=== PATIENT | female | born 1945 | race Caucasian/White ===

== ENCOUNTER 2017-08-17 03:04 | Inpatient (IN) | payer MEDICARE, BC ==
[2017-08-17] MEDS ORDERED: Acetaminophen TAB* 325 MG PO ONE (03:46)
[2017-08-17] MEDS ORDERED: NS 0.9% 1000 ML* 1,000 ML IV ONE ×4 (03:46→11:49)
[2017-08-17] MEDS ORDERED: Levofloxacin 750 MG IVPREMIX(* 750 MG/150 ML BAG IVPB ONE (03:47)
[2017-08-17] MEDS ORDERED: Diltiazem IV* 5 MG/ML 5 ML VIAL (for loading dose/IV Push) (25 MG) IV SLOW PU ONE ×2 (04:20→04:50)
[2017-08-17 04:37] LABS: Hematocrit 31 % (35-47); Hemoglobin 10.4 g/dl (12.0-16.0); INR 1.21 (0.77-1.02); Mean Corpuscular HGB Conc 33 g/dl (31-36); Mean Corpuscular Hemoglobin 30 pg (27-31); Mean Corpuscular Volume 90 fL (80-97); Red Blood Count 3.48 10^6/ul (4.0-5.4); Red Cell Distribution Width 18 % (10.5-15); White Blood Count 11.4 10^3/ul (3.5-10.8)
[2017-08-17 04:38] LABS: ABS Basophils 0.1 10^3/ul (0-0.2); ABS Eosinophils 0 10^3/ul (0-0.6); ABS Lymphocytes 0.4 10^3/ul (1.0-4.8); ABS Monocytes 0.7 10^3/ul (0-0.8); ABS Neutrophils 10.3 10^3/ul (1.5-7.7); ABS Nucleated RBC 0 10^3/ul; Eosinophil % 0.2 % (0-6); Lymphocyte % 3.2 % (25-47); Mean Platelet Volume 8.5 um3 (7.4-10.4); Nucleated Red Blood Cells % 0; Platelet Count 94 10^3/ul (150-450)
[2017-08-17] MEDS ORDERED: Ondansetron INJ* 2 MG/ML VIAL IV ONE (04:40)
[2017-08-17 04:47] LABS: EGFR Non-African American 38.4 (>60)
[2017-08-17] MEDS ORDERED: Diltiazem DRIP* 100 MG/100 ML ADDV.BAG IVPB ONE (04:50)
[2017-08-17] MEDS ORDERED: Enoxaparin(*) 100 MG/ML SYR SUBCUT ONE (04:54)
[2017-08-17] MEDS ORDERED: Aspirin 81 mg CHEW TAB* 81 MG TAB.CHEW PO ONE (04:55)
[2017-08-17] MEDS ORDERED: Vancomycin(*) 1,000 MG in NS 0.9% 250 ML* 250 ML IVPB ONE (04:56)
[2017-08-17 04:58] LABS: Urine Appearance Cloudy; Urine Blood 1+ (Negative); Urine Color Yellow; Urine Ketones Trace (Negative); Urine Protein 2+(100 mg/dL) (Negative); Urine Urobilinogen Positive (Negative)
[2017-08-17] MEDS ORDERED: Al Hydrox/Mg Hydrox/Simet LIQ* 30 ML UDC PO PRN (05:35)
[2017-08-17] MEDS ORDERED: Ondansetron 40 MG VIAL* 2 MG/ML 20 ML VIAL IV PRN (05:35)
[2017-08-17] MEDS ORDERED: Senna TAB PO PRN (05:35)
[2017-08-17] MEDS ORDERED: Docusate CAP* 100 MG PO PRN (05:35)
[2017-08-17] MEDS ORDERED: Magnesium Hydroxide LIQ* 30 ML UDC PO PRN (05:35)
--- NOTE | 2017-08-17 05:38 | ED ---
Alexx Pedro Rebecca, scribed for Patrick Garg MD on 08/17/17 at 0345 . Complex/Multi-Sys Presentation - HPI Summary HPI Summary: Pt is a 72 y/o F BIBA who presents to ED c/o inability to walk. Pt reports waking up at 0200 to urinate when she was able to stand up from bed, but could not walk. Son confirms she had been walking a lot yesterday. Denies fever, dysuria, and any pain, including back pain. Pt typically uses 2 canes to ambulate. - History Of Current Complaint Chief Complaint: EDGeneral Time Seen by Provider: 08/17/17 03:21 Hx Obtained From: Patient, Family/Fitness Trainer - Son Onset/Duration: Sudden Onset, Still Present Severity Currently: None Location: Negative Aggravating Factor(s): Nothing Alleviating Factor(s): Nothing Associated Signs And Symptoms: Positive: Other - Unable to walk. Negative: Dysuria, Fever - Allergies/Home Medications Allergies/Adverse Reactions: Allergies Allergy/AdvReac Type Severity Reaction Status Date / Time iodine dyes Allergy Unknown Uncoded 05/27/14 17:11 Reaction Details PMH/Surg Hx/FS Hx/Imm Hx Endocrine/Hematology History: Reports: Hx Diabetes Denies: Hx Thyroid Disease Cardiovascular History: Reports: Hx Hypertension Respiratory History: Denies: Hx Asthma, Hx Chronic Obstructive Pulmonary Disease (COPD) GI History: Denies: Hx Ulcer - Surgical History Surgery Procedure, Year, and Place: Tonsillectomy. D&Cs. Hernia repair 2007 Infectious Disease History: No Infectious Disease History: Denies: Hx Clostridium Difficile, Hx Hepatitis, Hx Human Immunodeficiency Virus (HIV), Hx of Known/Suspected MRSA, Hx Shingles, Hx Tuberculosis, Hx Known/ Suspected VRE, Hx Known/Suspected VRSA, History Other Infectious Disease, Traveled Outside the [place] in Last 30 Days - Family History Known Family History: Positive: Hypertension, Diabetes - Social History Alcohol Use: None Substance Use Type: Reports: None Substance Use Comment - Amount & Last Used: Took hydrocodone today at 1500 Smoking Status (MU): Never Smoked Tobacco Review of Systems Negative: Fever Negative: dysuria Positive: Other - Unable to walk; NEGATIVE: Pain All Other Systems Reviewed And Are Negative: Yes Physical Exam - Summary Physical Exam Summary: VITAL SIGNS: Reviewed. GENERAL: ~Patient is a morbidly obese female who is lying comfortable in the stretcher. Patient is not in any acute respiratory distress. HEAD AND FACE: No signs of trauma. No ecchymosis, hematomas or skull depressions. No sinus tenderness. EYES: PERRLA, EOMI x 2, No injected conjunctiva, no nystagmus. EARS: Hearing grossly intact. Ear canals and tympanic membranes are within normal limits. MOUTH: Oropharynx within normal limits. NECK: Supple, trachea is midline, no adenopathy, no JVD, no carotid bruit, no c- spine tenderness, neck with full ROM. CHEST: Symmetric, no tenderness at palpation LUNGS: Clear to auscultation bilaterally. No wheezing or crackles. CVS: Tachycardic, S1 and S2 present, no murmurs or gallops appreciated. EXTREMITIES: FROM in all major joints, no cyanosis or clubbing. Bilateral LE edema with venous stasis and chronic skin changes. NEURO: Alert and oriented x 3. No acute neurological deficits. Speech is normal and follows commands. SKIN: Dry and warm Triage Information Reviewed: Yes Vital Signs On Initial Exam: Initial Vitals Temp Pulse Resp BP Pulse Ox 99.9 F 125 20 146/82 96 08/17/17 03:11 08/17/17 03:11 08/17/17 03:11 08/17/17 03:11 08/17/17 03:11 Vital Signs Reviewed: Yes Diagnostics - Vital Signs Vital Signs Temp Pulse Resp BP Pulse Ox 08/17/17 03:11 99.9 F 125 20 146/82 96 - Laboratory Result Diagrams: 08/17/17 04:16 08/17/17 04:16 Lab Statement: Any lab studies that have been ordered have been reviewed, and results considered in the medical decision making process. - Radiology CXR Xray Interpretation: Positive (See Comments) - Right lateral lobe infiltrate, bilateral venous congestion. Official report pending. Radiology Interpretation Completed By: ED Physician - EKG 0408 Cardiac Rate: Tachycardia - 144 bpm EKG Rhythm: Atrial Flutter EKG Interpretation: LAD Re-Evaluation - Re-Evaluation First Eval Re-Evaluation Time: 04:35 Change: Unchanged Second Eval Re-Evaluation Time: 04:49 Comment: Still tachcyardic. Complex Multi-Symp Course/Dx Assessment/Plan: Pt is a 72 y/o F BIBA who presents to ED c/o inability to walk. Pt reports waking up at 0200 to urinate when she was able to stand up from bed, but could not walk. Son confirms she had been walking a lot yesterday. Denies fever, dysuria, and any pain, including back pain. Pt typically uses 2 canes to ambulate. Upon evaluation, she is tachycardic with bilateral LE edema. Blood work and UA were done. Lactic acid of 4.6, troponin of 0.17. EKG is sinus tachy with a flutter. CXR is right lateral lobe infiltrate with bilateral venous congestion. In the ED course, pt received tylenol, ASA, cardizem, diltiazem, lovenox, levaquin, zofran, vancomycin, and fluids. Discussed care of pt with Dr. Hu who accepts pt for admission. Pt will be admitted with Dx of PNA, a fib, and UTI. Critical care time of 40 minutes. Pt was not given the recommended amount of fluid for sepsis due to hypertension and bilateral venous congestion on CXR. - Diagnoses Provider Diagnoses: PNA (pneumonia), A-fib, UTI (urinary tract infection) - Physician Notifications Discussed Care Of Patient With: Divya Hu Time Discussed With Above Provider: 05:01 Instructed by Provider To: Other - Acepts pt for admission. - Critical Care Time Critical Care Time: 30-74 min - 40 minutes. Discharge - Sign-Out/Discharge Documenting (check all that apply): Discharge/Admit/Transfer - Admit - Discharge Plan Condition: Critical Disposition: ADMITTED TO [facility] Referrals: No Primary Care Phys,NOPCP [Primary Care Provider] - The documentation as recorded by the Alexx fritz Rebecca accurately reflects the service I personally performed and the decisions made by me, Patrick Garg MD.
[2017-08-17] MEDS ORDERED: Dextrose 50% Syringe 50 ML* 25 GM/50 ML SYRINGE IV PUSH PRN ×2 (05:57)
[2017-08-17] MEDS ORDERED: Diltiazem DRIP* 100 MG/100 ML ADDV.BAG IVPB SCH (06:00)
[2017-08-17] MEDS ORDERED: Heparin VIAL(*) 5000 UNITS/ML VIAL (FIVE THOUSAND) SUBCUT SCH (06:00)
[2017-08-17] MEDS: Heparin VIAL(*) 5000 UNITS/ML VIAL (FIVE THOUSAND) IV PRN (07:36)
[2017-08-17] MEDS: Heparin DRIP 25,000 UNITS(*) 25,000 UNITS/500 ML BAG IV SCH (07:36)
[2017-08-17] MEDS: Aspirin 81 mg CHEW TAB* 81 MG TAB.CHEW PO SCH (07:44)
--- NOTE | 2017-08-17 08:02 | RAD ---
Indication: Weakness. Single frontal view of the chest performed at 0400 hours was reviewed. Comparison is made with previous exam dated May 27, 2014. Cardiomegaly is noted. Interstitial edema consistent with vascular congestion. No alveolar consolidation is noted. IMPRESSION: CARDIOMEGALY WITH INTERSTITIAL EDEMA CONSISTENT WITH VASCULAR CONGESTION.
--- NOTE | 2017-08-17 08:38 | HP ---
CC: Dr. Vasquez in [place] * HISTORY AND PHYSICAL: DATE OF ADMISSION: 08/17/17 TIME OF EVALUATION: 0500. PRIMARY CARE PHYSICIAN: Dr. Vasquez in [place]. CHIEF COMPLAINT: Inability to ambulate. HISTORY OF PRESENT ILLNESS: This is a 72-year-old female with a past medical history of hypertension and diabetes who presents to the emergency room with difficulty ambulating. The patient states she was out in [place] visiting her family because her [id number] had . She was out there for about 2 weeks and she returned home yesterday afternoon. She was having a hard time ambulating when she got back. When she got up at 2 a.m., she states she was so exhausted and tired that she was not able to stand. She denies falling. She denies any numbness or tingling in her legs. When she came to the emergency room, she was having nausea and vomiting. She denies any shortness of breath or chest pain. She states she is very thirsty and her back is sore from being very uncomfortable on the bed. She denies any abdominal pain. No urinary symptoms. She states she has had chills. No diarrhea. No rash. She states she has chronic lower extremity swelling that has not changed. She states that she had some runny nose earlier and some coughing but has since improved. She states she fell last week at [employer] when the tip of bottom of her cane fell off and she did not realize it and tripped and fell. As mentioned , she just returned from a flight from [place] yesterday. She is also complaining of chills. The patient as mentioned was found to be in rapid atrial fibrillation. She was given a liter of normal saline, Tylenol, and she was given a diltiazem bolus and started on a drip. She was also given Levaquin and Zofran and was referred to the hospitalist service for further evaluation. PAST MEDICAL HISTORY: Hypertension, diabetes, arthritis. MEDICATIONS: The patient states she is on a heart pill, metformin, and many vitamins. ALLERGIES: CONTRAST allergy. FAMILY HISTORY: Mother at age 66 from an OR. Her father at age 75 of unclear etiology. SOCIAL HISTORY: The patient lives alone but she has been staying with her son in [place] because his recently just . She normally ambulates with two canes. No history of smoking, alcohol, or illicit drug use. Her healthcare proxy is her son, Rafael. Code status is full code. REVIEW OF SYSTEMS: A 14-point review of systems as mentioned in the HPI, otherwise negative. PHYSICAL EXAMINATION GENERAL: Elderly female in some mild discomfort and mild respiratory distress. VITAL SIGNS: T-max 99.9, pulse rate 125, respiratory rate 20, oxygen saturation 96% on room air, and blood pressure 146/82. HEENT: Head is normocephalic. Pupils are equal and reactive. Oropharynx: Mucous membranes are dry. NECK: Supple. No lymphadenopathy. RESPIRATORY: Diminished breath sounds. No wheezes, rhonchi, or rales. CARDIAC: Rapid irregularly irregular rate and rhythm. Soft systolic murmur heard throughout. ABDOMEN: Soft, nontender, and nondistended. EXTREMITIES: +1 pretibial edema. She has chronic hemosiderin vascular venous insufficiency with some superficial skin tears. No wounds or rashes. NEUROLOGIC: Alert and oriented x3. No gross focal neurologic deficits. LABORATORY DATA: White count 11.4, hemoglobin 10.4, hematocrit 31, platelets 94. INR is 1.21. Sodium 137, potassium 4.4, chloride 105, bicarb 21, BUN 16, creatinine 1.35, glucose 198, lactic acid 4.6. Troponin 0.17. CRP 0.66. Urine shows positive nitrites, white cells, squamous cells, ketones. RADIOGRAPHIC DATA: Chest x-ray: Cardiomegaly, some prominent interstitial markings on the right side. EKG: Rapid atrial fibrillation with a rate of 144. ASSESSMENT: This is a 72-year-old female with a past medical history of hypertension and diabetes who presents to the emergency room with inability to stand, found to be in rapid atrial fibrillation with metabolic derangements. Rapid atrial fibrillation. Assessment: It is possible the etiology behind this is an infectious source. She has a low-grade temperature; however, there is no obvious source. She does have a white count and she does have pyuria; however, she has no urinary symptoms. It is also possible, which is more likely higher on my differential, it is pulmonary embolism. She just returned from [place], this may be triggering her to be in rapid atrial fibrillation. Could also be an ischemic event. Thought she denies chest pain. Plan: We will admit her to the intensive care unit, continue her on the diltiazem drip. We will continue her on fluids. We will place her on a heparin drip for now. We will check a V/Q scan in the setting of a contrast allergy. Continue to trend her troponin, check an echo and lower extremity Dopplers, and keep her on a baby aspirin as well. We will put her on cefepime for now to rule out any possible infectious organism; however, I am more suspicious for pulmonary embolism as mentioned. CHRONIC MEDICAL PROBLEMS: 1. We will need to obtain her med rec and order her home medications accordingly. For her diabetes, we will place her on a lispro sliding scale and check a hemoglobin A1c. 2. Acute kidney injury likely in the setting of her rapid atrial fibrillation and volume depletion. We will renally dose her meds, give her fluids, and repeat her labs in the morning. 3. Elevated troponin. I suspect this is demand ischemia in the setting of a rapid atrial fibrillation and possibly an underlying pulmonary embolism. She does not have any chest pain or shortness of breath. She will be on a heparin drip, on a baby aspirin. We will trend her troponin and check an echocardiogram. 4. FEN. We will place her on a clear liquid diet in the setting of her nausea and vomiting, advance as tolerated. 5. DVT prophylaxis. The patient scores high risk. She will be on a heparin drip. 6. Code status. The patient confirmed she is a full code. PATIENT TIME: Greater than 60 minutes was spent doing the history and physical , more than half the time was spent in direct patient contact. [id number]/[facility] #: [id number] MITESH
--- NOTE | 2017-08-17 09:32 | ECHO ---
Patient: MELANY OSBORN [facility] Rec#: [id number] : 1945 Date: 08/17/2017 Age: 72y Height: 172.72 cm / 68.0 in Weight: 108.86 kg / 239.9 lbs Sex: F BSA: 2.21 Room#: ICU 1 Admit Date#: 08/17/2017 Type: Inpatient Referring: Divya Hu Reading: Joe Nunez MD Lump Room Supervisor: Rosibel Vasquez,RDCS,RDMS Transthoracic Echocardiogram Indication: Afib, elevated TROP BP: 97/51 HR: 115 Rhythm: A-Fib Findings History: DM, HTN Technical Comments: The study quality is good. Left Ventricle: The left ventricular chamber size is normal. Moderate to severe concentric left ventricular hypertrophy is observed. There are multiple regional wall motion abnormalities. The estimated ejection fraction is 30-35%. The assessment of diastolic function is non-diagnostic. The mid anterior, mid inferoseptal, apical septal, and apical inferior wall segments are hypokinetic (score 2). The apical anterior, and apical lateral wall segments are akinetic (score 3). Overall wallmotion score index is 2.33 Left Atrium: The left atrium is severely dilated. Right Ventricle: The right ventricle is mild to moderately dilated. The right ventricular global systolic function is normal. Right Atrium: The right atrial cavity size is severely dilated. Aortic Valve: The aortic valve is trileaflet. The aortic valve leaflets are mildly thickened. There is aortic annular calcification. There is no evidence of aortic regurgitation. There is no evidence of aortic stenosis. Mitral Valve: Mild mitral annular calcification present. There is mild to moderate mitral regurgitation. There is no evidence of mitral stenosis. Tricuspid Valve: The tricuspid valve leaflets are normal. There is moderate to severe tricuspid regurgitation. The right ventricular systolic pressure is estimated at 43 mmHg. There is evidence that pulmonary hypertension may be underestimated. Pulmonic Valve: The pulmonic valve appears normal. There is a trace pulmonic regurgitation. Pericardium: There is no significant pericardial effusion. A pericardial fat pad is visualized. Aorta: The aortic root appears normal. There is no dilatation of the aortic arch. Pulmonary Artery: The main pulmonary artery appears normal. Venous: The inferior vena cava is dilated. There is no change in the dimension of the inferior vena cava with respiration consistent with markedly increased right atrial pressure. Summary: There was not any prior study for comparison. Conclusions The estimated ejection fraction is 30-35%. There are multiple regional wall motion abnormalities. The mid anterior, mid inferoseptal, apical septal, and apical inferior wall segments are hypokinetic (score 2). The apical anterior, and apical lateral wall segments are akinetic (score 3). Moderate to severe concentric left ventricular hypertrophy is observed. There is no evidence of aortic stenosis. There is mild to moderate mitral regurgitation. There is moderate to severe tricuspid regurgitation. The right ventricular systolic pressure is estimated at 43 mmHg. There is no significant pericardial effusion. Measurements Name Value Normal Range RVIDd (AP) 2D 3.6 cm (0.9 - 2.6) RVDdMajor (2D) 4.8 cm (2.2 - 4.4) RAd ISD 4CH 6.8 cm (3.4 - 4.9) RA (A4C)W 5.8 cm (2.9 - 4.6) IVSd (2D) 1.8 cm (0.6 - 1) LVPWd (2D) 1.6 cm (0.6 - 1) LVIDd (2D) 4.7 cm (3.6 - 5.4) LVIDs (2D) 3.6 cm - LV FS (2D) 24 % (25 - 45) Aortic Annulus 2.3 cm (1.4 - 2.6) Ao root diameter (2D) 2.8 cm (2.1 - 3.5) Ascending Ao 3.2 cm (2.1 - 3.4) Aortic arch 3.4 cm (1.8 - 3.4) LA dimension (AP) 2D 5.7 cm (2.3 - 3.8) LAd ISD 4CH 6.4 cm (2.9 - 5.3) LA ISD 4CH W 5.1 cm (2.5 - 4.5) Name Value Normal Range LA ESV SP 4CH (A/L) 156.4 ml - LA ESV SP 2CH (A/L) 183.33 ml - LA ESV BP (A/L) 173.97 ml - LA ESV BP (A/L) index 79 ml/m2 - LA ESV SP 4CH (MOD) 144.53 ml - LA ESV SP 2CH (MOD) 175.4 ml - Name Value Normal Range MV E-wave Vmax 0.8 m/sec - MV deceleration time 144 msec - LV septal e' Vmax 0.05 m/sec - LV lateral e' Vmax 0.1 m/sec - LV E:e' septal ratio 17 ratio - LV E:e' lateral ratio 8 ratio - Name Value Normal Range AV Vmax 1 m/sec - AV peak gradient 4 mmHg - LVOT Vmax 0.9 m/sec - LVOT peak gradient 3.2 mmHg - ALEX Vmax 0.6 m/sec - Name Value Normal Range MR Vmax 4.2 m/sec - MR VTI 97 cm - MR volume (PISA) 13 ml - MR flow (PISA) 67 ml/sec - MR ERO 1.4 cm2 - MR PISA radius 0.5 cm - MR alias Vmax 37 cm/sec - Name Value Normal Range TR Vmax 2.4 m/sec - TR peak gradient 23 mmHg - RAP 20 mmHg - RVSP 43 mmHg - IVC diameter 3.2 cm - Name Value Normal Range PV Vmax 0.7 m/sec - PV peak gradient 2 mmHg - Wallmotion BAS Not Seen BA Not Seen BAL Not Seen MEGHNA Not Seen BI Not Seen BIS Not Seen MAS Not Seen MA Hypokinetic MAL Not Seen MIL Not Seen MD Not Seen MIS Hypokinetic Hypokinetic AA Akinetic AL Akinetic AI Hypokinetic APEX Akinetic
[2017-08-17] MEDS: Insulin LISPRO* 1 UNITS UNIT SUBCUT SCH ×6 (09:35→18:23)
[2017-08-17] MEDS: Metoprolol Tartrate TAB* 25 MG PO SCH ×2 (09:36→17:17)
--- NOTE | 2017-08-17 11:09 | PN ---
Hospitalist Progress Note Date of Service: 08/17/17 I have seen and examined Ms. Latham and assume her care today. She feels fine this morning and has no complaints Cardizem drip not started this morning due to hypotension; metoprolol 12.5mg given po with good response. BP 90s/60s, HR 90s, on room air when I saw her this morning. 1. afib with rvr, now resolved s/p cardizem in the ED. Would avoid CCB now and continue metoprolol (depressed ef on new TTE this morning). Heparin drip (with close monitoring, she says she was on a blood thinner 10 years ago but does not know why, and that she "lost all her blood" but does not know how, says she never had a gi bleed or other hemorrhage). Etiology is unclear--infectious vs. pe vs. dilated atria. No old ekgs, unclear if this is new or old. 2. depressed ef, 30% with RWMA. Also with elevated troponins, I cannot rule out this being acute; appreciate cardiology input regarding ischemic work up. The elevated lactate and hypotension are concerning for low output heart failure , but may also represent sepsis. She has also had significant personal stressors in her life recently, so a stress induced cardiomyopathy should also be in the differential. 3. NSTEMI. again, I cannot rule out ACS given elevated troponins, TWIs anteriorly without an old ekg for comparison, and new RWMA. she has had no chest pain whatsoever. she is on heparin drip for afib and bb as well. will add statin. 4. sepsis. urinary source, on broad spectrum abx for now. will f/u cultures.
[2017-08-17] MEDS ORDERED: Norepinephrine 16MCG/ML IVPRE* 4,000 MCG/250 ML BAG IV SCH (12:00)
--- NOTE | 2017-08-17 12:14 | RAD ---
INDICATION: Pain and swelling. COMPARISON: None TECHNIQUE: Duplex interrogation of the both lower extremities was performed. FINDINGS: Deep veins: The common femoral, great saphenous, profunda femoris, proximal, mid, and distal deep femoral, popliteal, posterior tibial, and peroneal veins are patent. There is normal compressibility, augmentation, and phasic flow. There is mildly limited evaluation of peroneal veins due to dependent edema and there is mildly limited evaluation of the right femoral vein at the adductor canal. Superficial veins: There are no findings of superficial thrombophlebitis. Popliteal fossa:There is no evidence of a popliteal cyst. Soft tissues:There are no soft tissue abnormalities. IMPRESSION: MILDLY LIMITED EXAMINATION. NO evidence of deep venous thrombosis
[2017-08-17] MEDS ORDERED: NS 0.9% 1000 ML* 1,000 ML IV SCH (12:15)
--- NOTE | 2017-08-17 12:40 | CONSULT ---
Consult Consult: CRITICAL CARE MEDICINE DATE: 08/17/17 TIME: 1145 PRIMARY CARE PROVIDER: Pedro REFERRING PROVIDER: Ashley REASON/CHIEF COMPLAINT: shock HISTORY OF PRESENT ILLNESS: 72 F with h/o DM, htn presenting with overall weakness and concern for NSTEMI with depressed EF, afib with rvr, rome, lactic acidosis questionable uti sepsis. Received abx, about 2L IVF, and troponin trend inc with slow clearing LA. BP has remained on low side although pt clinically tolerating. cards consulted. ICU asked to eval. REVIEW OF SYSTEMS: As per HPI. Returned from [place] yesterday after spending time with family after her daughter in laws . She admits stress level is overwhelming. had recent mechanical fall at [employer]. PAST MEDICAL HISTORY: As per HPI. arthritis MEDICATIONS: Reviewed but unconfirmed. metformin on list. ALLERGIES: Reviewed. SOCIAL HISTORY: Reviewed. FAMILY HISTORY: Noncontributory at present. PHYSICAL EXAM: Vital Signs: Reviewed. Neurologic: lethargic. communicates appropriately but then quick to sleep. otherwise pleasant. medrano. HEENT: anciteric. mmm Cardiovascular: couldn't appreciate m nor gallop; reg now with HR 60s Respiratory: fine crackles at bases with mild increased rr and morphology of obese respirations Abdomen: obese, soft nt Extremities: extensive venous stasis and chronic skin changes of LE with edema. cold distally Access: piv LABS: Reviewed. IMAGING: Reviewed. MEDICATIONS: Reviewed. ASSESSMENT: 72 F Cardiogenic shock - acting like a stress cardiomyopathy Certainly ischemic cad hasn't been ruled out yet She presented with afib rvr. could have been tachy induced over time if unrecognized. Now she has signs of likely chronic Right heart ailments and venous stasis. le duplex pending. PE in differencial but unlikely a PE burden and further RV pressure overload leading to left sided failure, but perhaps could still be present and making things worse I guess but its probablity is less then the above DDx Not acting septic, yet very mild ua and on C4 currently. She has low level perfusion and needs further reserve. I think her vol status is close to met but given degree of underlying venous capacity and R heart ailments, I'm going to bolus a liter ns now and then hold back on fluids unless responsive. She needs low dose vasopressor support. place picc. Not wanting inotropic beta in case of takotsubo, but now that Hr low end and may be ok now to just utilize levophed to see if we can support a better perfusion curve will things are sorted. Neosynephrine instead if tachy induced ailments but care with afterload. On heparin. Cards will be evaluating. Claire resp standpoint but may earn supplement O2 her as we don't need her producing more acid if she starts to fall behind anymore here. Abx per primary seem adequate at present Supportive and preventative care as ordered. SUP: ppi VTE prophylaxis: on heparin gtt Garcia catheter given critical illness Disposition: ICU Code Status: Full Critical Care Time: 45min Baltazar Guzman,
[2017-08-17] MEDS: Acetaminophen TAB* 325 MG PO PRN (13:43)
--- NOTE | 2017-08-17 14:05 | RAD ---
Indication: Verify PICC placement. Single frontal view of the chest performed at 1340 hours was reviewed. Comparison is made with previous exam dated August 17, 2017. Cardiomegaly is noted. Mild interstitial edema is noted slightly improved to that seen on August 17, 2017. No alveolar consolidation is noted. Right-sided PICC line is in the atrial caval junction. IMPRESSION: CARDIOMEGALY. MILD VASCULAR CONGESTION APPEARS TO BE IMPROVED SINCE PREVIOUS EXAM.
[2017-08-17] MEDS: Cefepime 1 GM in Dextrose(*) 1 GM/50 ML BAG IV SCH (15:17)
[2017-08-17] MEDS: Atorvastatin* 40 MG TAB PO SCH (17:17)
[2017-08-18] MEDS: Metoprolol Tartrate TAB* 25 MG PO SCH ×3 (00:58→17:25)
[2017-08-18] MEDS: Heparin DRIP 25,000 UNITS(*) 25,000 UNITS/500 ML BAG IV SCH (02:49)
[2017-08-18] MEDS: Cefepime 1 GM in Dextrose(*) 1 GM/50 ML BAG IV SCH (02:49)
--- NOTE | 2017-08-18 03:20 | CONS ---
CC: Dr. Vasquez in [place] * CARDIOLOGY CONSULTATION: DATE OF CONSULT: 08/17/17 INDICATION FOR CONSULTATION: Atrial fibrillation, cardiomyopathy, congestive heart failure. HISTORY OF PRESENT ILLNESS: The patient is a 72-year-old woman, who was admitted to the hospital because of profound fatigue and congestive heart failure. The patient states that she has been out in [place] for the past 2 weeks for the services for her [id number]. The patient said that the trip was quite tiring and she got home from [place] recently. The patient states that she got out of bed at 2 o'clock in the morning and was unable to stand or walk without profound fatigue. At that time, she called the ambulance. On arrival of the ambulance, the patient was in atrial fibrillation with rapid ventricular response. Her blood pressure was normal. The patient was admitted to the hospital for her atrial fibrillation and rapid ventricular response. This morning, the patient underwent an echocardiogram which showed moderate LV dysfunction, ejection fraction of 35% with apical, anteroapical, and anterolateral hypokinesis. No significant valvular abnormality. The patient's laboratory studies show elevation in troponin level of 2.15 and then subsequently 4.74. The patient is a very difficult historian. She is unable to give very accurate history of her medical care. The patient denies any history of atrial fibrillation. We got records from her primary care physician, who states that the patient is in chronic atrial fibrillation and the patient is not on anticoagulation because of a history of severe GI bleeds. The patient has no knowledge of this. OUTPATIENT MEDICATIONS: 1. Digoxin 125 mcg a day. 2. Lasix 40 mg a day. 3. Januvia 100 mg a day. 4. Metformin 500 mg b.i.d. 5. Metoprolol tartrate 12.5 mg b.i.d. 6. Simvastatin 40 mg a day. 7. Pantoprazole 40 mg a day. 8. Vitamin B12. ALLERGIES: IV CONTRAST, both oral and IV. SOCIAL HISTORY: The patient lives alone. Her son is in the patient's room, but unable to give any of her medical history as they do not share medical information. There is no report of alcohol or tobacco use. REVIEW OF SYSTEMS: Could not be obtained. PHYSICAL EXAM: Vital Signs: Height is 5 feet 8 inches, weight is 109 pounds. Blood pressure 128/66, heart rate is 67, respiratory rate is 19, temperature 97.5. Sclerae anicteric. Oropharynx is pink without erythema. Carotids are 2+ without bruits. JVD is normal. Thyroid is normal. Cardiac Exam: S1, S2 without any murmurs, rubs or gallops. Lungs: Clear to auscultation bilaterally. There is no dullness to percussion. Abdomen is soft, nontender, nondistended with normoactive bowel sounds. Extremities show no edema. She has 2+ pulses throughout. The patient is awake and alert. She is not oriented. The patient is unable to give any significant medical history. DIAGNOSTIC STUDIES/LAB DATA: Chemistries within normal limits. BUN 16, creatinine 1.35. Her creatinine in 2015 was 1.1. Troponin level 0.17, then 0.25, and then 4.7. BNP is 427. TSH is pending. EKG on arrival demonstrated atrial fibrillation with rapid ventricular response. Heart rate is 146. Repeat EKG demonstrates atrial fibrillation at 60 beats per minute. No clear ST-T wave abnormalities. IMPRESSION AND PLAN: This is a 72-year-old woman with a history of hypertension , diabetes, and possible chronic atrial fibrillation, who is admitted to the hospital with atrial fibrillation with rapid ventricular response, left ventricular dysfunction, and elevated troponin level. At this point, it is unclear what the patient's true medical status is. The patient could have had new onset of atrial fibrillation with rapid ventricular response and subsequent left ventricular dysfunction. However, her primary care note states that the patient is in chronic atrial fibrillation. She is on digoxin as an outpatient. The patient did have a long plane trip back from [place]. It is possible that the patient had pulmonary embolism which set off her atrial fibrillation. Also, the patient could have Takotsubo's with her left ventricular dysfunction and elevated troponin levels. For now, the patient is on Coumadin. Her heart rate is back to reasonable control. Her blood pressure is now stabilized. At this point, I think continuing on heparin is appropriate. At some point, we may need to do a transesophageal echocardiogram; however, it is proven that the patient has chronic atrial fibrillation that I do not think any other workup is necessary. The patient does have positive troponins and left ventricular dysfunction. The patient should be strongly considered for cardiac catheterization; however, she does have a history of IV DYE allergy that needs to be explored. I will continue to follow the patient during her hospitalization. [id number]/[facility] #: [id number] MITESH
[2017-08-18 04:29] LABS: ABS Basophils 0.1 10^3/ul (0-0.2); ABS Eosinophils 0.1 10^3/ul (0-0.6); ABS Lymphocytes 0.9 10^3/ul (1.0-4.8); ABS Nucleated RBC 0 10^3/ul; Eosinophil % 0.5 % (0-6); Hematocrit 26 % (35-47); Hemoglobin 8.8 g/dl (12.0-16.0); Mean Corpuscular HGB Conc 34 g/dl (31-36); Mean Corpuscular Hemoglobin 30 pg (27-31); Mean Corpuscular Volume 89 fL (80-97); Mean Platelet Volume 8.4 um3 (7.4-10.4); Nucleated Red Blood Cells % 0; Platelet Count 81 10^3/ul (150-450); Red Blood Count 2.94 10^6/ul (4.0-5.4); Red Cell Distribution Width 18 % (10.5-15)
[2017-08-18 04:42] LABS: EGFR Non-African American 28.3 (>60)
[2017-08-18] MEDS: Insulin LISPRO* 1 UNITS UNIT SUBCUT SCH ×6 (07:47→19:08)
[2017-08-18] MEDS: Aspirin 81 mg CHEW TAB* 81 MG TAB.CHEW PO SCH (07:59)
[2017-08-18] MEDS ORDERED: Magnesium Sulfate 2 GM IV* 2 GM/50 ML BAG IVPB ONE (10:01)
[2017-08-18] MEDS: cefTRIAXone(*) 2 GM in NS 0.9% 100 ML* 100 ML IVPB SCH (11:28)
--- NOTE | 2017-08-18 12:19 | RAD ---
INDICATION: Atrial fibrillation. COMPARISON: Comparison is made with a prior study from one day earlier. TECHNIQUE: A portable view of the chest was obtained. FINDINGS: The heart is moderately enlarged and unchanged. There is a PICC present on the right side which demonstrates normal course. There is mild diffuse prominence of the interstitial markings and trace bilateral pleural effusions which appear unchanged. IMPRESSION: FINDINGS SUGGESTIVE OF CONGESTIVE HEART FAILURE, UNCHANGED.
--- NOTE | 2017-08-18 12:54 | RAD ---
Indication: Evaluate for pulmonary embolus. Shortness of breath. Ventilation scan was performed after aerosol administration of 10.4 mCi of xenon-133. 6.4 mCi of technetium 99m macroaggregated albumin was injected for the perfusion portion of the study. Correlation is made with recent chest x-ray. No evidence of wedge-shaped segmental or subsegmental perfusion effects are identified on the perfusion lung scan. There is a large rounded defect in the left lung base consistent with cardiomegaly. The ventilation scan demonstrates no evidence of air trapping. IMPRESSION: No evidence of ventilation perfusion mismatches to suggest pulmonary embolus. This is a low probability scan for pulmonary embolus. There is cardiomegaly noted.
--- NOTE | 2017-08-18 13:07 | PN ---
Subjective Date of Service: 08/18/17 Interval History: levophed stopped at 4am, and has been normotensive since then. No complaints today, says she walked from the bed to the chair with little assistance. No chest pain, shortness of breath, palpitations. Remains in afib on tele in the 60s. No bleeding. Family History: Unchanged from Admission Social History: Unchanged from Admission Objective Active Medications: Acetaminophen (Tylenol Tab*) 650 mg PO Q4H PRN PRN Reason: FEVER/PAIN Last Admin: 08/17/17 13:43 Dose: 650 mg Al Hydrox/Mg Hydrox/Simethicone (Maalox Plus*) 30 ml PO Q6H PRN PRN Reason: INDIGESTION Aspirin (Aspirin 81 Mg Chew Tab*) 81 mg PO DAILY [facility] Last Admin: 08/18/17 07:59 Dose: 81 mg Atorvastatin Calcium (Lipitor*) 40 mg PO 1700 [facility] Last Admin: 08/17/17 17:17 Dose: 40 mg Dextrose (D50w Syringe 50 Ml*) 12.5 gm IV PUSH .FOR FS < 60 - SS PRN PRN Reason: FS < 60 Docusate Sodium (Colace Cap*) 100 mg PO BID PRN PRN Reason: CONSTIPATION Heparin Sodium (Porcine) (Heparin Vial(*)) 0 units IV .BOLUS PRN PRN PRN Reason: HEPARIN DRIP PROTOCOL Last Admin: 08/17/17 07:36 Dose: 6,150 units Heparin Sodium (Porcine) (Heparin Flush Picc/Ml/Cvc(*)) 1 - 3 ml FLUSH 0600, 1800 [facility] PRN Reason: Protocol Last Admin: 08/18/17 06:16 Dose: Not Given Heparin Sodium/Dextrose (Heparin Drip 25,000 Units(*)) 25,000 units in 500 mls @ 0 mls/hr IV PER RATE KYLEE; Per Protocol PRN Reason: Protocol Last Admin: 08/18/17 02:49 Dose: 25 mls/hr Sodium Chloride (Ns 0.9% 1000 Ml*) 1,000 mls @ 0 mls/hr IV KVO KYLEE PRN Reason: KVO Ceftriaxone Sodium 2 gm/ (Sodium Chloride) 100 mls @ 200 mls/hr IVPB Q24H [facility] Last Admin: 08/18/17 11:28 Dose: 200 mls/hr Insulin Human Lispro (Humalog*) 0 units SUBCUT [facility] PRN Reason: Protocol Last Admin: 08/18/17 09:28 Dose: 2 units Insulin Human Lispro (Humalog*) 0 units SUBCUT [facility] PRN Reason: Protocol Last Admin: 08/18/17 07:47 Dose: Not Given Magnesium Hydroxide (Milk Of Magnesia Liq*) 30 ml PO Q4H PRN PRN Reason: CONSTIPATION Metoprolol Tartrate (Lopressor Tab*) 12.5 mg PO Q8H [facility] Last Admin: 08/18/17 07:59 Dose: Not Given Ondansetron HCl (Zofran Inj*) 4 mg IV Q4H PRN PRN Reason: NAUSEA/VOMITING Last Admin: 08/17/17 12:18 Dose: 4 mg Senna (Senokot Tab*) 1 tab PO BID PRN PRN Reason: CONSTIPATION Vital Signs - 8 hr 08/18/17 08/18/17 08/18/17 05:08 05:15 05:30 Temperature 99.3 F 99.3 F 99.3 F Pulse Rate 57 Respiratory 24 23 23 Rate Blood Pressure 102/55 95/52 99/58 (mmHg) O2 Sat by Pulse 92 93 98 Oximetry 08/18/17 08/18/17 08/18/17 05:45 06:00 06:16 Temperature 99.3 F 99.3 F 99.3 F Pulse Rate 66 66 65 Respiratory 24 24 25 Rate Blood Pressure 98/61 100/55 102/58 (mmHg) O2 Sat by Pulse 93 90 92 Oximetry 08/18/17 08/18/17 08/18/17 06:30 06:45 07:00 Temperature 99.3 F 99.3 F 99.1 F Pulse Rate 60 67 62 Respiratory 19 26 23 Rate Blood Pressure 110/59 105/62 102/59 (mmHg) O2 Sat by Pulse 91 90 92 Oximetry 08/18/17 08/18/17 08/18/17 07:15 07:43 07:45 Temperature 99.3 F 99.3 F 99.3 F Pulse Rate 57 73 70 Respiratory 27 20 22 Rate Blood Pressure 96/56 100/65 104/56 (mmHg) O2 Sat by Pulse 91 95 94 Oximetry 08/18/17 08/18/17 08/18/17 08:00 08:01 08:16 Temperature 99.3 F 99.3 F 99.3 F Pulse Rate 71 66 Respiratory 21 24 26 Rate Blood Pressure 108/55 120/56 (mmHg) O2 Sat by Pulse 96 96 Oximetry 08/18/17 08/18/17 08/18/17 08:31 09:00 09:01 Temperature 99.3 F 99.3 F 99.3 F Pulse Rate 64 75 Respiratory 22 22 23 Rate Blood Pressure 114/62 114/72 (mmHg) O2 Sat by Pulse 95 96 Oximetry 08/18/17 08/18/17 08/18/17 09:16 09:31 09:45 Temperature 99.5 F 99.5 F 99.7 F Pulse Rate 80 82 70 Respiratory 18 19 17 Rate Blood Pressure 104/64 110/65 109/52 (mmHg) O2 Sat by Pulse 96 89 94 Oximetry 08/18/17 08/18/17 08/18/17 10:00 10:15 10:30 Temperature 99.7 F 99.7 F 99.7 F Pulse Rate 75 86 73 Respiratory 15 19 17 Rate Blood Pressure 108/61 118/60 104/50 (mmHg) O2 Sat by Pulse 96 95 95 Oximetry 08/18/17 08/18/17 10:45 11:00 Temperature 99.7 F 99.7 F Pulse Rate 78 77 Respiratory 25 22 Rate Blood Pressure 101/60 109/45 (mmHg) O2 Sat by Pulse 95 95 Oximetry Oxygen Devices in Use Now: None Appearance: alert, sitting up in chair, no distress Eyes: No Scleral Icterus Ears/Nose/Mouth/Throat: NL Teeth, Lips, Gums Neck: NL Appearance and Movements; NL JVP, - - flat jugular veins Respiratory: Symmetrical Chest Expansion and Respiratory Effort, Clear to Auscultation Cardiovascular: - - irregular rhtyhm, no murmurs Lymphatic: No Cervical Adenopathy Extremities: - - chronic venous stasis changes with 1+ edema b/l. pulses dopplerable. Neurological: Alert and Oriented x 3 Result Diagrams: 08/18/17 04:15 08/18/17 04:15 Microbiology and Other Data: Microbiology 08/17/17 08:45 Nasal Screen MRSA (PCR)(SERGIO) - Final Nasal Mrsa Not Detected Assess/Plan/Problems-Billing Assessment: 72 yo female with history of HTn and DM who presented after a flight to [place] with inability to walk, found to have depressed ejection fraction with elevated troponins. - Patient Problems (1) Depressed left ventricular ejection fraction Current Visit: Yes Status: Acute Code(s): R09.89 - OTH SYMPTOMS AND SIGNS INVOLVING THE CIRC AND RESP SYSTEMS SNOMED Code(s): 380412540 Comment: with regional wall motion abnormalities continue asa/statin, bb. would benefit from JAME once bp higher etiology is broad, suspect stress CM is likely, however ischemic CM also possible but never had chest pain (2) NSTEMI (non-ST elevated myocardial infarction) Current Visit: Yes Status: Acute Code(s): I21.4 - NON-ST ELEVATION (NSTEMI) MYOCARDIAL INFARCTION SNOMED Code(s): 504454580 Comment: suspect takotsubo's caridomyopathy, however appreciate cardiology input on ischemic evaluation (h/o dye allergy) (3) Diabetes mellitus Current Visit: Yes Status: Acute Code(s): E11.9 - TYPE 2 DIABETES MELLITUS WITHOUT COMPLICATIONS SNOMED Code(s): 88861960 Comment: sliding scale (4) Atrial fibrillation Current Visit: Yes Status: Acute Code(s): I48.91 - UNSPECIFIED ATRIAL FIBRILLATION SNOMED Code(s): 64976019 Comment: with RVR at admission, now rate controlled per PCP records, this is chronic with history of GI bleeds would favor DCing AC after 48 hours for treatment of NSTEMI given her history of bleeds (5) Streptococcal bacteremia Current Visit: Yes Status: Acute Code(s): R78.81 - BACTEREMIA; B95.5 - UNSP STREPTOCOCCUS THE CAUSE OF DISEASES CLASSD [facility] SNOMED Code(s): 296538864364 Comment: repeat blood cultures tomorrow continue cefepime I suspect the source is likely lower extremity skin breaks? (6) UTI (urinary tract infection) Current Visit: Yes Status: Acute Comment: e. coli; follow up sensitivities
--- NOTE | 2017-08-18 14:19 | PN ---
Progress Note - Progress Note Date of Service: 08/18/17 Note: CRITICAL CARE MEDICINE DATE: 08/18/17 TIME: 1245 SUBJECTIVE: Patient seen and examined. Better overall. PHYSICAL EXAM: Vital Signs: Reviewed. Neurologic: better status and maintaining. HEENT: anciteric. mmm Cardiovascular: reg Respiratory: fine crackles at bases but tolerating on ra. Abdomen: obese, soft nt Extremities: extensive venous stasis and chronic skin changes of LE with edema. warmer Access: piv LABS: Reviewed. IMAGING: Reviewed. MEDICATIONS: Reviewed. ASSESSMENT: 72 F Cardiogenic shock - resolved Acting like a stress cardiomyopathy Cellulitis PLAN: Neurologic: better. Cardiovascular: perfusing. cards f/u. cardiac regimen. chronic afib per records. not on anticoag sec to gib. rate control. cad eval? Respiratory: tolerating on ra. doing well there. Gastrointestinal: po. 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 Infectious Disease: de-escalate to C3 and f/u sens. cellulits > uti but tx both. Hematology: f/u low end plts. Endocrine: f/u dm care. Musculoskeletal: oob. f/u le needs Psych/Social: f/u social needs Supportive and preventative care as ordered. Disposition: ok from icu for floor with tele but will defer to med/cards planning Code Status: Full Critical Care Time: 25min Baltazar Guzman DO
[2017-08-18] MEDS: Atorvastatin* 40 MG TAB PO SCH (17:23)
[2017-08-18] MEDS: Heparin VIAL(*) 5000 UNITS/ML VIAL (FIVE THOUSAND) IV PRN (17:56)
[2017-08-19] MEDS ORDERED: Heparin DRIP 25,000 UNITS(*) 25,000 UNITS/500 ML BAG IV SCH (00:26)
[2017-08-19] MEDS: Metoprolol Tartrate TAB* 25 MG PO SCH ×3 (00:52→17:24)
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
[2017-08-19 08:47] LABS: ABS Basophils 0 10^3/ul (0-0.2); ABS Eosinophils 0.1 10^3/ul (0-0.6); ABS Lymphocytes 0.6 10^3/ul (1.0-4.8); ABS Monocytes 0.6 10^3/ul (0-0.8); ABS Neutrophils 4.4 10^3/ul (1.5-7.7); Hematocrit 25 % (35-47); Hemoglobin 8.4 g/dl (12.0-16.0); Mean Corpuscular HGB Conc 33 g/dl (31-36); Mean Corpuscular Hemoglobin 30 pg (27-31); Mean Corpuscular Volume 89 fL (80-97); Mean Platelet Volume 8.8 um3 (7.4-10.4); Platelet Count 74 10^3/ul (150-450); Red Blood Count 2.85 10^6/ul (4.0-5.4); Red Cell Distribution Width 18 % (10.5-15); White Blood Count 5.8 10^3/ul (3.5-10.8)
[2017-08-19 08:59] LABS: EGFR Non-African American 37.2 (>60)
[2017-08-19 09:27] LABS: Monocytes % 4 % (0-7)
[2017-08-19] MEDS: Acetaminophen TAB* 325 MG PO PRN ×3 (09:41→21:45)
[2017-08-19] MEDS: Lisinopril TAB* 5 MG PO SCH (09:42)
[2017-08-19] MEDS: Aspirin 81 mg CHEW TAB* 81 MG TAB.CHEW PO SCH (09:42)
[2017-08-19] MEDS: CMC:SitaGLIPtin (NF) 100 MG TAB PO SCH (09:42)
[2017-08-19] MEDS: Insulin LISPRO* 1 UNITS UNIT SUBCUT SCH ×6 (10:15→18:43)
[2017-08-19] MEDS: cefTRIAXone(*) 2 GM in NS 0.9% 100 ML* 100 ML IVPB SCH (10:27)
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
[2017-08-19] MEDS: Heparin VIAL(*) 5000 UNITS/ML VIAL (FIVE THOUSAND) IV PRN (13:55)
[2017-08-19] MEDS ORDERED: Atorvastatin* 80 MG TAB PO SCH (17:00)
[2017-08-19] MEDS: Apixaban* 5 MG TAB PO SCH (20:49)
[2017-08-20] MEDS: Metoprolol Tartrate TAB* 25 MG PO SCH ×2 (00:25→08:52)
[2017-08-20 04:03] VITALS: BP 109/72
[2017-08-20 06:04] LABS: EGFR Non-African American 40.2 (>60)
[2017-08-20 06:06] LABS: ABS Basophils 0.1 10^3/ul (0-0.2); ABS Eosinophils 0.2 10^3/ul (0-0.6); ABS Lymphocytes 0.8 10^3/ul (1.0-4.8); ABS Monocytes 0.6 10^3/ul (0-0.8); ABS Neutrophils 3.5 10^3/ul (1.5-7.7); ABS Nucleated RBC 0 10^3/ul; Eosinophil % 4.5 % (0-6); Hematocrit 25 % (35-47); Hemoglobin 8.4 g/dl (12.0-16.0); Mean Corpuscular HGB Conc 33 g/dl (31-36); Mean Corpuscular Hemoglobin 30 pg (27-31); Mean Corpuscular Volume 89 fL (80-97); Nucleated Red Blood Cells % 0; Platelet Count 83 10^3/ul (150-450); Red Blood Count 2.84 10^6/ul (4.0-5.4); Red Cell Distribution Width 18 % (10.5-15); White Blood Count 5.3 10^3/ul (3.5-10.8)
--- NOTE | 2017-08-20 08:28 | PN ---
Progress Note - Progress Note Date of Service: 08/20/17 Note: Time spent on discharge 50 minutes.
[2017-08-20] MEDS: Insulin LISPRO* 1 UNITS UNIT SUBCUT SCH ×4 (08:47→14:07)
[2017-08-20] MEDS: Aspirin 81 mg CHEW TAB* 81 MG TAB.CHEW PO SCH (08:51)
[2017-08-20] MEDS: Apixaban* 5 MG TAB PO SCH (08:51)
[2017-08-20] MEDS: Lisinopril TAB* 5 MG PO SCH (08:52)
[2017-08-20] MEDS: CMC:SitaGLIPtin (NF) 100 MG TAB PO SCH (08:52)
[2017-08-20] MEDS ORDERED: ceFUROXime TAB(*) 250 MG PO SCH (09:00)
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
== END 2017-08-20 15:00 | disposition home health service (06) | DRG 280 ==
LOC: ED 03:04 → ICU 05:35
PROVIDERS: ADMIT Pediatrics; ATTEND Internal Medicine
PROC: 3E033XZ Introduction of Vasopressor into Peripheral Vein, Percutaneous Approach (ICD-10-PCS; principal; 2017-08-18)
PROC: 02HV33Z Insertion of Infusion Device into Superior Vena Cava, Percutaneous Approach (ICD-10-PCS; 2017-08-19)
DX: I21.4 Non-ST elevation (NSTEMI) myocardial infarction (principal); R57.0 Cardiogenic shock; N17.9 Acute kidney failure, unspecified; I42.9 Cardiomyopathy, unspecified; N39.0 Urinary tract infection, site not specified; R78.81 Bacteremia; L03.119 Cellulitis of unspecified part of limb; I10 Essential (primary) hypertension; E11.9 Type 2 diabetes mellitus without complications; M19.90 Unspecified osteoarthritis, unspecified site; E66.01 Morbid (severe) obesity due to excess calories; L08.9 Local infection of the skin and subcutaneous tissue, unspecified; I95.9 Hypotension, unspecified; B96.20 Unspecified Escherichia coli [E. coli] as the cause of diseases classified elsewhere; B95.5 Unspecified streptococcus as the cause of diseases classified elsewhere; I48.2 Chronic atrial fibrillation; Z91.041 Radiographic dye allergy status; Z82.49 Family history of ischemic heart disease and other diseases of the circulatory system; Z83.3 Family history of diabetes mellitus; Z68.38 Body mass index [BMI] 38.0-38.9, adult; Z79.82 Long term (current) use of aspirin; Z79.01 Long term (current) use of anticoagulants; Z79.84 Long term (current) use of oral hypoglycemic drugs
CPT/HCPCS: 36415; 71045; 78582; 80048; 80053; 80061; 81003; 81015; 82550; 83036; 83605; 83735; 83880; 84443; 84484; 85025; 85060; 85379; 85610; 85730; 86140; 87040; 87077; 87086; 87186; 87205; 87641; 93005; 93306; 93970; 99291; A9270-GY; A9540; A9558; C1751; G8978-GP-CI; G8978-GP-CJ; G8978-GP-CL; G8979-GP-CI; G8980-GP-CI; J0692; J0696; J1644; J2405; J3370; J3475

== ENCOUNTER 2018-07-17 12:38 | Inpatient (IN) | payer MEDICARE, BC ==
[2018-07-17] MEDS ORDERED: Furosemide IV* 10 MG/ML 10 ML VIAL (100 MG) IV ONE (12:43)
[2018-07-17 13:06] LABS: ABS Basophils 0.1 10^3/ul (0-0.2); ABS Eosinophils 0.1 10^3/ul (0-0.6); ABS Lymphocytes 0.3 10^3/ul (1.0-4.8); ABS Monocytes 0.6 10^3/ul (0-0.8); ABS Neutrophils 2.9 10^3/ul (1.5-7.7); ABS Nucleated RBC 0 10^3/ul; Eosinophil % 3.6 %; Hematocrit 26 % (33-41); Hemoglobin 8.6 g/dL (12.0-16.0); Lymphocyte % 8.6 %; Mean Corpuscular HGB Conc 33 g/dL (31-36); Mean Corpuscular Hemoglobin 34 pg (27-31); Mean Corpuscular Volume 100 fL (80-97); Mean Platelet Volume 7.4 fL (7.4-10.4); Nucleated Red Blood Cells % 0; Platelet Count 78 10^3/uL (150-450); Red Blood Count 2.58 10^6 /uL (3.70-4.87); Red Cell Distribution Width 17 % (10.5-15); White Blood Count 3.9 10^3/uL (3.5-10.8)
--- NOTE | 2018-07-17 13:08 | ED ---
Complex/Multi-Sys Presentation - HPI Summary HPI Summary: Pt is a 73 y/o female brought in by EMS who presents to the ED c/o abdominal distention. For the past few months shes had issues with edema, and in the past few days this has been worsening. Pt also c/o orthopnea. She was recently at [facility], where an abdominal US revealed diffuse ascites. She is normally on O2 NC. PMHx CHF, HTN, DM, AFib, PR, CKD, iron deficiency anemia. Pt states she is allergic to blood thinners. - History Of Current Complaint Hx Obtained From: Patient Onset/Duration: Gradual Onset, Lasting Weeks - sevearl months, Worse Since Timing: Constant Aggravating Factor(s): Nothing Alleviating Factor(s): Nothing Associated Signs And Symptoms: Positive: SOB Related History: Other - hx CKD - Allergies/Home Medications Allergies/Adverse Reactions: Allergies Allergy/AdvReac Type Severity Reaction Status Date / Time Iodinated Contrast- Oral and Allergy Unknown Verified 08/17/17 05:41 IV Dye Reaction Details Home Medications: Home Medications Armodafinil (NF) [Nuvigil (NF)] 150 mg PO DAILY 07/17/18 [History Confirmed 09/29] Cholecalciferol TAB* [Vitamin D TAB*] 1,000 unit PO DAILY 07/17/18 [History Confirmed 07/17/18] Ferrous Sulfate TAB* 325 mg PO DAILY 07/17/18 [History Confirmed 07/17/18] Ipratropium 0.5MG/2.5ML NEB* [Atrovent 0.5 MG NEB.HAO*] 0.5 mg INH Q6H PRN 07/17 [History Confirmed 07/17/18] L. Acidophilus/Pectin, [place] [Acidophilus Capsule] 1 each PO DAILY 07/17/18 [ History Confirmed 07/17/18] Lactulose* 15 ml PO TID 07/17/18 [History Confirmed 07/17/18] Levalbuterol 0.63MG/3ML NEB* [Xopenex 0.63MG/3ML NEB*] 0.63 mg INH RT.Q6HR- WHILE AWAKE 07/17/18 [History Confirmed 07/17/18] Levothyroxine TAB* [Synthroid TAB*] 250 mcg PO DAILY 07/17/18 [History Confirmed 07/17/18] Midodrine HCl 2.5 mg PO TID 07/17/18 [History Confirmed 07/17/18] Minerin Cream* [Minerin*] 1 % TOPICAL BID 07/17/18 [History Confirmed 07/17/18] Omeprazole (Nf) [Prilosec (NF)] 40 mg PO DAILY 07/17/18 [History Confirmed 07/17] Ondansetron TAB* [Zofran 4 MG Tab*] 4 mg PO Q6H PRN 07/17/18 [History Confirmed 07/17/18] Pregabalin CAP(*) [Lyrica CAP(*)] 25 mg PO BID 07/17/18 [History Confirmed 07/17] RiFAXimin* [Xifaxan*] 550 mg PO Q8HR 07/17/18 [History Confirmed 07/17/18] Spironolactone TAB* [Aldactone TAB*] 25 mg PO DAILY 07/17/18 [History Confirmed 07/17/18] Torsemide TAB* [Demadex 20 MG*] 40 mg PO DAILY 07/17/18 [History Confirmed 07/17] Torsemide TAB* [Demadex*] 80 mg PO DAILY 07/17/18 [History Confirmed 07/17/18] guaiFENesin ER TAB [Mucinex*] 1,200 mg PO BID PRN 07/17/18 [History Confirmed ] PMH/Surg Hx/FS Hx/Imm Hx Endocrine/Hematology History: Reports: Hx Diabetes, Hx Anemia - iron deficiency Denies: Hx Thyroid Disease Cardiovascular History: Reports: Hx Atrial Fibrillation, Hx Congestive Heart Failure, Hx Hypertension, Hx Myocardial Infarction Denies: Hx Pacemaker/ICD Respiratory History: Reports: Hx Chronic Obstructive Pulmonary Disease (COPD) Denies: Hx Asthma GI History: Reports: Hx Hiatal Hernia Denies: Hx Ulcer History: Reports: Other Problems/Disorders - CKD Musculoskeletal History: Reports: Hx Arthritis, Hx Osteoporosis Sensory History: Reports: Hx Glaucoma - beginning stages Denies: Hx Contacts or Glasses, Hx Hearing Aid Opthamlomology History: Reports: Hx Glaucoma - beginning stages Denies: Hx Contacts or Glasses - Surgical History Surgery Procedure, Year, and Place: Tonsillectomy. D&Cs. Hernia repair 2007 Infectious Disease History: No Infectious Disease History: Denies: Hx Clostridium Difficile, Hx Hepatitis, Hx Human Immunodeficiency Virus (HIV), Hx of Known/Suspected MRSA, Hx Shingles, Hx Tuberculosis, Hx Known/ Suspected VRE, Hx Known/Suspected VRSA, History Other Infectious Disease, Traveled Outside the [place] in Last 30 Days - Family History Known Family History: Positive: Hypertension, Diabetes - Social History Alcohol Use: None Hx Substance Use: No Substance Use Type: Reports: None Hx Tobacco Use: No Smoking Status (MU): Never Smoked Tobacco Review of Systems Positive: Shortness Of Breath - orthopnea Positive: Other - distention Positive: Edema All Other Systems Reviewed And Are Negative: Yes Physical Exam - Summary Physical Exam Summary: Appearance: chronically-ill appearing, mild pain distress, morbid obesity Skin: warm, dry, reflects adequate perfusion, chronic stasis dermatitis of BLE with weeping from RLE Head/face: normal Eyes: EOMI, SADIE ENT: mucous membranes moist Neck: supple, non-tender, no JVD Respiratory: crackles in bilateral bases, breath sounds present Cardiovascular: regular rate, irregularly irregular rhythm, pulses symmetrical, 4+ BLE pitting edema to knees, edema of skin of abdomen Abdomen: non-tender, soft Bowel Sounds: present Musculoskeletal: normal, strength/ROM intact Neuro: normal, sensory motor intact, A&Ox3 Triage Information Reviewed: Yes Vital Signs On Initial Exam: Initial Vitals Temp Pulse Resp BP Pulse Ox 98.7 F 90 17 111/64 97 07/17/18 12:54 07/17/18 12:54 07/17/18 12:54 07/17/18 12:54 07/17/18 12:54 Vital Signs Reviewed: Yes Diagnostics - Vital Signs Vital Signs Temp Pulse Resp BP Pulse Ox 07/17/18 12:54 98.7 F 90 17 111/64 97 - Laboratory Result Diagrams: 07/17/18 12:57 07/17/18 12:57 Lab Statement: Any lab studies that have been ordered have been reviewed, and results considered in the medical decision making process. - Radiology CXR Radiology Interpretation Completed By: Radiologist Summary of Radiographic Findings: Chest x-ray findings are consistent with interval development of cardiogenic pulmonary edema ilkely with a pleural effusion at the left lung base. ED physician reviewed radiology report. - CT CT A/P CT Interpretation Completed By: Radiologist Summary of CT Findings: CT findings include increased attenuation of the subcutaneous fat of the patients large pannus consistent with inflammatory change. 2. Signs of hepatic cirrhosis include nodularity of the liver surface and mild splenomegaly. Here is a lnda-ur-ghivfeir degree of ascites including perihepatic and perisplenic fluid. 3. There is a small right-sided pleural effusion. ED physician reviewed radiology report. - Ultrasound No standard instances Ultrasound Interpretation Completed By: ED Physician Summary of Ultrasound Findings: US performed at bedside by ED physician: Mild- moderate ascites. - EKG 12:58 Cardiac Rate: Other Rate - 81 bpmAFib - EKG Rhythm: Atrial Fibrillation ST Segment: Non-Specific Summary of EKG Findings: Low voltage, poor R wave progression Complex Multi-Symp Course/Dx Course Of Treatment: nurse's notes reviewed. Patient who is morbidly obese presents with anasarca and recent ultrasound showing abdominal ascites and possibility of cirrhosis. A CT scan of the abdomen confirmed the cirrhotic changes. X-ray shows some pulmonary edema. She is on outpatient diuretics was given IV Lasix here and a Garcia was placed for fluid management. She'll be admitted through the hospitalist service. - Diagnoses Differential Diagnoses/HQI/PQRI: Metabolic Abnormality, Other - CHF, malignancy , cirrhosis Provider Diagnoses: Anasarca, CHF (congestive heart failure), Ascites, Iron deficiency anemia - Physician Notifications Discussed Care Of Patient With: Elijah Jean Time Discussed With Above Provider: 14:18 Instructed by Provider To: Admit As Inpatient - Critical Care Time Critical Care Time: 30-74 min - Critical care time is exclusive of separately billable procedures Discharge - Sign-Out/Discharge Documenting (check all that apply): Patient Departure - Admit Patient Received Moderate/Deep Sedation with Procedure: No - Discharge Plan Condition: Fair Disposition: ADMITTED TO [facility] Referrals: Joy Koenig DO [Primary Care Provider] - - Billing Disposition and Condition Condition: FAIR Disposition: Admitted to [facility] - Attestation Statements Document Initiated by Scribe: Yes Documenting Scribe: Eulalia Burger Provider For Whom Scribe is Documenting (Include Credential): Ganesh Ledezma MD Scribe Attestation: Eulalia Pedro, scribed for Ganesh Ledezma MD on 07/17/18 at 1513. Scribe Documentation Reviewed: Yes Provider Attestation: The documentation as recorded by the scribe, Eulalia Burger accurately reflects the service I personally performed and the decisions made by me, Ganesh Ledezma MD Status of Reyes Document: Viewed
[2018-07-17 13:11] LABS: INR 1.18 (0.77-1.02)
[2018-07-17 13:25] LABS: Albumin 3.2 g/dL (3.2-5.2); Albumin/Globulin Ratio 0.7 (1-3); BUN/Creatinine Ratio 35.2 (8-20); C Reactive Protein 8.31 mg/L (<8.01); Calcium 8.9 mg/dL (8.6-10.3); EGFR African American 42.7 (>60); EGFR Non-African American 35.3 (>60); Globulin 4.5 g/dL (2-4); Total Bilirubin 0.8 mg/dL (0.2-1.0); Total Protein 7.7 g/dL (6.4-8.9)
[2018-07-17 13:26] LABS: Troponin I 0.02 ng/mL (<0.04)
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
--- OUTSIDE RECORDS SUMMARY | 2018-07-17 13:52 | XMS REPORT | Continuity of Care Document ---
:1945 Author Organization [facility] Care Team Providers Name Role Phone REX SCHMIDT Primary Care Physician Allergies and Intolerances Code Code System Allergy Type Reaction Severity Start End Date Status Substance Date 5933 RXNorm Iodine Drug Unknown Active allergy 0 (disorder) 999057 RXNorm Bactrim Drug Unknown Active allergy 0 (disorder) 798439 RXNorm Thiazides Drug Unknown Active allergy 0 (disorder) 92263 RXNorm IV Dye, Iodine Drug Unknown Active Containing allergy 0 (disorder) Medications RxNorm Medication Dose Route Instructions Start End Status Date Date 891401 12 HR Guaifenesin 1,200 MG ORAL BID EVERY 12 05/10/19 Active 600 MG Extended HOURS (DO NOT 19 Release Oral Tablet CRUSH OR CHEW NOTE: DOSE REQUIRES 2 TABLETS) 3228307 3 ML Insulin, 2 SUBCUTANEOUS BEFORE MEALS [...] 110 MG/DL WARNING HIGH ALERT MEDICATION ) 426480 armodafinil 150 MG 150 mg oral orally every Active Oral Tablet morning 987515 atorvastatin 40 MG 40 MG ORAL AT BEDTIME 05/10/19 Active Oral Tablet 254045 Calcium Carbonate 1 tab oral orally every Active 1500 MG / morning Cholecalciferol 400 UNT Oral Tablet 16031 ferrous sulfate 325 mg oral orally every Active day (Ordered Dose: of ferrous sulfate) 299889 Ipratropium [place] 0.5 INHALATION 4 TIMES A DAY 05/15/19 Active 0.2 MG/ML Inhalant MG/2.5 RESPIRATORY 19 Solution ML THERAPY as needed. 170494 Lactobacillus 1 cap oral orally daily Active rhamnosus GG (give with food 92028195643 UNT (meal/snack)) Oral Capsule 284601 Lactulose 667 MG/ML 20 g oral orally 3 times Active Oral Solution per day 662131 Levalbuterol 0.21 0.63 INHALATION 4 TIMES A DAY 05/15/19 Active MG/ML Inhalant MG/3 ML RESPIRATORY 19 Solution THERAPY as needed. 218218 Levothyroxine 25 MCG ORAL ONCE A DAY AT 05/12/19 Active Sodium 0.025 MG 0600 19 Oral Tablet Metoprolol Oral 12.5 mg oral orally 2 times Active (Tartrate) per day 649991 midodrine 2.5 MG ORAL 3 TIMES A DAY 05/11/19 Active hydrochloride 5 MG WITH MEALS (DO 19 Oral Tablet NOT GIVE LAST DOSE OF DAY AFTER 6PM OR WITHIN 4 HRS OF BEDTIME) 202554 Nystatin 100 UNT/MG COVER TOPICAL TWICE A DAY 05/10/19 Active Topical Powder AREA (TO ABDOMINAL 19 FOLDS AND GROIN) 7646 Omeprazole 20 mg oral orally 2 times Active per day 293010 Ondansetron 4 MG 4 MG ORAL EVERY 6 HRS 05/10/19 Active Disintegrating Oral NEEDED as 19 Tablet needed. (DISSOLVE ON THE TONGUE PRN NAUSEA) 962364 rifaximin 550 MG 550 MG ORAL TID EVERY 8 05/18/19 Active Oral Tablet HOURS 19 [XIFAXAN] TORSEMIDE TABLET 40 MG ORAL TWICE A DAY 05/19/19 Active 19 Problems Code Code System Problem Name Start Date End Date Status 79482347 SNOMED-CT Muscle weakness 12/01/2017 Active 685432979 SNOMED-CT Anemia 12/01/2017 Active 350319580290876 SNOMED-CT Acute nontraumatic kidney 12/01/2017 Active injury 79475562 SNOMED-CT Bradycardia 12/01/2017 Active 640519484 SNOMED-CT Pleural effusion NOS 03/04/2013 U Active 44156376 SNOMED-CT Hypertensive disorder U U Active 66041991 SNOMED-CT Diabetes mellitus U U Active 5155429 SNOMED-CT Arthritis U U Active 43989623 SNOMED-CT Hypercholesterolemia U U Active 188820880 SNOMED-CT Gastroesophageal reflux U U Active disease 77336676 SNOMED-CT Atrial fibrillation U U Active 350836130 SNOMED-CT Persistent atrial fibrillation U Active 592804461 SNOMED-CT Anasarca Active 63719731 SNOMED-CT Urinary tract infectious Active disease Procedures Code Code System Procedure Date 026599662 SNOMED CT Tonsillectomy U 62024319 SNOMED CT Dilation and curettage U 13984918 SNOMED CT Hernia repair U Results No data in the system Social History Code Code System Social History Description Dates Observed Observation 093564099 SNOMED CT Current Smoking Unknown if ever Status smoked UNK AdministrativeGender Sex Assigned At Unknown Vital Signs No data in the system Goals Section No data in the system Health Concerns No data in the systemEncounter Diagnosis Date Code Code System Diagnosis Status G93.49 ICD10 OTHER ENCEPHALOPATHY Active Advance Directives PT STATES NO ADVANCE DIRECTIVES 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
--- OUTSIDE RECORDS SUMMARY | 2018-07-17 13:52 | XMS REPORT | Continuity of Care Document ---
:1945 External Reference #:[id number] Author Name RafaelaSheba watson Care Team Providers Name Role Phone Joe Nunez M.D. 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 Payers Date Identification Numbers Payment Provider Subscriber Policy Number: [id number] Medicare Rosa M Latham PayID: [id number] [address] [place] [address] Policy Number: [id number] [facility] Rosa M Latham PayID: [id number] [address] [place] [address] Advance Directives Description No Information Available Problems Description No Information Family History Description No Information Available Social History Type Date Description Comments Sex Unknown Marital Status Lives With Adult family home Occupation Retired Tobacco Use Start: Unknown Never Smoked Cigarettes ETOH Use Never used alcohol Tobacco Use Start: Unknown Patient has never smoked Smoking Status Reviewed: 07/08/18 Patient has never smoked Allergies, Adverse Reactions, Alerts Date Description Reaction Status Severity Comments 06/17/2018 Bactrim Active 06/17/2018 Thiazide-Type Diuretics Active 06/17/2018 Iodine Active Medications Medication Date Status Form Strength Qnty SIG Indications Ordering Provider Acidophilus 06/17/ Active Capsules 1 cap po Joy 2019 daily Arya, D.O. Metoprolol 06/17/ Active Tablets 25mg 12.5mg po Joy Tartrate 2019 bid Arya, D.O. Xifaxan 06/17/ Active Tablets 550mg 1tab po Joy 2019 q8hr Arya, D.O. Vitamin D 06/17/ Active Capsules 1000Unit 1000 Joy (Cholecalcifero 2019 units po Arya, l) daily D.O. Zofran 06/17/ Active Tablets 4mg 30tabs 4mg po Joy 2019 q6hr prn Arya, nausea D.O. Ipratropium 06/17/ Active Solution 0.02% 1 neb inh Joy [place] 2019 qid Mariann Koenig.O. Eq Omeprazole 06/17/ Active Capsules DR 20mg 40mg po Joy Magnesium 2019 bid Mariann Koenig.O. Midodrine HCL 06/17/ Active Tablets 2.5mg 2.5mg po Joy 2019 tid Maverick KoenigOZain Levalbuterol 06/17/ Active Nebulizer 0.63mg/3ML 1 neb inh Joy HCL 2019 qid Mariann Koenig.O. Guaifenesin ER 06/17/ Active Tablets ER 1200mg 1200mg po Joy 2019 12HR bid Maverick KoenigOZain Ferrousul 06/17/ Active Tablets 325(65Fe) 325mg po Joy 2019 mg daily Arya, D.O. Levothyroxine 06/17/ Active Tablets 25mcg 25mcg po Joy Sodium 2019 daily Mariann Koenig.OZain Novolog 06/17/ Active Solution 100Unit/ML per Joy 2019 sliding Arya, scale D.O. Nystatin 06/17/ Active Powder apply to Joy 2019 skin Arya, folds bid D.O. Tylenol 8 Hour 06/17/ Active Tablets ER 650mg 650mg po Joy 2019 q6hr prn Arya, pain D.O. Lactulose 06/17/ Active Solution 20GM/30ML 30g po Joy 2019 tid Mariann Koenig.OZain Torsemide 06/17/ Active Tablets 20mg 80mg po Joy 2019 daily Arya D.OZain Ipratropium 06/17/ Hx Solution 0.03% 1 squirt Joy [place] 2019 - to each Arya, 06/17/ nostril D.O. 2019 daily Immunizations Description No Information Available Vital Signs Date Vital Result Comment 07/08/2018 11:00am Height 68 inches 5'8" Weight 225.50 lb Heart Rate 80 /min BP Systolic 121 mmHg BP Diastolic 74 mmHg Respiratory Rate 22 /min Body Temperature 95.3 F O2 % BldC Oximetry 100 % BMI (Body Mass Index) 34.3 kg/m2 Results Test Date Facility Test Result H/L Range Note Comp Metabolic Panel 06/22/2018 [facility] Sodium 135 mmol/L N 135-[address] [place] [address] [phone] Potassium 4.1 mmol/L N 3.5-5.0 Chloride 99 mmol/L Low 101-111 Co2 Carbon Dioxide 30 mmol/L N 22-32 Anion Gap 6 mmol/L N 2-11 Glucose 85 mg/dL N 70-100 Blood Urea Nitrogen 42 mg/dL High 6-24 Creatinine 1.45 mg/dL High 0.51-0.95 BUN/Creatinine Ratio 29.0 High 8-20 Calcium 8.3 mg/dL Low 8.6-10.3 Total Protein 6.8 g/dL N 6.4-8.9 Albumin 3.0 g/dL Low 3.2-5.2 Globulin 3.8 g/dL N 2-4 Albumin/Globulin Ratio 0.8 Low 1-3 Total Bilirubin 0.90 mg/dL N 0.2-1.0 Alkaline Phosphatase 233 U/L High 34-104 Alt 14 U/L N 7-52 Ast 35 U/L N 13-39 Egfr Non- 35.3 >60 Egfr 42.7 >60 2 Laboratory test 06/22/2018 [facility] C Reactive 11.90 mg/L High <8.01 [address] [place] [address] [phone] CBC Auto Diff 06/22/2018 [facility] White Blood 3.5 N 3.5- 10.[address] Count 10^3/[place] [address] [phone] Red Blood Count 2.59 10^6/uL Low 4.00-5.40 Hemoglobin 8.5 g/dL Low 12.0-16.0 Hematocrit 25 % Low 35-47 Mean Corpuscular Volume 98 fL High 80-97 Mean Corpuscular Hemoglobin 33 pg High 27-31 Mean Corpuscular HGB Conc 34 g/dL N 31-36 Red Cell Distribution Width 17 % High 10.5-15 Platelet Count 62 10^3/uL Low 150-450 Mean Platelet Volume 7.9 fL N 7.4-10.4 Abs Neutrophils 2.4 10^3/uL N 1.5-7.7 Abs Lymphocytes 0.4 10^3/uL Low 1.0-4.8 Abs Monocytes 0.5 10^3/uL N 0-0.8 Abs Eosinophils 0.2 10^3/uL N 0-0.6 Abs Basophils 0 10^3/uL N 0-0.2 Abs Nucleated RBC 0 10^3/uL Granulocyte % 68.3 % Lymphocyte % 11.1 % Monocyte % 14.5 % Eosinophil % 5.4 % Basophil % 0.7 % Nucleated Red Blood Cells % 0 Urinalysis Profile 05/29/2018 [facility] Urine Color Yellow [address] [place] [address] [phone] Urine Appearance Clear Urine Specific [place] 1.025 N 1.010-1.030 Urine pH 6.0 N 5-9 Urine Urobilinogen Negative Negative Urine Ketones Trace Abnormal Negative Urine Protein Negative Negative Urine Leukocytes Negative Negative Urine Blood Negative Negative Urine Nitrite Negative Negative Urine Bilirubin Negative Negative Urine Glucose Negative Negative 1 ROOM/FLOOR NOT PROVIDED 2 Because ethnic data is not always readily available, this report includes an eGFR for both -Americans and non- Americans. The National Kidney Disease Education Program (NKDEP) does not endorse the use of the MDRD equation for patients that are not between the ages of 18 and 70, are , have extremes of body size, muscle mass, or nutritional status, or are non- or non-. According to the National Kidney Foundation, irrespective of diagnosis, the stage of the disease is based on the level of kidney function: Stage Description GFR(mL/min/1.73 m(2)) 1 Kidney damage with normal or decreased GFR 90 2 Kidney damage with mild decrease in GFR 60-89 3 Moderate decrease in GFR 30-59 4 Severe decrease in GFR 15-29 5 Kidney failure <15 (or dialysis) 3 ROOM/FLOOR NOT PROVIDED Procedures Date Code Description Status 08/17/2017 97957 ECHO Transthorasic Realtime 2D W Doppler & Color Flow Hosp Completed 08/17/2017 78636 EKG, Interpretation Only Completed Encounters Type Date Location Provider Dx Diagnosis Office Visit 06[facility]28/[facility] Tierarosalinda, L03.115 Cellulitis of right 12:15p HIRED HAND lower limb L89.622 Pressure ulcer of left heel, stage 2 K72.10 Chronic hepatic failure without coma Office Visit 06/25/2018 9:00a [facility] [place] I87.313 Chronic venous MD Alan hypertension w ulcer of bilateral low extrm L89.622 Pressure ulcer of left heel, stage 2 F43.21 Adjustment disorder with depressed mood Office Visit 06/21/2018 12:15p [facility] Romeo, I87.313 Chronic venous HIRED HAND hypertension w ulcer of bilateral low extrm L89.622 Pressure ulcer of left heel, stage 2 L03.115 Cellulitis of right lower limb Office Visit 06/17/2018 9:00a [facility] Joy Koenig, I48.2 Chronic atrial D.O. fibrillation I50.32 Chronic diastolic (congestive) heart failure K72.10 Chronic hepatic failure without coma N18.4 Chronic kidney disease, stage 4 (severe) Office Visit 05/31/2018 8:15a [facility] [place] Romeo, L03.115 Cellulitis of HIRED HAND right lower limb L89.622 Pressure ulcer of left heel, stage 2 K72.10 Chronic hepatic failure without coma Office Visit 05/28/2018 12:30p [facility] [place] Alan, K72.10 Chronic hepatic MD failure without coma I13.0 Hyp hrt & chr kdny dis w hrt fail and stg 1-4/unsp chr kdny I50.9 Heart failure, unspecified N18.4 Chronic kidney disease, stage 4 (severe) I87.313 Chronic venous hypertension w ulcer of bilateral low extrm I48.2 Chronic atrial fibrillation I42.9 Cardiomyopathy, unspecified R60.9 Edema, unspecified Office Visit 08/20/2017 [place] Aakash S. I48.91 Unspecified atrial 12:41p [facility] Luis Antonio Zheng fibrillation I42.9 Cardiomyopathy, unspecified Office Visit 08/20/2017 11:33a [facility] José Manuel I51.81 [facility],manuel Vogt M.D. 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 syndrome Hospitalists R57.0 Cardiogenic shock N17.9 Acute kidney failure, unspecified I48.92 Unspecified atrial flutter Office Visit 08/18/2017 11:32a [facility] Sharon I51.81 [facility] ,manuel Ramirez DO syndrome Hospitalists R57.0 Cardiogenic shock N17.9 Acute kidney failure, unspecified I48.92 Unspecified atrial flutter Office Visit 08/18/2017 11:31a [facility] Abhi Gray I51.81 Takotsmoni Guzman D.O. syndrome R57.0 Cardiogenic shock N17.9 Acute kidney failure, unspecified I48.92 Unspecified atrial flutter Office Visit 08/17/2017 12:27p [facility] Joe Temple I48.91 Unspecified atrial Of Padmini Nunez M.D. fibrillation I51.9 Heart disease, unspecified Office Visit 08/17/2017 11:30a [facility] Abhi Gray I51.81 Takemily Guzman D.O. syndrome I48.92 Unspecified atrial flutter R57.0 Cardiogenic shock N17.9 Acute kidney failure, unspecified Plan of Treatment No Information Available
--- OUTSIDE RECORDS SUMMARY | 2018-07-17 13:52 | XMS REPORT | Continuity of Care Document ---
:1945 Author Organization [facility] Care Team Providers Name Role Phone REX SCHMIDT Primary Care Physician Allergies and Intolerances Code Code System Allergy Type Reaction Severity Start End Date Status Substance Date 5933 RXNorm Iodine Drug Unknown Active allergy 0 (disorder) 388720 RXNorm Bactrim Drug Unknown Active allergy 0 (disorder) 281775 RXNorm Thiazides Drug Unknown Active allergy 0 (disorder) 25111 RXNorm IV Dye, Iodine Drug Unknown Active Containing allergy 0 (disorder) Medications RxNorm Medication Dose Route Instructions Start End Status Date Date 288544 12 HR Guaifenesin 1,200 MG ORAL BID EVERY 12 05/10/19 Active 600 MG Extended HOURS (DO NOT 19 Release Oral Tablet CRUSH OR CHEW NOTE: DOSE REQUIRES 2 TABLETS) 5660308 3 ML Insulin, 2 SUBCUTANEOUS BEFORE MEALS [...] 110 MG/DL WARNING HIGH ALERT MEDICATION ) 199297 armodafinil 150 MG 150 mg oral orally every Active Oral Tablet morning 026739 atorvastatin 40 MG 40 MG ORAL AT BEDTIME 05/10/19 Active Oral Tablet 331190 Calcium Carbonate 1 tab oral orally every Active 1500 MG / morning Cholecalciferol 400 UNT Oral Tablet 96897 ferrous sulfate 325 mg oral orally every Active day (Ordered Dose: of ferrous sulfate) 715455 Ipratropium [place] 0.5 INHALATION 4 TIMES A DAY 05/15/19 Active 0.2 MG/ML Inhalant MG/2.5 RESPIRATORY 19 Solution ML THERAPY as needed. 304357 Lactobacillus 1 cap oral orally daily Active rhamnosus GG (give with food 42836844150 UNT (meal/snack)) Oral Capsule 624053 Lactulose 667 MG/ML 20 g oral orally 3 times Active Oral Solution per day 959082 Levalbuterol 0.21 0.63 INHALATION 4 TIMES A DAY 05/15/19 Active MG/ML Inhalant MG/3 ML RESPIRATORY 19 Solution THERAPY as needed. 709182 Levothyroxine 25 MCG ORAL ONCE A DAY AT 05/12/19 Active Sodium 0.025 MG 0600 19 Oral Tablet Metoprolol Oral 12.5 mg oral orally 2 times Active (Tartrate) per day 794286 midodrine 2.5 MG ORAL 3 TIMES A DAY 05/11/19 Active hydrochloride 5 MG WITH MEALS (DO 19 Oral Tablet NOT GIVE LAST DOSE OF DAY AFTER 6PM OR WITHIN 4 HRS OF BEDTIME) 774446 Nystatin 100 UNT/MG COVER TOPICAL TWICE A DAY 05/10/19 Active Topical Powder AREA (TO ABDOMINAL 19 FOLDS AND GROIN) 7646 Omeprazole 20 mg oral orally 2 times Active per day 308343 Ondansetron 4 MG 4 MG ORAL EVERY 6 HRS 05/10/19 Active Disintegrating Oral NEEDED as 19 Tablet needed. (DISSOLVE ON THE TONGUE PRN NAUSEA) 401516 rifaximin 550 MG 550 MG ORAL TID EVERY 8 05/18/19 Active Oral Tablet HOURS 19 [XIFAXAN] TORSEMIDE TABLET 40 MG ORAL TWICE A DAY 05/19/19 Active 19 Problems Code Code System Problem Name Start Date End Date Status 18333954 SNOMED-CT Muscle weakness 12/01/2017 Active 921268012 SNOMED-CT Anemia 12/01/2017 Active 329127807802020 SNOMED-CT Acute nontraumatic kidney 12/01/2017 Active injury 41698211 SNOMED-CT Bradycardia 12/01/2017 Active 403230656 SNOMED-CT Pleural effusion NOS 03/04/2013 U Active 45189139 SNOMED-CT Hypertensive disorder U U Active 64140761 SNOMED-CT Diabetes mellitus U U Active 5227744 SNOMED-CT Arthritis U U Active 51039550 SNOMED-CT Hypercholesterolemia U U Active 998501338 SNOMED-CT Gastroesophageal reflux U U Active disease 20635586 SNOMED-CT Atrial fibrillation U U Active 973168095 SNOMED-CT Persistent atrial fibrillation U Active 741698304 SNOMED-CT Anasarca Active 72846181 SNOMED-CT Urinary tract infectious Active disease Procedures Code Code System Procedure Date 496600152 SNOMED CT Tonsillectomy U 23298729 SNOMED CT Dilation and curettage U 08054992 SNOMED CT Hernia repair U Results No data in the system Social History Code Code System Social History Description Dates Observed Observation 355043648 SNOMED CT Current Smoking Unknown if ever Status smoked UNK AdministrativeGender Sex Assigned At Unknown Vital Signs No data in the system Goals Section No data in the system Health Concerns No data in the systemEncounter Diagnosis Date Code Code System Diagnosis Status G93.49 ICD10 OTHER ENCEPHALOPATHY Active Advance Directives PT STATES NO ADVANCE DIRECTIVES 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
--- OUTSIDE RECORDS SUMMARY | 2018-07-17 13:52 | XMS REPORT | Continuity of Care Document ---
:1945 Author Organization [facility] Care Team Providers Name Role Phone REX SCHMIDT Primary Care Physician Allergies and Intolerances Code Code System Allergy Type Reaction Severity Start End Date Status Substance Date 5933 RXNorm Iodine Drug Unknown Active allergy 0 (disorder) 945761 RXNorm Bactrim Drug Unknown Active allergy 0 (disorder) 556099 RXNorm Thiazides Drug Unknown Active allergy 0 (disorder) 12487 RXNorm IV Dye, Iodine Drug Unknown Active Containing allergy 0 (disorder) Medications RxNorm Medication Dose Route Instructions Start End Status Date Date 035788 12 HR Guaifenesin 1,200 MG ORAL BID EVERY 12 05/10/19 Active 600 MG Extended HOURS (DO NOT 19 Release Oral Tablet CRUSH OR CHEW NOTE: DOSE REQUIRES 2 TABLETS) 2334455 3 ML Insulin, 2 SUBCUTANEOUS BEFORE MEALS [...] 110 MG/DL WARNING HIGH ALERT MEDICATION ) 334021 armodafinil 150 MG 150 mg oral orally every Active Oral Tablet morning 950986 atorvastatin 40 MG 40 MG ORAL AT BEDTIME 05/10/19 Active Oral Tablet 179606 Calcium Carbonate 1 tab oral orally every Active 1500 MG / morning Cholecalciferol 400 UNT Oral Tablet 25941 ferrous sulfate 325 mg oral orally every Active day (Ordered Dose: of ferrous sulfate) 384116 Ipratropium [place] 0.5 INHALATION 4 TIMES A DAY 05/15/19 Active 0.2 MG/ML Inhalant MG/2.5 RESPIRATORY 19 Solution ML THERAPY as needed. 029519 Lactobacillus 1 cap oral orally daily Active rhamnosus GG (give with food 07142050421 UNT (meal/snack)) Oral Capsule 814373 Lactulose 667 MG/ML 20 g oral orally 3 times Active Oral Solution per day 978789 Levalbuterol 0.21 0.63 INHALATION 4 TIMES A DAY 05/15/19 Active MG/ML Inhalant MG/3 ML RESPIRATORY 19 Solution THERAPY as needed. 193815 Levothyroxine 25 MCG ORAL ONCE A DAY AT 05/12/19 Active Sodium 0.025 MG 0600 19 Oral Tablet Metoprolol Oral 12.5 mg oral orally 2 times Active (Tartrate) per day 820466 midodrine 2.5 MG ORAL 3 TIMES A DAY 05/11/19 Active hydrochloride 5 MG WITH MEALS (DO 19 Oral Tablet NOT GIVE LAST DOSE OF DAY AFTER 6PM OR WITHIN 4 HRS OF BEDTIME) 297902 Nystatin 100 UNT/MG COVER TOPICAL TWICE A DAY 05/10/19 Active Topical Powder AREA (TO ABDOMINAL 19 FOLDS AND GROIN) 7646 Omeprazole 20 mg oral orally 2 times Active per day 638161 Ondansetron 4 MG 4 MG ORAL EVERY 6 HRS 05/10/19 Active Disintegrating Oral NEEDED as 19 Tablet needed. (DISSOLVE ON THE TONGUE PRN NAUSEA) 075736 rifaximin 550 MG 550 MG ORAL TID EVERY 8 05/18/19 Active Oral Tablet HOURS 19 [XIFAXAN] TORSEMIDE TABLET 40 MG ORAL TWICE A DAY 05/19/19 Active 19 Problems Code Code System Problem Name Start Date End Date Status 69764318 SNOMED-CT Muscle weakness 12/01/2017 Active 391728941 SNOMED-CT Anemia 12/01/2017 Active 164819878555200 SNOMED-CT Acute nontraumatic kidney 12/01/2017 Active injury 88741756 SNOMED-CT Bradycardia 12/01/2017 Active 053047882 SNOMED-CT Pleural effusion NOS 03/04/2013 U Active 87805787 SNOMED-CT Hypertensive disorder U U Active 92275641 SNOMED-CT Diabetes mellitus U U Active 6966666 SNOMED-CT Arthritis U U Active 36820455 SNOMED-CT Hypercholesterolemia U U Active 101657135 SNOMED-CT Gastroesophageal reflux U U Active disease 10263323 SNOMED-CT Atrial fibrillation U U Active 267977624 SNOMED-CT Persistent atrial fibrillation U Active 957684711 SNOMED-CT Anasarca Active 84225728 SNOMED-CT Urinary tract infectious Active disease Procedures Code Code System Procedure Date 912442019 SNOMED CT Tonsillectomy U 69855296 SNOMED CT Dilation and curettage U 32791391 SNOMED CT Hernia repair U Results No data in the system Social History Code Code System Social History Description Dates Observed Observation 468636111 SNOMED CT Current Smoking Unknown if ever Status smoked UNK AdministrativeGender Sex Assigned At Unknown Vital Signs No data in the system Goals Section No data in the system Health Concerns No data in the systemEncounter Diagnosis Date Code Code System Diagnosis Status G93.49 ICD10 OTHER ENCEPHALOPATHY Active Advance Directives PT STATES NO ADVANCE DIRECTIVES Directive Type Effective Date Rn 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
--- OUTSIDE RECORDS SUMMARY | 2018-07-17 13:52 | XMS REPORT | Continuity of Care Document ---
:1945 Author Organization [facility] Care Team Providers Name Role Phone REX SCHMIDT Primary Care Physician Allergies and Intolerances Code Code System Allergy Type Reaction Severity Start End Date Status Substance Date 5933 RXNorm Iodine Drug Unknown Active allergy 0 (disorder) 871508 RXNorm Bactrim Drug Unknown Active allergy 0 (disorder) 499696 RXNorm Thiazides Drug Unknown Active allergy 0 (disorder) 72214 RXNorm IV Dye, Iodine Drug Unknown Active Containing allergy 0 (disorder) Medications RxNorm Medication Dose Route Instructions Start End Status Date Date 867934 12 HR Guaifenesin 1,200 MG ORAL BID EVERY 12 05/10/19 Active 600 MG Extended HOURS (DO NOT 19 Release Oral Tablet CRUSH OR CHEW NOTE: DOSE REQUIRES 2 TABLETS) 1993984 3 ML Insulin, 2 SUBCUTANEOUS BEFORE MEALS [...] 110 MG/DL WARNING HIGH ALERT MEDICATION ) 746284 armodafinil 150 MG 150 mg oral orally every Active Oral Tablet morning 331353 atorvastatin 40 MG 40 MG ORAL AT BEDTIME 05/10/19 Active Oral Tablet 834984 Calcium Carbonate 1 tab oral orally every Active 1500 MG / morning Cholecalciferol 400 UNT Oral Tablet 31497 ferrous sulfate 325 mg oral orally every Active day (Ordered Dose: of ferrous sulfate) 769079 Ipratropium [place] 0.5 INHALATION 4 TIMES A DAY 05/15/19 Active 0.2 MG/ML Inhalant MG/2.5 RESPIRATORY 19 Solution ML THERAPY as needed. 095048 Lactobacillus 1 cap oral orally daily Active rhamnosus GG (give with food 04184173988 UNT (meal/snack)) Oral Capsule 238105 Lactulose 667 MG/ML 20 g oral orally 3 times Active Oral Solution per day 779332 Levalbuterol 0.21 0.63 INHALATION 4 TIMES A DAY 05/15/19 Active MG/ML Inhalant MG/3 ML RESPIRATORY 19 Solution THERAPY as needed. 667640 Levothyroxine 25 MCG ORAL ONCE A DAY AT 05/12/19 Active Sodium 0.025 MG 0600 19 Oral Tablet Metoprolol Oral 12.5 mg oral orally 2 times Active (Tartrate) per day 567228 midodrine 2.5 MG ORAL 3 TIMES A DAY 05/11/19 Active hydrochloride 5 MG WITH MEALS (DO 19 Oral Tablet NOT GIVE LAST DOSE OF DAY AFTER 6PM OR WITHIN 4 HRS OF BEDTIME) 971185 Nystatin 100 UNT/MG COVER TOPICAL TWICE A DAY 05/10/19 Active Topical Powder AREA (TO ABDOMINAL 19 FOLDS AND GROIN) 7646 Omeprazole 20 mg oral orally 2 times Active per day 774488 Ondansetron 4 MG 4 MG ORAL EVERY 6 HRS 05/10/19 Active Disintegrating Oral NEEDED as 19 Tablet needed. (DISSOLVE ON THE TONGUE PRN NAUSEA) 232624 rifaximin 550 MG 550 MG ORAL TID EVERY 8 05/18/19 Active Oral Tablet HOURS 19 [XIFAXAN] TORSEMIDE TABLET 40 MG ORAL TWICE A DAY 05/19/19 Active 19 Problems Code Code System Problem Name Start Date End Date Status 57961890 SNOMED-CT Muscle weakness 12/01/2017 Active 880784492 SNOMED-CT Anemia 12/01/2017 Active 622999405957402 SNOMED-CT Acute nontraumatic kidney 12/01/2017 Active injury 78615271 SNOMED-CT Bradycardia 12/01/2017 Active 152815765 SNOMED-CT Pleural effusion NOS 03/04/2013 U Active 31075276 SNOMED-CT Hypertensive disorder U U Active 10493875 SNOMED-CT Diabetes mellitus U U Active 0766385 SNOMED-CT Arthritis U U Active 54446246 SNOMED-CT Hypercholesterolemia U U Active 708681649 SNOMED-CT Gastroesophageal reflux U U Active disease 52329973 SNOMED-CT Atrial fibrillation U U Active 717910682 SNOMED-CT Persistent atrial fibrillation U Active 949220362 SNOMED-CT Anasarca Active 93181434 SNOMED-CT Urinary tract infectious Active disease Procedures Code Code System Procedure Date 040678862 SNOMED CT Tonsillectomy U 05739431 SNOMED CT Dilation and curettage U 87682460 SNOMED CT Hernia repair U Results No data in the system Social History Code Code System Social History Description Dates Observed Observation 325037271 SNOMED CT Current Smoking Unknown if ever Status smoked UNK AdministrativeGender Sex Assigned At Unknown Vital Signs No data in the system Goals Section No data in the system Health Concerns No data in the systemEncounter Diagnosis Date Code Code System Diagnosis Status G93.49 ICD10 OTHER ENCEPHALOPATHY Active Advance Directives PT STATES NO ADVANCE DIRECTIVES Directive Type Effective Date 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
--- OUTSIDE RECORDS SUMMARY | 2018-07-17 13:52 | XMS REPORT | Continuity of Care Document ---
:[address] [facility] Care Team Providers Name Role Phone REX SCHMIDT Primary Care Physician Allergies and Intolerances Code Code System Allergy Type Reaction Severity Start End Date Status Substance Date 5933 RXNorm Iodine Drug Unknown Active allergy 0 (disorder) 543019 RXNorm Bactrim Drug Unknown Active allergy 0 (disorder) 729355 RXNorm Thiazides Drug Unknown Active allergy 0 (disorder) 56593 RXNorm IV Dye, Iodine Drug Unknown Active Containing allergy 0 (disorder) Medications RxNorm Medication Dose Route Instructions Start End Status Date Date 132982 12 HR Guaifenesin 1,200 MG ORAL BID EVERY 12 05/10/19 Active 600 MG Extended HOURS (DO NOT 19 Release Oral Tablet CRUSH OR CHEW NOTE: DOSE REQUIRES 2 TABLETS) 0870054 3 ML Insulin, 2 SUBCUTANEOUS BEFORE MEALS [...] 110 MG/DL WARNING HIGH ALERT MEDICATION ) 833676 armodafinil 150 MG 150 mg oral orally every Active Oral Tablet morning 353912 atorvastatin 40 MG 40 MG ORAL AT BEDTIME 05/10/19 Active Oral Tablet 794024 Calcium Carbonate 1 tab oral orally every Active 1500 MG / morning Cholecalciferol 400 UNT Oral Tablet 78534 ferrous sulfate 325 mg oral orally every Active day (Ordered Dose: of ferrous sulfate) 975957 Ipratropium [place] 0.5 INHALATION 4 TIMES A DAY 05/15/19 Active 0.2 MG/ML Inhalant MG/2.5 RESPIRATORY 19 Solution ML THERAPY as needed. 941922 Lactobacillus 1 cap oral orally daily Active rhamnosus GG (give with food 95638182983 UNT (meal/snack)) Oral Capsule 293200 Lactulose 667 MG/ML 20 g oral orally 3 times Active Oral Solution per day 239417 Levalbuterol 0.21 0.63 INHALATION 4 TIMES A DAY 05/15/19 Active MG/ML Inhalant MG/3 ML RESPIRATORY 19 Solution THERAPY as needed. 905597 Levothyroxine 25 MCG ORAL ONCE A DAY AT 05/12/19 Active Sodium 0.025 MG 0600 19 Oral Tablet Metoprolol Oral 12.5 mg oral orally 2 times Active (Tartrate) per day 151126 midodrine 2.5 MG ORAL 3 TIMES A DAY 05/11/19 Active hydrochloride 5 MG WITH MEALS (DO 19 Oral Tablet NOT GIVE LAST DOSE OF DAY AFTER 6PM OR WITHIN 4 HRS OF BEDTIME) 161717 Nystatin 100 UNT/MG COVER TOPICAL TWICE A DAY 05/10/19 Active Topical Powder AREA (TO ABDOMINAL 19 FOLDS AND GROIN) 7646 Omeprazole 20 mg oral orally 2 times Active per day 673878 Ondansetron 4 MG 4 MG ORAL EVERY 6 HRS 05/10/19 Active Disintegrating Oral NEEDED as 19 Tablet needed. (DISSOLVE ON THE TONGUE PRN NAUSEA) 357071 rifaximin 550 MG 550 MG ORAL TID EVERY 8 05/18/19 Active Oral Tablet HOURS 19 [XIFAXAN] TORSEMIDE TABLET 40 MG ORAL TWICE A DAY 05/19/19 Active 19 Problems Code Code System Problem Name Start Date End Date Status 44513427 SNOMED-CT Muscle weakness 12/01/2017 Active 715958306 SNOMED-CT Anemia 12/01/2017 Active 874301819627646 SNOMED-CT Acute nontraumatic kidney 12/01/2017 Active injury 96834710 SNOMED-CT Bradycardia 12/01/2017 Active 787314653 SNOMED-CT Pleural effusion NOS 03/04/2013 U Active 63817422 SNOMED-CT Hypertensive disorder U U Active 55494621 SNOMED-CT Diabetes mellitus U U Active 8346279 SNOMED-CT Arthritis U U Active 01836893 SNOMED-CT Hypercholesterolemia U U Active 122238117 SNOMED-CT Gastroesophageal reflux U U Active disease 98514414 SNOMED-CT Atrial fibrillation U U Active 070792855 SNOMED-CT Persistent atrial fibrillation U Active 804092387 SNOMED-CT Anasarca Active 41138015 SNOMED-CT Urinary tract infectious Active disease Procedures Code Code System Procedure Date 636196850 SNOMED CT Tonsillectomy U 32563386 SNOMED CT Dilation and curettage U 25810919 SNOMED CT Hernia repair U Results No data in the system Social History Code Code System Social History Description Dates Observed Observation 916588483 SNOMED CT Current Smoking Unknown if ever Status smoked UNK AdministrativeGender Sex Assigned At Unknown Vital Signs No data in the system Goals Section No data in the system Health Concerns No data in the systemEncounter Diagnosis Date Code Code System Diagnosis Status G93.49 ICD10 OTHER ENCEPHALOPATHY Active Advance Directives PT STATES NO ADVANCE DIRECTIVES Directive Type Effective Date 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
--- OUTSIDE RECORDS SUMMARY | 2018-07-17 13:52 | XMS REPORT | Continuity of Care Document ---
:1945 Author Organization [facility] Care Team Providers Name Role Phone REX SCHMIDT Primary Care Physician Allergies and Intolerances Code Code System Allergy Type Reaction Severity Start End Date Status Substance Date 5933 RXNorm Iodine Drug Unknown Active allergy 0 (disorder) 693724 RXNorm Bactrim Drug Unknown Active allergy 0 (disorder) 194746 RXNorm Thiazides Drug Unknown Active allergy 0 (disorder) 43684 RXNorm IV Dye, Iodine Drug Unknown Active Containing allergy 0 (disorder) Medications RxNorm Medication Dose Route Instructions Start End Status Date Date 609770 12 HR Guaifenesin 1,200 MG ORAL BID EVERY 12 05/10/19 Active 600 MG Extended HOURS (DO NOT 19 Release Oral Tablet CRUSH OR CHEW NOTE: DOSE REQUIRES 2 TABLETS) 4716045 3 ML Insulin, 2 SUBCUTANEOUS BEFORE MEALS [...] 110 MG/DL WARNING HIGH ALERT MEDICATION ) 827931 armodafinil 150 MG 150 mg oral orally every Active Oral Tablet morning 574603 atorvastatin 40 MG 40 MG ORAL AT BEDTIME 05/10/19 Active Oral Tablet 263670 Calcium Carbonate 1 tab oral orally every Active 1500 MG / morning Cholecalciferol 400 UNT Oral Tablet 81952 ferrous sulfate 325 mg oral orally every Active day (Ordered Dose: of ferrous sulfate) 914340 Ipratropium [place] 0.5 INHALATION 4 TIMES A DAY 05/15/19 Active 0.2 MG/ML Inhalant MG/2.5 RESPIRATORY 19 Solution ML THERAPY as needed. 436813 Lactobacillus 1 cap oral orally daily Active rhamnosus GG (give with food 25642134809 UNT (meal/snack)) Oral Capsule 571776 Lactulose 667 MG/ML 20 g oral orally 3 times Active Oral Solution per day 087608 Levalbuterol 0.21 0.63 INHALATION 4 TIMES A DAY 05/15/19 Active MG/ML Inhalant MG/3 ML RESPIRATORY 19 Solution THERAPY as needed. 796403 Levothyroxine 25 MCG ORAL ONCE A DAY AT 05/12/19 Active Sodium 0.025 MG 0600 19 Oral Tablet Metoprolol Oral 12.5 mg oral orally 2 times Active (Tartrate) per day 141732 midodrine 2.5 MG ORAL 3 TIMES A DAY 05/11/19 Active hydrochloride 5 MG WITH MEALS (DO 19 Oral Tablet NOT GIVE LAST DOSE OF DAY AFTER 6PM OR WITHIN 4 HRS OF BEDTIME) 375381 Nystatin 100 UNT/MG COVER TOPICAL TWICE A DAY 05/10/19 Active Topical Powder AREA (TO ABDOMINAL 19 FOLDS AND GROIN) 7646 Omeprazole 20 mg oral orally 2 times Active per day 568233 Ondansetron 4 MG 4 MG ORAL EVERY 6 HRS 05/10/19 Active Disintegrating Oral NEEDED as 19 Tablet needed. (DISSOLVE ON THE TONGUE PRN NAUSEA) 010145 rifaximin 550 MG 550 MG ORAL TID EVERY 8 05/18/19 Active Oral Tablet HOURS 19 [XIFAXAN] TORSEMIDE TABLET 40 MG ORAL TWICE A DAY 05/19/19 Active 19 Problems Code Code System Problem Name Start Date End Date Status 51456938 SNOMED-CT Muscle weakness 12/01/2017 Active 411416913 SNOMED-CT Anemia 12/01/2017 Active 346178690598990 SNOMED-CT Acute nontraumatic kidney 12/01/2017 Active injury 76115560 SNOMED-CT Bradycardia 12/01/2017 Active 917739728 SNOMED-CT Pleural effusion NOS 03/04/2013 U Active 23089976 SNOMED-CT Hypertensive disorder U U Active 88277228 SNOMED-CT Diabetes mellitus U U Active 0633267 SNOMED-CT Arthritis U U Active 81684944 SNOMED-CT Hypercholesterolemia U U Active 425350605 SNOMED-CT Gastroesophageal reflux U U Active disease 84000654 SNOMED-CT Atrial fibrillation U U Active 618163215 SNOMED-CT Persistent atrial fibrillation U Active 683998979 SNOMED-CT Anasarca Active 44371276 SNOMED-CT Urinary tract infectious Active disease Procedures Code Code System Procedure Date 342398722 SNOMED CT Tonsillectomy U 72422906 SNOMED CT Dilation and curettage U 25776028 SNOMED CT Hernia repair U Results No data in the system Social History Code Code System Social History Description Dates Observed Observation 683921995 SNOMED CT Current Smoking Unknown if ever Status smoked UNK AdministrativeGender Sex Assigned At Unknown Vital Signs No data in the system Goals Section No data in the system Health Concerns No data in the systemEncounter Diagnosis Date Code Code System Diagnosis Status G93.49 ICD10 OTHER ENCEPHALOPATHY Active Advance Directives PT STATES NO ADVANCE DIRECTIVES Directive Type Effective Date Shopper Notes Supporting Document Name Address Phone No Directive Type 05/10/2018 9:45:00 Not Specified Not Specified Not Specified None No specified PM *RHIO - CONSENT IS YES Directive Type Effective Date Shopper Notes Supporting Document Name Address Phone No [...]
--- OUTSIDE RECORDS SUMMARY | 2018-07-17 13:52 | XMS REPORT | Continuity of Care Document ---
:1945 External Reference #:[id number] Author Name Rebecca See Care Team Providers Name Role Phone Joy Koenig DO Primary Care Physician Unavailable Payers Date Identification Numbers Payment Provider Subscriber Policy Number: [id number] Medicare Rosa M Latham PayID: [id number] [address] [place] [address] Policy Number: [id number] [facility] Rosa M Latham PayID: [id number] [address] [place] [address] Advance Directives Description No Information Available Problems [...] Active Solution 0.02% 1 neb inh Joy [place] 2019 qid Austin Koenig. Eq Omeprazole 06/17/ Active Capsules DR 20mg 40mg po Joy Magnesium 2019 bid Maverick KoenigOZain Midodrine HCL 06/17/ Active Tablets 2.5mg 2.5mg po Joy 2019 tid Maverick KoenigOZain Levalbuterol 06/17/ Active Nebulizer 0.63mg/3ML 1 neb inh Joy HCL 2019 qid Mariann Koenig.OZain Guaifenesin ER 06/17/ Active Tablets ER 1200mg 1200mg po Joy 2019 12HR bid Tiffany Koenig Ferrousul 06/17/ Active Tablets 325(65Fe) 325mg po Joy 2019 mg daily Mariann Koenig.OZain Levothyroxine 06/17/ Active Tablets 25mcg 25mcg po Joy Sodium 2019 daily Tiffany Koenig Novolog 06/17/ Active Solution 100Unit/ML per Joy 2019 sliding Arya, scale D.OZian Nystatin 06/17/ Active Powder apply to Joy 2019 skin Arya, folds bid D.OZain Tylenol 8 Hour 06/17/ Active Tablets ER 650mg 650mg po Joy 2019 q6hr prn Arya, pain D.O. Lactulose 06/17/ Active Solution 20GM/30ML 30g po Joy 2019 tid Maverick KoenigO. Torsemide 06/17/ Active Tablets 20mg 80mg po Joy 2019 daily Tiffany Koenig Ipratropium 06/17/ Hx Solution 0.03% 1 squirt Joy [place] 2019 - to each Arya, 07/ nostril D.OZain 2019 daily Immunizations Description No Information Available Vital Signs Date Vital Result Comment 07/14/2018 9:42am Weight 253.25 lb Heart Rate 86 /min BP Systolic 124 mmHg BP Diastolic 78 mmHg Respiratory Rate 21 /min Body Temperature 98.8 F O2 % BldC Oximetry 99 % 07/08/2018 11:00am Height 68 inches 5'8" Weight 225.50 lb Heart Rate 80 /min BP Systolic 121 mmHg BP Diastolic 74 mmHg Respiratory Rate 22 /min Body Temperature 95.3 F O2 % dC Oximetry 100 % BMI (Body Mass Index) 34.3 kg/m2 Results Test Date Facility Test Result H/L Range Note Comp Metabolic Panel 06/22/2018 [facility] Sodium 135 mmol/L N 135-[address] [place] [address] [phone] Potassium 4.1 mmol/L N 3.5-5.0 Chloride 99 [...] Egfr 42.7 >60 2 Laboratory test 06/22/2018 [facility] C Reactive 11.90 mg/L High <8.01 [address] [place] [address] [phone] CBC Auto Diff 06/22/2018 [facility] White Blood 3.5 N 3.5- 10.[address] Count 10^3/[place] [address] [phone] Red Blood Count 2.59 10^6/uL Low 4.00-5.40 [...] Blood Cells % 0 Urinalysis Profile 05/29/2018 [facility] Urine Color Yellow [address] [place] [address] [phone] Urine Appearance Clear Urine Specific [place] 1.025 N 1.010-1.030 Urine pH 6.0 N [...] PROVIDED Procedures Date Code Description Status 08/17/2017 67873 ECHO Transthorasic Realtime 2D W Doppler & Color Flow Hosp Completed 08/17/2017 06570 EKG, Interpretation Only Completed Encounters Type Date Location Provider Dx Diagnosis Office Visit 07/14/2018 [facility] Joy Arya, I50.32 Chronic diastolic 8:15a D.O. (congestive) heart failure I48.2 Chronic atrial fibrillation L89.622 Pressure ulcer of left heel, stage 2 E66.01 Morbid (severe) obesity due to excess calories K72.10 Chronic hepatic failure without coma N18.4 Chronic kidney disease, stage 4 (severe) Office Visit 07/08/2018 [facility]astroenterology Tomer T. 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 L89.622 Pressure ulcer of left heel, stage 2 K72.10 Chronic hepatic failure without coma Office Visit 06/25/2018 9:00a [facility] Germania I87.313 Chronic venous MD Alan hypertension w ulcer of bilateral low extrm L89.622 Pressure ulcer of left heel, stage 2 F43.21 Adjustment disorder with depressed mood Office Visit 06/21/2018 12:15p [facility], I87.313 Chronic venous SALES DEVELOPMENT MANAGER hypertension w ulcer of bilateral low extrm L89.622 Pressure ulcer of left heel, stage 2 L03.115 Cellulitis of right lower limb Office Visit 06/17/2018 9:00a [facility] Joy Hummelr, I48.2 Chronic atrial D.O. fibrillation I50.32 Chronic diastolic (congestive) heart failure K72.10 Chronic hepatic failure without coma N18.4 Chronic kidney disease, stage 4 (severe) Office Visit 06/04/2018 10:30a [facility] [place] I48.2 Chronic atrial MD Alan fibrillation I87.313 Chronic venous hypertension w ulcer of bilateral low extrm I50.9 Heart failure, unspecified K72.10 Chronic hepatic failure without coma L89.622 Pressure ulcer of left heel, stage 2 N18.4 Chronic kidney disease, stage 4 (severe) R60.9 Edema, unspecified I48.2 Chronic atrial fibrillation K72.10 Chronic hepatic failure without coma I50.9 Heart failure, unspecified R60.9 Edema, unspecified [facility].115 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 L89.622 Pressure ulcer of left heel, stage 2 K72.10 Chronic hepatic failure without coma Office Visit 05/28/2018 12:30p [facility] Germania Phillips, K72.10 Chronic hepatic MD failure without coma I13.0 Hyp hrt & chr kdny dis w hrt fail and stg 1-4/unsp chr kdny I50.9 Heart failure, unspecified N18.4 Chronic kidney disease, stage 4 (severe) I87.313 Chronic venous hypertension w ulcer of bilateral low extrm I48.2 Chronic atrial fibrillation I42.9 Cardiomyopathy, unspecified R60.9 Edema, unspecified Office Visit 08/20/2017 [place] Aaksah Yost I48.91 Unspecified atrial 12:41p Cardiology Luis Antonio Zheng fibrillation I42.9 Cardiomyopathy, unspecified Office Visit 08/20/2017 11:33a [facility] I51.81 Takemily Edwards,manuel Vogt M.D. syndrome Hospitalists R57.0 Cardiogenic shock N17.9 Acute kidney failure, unspecified I48.92 Unspecified atrial flutter Office Visit 08/19/2017 12:28p [facility] Shelley Gregory, I48.2 Chronic atrial Of Home Care Manager Javier.DZain fibrillation I42.9 Cardiomyopathy, unspecified I21.4 Non-St elevation (Nstemi) myocardial infarction Office Visit 08/19/2017 11:32a [facility] I51.81 Takmanuel Victor M.D. syndrome Hospitalists R57.0 Cardiogenic shock N17.9 Acute kidney failure, unspecified I48.92 Unspecified atrial flutter Office Visit 08/18/2017 11:32a [facility] Sharon I51.81 Takmanuel Victor DO syndrome Hospitalists R57.0 Cardiogenic shock N17.9 Acute kidney failure, unspecified I48.92 Unspecified atrial flutter Office Visit 08/18/2017 11:31a [facility] Abhi Gray I51.81 Bear Guzman D.O. syndrome R57.0 Cardiogenic shock N17.9 Acute kidney failure, unspecified I48.92 Unspecified atrial flutter Office Visit 08/17/2017 12:27p [facility] Joe Temple I48.91 Unspecified atrial Of Home Care Manager Luis Antonio Nunez fibrillation I51.9 Heart disease, unspecified Office Visit 08/17/2017 11:30a [facility] Abhi Gray I51.81 Takotsubo Tiffany Guzamn syndrome I48.92 Unspecified atrial flutter R57.0 Cardiogenic shock N17.9 Acute kidney failure, unspecified Plan of Treatment 07/15/2018 - Irais Bryan, NPI50.32 Chronic diastolic (congestive) heart failureComments:- no acute changes overnight - will continue diuretics as prescribed yesterday - continue with weights on //FK74.60 Unspecified cirrhosis of liverComments:- Will order ultrasound today to evaluate for acities and the possible need for paracentesis - will continue with increased diuretics as prescribed yesterday- patient with no weight gain this week - weight is trending down
[2018-07-17 15:23] LABS: Urine Appearance Cloudy; Urine Bilirubin Negative (Negative); Urine Blood Negative (Negative); Urine Color Yellow; Urine Glucose Negative (Negative); Urine Ketones Negative (Negative); Urine Nitrite Negative (Negative); Urine Protein Negative (Negative); Urine Specific Gravity 1.009 (1.010-1.030); Urine Urobilinogen Negative (Negative)
[2018-07-17] MEDS ORDERED: Acetaminophen TAB* 325 MG PO PRN (15:47)
[2018-07-17] MEDS ORDERED: guaiFENesin ER TAB 600 MG PO PRN (15:47)
[2018-07-17] MEDS ORDERED: Ipratropium 0.5MG/2.5ML NEB* 0.5 MG/2.5 ML NEB.SOLN INH PRN (15:47)
[2018-07-17] MEDS ORDERED: Dextrose 50% Syringe 50 ML* 25 GM/50 ML SYRINGE IV PUSH PRN (16:40)
[2018-07-17 16:48] LABS: Magnesium 2.2 mg/dL (1.9-2.7)
[2018-07-17 17:15] LABS: TSH (Thyroid Stimulating Horm) 19.52 mcIU/mL (0.34-5.60)
[2018-07-17] MEDS ORDERED: Furosemide IV* 10 MG/ML VIAL (40 MG) IV SLOW PU SCH (20:00)
[2018-07-17] MEDS ORDERED: Heparin VIAL(*) 5000 UNITS/ML VIAL (FIVE THOUSAND) SUBCUT SCH (22:00)
[2018-07-17] MEDS: Pregabalin CAP(*) 25 MG PO SCH (23:29)
[2018-07-17] MEDS: Metoprolol Tartrate TAB* 25 MG PO SCH (23:30)
[2018-07-17] MEDS: Insulin LISPRO* 1 UNITS UNIT SUBCUT SCH (23:32)
[2018-07-17] MEDS: Lactulose* 15 ML UDC PO SCH (23:32)
[2018-07-17] MEDS: CMC: Midodrine (NF) 5 MG TAB PO SCH (23:33)
[2018-07-17] MEDS: RiFAXimin* 550 MG TAB PO SCH (23:34)
[2018-07-18] MEDS: Metoprolol Tartrate TAB* 25 MG PO SCH ×4 (00:01→21:31)
[2018-07-18] MEDS: Calamine LOTION* 120 ML TOPICAL SCH ×2 (00:33→08:20)
--- NOTE | 2018-07-18 03:09 | HP ---
HISTORY AND PHYSICAL: DATE OF ADMISSION: 07/17/18 PROVIDER: Virginia Garcia NP. ATTENDING PHYSICIAN: Dr. Jean * (report dictated by Virginia Garcia NP). PRIMARY CARE PROVIDER: Dr. Joy Koenig at [facility]. CHIEF COMPLAINT: Increased shortness of breath and fluid retention. HISTORY OF PRESENT ILLNESS: Ms. Latham is a 73-year-old female with a past medical history of morbid obesity, chronic kidney disease, cardiomyopathy, with a known EF of 30%, cirrhosis of the liver, metabolic encephalopathy, type 2 diabetes, thrombocytopenia, who presents from [facility] with concern of increased shortness of breath and report of increased fluid retention. The patient reports over the past couple of weeks she has been slowly gaining "more and more fluid in my legs and abdomen." Per the [facility] Nursing weight documentation, she has gained 50 pounds in a week. The patient reports she has shortness of breath at her baseline; however, she now has developed orthopnea and reports her lower extremity edema now goes into her upper thighs and into her abdomen. She does report she recently saw Dr. Koenig at [facility] in the last week or two, but is not sure if she had any change in her treatment plan. The patient reports really just over the last 2 to 3 days her fluid retention has worsened. In the emergency department, she was given 60 mg of IV Lasix. On my evaluation, she reports that she feels better with less shortness of breath. She underwent a CAT scan of the abdomen and pelvis, which showed "hepatic cirrhosis, mild splenomegaly, and rhad-ky-lpclqepm degree of ascites, as well as a small right pleural effusion." The patient denies any cough, weakness, body aches, fever or chills. Denies any abdominal pain. No nausea, vomiting or diarrhea. Reports she continues to have a good appetite. She denies chest pain. Denies any urinary symptoms such as dysuria, hematuria or increased frequency. It appears, per the [facility] records, that she was being treated since 07/14/18 for congestive heart failure with an increase in her diuretics. She also underwent an abdominal ultrasound 07/15/18, which showed, impression: Overall limited study. Diffuse ascites. Suggestion of cirrhosis of the liver parenchyma. Mild splenomegaly. PAST MEDICAL HISTORY: 1. Cirrhosis of the liver. 2. Cardiomyopathy with a known EF of 30% to 35% in August 2017. 3. Atrial fibrillation, not on anticoagulation due to history of severe GI bleed. 4. Type 2 diabetes, not currently on medication. 5. Coronary artery disease, history of acute coronary syndrome. 6. History of streptococcal bacteremia likely due to lower extremity chronic wounds. 7. History of E. coli bacteremia. 8. Morbid obesity with a BMI of 45, with alveolar hypoventilation syndrome. 9. Chronic kidney disease. 10. History of heart failure. 11. History of metabolic encephalopathy. 12. Hypertension. 13. Iron-deficiency anemia. 14. Thrombocytopenia. 15. Osteoarthritis. 16. Hypothyroidism. HOME MEDICATIONS: 1. Mucinex 1200 mg p.o. b.i.d. p.r.n. 2. Torsemide 80 mg p.o. daily. Please note, it appears starting 07/14/18 the patient was prescribed torsemide 40 mg daily in the afternoon for CHF x3 days, in addition to her morning torsemide. 3. Spironolactone 25 mg p.o. daily. 4. Rifaximin 550 mg p.o. q.8 hours. This appears per [facility] records, and was started in May of this year. 5. Lyrica 25 mg p.o. b.i.d. 6. Zofran 4 mg p.o. q.6 hours p.r.n. 7. Prilosec 20 mg p.o. daily. 8. Minerin cream 1% topical b.i.d. 9. Midodrine HCL 2.5 mg p.o. t.i.d. 10. Metoprolol tartrate 12.5 mg p.o. q.8 hours. 11. Synthroid 250 mcg p.o. daily. 12. Xopenex 0.63 mg/3 mL inhalation q.6 hours while awake. 13. Lactulose 15 mL p.o. t.i.d. 14. Acidophilus capsule 1 p.o. daily. 15. Atrovent 0.5 mg INH q.6 hours p.r.n. 16. Ferrous sulfate 325 mg p.o. daily. 17. Vitamin D 1000 units p.o. daily. 18. Armodafinil 150 mg p.o. daily. 19. Acetaminophen 650 mg p.o. q.4 hours p.r.n. ALLERGIES: IODINE CONTRAST, ORAL and IV DYE. FAMILY HISTORY: The patient's father at age 75 of unclear etiology. The patient's mother at 66 of acute coronary syndrome. SOCIAL HISTORY: The patient had been living alone in [place] up until this year where she had been in and out of nursing homes. Her son lives in [place] and he is her healthcare proxy. She currently resides at [facility] for rehab and hopes to go home. Denies history of smoking. Denies alcohol use. She is a full code. REVIEW OF SYSTEMS: A 14-point review of systems was performed. All the pertinent positives and negatives are mentioned in the history of present illness. Otherwise are negative. PHYSICAL EXAMINATION GENERAL APPEARANCE: Morbidly obese, chronically ill female, lying on the emergency department stretcher, alert and oriented x3, watching TV, in no acute distress. [id number]-pu-[id number] historian. VITAL SIGNS: Temperature 98.7, heart rate 82, respirations 21, O2 sat 100% on 2 L nasal cannula, blood pressure 103/55. HEENT: Head is normocephalic, atraumatic. Pupils are equal and reactive to light. Oropharynx is clear. Moist mucous membranes. LUNGS: Clear to auscultation bilaterally. Good aeration throughout. Possible mild crackles in left base. CARDIAC: Irregularly irregular. No murmurs, rubs or gallops appreciated. No JVD noted. Lower extremities are noted to have 2 to 3+ edema bilaterally from mid torso through toes. ABDOMEN: Grossly obese. Noted fluid retention in the lower aspect of abdomen. Slightly distended, soft, nontender, difficult to auscultate bowel sounds. EXTREMITIES: Strength is 5/5 in her upper extremities with full range of motion. On her lower extremities, she can wiggle her toes and lift her legs slightly off the bed; however, she does appear to be weaker in her lower extremities. She has noted chronic venous stasis changes to her lower extremities with noted scabs on both shins that appear to be healing. Fluid retention is noted with 2 to 3+ lower extremity edema that does travel into her thighs and to the lower aspect of her abdomen and buttocks. NEUROLOGICAL: Alert and oriented x3. No focal deficits noted. LABORATORY DATA AND DIAGNOSTIC STUDIES: Sodium 137, potassium 4.0, chloride 100, carbon dioxide 31, anion gap 6, BUN 51, creatinine 1.45, glucose 111, lactic acid 1.1, calcium 8.9. Total bilirubin 0.80, AST 29, ALT 13, alkaline phosphatase 218. Troponin 0.02. C-reactive protein 8.31. BNP 522. Total protein 7.7, albumin 3.2. INR 1.18. WBC 3.9, RBC 2.58, HGB 8.6, HCT 26, MCV 100 , MCH 34, MCHC 32, RDW 17, platelet count 78. Urinalysis unremarkable. Chest x-ray: "Chest x-ray findings are consistent with interval development of cardiogenic pulmonary edema, likely with a pleural effusion at the left lung base." Abdomen and pelvis CT: "Impression: 1. CT findings include increased attenuation of the subcutaneous fat of the patient's large pannus consistent with inflammatory change. 2. Signs of hepatic cirrhosis include nodularity of the liver surface and mild splenomegaly. There is emij-kc-obufetld degree of ascites including perihepatic and perisplenic fluid. 3. There is a small right-sided pleural effusion." ASSESSMENT AND PLAN: Ms. Latham is a 73-year-old female with a past medical history of chronic kidney disease, heart failure, cardiomyopathy, with a known EF of 30%, liver cirrhosis, history of metabolic encephalopathy, type 2 diabetes , hypertension, thrombocytopenia, iron-deficiency anemia, and morbid obesity with alveolar hypoventilation, who presents from [facility] today for increased shortness of breath and retained fluid, recently being treated for a congestive heart failure exacerbation, found to have a 50-pound weight gain per [facility] records. 1. Shortness of breath: I do suspect this is secondary to congestive heart failure. She does appear to be quite fluid overloaded. She did receive 60 mg IV Lasix in the emergency department and does feel better. She had a Garcia catheter placed in the ER, which we will continue for strict I's and O's. I will place her on Lasix 40 mg q.12 hours to continue to diurese. Her blood pressure will have to be watched closely as she does take midodrine, which we will continue at this time. We will hold her home dose of torsemide of 80 mg daily. It is possible she may just not be absorbing the torsemide in her GI tract and, hopefully, will respond to IV diuresing. She does have a noted small right-sided pleural effusion. She can have a repeat chest x-ray during her hospitalization. We will repeat an echocardiogram, the last one that she has had was in August of 2017, which showed a EF of 30% to 35%. She was seen by Dr. Nunez at that time who was not sure if this was secondary to new onset atrial fibrillation with RVR versus a possible Takotsubo as she just had returned from a of her gwzhtbtf-[id number]-tek. His recommendation was for a possible SEVERO and suggests that the patient should strongly consider cardiac catheterization. Per the patient she never had followup as she has been in and out of jail since that time. 2. Cirrhosis of the liver, advanced: The patient currently is being treated as an outpatient with daily lactulose, rifaximin, spironolactone, torsemide and we will continue these at this time. 3. Thrombocytopenia: Platelets are 78. This appears to be around her baseline. 4. Atrial fibrillation, not on anticoagulation due to history of severe GI bleeding in the past: She appears to be in chronic atrial fibrillation that is rate controlled. We will continue metoprolol. 5. Type 2 diabetes, does not appear to be on any medication: I plan for fingerstick blood glucose before meals and at bedtime, with lispro sliding scale. 6. Iron-deficiency anemia: Continue ferrous sulfate. She appears to be around her baseline. 7. Hypothyroidism: Continue Synthroid. We will add on TSH. It appears her last TSH in August 2017 was 2.51. 8. Chronic kidney disease: It appears to be around baseline. 9. DVT prophylaxis: In the setting of the thrombocytopenia, we will order SCDs only. 10. Code status: Full code. The patient's son, Cb Latham, is the healthcare proxy, his number is [phone]. TIME SPENT: Approximately 60 minutes were spent on this admission. VIRGINIA GARCIA, GIS GEOGRAPHER [id number]/CPS #: [id number] MITESH
[2018-07-18] MEDS: Levothyroxine TAB* 125 MCG TAB PO SCH (06:40)
[2018-07-18] MEDS: RiFAXimin* 550 MG TAB PO SCH ×3 (06:40→21:32)
[2018-07-18 07:00] LABS: ALT 12 U/L (7-52); AST 27 U/L (13-39); Albumin 3.2 g/dL (3.2-5.2); Albumin/Globulin Ratio 0.8 (1-3); Alkaline Phosphatase 210 U/L (34-104); Anion Gap 5 mmol/L (2-11); Blood Urea Nitrogen 51 mg/dL (6-24); CO2 Carbon Dioxide 29 mmol/L (22-32); Chloride 102 mmol/L (101-111); EGFR African American 45.2 (>60); EGFR Non-African American 37.4 (>60); Globulin 4.2 g/dL (2-4); Glucose 91 mg/dL (70-100); Magnesium 2.3 mg/dL (1.9-2.7); Potassium 4.1 mmol/L (3.5-5.0); Sodium 136 mmol/L (135-145); Total Protein 7.4 g/dL (6.4-8.9)
[2018-07-18 07:10] LABS: ABS Basophils 0 10^3/ul (0-0.2); ABS Eosinophils 0.2 10^3/ul (0-0.6); ABS Lymphocytes 0.4 10^3/ul (1.0-4.8); ABS Monocytes 0.5 10^3/ul (0-0.8); ABS Neutrophils 2.3 10^3/ul (1.5-7.7); ABS Nucleated RBC 0 10^3/ul; Eosinophil % 5.1 %; Hematocrit 27 % (33-41); Mean Corpuscular HGB Conc 33 g/dL (31-36); Mean Corpuscular Hemoglobin 33 pg (27-31); Mean Corpuscular Volume 101 fL (80-97); Mean Platelet Volume 8.2 fL (7.4-10.4); Nucleated Red Blood Cells % 0; Platelet Count 72 10^3/uL (150-450); Red Blood Count 2.71 10^6 /uL (3.70-4.87); Red Cell Distribution Width 17 % (10.5-15); White Blood Count 3.3 10^3/uL (3.5-10.8)
[2018-07-18 07:54] LABS: % Iron Saturation 22 % (15-55); Iron 75 ug/dL (50-212); Total Iron Binding Capacity 342 mcg/dL (250-450); Transferrin 244 mg/dL (203-362)
[2018-07-18] MEDS ORDERED: Furosemide IV* 10 MG/ML VIAL (40 MG) IV SLOW PU SCH ×2 (08:00→17:00)
[2018-07-18] MEDS: Insulin LISPRO* 1 UNITS UNIT SUBCUT SCH ×4 (08:08→21:29)
[2018-07-18] MEDS: Pregabalin CAP(*) 25 MG PO SCH ×2 (08:11→21:07)
[2018-07-18] MEDS: Spironolactone TAB* 25 MG PO SCH (08:11)
[2018-07-18] MEDS: Lactulose* 15 ML UDC PO SCH ×3 (08:11→21:06)
[2018-07-18] MEDS: Cholecalciferol TAB* 1000 UNITS PO SCH (08:11)
[2018-07-18] MEDS: CMC: Midodrine (NF) 5 MG TAB PO SCH ×3 (08:12→21:06)
[2018-07-18 08:17] LABS: Ferritin 84.1 ng/mL (11-307)
[2018-07-18 08:21] LABS: Folate 15.01 ng/mL (>3.99)
[2018-07-18] MEDS ORDERED: Ferrous Sulfate TAB* 325 MG PO SCH ×2 (09:00→12:00)
[2018-07-18] MEDS ORDERED: ARMODAFINIL 150 MG PO SCH (09:00)
[2018-07-18] MEDS ORDERED: Spironolactone TAB* 25 MG PO SCH (09:00)
--- NOTE | 2018-07-18 11:01 | PN ---
Subjective Date of Service: 07/18/18 Interval History: Patient is feeling better with regards to breathing. Patient still gets very SOB with movement and is very weak on standing. Patient is having persistent abdominal bloating. Patient has lesions all over her body which itch and that she picks at frequently. Patient denies CP, SOB, N/V, F/C, or other pain. Family History: Unchanged from Admission Social History: Unchanged from Admission Past Medical History: Unchanged from Admission Objective Active Medications: Acetaminophen (Tylenol Tab*) 650 mg PO Q4H PRN PRN Reason: FEVER/PAIN Last Admin: 07/18/18 00:37 Dose: 650 mg Albuterol/Ipratropium (Duoneb (Albuterol 2.5 Mg/Ipratropium 0.5 Mg)) 1 neb INH Q6H PRN PRN Reason: SOB/WHEEZING Calamine (Calamine Lotion*) 1 applic TOPICAL QID [facility] Last Admin: 07/18/18 08:20 Dose: Not Given Cholecalciferol (Vitamin D Tab*) 1,000 units PO DAILY [facility] Last Admin: 07/18/18 08:11 Dose: 1,000 units Dextrose (D50w Syringe 50 Ml*) 12.5 gm IV PUSH .FOR FS < 60 - SS PRN PRN Reason: FS < 60 Furosemide (Lasix Iv*) 60 mg IV SLOW PU 0800,1700 [facility] Insulin Human Lispro (Humalog*) 0 units SUBCUT ACHS [facility]; Protocol Last Admin: 07/18/18 08:08 Dose: Not Given Lactulose (Lactulose*) 15 ml PO TID [facility] Last Admin: 07/18/18 08:11 Dose: 15 ml Levothyroxine Sodium (Synthroid Tab*) 250 mcg PO DAILY@0600 [facility] Last Admin: 07/18/18 06:40 Dose: 250 mcg Metoprolol Tartrate (Lopressor Tab*) 12.5 mg PO Q8HR [facility] Last Admin: 07/18/18 06:40 Dose: 12.5 mg Midodrine (Midodrine (Nf)) 2.5 mg PO TID [facility]; Protocol Last Admin: 07/18/18 08:12 Dose: 2.5 mg Pregabalin (Lyrica Cap(*)) 25 mg PO BID [facility] Last Admin: 07/18/18 08:11 Dose: 25 mg Rifaximin (Xifaxan*) 550 mg PO Q8HR [facility] Last Admin: 07/18/18 06:40 Dose: 550 mg Spironolactone (Aldactone Tab*) 50 mg PO DAILY [facility] Last Admin: 07/18/18 08:11 Dose: 50 mg Vital Signs - 8 hr 07/18/18 07/18/18 07/18/18 03:15 05:00 07:20 Temperature 96.8 F 97.0 F Pulse Rate 86 77 Respiratory 19 16 18 Rate Blood Pressure 115/57 100/55 (mmHg) O2 Sat by Pulse 86 100 Oximetry 07/18/18 07/18/18 08:00 08:11 Temperature Pulse Rate Respiratory 19 18 Rate Blood Pressure (mmHg) O2 Sat by Pulse Oximetry Oxygen Devices in Use Now: None Appearance: Patient is a 73yo female who appears stated age and is sitting in the bed in [facility]. Eyes: No Scleral Icterus, PERRLA Ears/Nose/Mouth/Throat: NL Teeth, Lips, Gums, Clear Oropharnyx, Mucous Membranes Moist Neck: NL Appearance and Movements; NL JVP, Trachea Midline Respiratory: Symmetrical Chest Expansion and Respiratory Effort, - - Dimininshed in Lower lobes, rales in middle lobes, clear upper lobes. Cardiovascular: NL Sounds; No Murmurs; No JVD, RRR, - - 3+ pitting edema with weeping. Abdominal: - - Obese and distended. Normoactive bowel sounds. Limited exam. Lymphatic: No Cervical Adenopathy Extremities: No Clubbing, Cyanosis Skin: No Nodules or Sclerosis, - - Small open areas and purpura over body. Neurological: Alert and Oriented x 3, NL Sensation, NL Muscle Strength and Tone , - - CN II-XII intact. Lines/Tubes/Other Access: Clean, Dry and Intact Garcia Result Diagrams: 07/18/18 06:38 07/18/18 06:38 Assess/Plan/Problems-Billing Assessment: Patient is a 73yo female with a PMH for HFrEF, Liver disease, hypothyroidism, Afib, DM II, who has been getting more SOB with worsening fluid overload and reported 50lb weight gain who is improving with diuresis. - Patient Problems (1) HFrEF (heart failure with reduced ejection fraction) Current Visit: Yes Status: Acute Code(s): I50.20 - UNSPECIFIED SYSTOLIC ( CONGESTIVE) HEART FAILURE SNOMED Code(s): 147144683 Comment: - Likely cause of severe fluid overload, gained 50lbs in last several months per jail. - Lasix 60mg IV BID, Spironolactone 50mg daily - Repeat echo, cath was recommended but never done, will need to be done at some point - Unknown cause, possibility of tachycardia induced cardiomyopathy, takosubo's - Attempt to get records from recent [place] hospitalization for possible echo results - Patient endorses previous good response to IV diuresis. (2) Liver disease Current Visit: Yes Status: Acute Code(s): K76.9 - LIVER DISEASE, UNSPECIFIED SNOMED Code(s): 705256952 Comment: - Unclear cause, presumed CANALES by recent GI consult. - Will attempt to get records from [place] - Increased globulin on CMP persistently, IF no SPEP done previously, will order to assess for MM or possibility of amylodoisis affecting liver/heart - Widespread pruritis and elevated Alk Phos possibly from PBC, will order AMA depending on previous workup. (3) Anemia Current Visit: Yes Status: Acute Code(s): D64.9 - ANEMIA, UNSPECIFIED SNOMED Code(s): 546897605 Comment: - Macrocytic, documented history of MAURI but not consistent with iron panel - Folate/B12 WNL - Possibly due to hypothyroidism - Consider SPEP if not done before to assess for multiple myeloma. (4) Hypotension Current Visit: Yes Status: Acute Comment: - Unknown cause, possibly liver disease or heart disease - Continue midodrine. (5) Atrial fibrillation Current Visit: No Status: Acute Code(s): I48.91 - UNSPECIFIED ATRIAL FIBRILLATION SNOMED Code(s): 64235801 Comment: - Rate controlled on Metoprolol - Not anticoagulated due to history of severe GI bleed. - Continue to not anticoagulate (6) Diabetes mellitus Current Visit: No Status: Acute Code(s): E11.9 - TYPE 2 DIABETES MELLITUS WITHOUT COMPLICATIONS SNOMED Code(s): 29939010 Comment: - Lispro SSI, A1c 5.9% last year - On no medications at [facility]. (7) Hypothyroidism Current Visit: Yes Status: Acute Code(s): E03.9 - HYPOTHYROIDISM, UNSPECIFIED SNOMED Code(s): 46808031 Comment: - TSH 19 despite 250mcg daily of levothyroxine - Absorption likely impaired by bowel edema and possibly by concurrent administration of iron - Hold iron, diurese, and recheck in 3 months. - Myxedema possibly contributing to Edema. (8) DVT prophylaxis Current Visit: Yes Status: Acute Code(s): VDC5731 - SNOMED Code(s): 103609474 Comment: - SCDs with thrombocytopenia and history severe GI bleed. (9) Full code status Current Visit: Yes Status: Acute Code(s): Z78.9 - OTHER SPECIFIED HEALTH STATUS SNOMED Code(s): 486981001 Status and Disposition: Inpatient for IV diuresis, Discharge when medically stable, possibly back to [facility] or other HO.
[2018-07-18 11:25] LABS: T4, Total 5.45 mcg/dL (6.09-12.23)
[2018-07-18] MEDS: Albuterol/Ipratropium NEB.SOL* Albuterol 2.5 MG/Ipratropium 0.5 MG 3 ML INH PRN (20:49)
[2018-07-19] MEDS: Calamine LOTION* 120 ML TOPICAL PRN ×2 (02:54→20:15)
[2018-07-19] MEDS: Metoprolol Tartrate TAB* 25 MG PO SCH ×3 (05:28→21:29)
[2018-07-19] MEDS: RiFAXimin* 550 MG TAB PO SCH ×3 (05:29→21:29)
[2018-07-19] MEDS: Levothyroxine TAB* 125 MCG TAB PO SCH (05:29)
[2018-07-19 07:29] LABS: Hematocrit 27 % (33-41); Hemoglobin 8.9 g/dL (12.0-16.0); Mean Corpuscular HGB Conc 33 g/dL (31-36); Mean Corpuscular Hemoglobin 33 pg (27-31); Mean Corpuscular Volume 100 fL (80-97); Mean Platelet Volume 7.8 fL (7.4-10.4); Platelet Count 76 10^3/uL (150-450); Red Blood Count 2.68 10^6 /uL (3.70-4.87); Red Cell Distribution Width 16 % (10.5-15); White Blood Count 4.3 10^3/uL (3.5-10.8)
[2018-07-19 07:44] LABS: BUN/Creatinine Ratio 35.8 (8-20); EGFR African American 41.7 (>60); EGFR Non-African American 34.5 (>60); Magnesium 2.2 mg/dL (1.9-2.7); Potassium 4.6 mmol/L (3.5-5.0)
[2018-07-19 08:04] LABS: ABS Basophils 0.1 10^3/ul (0-0.2); ABS Eosinophils 0.1 10^3/ul (0-0.6); ABS Lymphocytes 0.4 10^3/ul (1.0-4.8); ABS Monocytes 0.5 10^3/ul (0-0.8); ABS Neutrophils 3.2 10^3/ul (1.5-7.7); ABS Nucleated RBC 0 10^3/ul; Lymphocyte % 9.6 %; Nucleated Red Blood Cells % 0.1
[2018-07-19] MEDS: Insulin LISPRO* 1 UNITS UNIT SUBCUT SCH ×4 (08:57→22:38)
[2018-07-19] MEDS: CMC: Midodrine (NF) 5 MG TAB PO SCH ×3 (09:11→20:15)
[2018-07-19] MEDS: Pregabalin CAP(*) 25 MG PO SCH ×2 (09:12→20:14)
[2018-07-19] MEDS: Cholecalciferol TAB* 1000 UNITS PO SCH (09:13)
[2018-07-19] MEDS: Spironolactone TAB* 25 MG PO SCH (09:13)
[2018-07-19] MEDS: Lactulose* 15 ML UDC PO SCH ×3 (09:14→20:14)
[2018-07-19] MEDS: Furosemide IV* 10 MG/ML VIAL (40 MG) IV SLOW PU SCH ×2 (09:16→17:40)
--- NOTE | 2018-07-19 15:29 | PN ---
Subjective Date of Service: 07/19/18 Interval History: Patient is feeling the same today. Patient has significant SOB with movement but none at rest. Patient denies CP, N/V, abdominal pain. Patient feels bloated. Patient denies F/C, or other pain. Family History: Unchanged from Admission Social History: Unchanged from Admission Past Medical History: Unchanged from Admission Objective Active Medications: Acetaminophen (Tylenol Tab*) 650 mg PO Q4H PRN PRN Reason: FEVER/PAIN Last Admin: 07/18/18 00:37 Dose: 650 mg Albuterol/Ipratropium (Duoneb (Albuterol 2.5 Mg/Ipratropium 0.5 Mg)) 1 neb INH Q6H PRN PRN Reason: SOB/WHEEZING Last Admin: 07/18/18 20:49 Dose: 1 neb Calamine (Calamine Lotion*) 1 applic TOPICAL QID PRN PRN Reason: ITCHING Last Admin: 07/19/18 02:54 Dose: 1 applic Cholecalciferol (Vitamin D Tab*) 1,000 units PO DAILY [facility] Last Admin: 07/19/18 09:13 Dose: 1,000 units Dextrose (D50w Syringe 50 Ml*) 12.5 gm IV PUSH .FOR FS < 60 - SS PRN PRN Reason: FS < 60 Furosemide (Lasix Iv*) 80 mg IV SLOW PU 0800,1700 [facility] Last Admin: 07/19/18 09:16 Dose: 80 mg Insulin Human Lispro (Humalog*) 0 units SUBCUT ACHS [facility]; Protocol Last Admin: 07/19/18 12:42 Dose: 2 units Lactulose (Lactulose*) 15 ml PO TID [facility] Last Admin: 07/19/18 14:59 Dose: 15 ml Levothyroxine Sodium (Synthroid Tab*) 50 mcg PO DAILY@0600 [facility] Metoprolol Tartrate (Lopressor Tab*) 12.5 mg PO Q8HR [facility] Last Admin: 07/19/18 14:59 Dose: 12.5 mg Midodrine (Midodrine (Nf)) 2.5 mg PO TID [facility]; Protocol Last Admin: 07/19/18 14:59 Dose: 2.5 mg Pregabalin (Lyrica Cap(*)) 25 mg PO BID [facility] Last Admin: 07/19/18 09:12 Dose: 25 mg Rifaximin (Xifaxan*) 550 mg PO Q8HR [facility] Last Admin: 07/19/18 14:59 Dose: 550 mg Spironolactone (Aldactone Tab*) 50 mg PO DAILY [facility] Last Admin: 07/19/18 09:13 Dose: 50 mg Vital Signs - 8 hr 07/19/18 07/19/18 07/19/18 08:26 09:12 12:02 Temperature 98.3 F Pulse Rate 81 Respiratory 19 29 20 Rate Blood Pressure 112/57 (mmHg) O2 Sat by Pulse 95 Oximetry 07/19/18 12:12 Temperature 97.5 F Pulse Rate 87 Respiratory 16 Rate Blood Pressure 140/73 (mmHg) O2 Sat by Pulse 92 Oximetry Oxygen Devices in Use Now: None Appearance: Patient is a 73yo female who appears older than stated age and is sitting in the bed in [facility]. Eyes: No Scleral Icterus, PERRLA, - - Right subconvunctival hemorrhage. Ears/Nose/Mouth/Throat: NL Teeth, Lips, Gums, Clear Oropharnyx, Mucous Membranes Moist Neck: NL Appearance and Movements; NL JVP, Trachea Midline Respiratory: Symmetrical Chest Expansion and Respiratory Effort, - - Diminshed in Bases, rales in middle lobes. Unchanged. Cardiovascular: NL Sounds; No Murmurs; No JVD, RRR, - - 2+ Pitting edema in B/L LE. Abdominal: - - Distended, Normoactive bowel sounds. Unable to palpate liver or spleen. Non-tender. Lymphatic: No Cervical Adenopathy Extremities: No Clubbing, Cyanosis Skin: No Nodules or Sclerosis, - - Small open areas diffusely over body. Neurological: Alert and Oriented x 3, NL Sensation, NL Muscle Strength and Tone , - - CN II-XII intact. Result Diagrams: 07/19/18 07:04 07/19/18 07:04 Assess/Plan/Problems-Billing Assessment: Patient is a 73yo female with a PMH for HFrEF, Liver disease, hypothyroidism, Afib, DM II, who has been getting more SOB with worsening fluid overload and reported 50lb weight gain who is improving with diuresis. - Patient Problems (1) HFrEF (heart failure with reduced ejection fraction) Current Visit: Yes Status: Acute Code(s): I50.20 - UNSPECIFIED SYSTOLIC ( CONGESTIVE) HEART FAILURE SNOMED Code(s): 273020604 Comment: - Acute on Chronic - Likely cause of severe fluid overload, gained 50lbs in last several months per [facility]. - Lasix 80mg IV BID, Spironolactone 50mg daily. Current poor response to diuresis. - Cannot add Metolazone due to BP. - Repeat echo, cath was recommended but never done, will need to be done at some point - Unknown cause, possibility of tachycardia induced cardiomyopathy, takosubo's - Echo from [place] in April shows EF 45-50%. - Patient endorses previous good response to IV diuresis. (2) Liver disease Current Visit: Yes Status: Acute Code(s): K76.9 - LIVER DISEASE, UNSPECIFIED SNOMED Code(s): 554766688 Comment: - Unclear cause, presumed CANALES by recent GI consult. - Records from [place] shows negative viral hepatitis panel, no further workup or cause of cirrhosis mentioned. - SPEP to assess cause of elevated globulin, may just be related to liver disease. - Widespread pruritis and elevated Alk Phos possibly from PBC. Will order AMA and EDWAR. - Continue Rifaximin and Lactulose - Albumin low end of normal, INR slightly elevated. MELD 13 - Low platelets stable. (3) Anemia Current Visit: Yes Status: Acute Code(s): D64.9 - ANEMIA, UNSPECIFIED SNOMED Code(s): 291808750 Comment: - Macrocytic, documented history of MAURI but not consistent with iron panel - Folate/B12 WNL - Possibly due to hypothyroidism - SPEP to assess for multiple myeloma. (4) Hypotension Current Visit: Yes Status: Acute Comment: - Unknown cause, possibly liver disease or heart disease - Continue midodrine. (5) Atrial fibrillation Current Visit: No Status: Acute Code(s): I48.91 - UNSPECIFIED ATRIAL FIBRILLATION SNOMED Code(s): 55827435 Comment: - Rate controlled on Metoprolol - Not anticoagulated due to history of severe GI bleed. - Continue to not anticoagulate (6) Diabetes mellitus Current Visit: No Status: Acute Code(s): E11.9 - TYPE 2 DIABETES MELLITUS WITHOUT COMPLICATIONS SNOMED Code(s): 83712226 Comment: - Lispro SSI, A1c 5.9% last year - On no medications at [facility]. (7) Hypothyroidism Current Visit: Yes Status: Acute Code(s): E03.9 - HYPOTHYROIDISM, UNSPECIFIED SNOMED Code(s): 32210645 Comment: - 250mcg ordered due to issues with medication reconciliation, actual dose 25mcg daily - TSH 19, T3 and T4 low, increase dose to 50mcg daily - Absorption likely impaired by bowel edema and possibly by concurrent administration of iron - Hold iron, diurese, and recheck in 3 months. - Myxedema possibly contributing to Edema. (8) DVT prophylaxis Current Visit: Yes Status: Acute Code(s): MJL3015 - SNOMED Code(s): 104000958 Comment: - SCDs with thrombocytopenia and history severe GI bleed. (9) Full code status Current Visit: Yes Status: Acute Code(s): Z78.9 - OTHER SPECIFIED HEALTH STATUS SNOMED Code(s): 167080252 Status and Disposition: Inpatient for IV diuresis, Discharge when medically stable, possibly back to [facility] or other HO.
[2018-07-19] MEDS ORDERED: LORazepam TAB(*) 1 MG PO PRN (16:24)
--- NOTE | 2018-07-19 18:02 | ECHO ---
Patient: MELANY OSBORN [facility] Rec#: [id number] : 1945 Date: 07/19/2018 Age: 73y Height: 173 cm / 68.1 in Weight: 137 kg / 301.9 lbs Sex: F BSA: 2.44 Room#: [facility] Admit Date#: 07/17/2018 Type: Inpatient Referring: [place] Reading: Joe Nunez MD [employer] Manager: Nathalia Tidwell RN RDCS Transthoracic Echocardiogram Indication: Cardiomyopathy, SOB BP: 115/57 HR: 93 Rhythm: A-Fib Findings History: Cardiomyopathy, ACS, A. fib, CHF, DM, liver cirrhosis, ascites, morbid obesity Technical Comments: The study quality is fair. The study is technically limited due to patient body habitus. Left Ventricle: The left ventricular chamber size is normal. Moderate concentric left ventricular hypertrophy is observed. There is increased basal septal hypertrophy noted without evidence of an increased gradient across the left ventricular outflow tract. The septal base measures 2.0 cm. Global left ventricular wall motion and contractility are within normal limits. There is normal left ventricular systolic function. The estimated ejection fraction is 60-65%. There is septal flattening of the interventricular septum consistent with right ventricular volume or pressure overload. The assessment of diastolic function is non-diagnostic. Left Atrium: The left atrium is moderate to severely dilated. Right Ventricle: The right ventricle is moderately dilated. The right ventricular global systolic function is low normal. Right Atrium: The right atrium is moderate to severely dilated. Aortic Valve: The aortic valve is trileaflet. The aortic valve leaflets are mildly thickened. There is aortic annular calcification. There is no evidence of aortic regurgitation. There is no evidence of aortic stenosis. Mitral Valve: Mild mitral annular calcification present. The mitral valve leaflets are mildly thickened. There is mild to moderate mitral regurgitation. There is no evidence of mitral stenosis. Tricuspid Valve: The tricuspid valve leaflets are normal. There is moderate to severe tricuspid regurgitation. There is evidence of moderate pulmonary hypertension. There is no tricuspid stenosis. Pulmonic Valve: The pulmonic valve appears normal. There is a trace pulmonic regurgitation. There is no pulmonic stenosis. Pericardium: There is no significant pericardial effusion. A pericardial fat pad is visualized. Aorta: There is no dilatation of the ascending aorta. The aortic arch is not well visualized. There is no dilation of the aortic root. Pulmonary Artery: The main pulmonary artery appears normal. Venous: The venous system is not well visualized. The inferior vena cava is not visualized. Conclusions Moderate concentric left ventricular hypertrophy is observed. There is increased basal septal hypertrophy noted without evidence of an increased gradient across the left ventricular outflow tract. The septal base measures 2.0 cm. Global left ventricular wall motion and contractility are within normal limits. The estimated ejection fraction is 60-65%. There is septal flattening of the interventricular septum consistent with right ventricular volume or pressure overload. The right ventricular global systolic function is low normal. The left atrium is moderate to severely dilated. There is no evidence of aortic stenosis. There is mild to moderate mitral regurgitation. The mitral valve leaflets are mildly thickened. There is moderate to severe tricuspid regurgitation. There is evidence of moderate pulmonary hypertension. There is no significant pericardial effusion. Compared tp study of 08/17/17, the LV function is now normal. RV volume overload is new. Mod/severe TR with moderate pulm HTN is the same Measurements Name Value Normal Range RVIDd (AP) 2D 4.3 cm (0.9 - 2.6) RVDdMajor (2D) 5.6 cm (2.2 - 4.4) RAd ISD 4CH 6.7 cm (3.4 - 4.9) RA (A4C)W 6.4 cm (2.9 - 4.6) IVSd (2D) 1.4 cm (0.6 - 1) LVPWd (2D) 1.4 cm (0.6 - 1) LVIDd (2D) 4.7 cm (3.6 - 5.4) LVIDs (2D) 3.1 cm - LV FS (2D) 34 % (25 - 45) Aortic Annulus 1.9 cm (1.4 - 2.6) Ao root diameter (2D) 2.9 cm (2.1 - 3.5) Ascending Ao 3.2 cm (2.1 - 3.4) LA dimension (AP) 2D 4.6 cm (2.3 - 3.8) LAd ISD 4CH 6.7 cm (2.9 - 5.3) LA ISD 4CH W 5.1 cm (2.5 - 4.5) Name Value Normal Range LA ESV BP (A/L) index 44.7 ml/m2 - Name Value Normal Range MV E-wave Vmax 1.3 m/sec - MV deceleration time 221 msec - LV septal e' Vmax 0.09 m/sec - LV lateral e' Vmax 0.12 m/sec - LV E:e' septal ratio 14.4 ratio - LV E:e' lateral ratio 10.8 ratio - Name Value Normal Range AV Vmax 1.5 m/sec - AV VTI 23.8 cm - AV peak gradient 9 mmHg - AV mean gradient 4 mmHg - LVOT Vmax 1 m/sec - LVOT VTI 17.8 cm - LVOT peak gradient 4 mmHg - LVOT mean gradient 2 mmHg - Name Value Normal Range TR Vmax 3.1 m/sec - TR peak gradient 38 mmHg - RAP 8 mmHg - RVSP 46 mmHg - Name Value Normal Range PV Vmax 0.93 m/sec -
[2018-07-19] MEDS: Albuterol/Ipratropium NEB.SOL* Albuterol 2.5 MG/Ipratropium 0.5 MG 3 ML INH PRN (19:54)
[2018-07-20] MEDS: RiFAXimin* 550 MG TAB PO SCH ×3 (05:23→21:05)
[2018-07-20] MEDS: Metoprolol Tartrate TAB* 25 MG PO SCH ×3 (05:23→21:05)
[2018-07-20] MEDS: Levothyroxine TAB* 50 MCG TAB PO SCH (05:24)
[2018-07-20 07:36] LABS: ABS Basophils 0 10^3/ul (0-0.2); ABS Eosinophils 0.2 10^3/ul (0-0.6); ABS Lymphocytes 0.5 10^3/ul (1.0-4.8); ABS Monocytes 0.5 10^3/ul (0-0.8); ABS Neutrophils 2.6 10^3/ul (1.5-7.7); ABS Nucleated RBC 0 10^3/ul; Eosinophil % 4.8 %; Hematocrit 28 % (33-41); Hemoglobin 9.1 g/dL (12.0-16.0); Lymphocyte % 12.8 %; Mean Corpuscular HGB Conc 33 g/dL (31-36); Mean Corpuscular Hemoglobin 33 pg (27-31); Mean Corpuscular Volume 100 fL (80-97); Mean Platelet Volume 8.1 fL (7.4-10.4); Nucleated Red Blood Cells % 0; Platelet Count 79 10^3/uL (150-450); Red Blood Count 2.77 10^6 /uL (3.70-4.87); Red Cell Distribution Width 17 % (10.5-15); White Blood Count 3.8 10^3/uL (3.5-10.8)
[2018-07-20 07:47] LABS: Albumin 3.1 g/dL (3.2-5.2); Calcium 8.9 mg/dL (8.6-10.3); Potassium 4.3 mmol/L (3.5-5.0); Total Bilirubin 0.9 mg/dL (0.2-1.0)
[2018-07-20 07:53] LABS: Albumin/Globulin Ratio 0.7 (1-3); BUN/Creatinine Ratio 35.1 (8-20); EGFR African American 40.8 (>60); EGFR Non-African American 33.7 (>60); Globulin 4.3 g/dL (2-4); Total Protein 7.4 g/dL (6.4-8.9)
[2018-07-20] MEDS: Insulin LISPRO* 1 UNITS UNIT SUBCUT SCH ×4 (07:56→21:03)
[2018-07-20] MEDS: Cholecalciferol TAB* 1000 UNITS PO SCH (08:17)
[2018-07-20] MEDS: CMC: Midodrine (NF) 5 MG TAB PO SCH ×3 (08:17→21:04)
[2018-07-20] MEDS: Pregabalin CAP(*) 25 MG PO SCH ×2 (08:17→21:05)
[2018-07-20] MEDS: Furosemide IV* 10 MG/ML VIAL (40 MG) IV SLOW PU SCH ×2 (08:18→16:51)
[2018-07-20] MEDS: Spironolactone TAB* 25 MG PO SCH (08:18)
[2018-07-20] MEDS: Lactulose* 15 ML UDC PO SCH ×3 (08:18→21:04)
[2018-07-20] MEDS ORDERED: Metolazone TAB* 5 MG PO ONE ×2 (09:56→14:54)
--- NOTE | 2018-07-20 17:59 | PN ---
Subjective Date of Service: 07/20/18 Interval History: Patient seen and examined, no acute overnight events noted. Patient denies chest pain, no SOB, no abdominal pain. States she was not happy with care at [facility] and does not wish to go back. Family History: Unchanged from Admission Social History: Unchanged from Admission Past Medical History: Unchanged from Admission Objective Active Medications: Acetaminophen (Tylenol Tab*) 650 mg PO Q4H PRN PRN Reason: FEVER/PAIN Last Admin: 07/18/18 00:37 Dose: 650 mg Albuterol/Ipratropium (Duoneb (Albuterol 2.5 Mg/Ipratropium 0.5 Mg)) 1 neb INH Q6H PRN PRN Reason: SOB/WHEEZING Last Admin: 07/19/18 19:54 Dose: 1 neb Calamine (Calamine Lotion*) 1 applic TOPICAL QID PRN PRN Reason: ITCHING Last Admin: 07/19/18 20:15 Dose: 1 applic Cholecalciferol (Vitamin D Tab*) 1,000 units PO DAILY [facility] Last Admin: 07/20/18 08:17 Dose: 1,000 units Dextrose (D50w Syringe 50 Ml*) 12.5 gm IV PUSH .FOR FS < 60 - SS PRN PRN Reason: FS < 60 Furosemide (Lasix Iv*) 80 mg IV SLOW PU 0800,1700 [facility] Last Admin: 07/20/18 16:51 Dose: 80 mg Insulin Human Lispro (Humalog*) 0 units SUBCUT ACHS [facility]; Protocol Last Admin: 07/20/18 16:37 Dose: Not Given Lactulose (Lactulose*) 15 ml PO TID [facility] Last Admin: 07/20/18 14:32 Dose: 15 ml Levothyroxine Sodium (Synthroid Tab*) 50 mcg PO DAILY@0600 [facility] Last Admin: 07/20/18 05:24 Dose: 50 mcg Lorazepam (Ativan Tab(*)) 1 mg PO Q6H PRN PRN Reason: ANXIETY Metoprolol Tartrate (Lopressor Tab*) 12.5 mg PO Q8HR [facility] Last Admin: 07/20/18 14:31 Dose: 12.5 mg Midodrine (Midodrine (Nf)) 2.5 mg PO TID [facility]; Protocol Last Admin: 07/20/18 14:31 Dose: 2.5 mg Pregabalin (Lyrica Cap(*)) 25 mg PO BID [facility] Last Admin: 07/20/18 08:17 Dose: 25 mg Rifaximin (Xifaxan*) 550 mg PO Q8HR [facility] Last Admin: 07/20/18 14:32 Dose: 550 mg Spironolactone (Aldactone Tab*) 50 mg PO DAILY [facility] Last Admin: 07/20/18 08:18 Dose: 50 mg Vital Signs - 8 hr 07/20/18 07/20/18 07/20/18 10:30 11:02 11:18 Temperature 97.1 F Pulse Rate 78 Respiratory 16 20 Rate Blood Pressure 108/64 (mmHg) O2 Sat by Pulse 93 Oximetry 07/20/18 16:05 Temperature 97.3 F Pulse Rate 75 Respiratory 20 Rate Blood Pressure 104/57 (mmHg) O2 Sat by Pulse 100 Oximetry Oxygen Devices in Use Now: Nasal Cannula Appearance: alert, NAD Eyes: No Scleral Icterus, PERRLA Ears/Nose/Mouth/Throat: NL Teeth, Lips, Gums, Mucous Membranes Moist Neck: NL Appearance and Movements; NL JVP, Trachea Midline Respiratory: Symmetrical Chest Expansion and Respiratory Effort, Clear to Auscultation, - - diminished bases bilat Cardiovascular: NL Sounds; No Murmurs; No JVD, No Edema Abdominal: - - obese Extremities: No Clubbing, Cyanosis, - - bipedal edema Skin: No Rash or Ulcers Neurological: Alert and Oriented x 3 Nutrition: Taking PO's Result Diagrams: 07/20/18 07:04 07/20/18 07:04 Assess/Plan/Problems-Billing Assessment: Patient is a 73yo female with a PMH for HFrEF, Liver disease, hypothyroidism, Afib, DM II, who has been getting more SOB with worsening fluid overload and reported 50lb weight gain who is improving with diuresis. - Patient Problems (1) HFrEF (heart failure with reduced ejection fraction) Code(s): I50.20 - UNSPECIFIED SYSTOLIC (CONGESTIVE) HEART FAILURE SNOMED Code( s): 363959893 Comment: - Acute on Chronic - Likely cause of severe fluid overload, gained 50lbs in last several months per mcc and dietary indiscretion - Lasix 80mg IV BID, Spironolactone 50mg daily. Current poor response to diuresis. - One dose metolazone today, monitor output - Repeat echo, cath was recommended but never done, will need to be done at some point - Unknown cause, possibility of tachycardia induced cardiomyopathy, takosubo's? - Echo from [place] in April shows EF 45-50%. (2) Anemia Code(s): D64.9 - ANEMIA, UNSPECIFIED SNOMED Code(s): 776854990 Comment: - Macrocytic, documented history of MAURI but not consistent with iron panel - Folate/B12 WNL - Possibly due to hypothyroidism - SPEP to assess for multiple myeloma (3) Hypotension Comment: - Unknown cause, possibly liver disease or heart disease - Continue midodrine, BP stable after metolazone today (4) Hypothyroidism Code(s): E03.9 - HYPOTHYROIDISM, UNSPECIFIED SNOMED Code(s): 52888299 Comment: - 250mcg ordered due to issues with medication reconciliation, actual dose 25mcg daily - TSH 19, T3 and T4 low, increase dose to 50mcg daily - Absorption likely impaired by bowel edema and possibly by concurrent administration of iron - Hold iron, diurese, and recheck in 3 months. - Myxedema possibly contributing to Edema. (5) Liver disease Code(s): K76.9 - LIVER DISEASE, UNSPECIFIED SNOMED Code(s): 543695212 Comment: - Unclear cause, presumed CANALES by recent GI consult. - Records from [place] shows negative viral hepatitis panel, no further workup or cause of cirrhosis mentioned. - SPEP to assess cause of elevated globulin, may just be related to liver disease. - Widespread pruritis and elevated Alk Phos possibly from PBC. Will order AMA and DEWAR. - Continue Rifaximin and Lactulose - Albumin low end of normal, INR slightly elevated. MELD 13 - Low platelets stable (6) Atrial fibrillation Code(s): I48.91 - UNSPECIFIED ATRIAL FIBRILLATION SNOMED Code(s): 90317224 Comment: - Rate controlled on Metoprolol - Not anticoagulated due to history of severe GI bleed - Continue to not anticoagulate (7) Diabetes mellitus Code(s): E11.9 - TYPE 2 DIABETES MELLITUS WITHOUT COMPLICATIONS SNOMED Code(s) : 77136937 Comment: - Lispro SSI, A1c 5.9% last year - On no medications at [facility] (8) DVT prophylaxis Code(s): WWJ2497 - SNOMED Code(s): 645826034 Comment: - SCDs with thrombocytopenia and history severe GI bleed. (9) Full code status Code(s): Z78.9 - OTHER SPECIFIED HEALTH STATUS SNOMED Code(s): 268915575 Status and Disposition: Inpatient for IV diuresis, dispo TBD, likely STR, appreciate recs from and on options, as patient does not want to go back to [facility].
[2018-07-21] MEDS: Calamine LOTION* 120 ML TOPICAL PRN (00:40)
[2018-07-21] MEDS: Levothyroxine TAB* 50 MCG TAB PO SCH (05:36)
[2018-07-21] MEDS: Metoprolol Tartrate TAB* 25 MG PO SCH ×3 (05:36→21:15)
[2018-07-21] MEDS: RiFAXimin* 550 MG TAB PO SCH ×3 (05:36→21:13)
[2018-07-21] MEDS: Insulin LISPRO* 1 UNITS UNIT SUBCUT SCH ×4 (08:18→21:17)
[2018-07-21] MEDS: Spironolactone TAB* 25 MG PO SCH (08:27)
[2018-07-21] MEDS: Cholecalciferol TAB* 1000 UNITS PO SCH (08:27)
[2018-07-21] MEDS: CMC: Midodrine (NF) 5 MG TAB PO SCH ×3 (08:27→21:13)
[2018-07-21] MEDS: Lactulose* 15 ML UDC PO SCH ×3 (08:27→21:16)
[2018-07-21] MEDS: Furosemide IV* 10 MG/ML VIAL (40 MG) IV SLOW PU SCH ×2 (08:27→17:18)
[2018-07-21] MEDS: Pregabalin CAP(*) 25 MG PO SCH ×2 (08:27→21:16)
--- NOTE | 2018-07-21 14:47 | PN ---
Subjective Date of Service: 07/21/18 Interval History: Ms. Latham is feeling ok today. She offers no complaints initially, but does admit to feeling abdominal distention and bloating. Feels her abdomen has decreased in size significantly since being in the hospital. Denies CP, SOB, N/ V. Reports she has been on oxygen recently at [facility]. Very verbal about not wanting to go back to [facility] as she does not feel as though she was receiving appropriate care. No concerns from nursing. Family History: Unchanged from Admission Social History: Unchanged from Admission Past Medical History: Unchanged from Admission Objective Active Medications: Acetaminophen (Tylenol Tab*) 650 mg PO Q4H PRN FEVER/PAIN Albuterol/Ipratropium (Duoneb (Albuterol 2.5 Mg/Ipratropium 0.5 Mg)) 1 neb INH Q6H PRN SOB/WHEEZING Calamine (Calamine Lotion*) 1 applic TOPICAL QID PRN ITCHING Cholecalciferol (Vitamin D Tab*) 1,000 units PO DAILY [facility] Dextrose (D50w Syringe 50 Ml*) 12.5 gm IV PUSH .FOR FS < 60 - SS PRN FS < 60 Furosemide (Lasix Iv*) 80 mg IV SLOW PU 0800,1700 [facility] Insulin Human Lispro (Humalog*) 0 units SUBCUT ACHS [facility]; Protocol Lactulose (Lactulose*) 15 ml PO TID [facility] Levothyroxine Sodium (Synthroid Tab*) 50 mcg PO DAILY@0600 [facility] Lorazepam (Ativan Tab(*)) 1 mg PO Q6H PRN ANXIETY Metolazone (Zaroxolyn Tab*) 5 mg PO ONCE ONE Metoprolol Tartrate (Lopressor Tab*) 12.5 mg PO Q8HR [facility] Midodrine (Midodrine (Nf)) 2.5 mg PO TID [facility]; Protocol Pregabalin (Lyrica Cap(*)) 25 mg PO BID [facility] Rifaximin (Xifaxan*) 550 mg PO Q8HR [facility] Spironolactone (Aldactone Tab*) 50 mg PO DAILY [facility] Vital Signs - 8 hr 07/21/18 07/21/18 07/21/18 07:51 08:02 08:27 Temperature 97.3 F Pulse Rate 82 Respiratory 16 18 Rate Blood Pressure 108/75 (mmHg) O2 Sat by Pulse 99 Oximetry 07/21/18 07/21/18 07/21/18 08:35 09:50 11:11 Temperature 97.4 F Pulse Rate 68 Respiratory 18 18 18 Rate Blood Pressure 101/48 (mmHg) O2 Sat by Pulse 100 Oximetry 07/21/18 07/21/18 11:22 12:22 Temperature Pulse Rate 64 Respiratory 18 Rate Blood Pressure 112/66 122/72 (mmHg) O2 Sat by Pulse Oximetry Oxygen Devices in Use Now: Nasal Cannula - 2L Appearance: Elderly female sitting in chair in NAD Eyes: No Scleral Icterus Ears/Nose/Mouth/Throat: Mucous Membranes Moist Neck: NL Appearance and Movements; NL JVP, Trachea Midline Respiratory: Symmetrical Chest Expansion and Respiratory Effort, - - Crackles bilat bases, otherwise clear Cardiovascular: NL Sounds; No Murmurs; No JVD, - - Irregular Abdominal: - - Large, distended, nontender Extremities: - - +1 pitting BLE Neurological: Alert and Oriented x 3 Lines/Tubes/Other Access: Clean, Dry and Intact Peripheral IV Nutrition: Taking PO's Result Diagrams: 07/20/18 07:04 07/20/18 07:04 Assess/Plan/Problems-Billing Assessment: Ms. Latham is a 73yo female with a PMH for HFrEF, liver disease, hypothyroidism, afib, DM II; who has been getting more SOB with worsening fluid overload and reported 50lb weight gain who is improving with diuresis. - Patient Problems (1) Acute on chronic systolic congestive heart failure Code(s): I50.23 - ACUTE ON CHRONIC SYSTOLIC (CONGESTIVE) HEART FAILURE Comment : - Severe fluid overload; reportedly gained 50lbs in last several months - Unknown etiology; possibility of tachycardia induced cardiomyopathy vs takosubo's - Echo from [place] in April shows EF 45-50% - Cath was previously recommended but never done; will need to be done at some point outpatient - Has had poor response to diuresis - Garcia for output monitoring - Continue furosemide, spironolactone; give additional dose of metolazone today as she appears to have responded well to this yesterday (2) Liver disease Code(s): K76.9 - LIVER DISEASE, UNSPECIFIED Comment: - Unclear etiology; presumed CANALES by recent GI consult - Records from [place] show negative viral hepatitis panel, no further workup or cause of cirrhosis mentioned - SPEP pending to assess cause of elevated globulin; may just be related to liver disease - Pruritis and elevated alk phos possibly from PBC; AMA and EDWAR pending - MELD score 13 indicating a 6% mortality rate - Continue rifaximin and lactulose (3) Anemia Code(s): D64.9 - ANEMIA, UNSPECIFIED Comment: - Macrocytic; has documented history of MAURI - Folate/B12 and iron studies WNL - Stable, no evidence of acute blood loss - Etiology unclear; differentials include hypothyroidism vs multiple myeloma ( SPEP pending) (4) Hypotension Comment: - Unknown etiology, possibly liver disease vs heart disease - Continue midodrine (5) Diabetes mellitus Code(s): E11.9 - TYPE 2 DIABETES MELLITUS WITHOUT COMPLICATIONS Comment: - A1c 5.9% - Not on outpatient medication - Continue Lispro SS (6) Atrial fibrillation Code(s): I48.91 - UNSPECIFIED ATRIAL FIBRILLATION Comment: - Rate controlled - Not on anticoagulation due to history of severe GI bleed - Continue metoprolol (7) Hypothyroidism Code(s): E03.9 - HYPOTHYROIDISM, UNSPECIFIED Comment: - Initially 250mcg ordered due to issues with medication reconciliation, actual dose 25mcg daily - TSH 19, T3 and T4 low - Myxedema possibly contributing to edema - Absorption likely impaired by bowel edema and possibly by concurrent administration of iron; hold iron, diurese, and recheck in 3 months - Continue levothyroxine at increased dose (8) Thrombocytopenia Code(s): D69.6 - THROMBOCYTOPENIA, UNSPECIFIED Comment: - Chronic, stable - Secondary to liver disease - Bleeding precautions (9) DVT prophylaxis Comment: - SCDs d/t thrombocytopenia and history of severe GI bleed (10) Full code status Code(s): Z78.9 - OTHER SPECIFIED HEALTH STATUS Comment: Status and Disposition: Inpatient for IV diuresis. Anticipate d/c back to [facility] when medically stable. Appreciate recs from SW and , as patient does not want to go back to [facility]. Attending: Joy Koenig
[2018-07-21] MEDS ORDERED: Metolazone TAB* 5 MG PO ONE (16:30)
[2018-07-22 06:13] LABS: ABS Basophils 0 10^3/ul (0-0.2); ABS Eosinophils 0.2 10^3/ul (0-0.6); ABS Lymphocytes 0.5 10^3/ul (1.0-4.8); ABS Monocytes 0.5 10^3/ul (0-0.8); ABS Neutrophils 2.4 10^3/ul (1.5-7.7); ABS Nucleated RBC 0 10^3/ul; Hematocrit 28 % (33-41); Hemoglobin 9.3 g/dL (12.0-16.0); Lymphocyte % 12.9 %; Mean Corpuscular HGB Conc 34 g/dL (31-36); Mean Corpuscular Hemoglobin 33 pg (27-31); Mean Corpuscular Volume 100 fL (80-97); Mean Platelet Volume 7.6 fL (7.4-10.4); Nucleated Red Blood Cells % 0; Platelet Count 84 10^3/uL (150-450); Red Blood Count 2.78 10^6 /uL (3.70-4.87); Red Cell Distribution Width 16 % (10.5-15); White Blood Count 3.6 10^3/uL (3.5-10.8)
[2018-07-22 06:20] LABS: BUN/Creatinine Ratio 35.3 (8-20); Calcium 9.1 mg/dL (8.6-10.3); EGFR African American 40.1 (>60); EGFR Non-African American 33.2 (>60); Magnesium 2.2 mg/dL (1.9-2.7); Potassium 4.2 mmol/L (3.5-5.0)
[2018-07-22] MEDS: RiFAXimin* 550 MG TAB PO SCH ×3 (06:28→21:37)
[2018-07-22] MEDS: Metoprolol Tartrate TAB* 25 MG PO SCH ×3 (06:28→21:33)
[2018-07-22] MEDS: Levothyroxine TAB* 50 MCG TAB PO SCH (06:28)
[2018-07-22] MEDS: Insulin LISPRO* 1 UNITS UNIT SUBCUT SCH ×4 (08:34→20:41)
[2018-07-22] MEDS: Lactulose* 15 ML UDC PO SCH ×3 (08:56→21:35)
[2018-07-22] MEDS: Spironolactone TAB* 25 MG PO SCH (08:57)
[2018-07-22] MEDS: Pregabalin CAP(*) 25 MG PO SCH ×2 (08:57→21:35)
[2018-07-22] MEDS: Cholecalciferol TAB* 1000 UNITS PO SCH (08:58)
[2018-07-22] MEDS: CMC: Midodrine (NF) 5 MG TAB PO SCH ×3 (08:58→21:35)
[2018-07-22] MEDS: Furosemide IV* 10 MG/ML VIAL (40 MG) IV SLOW PU SCH ×2 (08:58→17:22)
--- NOTE | 2018-07-22 14:02 | PN ---
Subjective Date of Service: 07/22/18 Interval History: Ms. Latham is feeling tired today. She is feeling somewhat bloated - possibly more bloated than yesterday. She denies CP, SOB, N/V. Does not want to go back to [facility], but is agreeable. She likes the recreation room there. Nursing reported soft BPs, asymptomatic. Family History: Unchanged from Admission Social History: Unchanged from Admission Past Medical History: Unchanged from Admission Objective Active Medications: Acetaminophen (Tylenol Tab*) 650 mg PO Q4H PRN FEVER/PAIN Albuterol/Ipratropium (Duoneb (Albuterol 2.5 Mg/Ipratropium 0.5 Mg)) 1 neb INH Q6H PRN SOB/WHEEZING Calamine (Calamine Lotion*) 1 applic TOPICAL QID PRN ITCHING Cholecalciferol (Vitamin D Tab*) 1,000 units PO DAILY [facility] Dextrose (D50w Syringe 50 Ml*) 12.5 gm IV PUSH .FOR FS < 60 - SS PRN FS < 60 Furosemide (Lasix Iv*) 80 mg IV SLOW PU 0800,1700 [facility] Insulin Human Lispro (Humalog*) 0 units SUBCUT ACHS [facility]; Protocol Lactulose (Lactulose*) 15 ml PO TID [facility] Levothyroxine Sodium (Synthroid Tab*) 50 mcg PO DAILY@0600 [facility] Lorazepam (Ativan Tab(*)) 1 mg PO Q6H PRN ANXIETY Metolazone (Zaroxolyn Tab*) 5 mg PO ONCE ONE Metoprolol Tartrate (Lopressor Tab*) 12.5 mg PO Q8HR [facility] Midodrine (Midodrine (Nf)) 2.5 mg PO TID [facility]; Protocol Pregabalin (Lyrica Cap(*)) 25 mg PO BID [facility] Rifaximin (Xifaxan*) 550 mg PO Q8HR [facility] Spironolactone (Aldactone Tab*) 50 mg PO DAILY [facility] Vital Signs - 8 hr 07/22/18 07/22/18 07/22/18 07:15 08:18 08:57 Temperature 97.2 F Pulse Rate 83 Respiratory 16 18 18 Rate Blood Pressure 110/55 (mmHg) O2 Sat by Pulse 99 Oximetry 07/22/18 07/22/18 11:06 11:16 Temperature 96.4 F Pulse Rate 68 Respiratory 16 18 Rate Blood Pressure 105/58 (mmHg) O2 Sat by Pulse 100 Oximetry Oxygen Devices in Use Now: None Appearance: Elderly female sitting in chair in NAD Eyes: No Scleral Icterus Ears/Nose/Mouth/Throat: Mucous Membranes Moist Neck: NL Appearance and Movements; NL JVP, Trachea Midline Respiratory: Symmetrical Chest Expansion and Respiratory Effort, - - Crackles bilat bases, L>R, otherwise clear Cardiovascular: NL Sounds; No Murmurs; No JVD, - - Irregular Extremities: - - +2 pitting BLE Neurological: Alert and Oriented x 3 - Drowsy Lines/Tubes/Other Access: Clean, Dry and Intact Peripheral IV Nutrition: Taking PO's Result Diagrams: 07/22/18 05:36 07/22/18 05:36 Assess/Plan/Problems-Billing Assessment: Ms. Latham is a 73yo female with a PMH for HFrEF, liver disease, hypothyroidism, afib, DM II; who has been getting more SOB with worsening fluid overload and reported 50lb weight gain who is improving with diuresis. - Patient Problems (1) Acute on chronic systolic congestive heart failure Code(s): I50.23 - ACUTE ON CHRONIC SYSTOLIC (CONGESTIVE) HEART FAILURE Comment : - Severe fluid overload; reportedly gained 50lbs in last several months - Unknown etiology; possibility of tachycardia induced cardiomyopathy vs Takosubo's - Echo from [place] in April shows EF 45-50% - Cath was previously recommended but never done; will need to be done at some point as an outpatient - Has had poor response to diuresis, but improved with metolazone - Garcia for output monitoring - Increase fluid restriction from 2000mL daily to 1500mL daily - Continue furosemide, spironolactone; give additional dose of metolazone today and will start daily scheduled metolazone (2) Liver disease Code(s): K76.9 - LIVER DISEASE, UNSPECIFIED Comment: - Unclear etiology; presumed CANALES by recent GI consult - Records from [place] show negative viral hepatitis panel, no further workup or cause of cirrhosis mentioned - SPEP pending to assess cause of elevated globulin; may just be related to liver disease - Pruritis and elevated alk phos possibly from PBC; AMA pending, EDWAR negative - MELD score 13 indicating a 6% mortality rate - Continue rifaximin and lactulose (3) Anemia Code(s): D64.9 - ANEMIA, UNSPECIFIED Comment: - Macrocytic; has documented history of MAURI - Folate/B12 and iron studies WNL - Stable, no evidence of acute blood loss - Etiology unclear; differentials include hypothyroidism vs multiple myeloma ( SPEP pending) (4) Hypotension Comment: - Unknown etiology, possibly liver disease vs heart disease - Continue midodrine (5) Diabetes mellitus Code(s): E11.9 - TYPE 2 DIABETES MELLITUS WITHOUT COMPLICATIONS Comment: - A1c 5.9% - Not on outpatient medication - Continue Lispro SS (6) Atrial fibrillation Code(s): I48.91 - UNSPECIFIED ATRIAL FIBRILLATION Comment: - Rate controlled - Not on anticoagulation due to history of severe GI bleed - Continue metoprolol (7) Hypothyroidism Code(s): E03.9 - HYPOTHYROIDISM, UNSPECIFIED Comment: - Initially 250mcg ordered due to issues with medication reconciliation, actual dose 25mcg daily - TSH 19, T3 and T4 low - Myxedema possibly contributing to edema - Absorption likely impaired by bowel edema and possibly by concurrent administration of iron; hold iron, diurese, and recheck in 3 months - Continue levothyroxine (8) Thrombocytopenia Code(s): D69.6 - THROMBOCYTOPENIA, UNSPECIFIED Comment: - Chronic, stable - Secondary to liver disease - Bleeding precautions (9) DVT prophylaxis Comment: - SCDs d/t thrombocytopenia and history of severe GI bleed (10) Full code status Code(s): Z78.9 - OTHER SPECIFIED HEALTH STATUS Comment: Status and Disposition: Inpatient for IV diuresis. Anticipate d/c back to [facility] when medically stable. Attending: Joy Koenig
[2018-07-22 16:12] LABS: Albumin/Globulin Ratio 0.65; Gamma Globulin 2.8 g/dL (0.6-1.6); Total Protein(PEP) 7.5 g/dL (6.3 - 7.9)
[2018-07-22] MEDS ORDERED: Metolazone TAB* 5 MG PO ONE (16:30)
[2018-07-22 17:03] LABS: Mitochondria M2 Antibody <0.1 U
[2018-07-23] MEDS: Metoprolol Tartrate TAB* 25 MG PO SCH ×3 (06:25→22:59)
[2018-07-23] MEDS: RiFAXimin* 550 MG TAB PO SCH ×3 (06:26→22:59)
[2018-07-23] MEDS: Levothyroxine TAB* 50 MCG TAB PO SCH (06:26)
[2018-07-23] MEDS: Metolazone TAB* 5 MG PO SCH (07:37)
[2018-07-23 07:40] LABS: BUN/Creatinine Ratio 36.1 (8-20); Calcium 9.1 mg/dL (8.6-10.3); EGFR Non-African American 34.7 (>60); Magnesium 2.2 mg/dL (1.9-2.7); Potassium 4.5 mmol/L (3.5-5.0)
[2018-07-23] MEDS: Insulin LISPRO* 1 UNITS UNIT SUBCUT SCH ×4 (07:45→22:58)
[2018-07-23] MEDS: Pregabalin CAP(*) 25 MG PO SCH ×2 (08:47→22:58)
[2018-07-23] MEDS: Furosemide IV* 10 MG/ML VIAL (40 MG) IV SLOW PU SCH ×2 (08:47→16:33)
[2018-07-23] MEDS: Spironolactone TAB* 25 MG PO SCH (08:47)
[2018-07-23] MEDS: Cholecalciferol TAB* 1000 UNITS PO SCH (08:47)
[2018-07-23] MEDS: Lactulose* 15 ML UDC PO SCH ×3 (08:47→22:59)
[2018-07-23] MEDS: CMC: Midodrine (NF) 5 MG TAB PO SCH ×3 (08:47→22:59)
--- NOTE | 2018-07-23 16:20 | PN ---
Subjective Date of Service: 07/23/18 Interval History: Ms. Latham is feeling ok today. She is feeling a bit better than yesterday - less tired. She continues to deny SOB. No CP or N/V. Feels her abdomen has decreased in size significantly since coming to the hospital. Agreeable to going back to [facility] at discharge, but not happy about it. No concerns from nursing. Family History: Unchanged from Admission Social History: Unchanged from Admission Past Medical History: Unchanged from Admission Objective Active Medications: Acetaminophen (Tylenol Tab*) 650 mg PO Q4H PRN FEVER/PAIN Albuterol/Ipratropium (Duoneb (Albuterol 2.5 Mg/Ipratropium 0.5 Mg)) 1 neb INH Q6H PRN SOB/WHEEZING Calamine (Calamine Lotion*) 1 applic TOPICAL QID PRN ITCHING Cholecalciferol (Vitamin D Tab*) 1,000 units PO DAILY [facility] Dextrose (D50w Syringe 50 Ml*) 12.5 gm IV PUSH .FOR FS < 60 - SS PRN FS < 60 Furosemide (Lasix Iv*) 80 mg IV SLOW PU 0800,1700 [facility] Insulin Human Lispro (Humalog*) 0 units SUBCUT ACHS [facility]; Protocol Lactulose (Lactulose*) 15 ml PO TID [facility] Levothyroxine Sodium (Synthroid Tab*) 50 mcg PO DAILY@0600 [facility] Lorazepam (Ativan Tab(*)) 1 mg PO Q6H PRN ANXIETY Metolazone (Zaroxolyn Tab*) 5 mg PO DAILY@0830 [facility] Metoprolol Tartrate (Lopressor Tab*) 12.5 mg PO Q8HR [facility] Midodrine (Midodrine (Nf)) 2.5 mg PO TID [facility]; Protocol Pregabalin (Lyrica Cap(*)) 25 mg PO BID [facility] Rifaximin (Xifaxan*) 550 mg PO Q8HR [facility] Spironolactone (Aldactone Tab*) 50 mg PO DAILY [facility] Vital Signs - 8 hr 07/23/18 07/23/18 07/23/18 08:47 11:04 12:04 Temperature 97.5 F Pulse Rate 70 Respiratory 16 18 17 Rate Blood Pressure 105/44 (mmHg) O2 Sat by Pulse 99 Oximetry 07/23/18 15:06 Temperature 97.9 F Pulse Rate 63 Respiratory 18 Rate Blood Pressure 102/50 (mmHg) O2 Sat by Pulse 98 Oximetry Appearance: Elderly female sitting in chair in NAD Eyes: No Scleral Icterus Ears/Nose/Mouth/Throat: Mucous Membranes Moist Neck: NL Appearance and Movements; NL JVP, Trachea Midline Respiratory: Symmetrical Chest Expansion and Respiratory Effort, - - Crackles bilat bases, otherwise diminished Cardiovascular: NL Sounds; No Murmurs; No JVD, - - Irregular Abdominal: NL Sounds; No Tenderness; No Distention Neurological: Alert and Oriented x 3 Lines/Tubes/Other Access: Clean, Dry and Intact Peripheral IV Nutrition: Taking PO's Result Diagrams: 07/22/18 05:36 07/23/18 07:02 Assess/Plan/Problems-Billing Assessment: Ms. Latham is a 73yo female with a PMH for HFrEF, liver disease, hypothyroidism, afib, DM II; who has been getting more SOB with worsening fluid overload and reported 50lb weight gain who is improving with diuresis. - Patient Problems (1) Acute on chronic systolic congestive heart failure Code(s): I50.23 - ACUTE ON CHRONIC SYSTOLIC (CONGESTIVE) HEART FAILURE Comment : - Severe fluid overload; reportedly gained 50lbs in last several months - Unknown etiology; possibility of tachycardia induced cardiomyopathy vs Takosubo's - Echo from [place] in April shows EF 45-50% - Cath was previously recommended but never done; will need to be done at some point as an outpatient - Has had poor response to diuresis, but improved with metolazone - Garcia for output monitoring - Fluid restriction of 1500mL daily - Continue furosemide, spironolactone, metolazaone (2) Liver disease Code(s): K76.9 - LIVER DISEASE, UNSPECIFIED Comment: - Unclear etiology; presumed CANALES by recent GI consult - Records from [place] show negative viral hepatitis panel, no further workup or cause of cirrhosis mentioned - Pruritis and elevated alk phos possibly from PBC; AMA pending, EDWAR negative - MELD score 13 indicating a 6% mortality rate - Continue rifaximin and lactulose (3) Anemia Code(s): D64.9 - ANEMIA, UNSPECIFIED Comment: - Macrocytic; has documented history of MAURI - Folate/B12 and iron studies WNL - Stable, no evidence of acute blood loss - SPEP indicates polyclonal herpergammaglobulinemia; would recommend outpatiet f /u with Oncology for possible bone marrow biopsy (4) Hypotension Comment: - Unknown etiology, possibly liver disease vs heart disease - Continue midodrine (5) Diabetes mellitus Code(s): E11.9 - TYPE 2 DIABETES MELLITUS WITHOUT COMPLICATIONS Comment: - A1c 5.9% - Not on outpatient medication - Continue Lispro SS (6) Atrial fibrillation Code(s): I48.91 - UNSPECIFIED ATRIAL FIBRILLATION Comment: - Rate controlled - Not on anticoagulation due to history of severe GI bleed - Continue metoprolol (7) Hypothyroidism Code(s): E03.9 - HYPOTHYROIDISM, UNSPECIFIED Comment: - Initially 250mcg ordered due to issues with medication reconciliation, actual dose 25mcg daily - TSH 19, T3 and T4 low - Myxedema possibly contributing to edema - Absorption likely impaired by bowel edema and possibly by concurrent administration of iron; hold iron, diurese, and recheck in 3 months - Continue levothyroxine (8) Thrombocytopenia Code(s): D69.6 - THROMBOCYTOPENIA, UNSPECIFIED Comment: - Chronic, stable - Secondary to liver disease - Bleeding precautions (9) DVT prophylaxis Comment: - SCDs d/t thrombocytopenia and history of severe GI bleed (10) Full code status Code(s): Z78.9 - OTHER SPECIFIED HEALTH STATUS Comment: Status and Disposition: Inpatient for IV diuresis. Anticipate d/c back to [facility] when medically stable. Attending: Joy Koenig
[2018-07-24] MEDS: Levothyroxine TAB* 50 MCG TAB PO SCH (06:49)
[2018-07-24] MEDS: RiFAXimin* 550 MG TAB PO SCH ×3 (06:51→20:55)
[2018-07-24] MEDS: Metoprolol Tartrate TAB* 25 MG PO SCH ×3 (06:52→21:22)
[2018-07-24 07:32] LABS: Calcium 9.1 mg/dL (8.6-10.3); EGFR African American 39.3 (>60); EGFR Non-African American 32.4 (>60); Potassium 4.4 mmol/L (3.5-5.0)
[2018-07-24] MEDS: Insulin LISPRO* 1 UNITS UNIT SUBCUT SCH ×4 (08:21→20:56)
[2018-07-24] MEDS: Furosemide IV* 10 MG/ML VIAL (40 MG) IV SLOW PU SCH ×2 (09:54→17:17)
[2018-07-24] MEDS: CMC: Midodrine (NF) 5 MG TAB PO SCH ×3 (09:54→20:55)
[2018-07-24] MEDS: Pregabalin CAP(*) 25 MG PO SCH ×2 (09:55→20:55)
[2018-07-24] MEDS: Metolazone TAB* 5 MG PO SCH (09:55)
[2018-07-24] MEDS: Lactulose* 15 ML UDC PO SCH ×3 (09:55→20:54)
[2018-07-24] MEDS: Cholecalciferol TAB* 1000 UNITS PO SCH (09:55)
[2018-07-24] MEDS: Spironolactone TAB* 25 MG PO SCH (11:08)
--- NOTE | 2018-07-24 12:31 | PN ---
Subjective Date of Service: 07/24/18 Interval History: Ms. Latham had a difficult night and is not feeling particularly well this morning. Her catheter was reportedly leaking overnight and the balloon was inflated with additional saline. The patient has had increase pain since that time and feels an urge to urinate. She offers no other complaints except for her typical complaints about [facility]. She denies SOB, CP, N/V. Nursing reports leaking catheter overnight. It was changed this morning and the groin was noted to be irritated, but there was no sign of infection to account for her pain. Family History: Unchanged from Admission Social History: Unchanged from Admission Past Medical History: Unchanged from Admission Objective Active Medications: Acetaminophen (Tylenol Tab*) 650 mg PO Q4H PRN FEVER/PAIN Albuterol/Ipratropium (Duoneb (Albuterol 2.5 Mg/Ipratropium 0.5 Mg)) 1 neb INH Q6H PRN SOB/WHEEZING Calamine (Calamine Lotion*) 1 applic TOPICAL QID PRN ITCHING Cholecalciferol (Vitamin D Tab*) 1,000 units PO DAILY [facility] Dextrose (D50w Syringe 50 Ml*) 12.5 gm IV PUSH .FOR FS < 60 - SS PRN FS < 60 Furosemide (Lasix Iv*) 80 mg IV SLOW PU 0800,1700 [facility] Insulin Human Lispro (Humalog*) 0 units SUBCUT ACHS [facility]; Protocol Lactulose (Lactulose*) 15 ml PO TID [facility] Levothyroxine Sodium (Synthroid Tab*) 50 mcg PO DAILY@0600 [facility] Lorazepam (Ativan Tab(*)) 1 mg PO Q6H PRN ANXIETY Metolazone (Zaroxolyn Tab*) 5 mg PO DAILY@0830 [facility] Metoprolol Tartrate (Lopressor Tab*) 12.5 mg PO Q8HR [facility] Midodrine (Midodrine (Nf)) 2.5 mg PO TID [facility]; Protocol Pregabalin (Lyrica Cap(*)) 25 mg PO BID [facility] Rifaximin (Xifaxan*) 550 mg PO Q8HR [facility] Spironolactone (Aldactone Tab*) 50 mg PO DAILY [facility] Vital Signs - 8 hr 07/24/18 07/24/18 07:26 09:55 Temperature 97.8 F Pulse Rate 90 Respiratory 18 16 Rate Blood Pressure 112/56 (mmHg) O2 Sat by Pulse 96 Oximetry Oxygen Devices in Use Now: None Appearance: Elderly female sitting in chair in NAD Eyes: No Scleral Icterus Ears/Nose/Mouth/Throat: Mucous Membranes Moist Neck: NL Appearance and Movements; NL JVP, Trachea Midline Respiratory: Symmetrical Chest Expansion and Respiratory Effort, Clear to Auscultation Cardiovascular: NL Sounds; No Murmurs; No JVD, - - Irregular Abdominal: - - Large and distended, but nontender Extremities: - - +2 BLE Neurological: Alert and Oriented x 3 Lines/Tubes/Other Access: Clean, Dry and Intact Peripheral IV Nutrition: Taking PO's Result Diagrams: 07/22/18 05:36 07/24/18 06:39 Assess/Plan/Problems-Billing Assessment: Ms. Latham is a 73yo female with a PMH for HFrEF, liver disease, hypothyroidism, afib, DM II; who has been getting more SOB with worsening fluid overload and reported 50lb weight gain who is improving with diuresis. - Patient Problems (1) Acute on chronic systolic congestive heart failure Code(s): I50.23 - ACUTE ON CHRONIC SYSTOLIC (CONGESTIVE) HEART FAILURE Comment : - Severe fluid overload; reportedly gained 50lbs in last several months - Unknown etiology; possibility of tachycardia induced cardiomyopathy vs Takosubo's - Echo from [place] in April shows EF 45-50% - Cath was previously recommended but never done; will need to be done at some point as an outpatient - Has had poor response to diuresis, but improved with metolazone - Garcia for output monitoring; net loss of >8,000mL since admission - Fluid restriction of 1500mL daily - Continue furosemide, spironolactone, metolazaone (2) Liver disease Code(s): K76.9 - LIVER DISEASE, UNSPECIFIED Comment: - Unclear etiology; presumed CANALES by recent GI consult - Records from [place] show negative viral hepatitis panel, no further workup or cause of cirrhosis mentioned - Pruritis and elevated alk phos possibly from PBC; AMA pending, EWDAR negative - MELD score 13 indicating a 6% mortality rate - Continue rifaximin and lactulose (3) Anemia Code(s): D64.9 - ANEMIA, UNSPECIFIED Comment: - Macrocytic; has documented history of MAURI - Folate/B12 and iron studies WNL - Stable, no evidence of acute blood loss - SPEP indicates polyclonal hypergammaglobulinemia; would recommend outpatiet f/ u with Oncology for possible bone marrow biopsy (4) Hypotension Comment: - Unknown etiology, possibly liver disease vs heart disease - Continue midodrine (5) Diabetes mellitus Code(s): E11.9 - TYPE 2 DIABETES MELLITUS WITHOUT COMPLICATIONS Comment: - A1c 5.9% - Not on outpatient medication - Continue Lispro SS (6) Atrial fibrillation Code(s): I48.91 - UNSPECIFIED ATRIAL FIBRILLATION Comment: - Rate controlled - Not on anticoagulation due to history of severe GI bleed - Continue metoprolol (7) Hypothyroidism Code(s): E03.9 - HYPOTHYROIDISM, UNSPECIFIED Comment: - Initially 250mcg ordered due to issues with medication reconciliation, actual dose 25mcg daily - TSH 19, T3 and T4 low - Myxedema possibly contributing to edema - Absorption likely impaired by bowel edema and possibly by concurrent administration of iron; hold iron, diurese, and recheck in 3 months - Continue levothyroxine (8) Thrombocytopenia Code(s): D69.6 - THROMBOCYTOPENIA, UNSPECIFIED Comment: - Chronic, stable - Secondary to liver disease - Bleeding precautions (9) DVT prophylaxis Comment: - SCDs d/t thrombocytopenia and history of severe GI bleed (10) Full code status Code(s): Z78.9 - OTHER SPECIFIED HEALTH STATUS Comment: Status and Disposition: Inpatient for IV diuresis. Anticipate d/c back to [facility] when medically stable. Attending: Meghan Lobo
[2018-07-25] MEDS: Levothyroxine TAB* 50 MCG TAB PO SCH (06:31)
[2018-07-25] MEDS: RiFAXimin* 550 MG TAB PO SCH ×3 (06:31→22:11)
[2018-07-25] MEDS: Metoprolol Tartrate TAB* 25 MG PO SCH ×3 (06:33→22:08)
[2018-07-25] MEDS: Insulin LISPRO* 1 UNITS UNIT SUBCUT SCH ×4 (08:09→22:12)
[2018-07-25 08:26] LABS: BUN/Creatinine Ratio 33.5 (8-20); EGFR African American 39.5 (>60); EGFR Non-African American 32.7 (>60)
[2018-07-25] MEDS: Pregabalin CAP(*) 25 MG PO SCH ×2 (09:56→22:11)
[2018-07-25] MEDS: Cholecalciferol TAB* 1000 UNITS PO SCH (09:56)
[2018-07-25] MEDS: Lactulose* 15 ML UDC PO SCH ×3 (09:56→22:10)
[2018-07-25] MEDS: CMC: Midodrine (NF) 5 MG TAB PO SCH ×3 (09:57→22:11)
[2018-07-25] MEDS: Furosemide IV* 10 MG/ML VIAL (40 MG) IV SLOW PU SCH ×2 (09:57→17:19)
[2018-07-25] MEDS: Metolazone TAB* 5 MG PO SCH (09:57)
[2018-07-25] MEDS: Spironolactone TAB* 25 MG PO SCH (10:28)
--- NOTE | 2018-07-25 16:30 | PN ---
Subjective Date of Service: 07/25/18 Interval History: Ms. Latham is feeling well today. She offers no complaints this morning. No further pain at the catheter site. She had a good night. Happy to see she has lost weight since being in the hospital. Denies SOB or CP. No concerns from nursing. Family History: Unchanged from Admission Social History: Unchanged from Admission Past Medical History: Unchanged from Admission Objective Active Medications: Acetaminophen (Tylenol Tab*) 650 mg PO Q4H PRN FEVER/PAIN Albuterol/Ipratropium (Duoneb (Albuterol 2.5 Mg/Ipratropium 0.5 Mg)) 1 neb INH Q6H PRN SOB/WHEEZING Calamine (Calamine Lotion*) 1 applic TOPICAL QID PRN ITCHING Cholecalciferol (Vitamin D Tab*) 1,000 units PO DAILY [facility] Dextrose (D50w Syringe 50 Ml*) 12.5 gm IV PUSH .FOR FS < 60 - SS PRN FS < 60 Furosemide (Lasix Iv*) 80 mg IV SLOW PU 0800,1700 [facility] Insulin Human Lispro (Humalog*) 0 units SUBCUT ACHS [facility]; Protocol Lactulose (Lactulose*) 15 ml PO TID [facility] Levothyroxine Sodium (Synthroid Tab*) 50 mcg PO DAILY@0600 [facility] Lorazepam (Ativan Tab(*)) 1 mg PO Q6H PRN ANXIETY Metolazone (Zaroxolyn Tab*) 5 mg PO DAILY@0830 [facility] Metoprolol Tartrate (Lopressor Tab*) 12.5 mg PO Q8HR [facility] Midodrine (Midodrine (Nf)) 2.5 mg PO TID [facility]; Protocol Pregabalin (Lyrica Cap(*)) 25 mg PO BID [facility] Rifaximin (Xifaxan*) 550 mg PO Q8HR [facility] Spironolactone (Aldactone Tab*) 50 mg PO DAILY [facility] Vital Signs - 8 hr 07/25/18 07/25/18 07/25/18 09:56 11:22 12:45 Temperature 97.7 F Pulse Rate 75 Respiratory 16 20 16 Rate Blood Pressure 107/57 (mmHg) O2 Sat by Pulse 100 Oximetry Oxygen Devices in Use Now: None Appearance: Elderly female sitting in chair in NAD Eyes: No Scleral Icterus Ears/Nose/Mouth/Throat: Mucous Membranes Moist Neck: NL Appearance and Movements; NL JVP, Trachea Midline Respiratory: Symmetrical Chest Expansion and Respiratory Effort, Clear to Auscultation Cardiovascular: NL Sounds; No Murmurs; No JVD, - - Irregular Abdominal: NL Sounds; No Tenderness; No Distention Extremities: - - +2 BLE Neurological: Alert and Oriented x 3 Lines/Tubes/Other Access: Clean, Dry and Intact Peripheral IV Nutrition: Taking PO's Result Diagrams: 07/22/18 05:36 07/25/18 07:24 Assess/Plan/Problems-Billing Assessment: Ms. Latham is a 73yo female with a PMH for HFrEF, liver disease, hypothyroidism, afib, DM II; who has been getting more SOB with worsening fluid overload and reported 50lb weight gain who is improving with diuresis. - Patient Problems (1) Acute on chronic systolic congestive heart failure Code(s): I50.23 - ACUTE ON CHRONIC SYSTOLIC (CONGESTIVE) HEART FAILURE Comment : - Severe fluid overload; reportedly gained 50lbs in last several months - Unknown etiology; possibility of tachycardia induced cardiomyopathy vs Takosubo's - Echo from [place] in April shows EF 45-50% - Cath was previously recommended but never done; will need to be done at some point as an outpatient - Has had poor response to diuresis, but improved with metolazone - Net loss of >8,000mL since admission and >20lbs - Remove Garcia today - Fluid restriction of 1500mL daily - Continue furosemide, spironolactone, metolazaone (2) Liver disease Code(s): K76.9 - LIVER DISEASE, UNSPECIFIED Comment: - Unclear etiology; presumed CANALES by recent GI consult - Records from [place] show negative viral hepatitis panel, no further workup or cause of cirrhosis mentioned - Continue rifaximin and lactulose (3) Anemia Code(s): D64.9 - ANEMIA, UNSPECIFIED Comment: - Macrocytic; has documented history of MAURI - Folate/B12 and iron studies WNL - Stable, no evidence of acute blood loss - SPEP indicates polyclonal hypergammaglobulinemia; no concerns or need for further workup per Hematology (4) Hypotension Comment: - Unknown etiology, possibly liver disease vs heart disease - Continue midodrine (5) Diabetes mellitus Code(s): E11.9 - TYPE 2 DIABETES MELLITUS WITHOUT COMPLICATIONS Comment: - A1c 5.9% - Not on outpatient medication - Continue Lispro SS (6) Atrial fibrillation Code(s): I48.91 - UNSPECIFIED ATRIAL FIBRILLATION Comment: - Rate controlled - Not on anticoagulation due to history of severe GI bleed - Continue metoprolol (7) Hypothyroidism Code(s): E03.9 - HYPOTHYROIDISM, UNSPECIFIED Comment: - Initially 250mcg ordered due to issues with medication reconciliation, actual dose 25mcg daily - TSH 19, T3 and T4 low - Myxedema possibly contributing to edema - Absorption likely impaired by bowel edema and possibly by concurrent administration of iron; hold iron, diurese, and recheck in 3 months - Continue levothyroxine (8) Thrombocytopenia Code(s): D69.6 - THROMBOCYTOPENIA, UNSPECIFIED Comment: - Chronic, stable - Secondary to liver disease - Bleeding precautions (9) DVT prophylaxis Comment: - SCDs d/t thrombocytopenia and history of severe GI bleed (10) Full code status Code(s): Z78.9 - OTHER SPECIFIED HEALTH STATUS Comment: Status and Disposition: Inpatient for IV diuresis. Anticipate d/c back to [facility] when medically stable, possibly tomorrow. Attending: Meghan Lobo
[2018-07-26] MEDS: Metoprolol Tartrate TAB* 25 MG PO SCH ×3 (05:30→22:59)
[2018-07-26] MEDS: RiFAXimin* 550 MG TAB PO SCH ×3 (05:32→22:59)
[2018-07-26] MEDS: Levothyroxine TAB* 50 MCG TAB PO SCH (05:32)
[2018-07-26 07:33] LABS: BUN/Creatinine Ratio 31.9 (8-20); EGFR African American 37.3 (>60); EGFR Non-African American 30.8 (>60); Potassium 4.3 mmol/L (3.5-5.0)
[2018-07-26] MEDS: Insulin LISPRO* 1 UNITS UNIT SUBCUT SCH ×4 (08:27→23:06)
[2018-07-26] MEDS: Lactulose* 15 ML UDC PO SCH ×3 (10:14→23:00)
[2018-07-26] MEDS: Pregabalin CAP(*) 25 MG PO SCH ×2 (10:14→22:58)
[2018-07-26] MEDS: Metolazone TAB* 5 MG PO SCH (10:14)
[2018-07-26] MEDS: Spironolactone TAB* 25 MG PO SCH (10:14)
[2018-07-26] MEDS: CMC: Midodrine (NF) 5 MG TAB PO SCH ×3 (10:14→22:58)
[2018-07-26] MEDS: Cholecalciferol TAB* 1000 UNITS PO SCH (10:14)
[2018-07-26] MEDS: Furosemide IV* 10 MG/ML VIAL (40 MG) IV SLOW PU SCH ×2 (10:14→17:20)
--- NOTE | 2018-07-26 10:35 | PN ---
Subjective Date of Service: 07/26/18 Interval History: Patient is feeling well this morning. She reports she is unable to straighten her legs fully today, which is new today. She does mention she had abdominal pain after eating dinner last night, but this has since resolved. Denies dyspnea , chest pain, nausea, vomiting, diarrhea. It is of note that patient admits she frequently picks at her skin. Family History: Unchanged from Admission Social History: Unchanged from Admission Past Medical History: Unchanged from Admission Objective Active Medications: Acetaminophen (Tylenol Tab*) 650 mg PO Q4H PRN PRN Reason: FEVER/PAIN Last Admin: 07/18/18 00:37 Dose: 650 mg Albuterol/Ipratropium (Duoneb (Albuterol 2.5 Mg/Ipratropium 0.5 Mg)) 1 neb INH Q6H PRN PRN Reason: SOB/WHEEZING Last Admin: 07/19/18 19:54 Dose: 1 neb Calamine (Calamine Lotion*) 1 applic TOPICAL QID PRN PRN Reason: ITCHING Last Admin: 07/21/18 00:40 Dose: 1 applic Cholecalciferol (Vitamin D Tab*) 1,000 units PO DAILY [facility] Last Admin: 07/26/18 10:14 Dose: 1,000 units Dextrose (D50w Syringe 50 Ml*) 12.5 gm IV PUSH .FOR FS < 60 - SS PRN PRN Reason: FS < 60 Furosemide (Lasix Iv*) 80 mg IV SLOW PU 0800,1700 [facility] Last Admin: 07/26/18 10:14 Dose: 80 mg Insulin Human Lispro (Humalog*) 0 units SUBCUT [facility]; Protocol Last Admin: 07/26/18 08:27 Dose: Not Given Lactulose (Lactulose*) 15 ml PO TID [facility] Last Admin: 07/26/18 10:14 Dose: 15 ml Levothyroxine Sodium (Synthroid Tab*) 50 mcg PO DAILY@0600 [facility] Last Admin: 07/26/18 05:32 Dose: 50 mcg Lorazepam (Ativan Tab(*)) 1 mg PO Q6H PRN PRN Reason: ANXIETY Last Admin: 07/22/18 02:40 Dose: 1 mg Metolazone (Zaroxolyn Tab*) 5 mg PO DAILY@0830 [facility] Last Admin: 07/26/18 10:14 Dose: 5 mg Metoprolol Tartrate (Lopressor Tab*) 12.5 mg PO Q8HR [facility] Last Admin: 07/26/18 05:30 Dose: Not Given Midodrine (Midodrine (Nf)) 2.5 mg PO TID [facility]; Protocol Last Admin: 07/26/18 10:14 Dose: 2.5 mg Pregabalin (Lyrica Cap(*)) 25 mg PO BID [facility] Last Admin: 07/26/18 10:14 Dose: 25 mg Rifaximin (Xifaxan*) 550 mg PO Q8HR [facility] Last Admin: 07/26/18 05:32 Dose: 550 mg Spironolactone (Aldactone Tab*) 50 mg PO DAILY [facility] Last Admin: 07/26/18 10:14 Dose: 50 mg Vital Signs - 8 hr 07/26/18 07/26/18 07/26/18 03:15 07:54 07:58 Temperature 97.5 F 97.6 F 97.5 F Pulse Rate 72 95 79 Respiratory 24 20 12 Rate Blood Pressure 96/57 102/57 104/53 (mmHg) O2 Sat by Pulse 97 98 97 Oximetry 07/26/18 10:14 Temperature Pulse Rate Respiratory 18 Rate Blood Pressure (mmHg) O2 Sat by Pulse Oximetry Oxygen Devices in Use Now: None Appearance: Obese, elderly female sitting in hospital chair, appearing in NAD Eyes: No Scleral Icterus, PERRLA Ears/Nose/Mouth/Throat: Mucous Membranes Moist Neck: - - neck supple, no JVD Respiratory: Symmetrical Chest Expansion and Respiratory Effort, - - fine rhales to bilateral lung bases Cardiovascular: NL Sounds; No Murmurs; No JVD, - - irregularly irregular rhythm Abdominal: - - Lower abdomen quadrants with pitting edema and hypertrophic skin changes; no abdominal tenderness or distension Extremities: - - +2 pitting edema to bilateral LEs up to approx 2cm below patella; significant dryness and pigmentation changes to bilat LEs Skin: - - skin is warm and dry, multiple <1cm healing wounds throughout abdomen and extremities Neurological: Alert and Oriented x 3, NL Muscle Strength and Tone Result Diagrams: 07/22/18 05:36 07/26/18 07:00 Assess/Plan/Problems-Billing Assessment: Ms. Latham is a 73yo female with a PMH for HFrEF, liver disease, hypothyroidism, afib, DM II; who has been getting more SOB with worsening fluid overload and reported 50lb weight gain who is improving with diuresis. - Patient Problems (1) Acute on chronic systolic congestive heart failure Code(s): I50.23 - ACUTE ON CHRONIC SYSTOLIC (CONGESTIVE) HEART FAILURE SNOMED Code(s): 369487369 Comment: - Unknown etiology; possibility of tachycardia induced cardiomyopathy vs Takosubo's - Echo from [place] in April shows EF 45-50%; Cath was previously recommended but never done; will need to be done at some point as an outpatient - Has had poor response to diuresis, but improved with metolazone - Net loss of >8,000mL since admission and >20lbs - There is a ~30 lb weight difference between bed scale and standing scale: Standing scale today is 263 lb, which is closer to the pt's baseline weight of 253 lbs last measured 07/14/18 per nursing at [facility] - no respiratory complaints and O2 sat wnl, but lungs with rhales in bilateral bases today; will continue to monitor and consider CXR - Fluid restriction of 1500mL daily - Continue furosemide, spironolactone, metolazaone (2) Hypothyroidism Code(s): E03.9 - HYPOTHYROIDISM, UNSPECIFIED SNOMED Code(s): 98433442 Comment: - Initially 250mcg ordered due to issues with medication reconciliation, actual dose 25mcg daily - TSH 19, T3 and T4 low - Myxedema possibly contributing to edema - Absorption likely impaired by bowel edema and possibly by concurrent administration of iron; hold iron, diurese, and recheck in 3 months - Continue levothyroxine (3) Hypotension Comment: - Unknown etiology, possibly liver disease vs heart disease - Continue midodrine - SBP<100 overnight, hesitant to increase dose in setting of liver disease (4) Atrial fibrillation Code(s): I48.91 - UNSPECIFIED ATRIAL FIBRILLATION SNOMED Code(s): 79287221 Comment: - Rate controlled - Not on anticoagulation due to history of severe GI bleed - Continue metoprolol (5) Liver disease Code(s): K76.9 - LIVER DISEASE, UNSPECIFIED SNOMED Code(s): 403988884 Comment: - Unclear etiology; presumed CANALES by recent GI consult - Records from [place] show negative viral hepatitis panel, no further workup or cause of cirrhosis mentioned - Continue rifaximin and lactulose (6) Diabetes mellitus Code(s): E11.9 - TYPE 2 DIABETES MELLITUS WITHOUT COMPLICATIONS SNOMED Code(s) : 48601971 Comment: - A1c 5.9% - Not on outpatient medication, diet controlled - Continue Lispro SS (7) Anemia Code(s): D64.9 - ANEMIA, UNSPECIFIED SNOMED Code(s): 590527847 Comment: - Macrocytic; has documented history of MAURI - Folate/B12 and iron studies WNL - Stable, no evidence of acute blood loss - SPEP indicates polyclonal hypergammaglobulinemia; no concerns or need for further workup per Hematology (8) Thrombocytopenia Code(s): D69.6 - THROMBOCYTOPENIA, UNSPECIFIED SNOMED Code(s): 995182612 Comment: - Chronic, stable - Secondary to liver disease - Bleeding precautions (9) DVT prophylaxis Code(s): [id number] - SNOMED Code(s): 398134057 Comment: - SCDs d/t thrombocytopenia and history of severe GI bleed (10) Full code status Code(s): Z78.9 - OTHER SPECIFIED HEALTH STATUS SNOMED Code(s): 094372141 Comment: Status and Disposition: Inpatient for IV diuresis. Anticipate d/c back to [facility] when medically stable.
[2018-07-26 12:55] LABS: ABS Basophils 0 10^3/ul (0-0.2); ABS Eosinophils 0.1 10^3/ul (0-0.6); ABS Lymphocytes 0.4 10^3/ul (1.0-4.8); ABS Monocytes 0.5 10^3/ul (0-0.8); ABS Neutrophils 2.4 10^3/ul (1.5-7.7); ABS Nucleated RBC 0 10^3/ul; Eosinophil % 3.3 %; Hematocrit 28 % (33-41); Hemoglobin 9.3 g/dL (12.0-16.0); Mean Corpuscular HGB Conc 33 g/dL (31-36); Mean Corpuscular Hemoglobin 33 pg (27-31); Mean Corpuscular Volume 99 fL (80-97); Mean Platelet Volume 7.9 fL (7.4-10.4); Nucleated Red Blood Cells % 0; Platelet Count 66 10^3/uL (150-450); Red Blood Count 2.85 10^6 /uL (3.70-4.87); Red Cell Distribution Width 16 % (10.5-15); White Blood Count 3.4 10^3/uL (3.5-10.8)
[2018-07-27] MEDS: Metoprolol Tartrate TAB* 25 MG PO SCH ×2 (06:01→14:09)
[2018-07-27] MEDS: Levothyroxine TAB* 50 MCG TAB PO SCH (06:02)
[2018-07-27] MEDS: RiFAXimin* 550 MG TAB PO SCH ×2 (06:02→14:10)
[2018-07-27 06:25] LABS: Calcium 8.9 mg/dL (8.6-10.3); EGFR African American 33.3 (>60); EGFR Non-African American 27.5 (>60); Potassium 3.9 mmol/L (3.5-5.0)
[2018-07-27] MEDS: Insulin LISPRO* 1 UNITS UNIT SUBCUT SCH ×2 (07:42→11:35)
[2018-07-27] MEDS: Lactulose* 15 ML UDC PO SCH ×2 (10:39→14:11)
[2018-07-27] MEDS: Pregabalin CAP(*) 25 MG PO SCH (10:39)
[2018-07-27] MEDS: Cholecalciferol TAB* 1000 UNITS PO SCH (10:40)
[2018-07-27] MEDS: Spironolactone TAB* 25 MG PO SCH (10:40)
[2018-07-27] MEDS: Metolazone TAB* 5 MG PO SCH (10:40)
[2018-07-27] MEDS: CMC: Midodrine (NF) 5 MG TAB PO SCH ×2 (10:41→14:10)
[2018-07-27] MEDS: Furosemide IV* 10 MG/ML VIAL (40 MG) IV SLOW PU SCH (10:42)
[2018-07-27 11:57] VITALS: BP 107/54
--- NOTE | 2018-07-27 17:41 | DS ---
DISCHARGE SUMMARY: DATE OF ADMISSION: 07/17/18 DATE OF DISCHARGE: 07/27/18 PROVIDER: YADIRA Pettit ATTENDING PHYSICIAN: Dr. Lucas * (Dictated by YADIRA Pettit). PRIMARY CARE PROVIDER: Dr. Jaida Koenig at [facility] PRIMARY DIAGNOSIS: Exacerbation of congestive heart failure, reduced ejection fraction. SECONDARY DIAGNOSES: 1. Cirrhosis of the liver. 2. Cardiomyopathy with known ejection fraction of 30% to 35%. 3. Atrial fibrillation, not on anticoagulation due to history of GI bleed. 4. Diabetes mellitus type 2, diet controlled. 5. Coronary artery disease. 6. History of streptococcal bacteremia likely due to lower extremity chronic wounds. 7. E. coli bacteremia. 8. Morbid obesity. 9. Chronic kidney disease. 10. Hypertension. 11. Iron deficiency anemia. 12. Thrombocytopenia. 13. Osteoarthritis. 14. Hypothyroidism. DIAGNOSTIC STUDIES: Chest x-ray on 07/17/18. Impression: Chest x-ray findings are consistent with interval development of cardiogenic pulmonary edema likely with pleural effusion at left lung base. EKG 07/17/18. Impression: Atrial fibrillation, no ST elevations or depressions, T wave flattening across all leads similar to EKG from 08/17/17. Abdomen/pelvis CT on 07/17/18. Impression: 1. "CT findings include increase attenuation of the subcutaneous fat of patient 's large pannus consistent with inflammatory change." 2. "Signs of hepatic cirrhosis include nodularity of the liver surface and mild splenomegaly. There is mild to moderate degree of ascites including perihepatic and perisplenic fluid." 3. "There is a small right-sided pleural effusion." Transthoracic echo on 07/17/18. Impression: 1. "Moderate concentric left ventricular hypertrophy is observed. There is increased basal septal hypertrophy noted without evidence of an increased gradient across the left ventricular outflow tract." 2. "The septal base measures 2.0 cm." 3. "The global left ventricular wall motion and contractility are within normal limits." 4. "The estimated ejection fraction is 60% to 65%." 5. "There is septal flattening of the intraventricular septum consistent with right ventricular volume or pressure overload." 6. "The right ventricular systolic function is low normal." 7. "The left atrium is moderately to severely dilated." 8. "There is no evidence of aortic stenosis." 9. "There is mild to moderate mitral regurgitation." 10. "The mitral valve leaflets are mildly thickened." 11. "There is moderate to severe tricuspid regurgitation." 12. "There is evidence of moderate pulmonary hypertension." 13. "There is no significant pericardial effusion. 14. "Compared to study on 08/17/17, the LV function is now normal. The RV volume overload is new. Moderate/severe TR with moderate pulmonary hypertension is the same." Venous Doppler of right lower extremity veins on 07/19/18. Impression: " Slightly limited study. No evidence for DVT." PERTINENT LAB DATA: White blood cell count 3.4 on 07/26/18. White blood cell count 3.9 on 07/17/18. Hemoglobin 9.3 on 07/26/18. Creatinine of 1.8 on . DISCHARGE MEDICATIONS: 1. Spironolactone 50 mg p.o. daily. 2. Metol ozone 5 mg p.o. daily. Continued Home Medications: 1. Nasonex 1200 mg p.o. b.i.d. p.r.n. 2. Torsemide 80 mg p.o. daily. 3. Rifaximin 550 mg p.o. every 8 hours. 4. Lyrica 25 mg p.o. b.i.d. 5. Zofran 4 mg p.o. every 6 hours p.r.n. 6. Omeprazole 40 mg p.o. daily. 7. Eucerin cream 1% apply topically b.i.d. 8. Midodrine 2.5 mg p.o. t.i.d. 9. Metoprolol tartrate 12.5 mg p.o. every 8 hours. 10. Synthroid 250 micrograms p.o. daily. 11. Xopenex nebulizer 0.63 mg inhaled every 6 hours while awake. 12. Lactulose 15 mL p.o. t.i.d. 13. Acidophilus capsule 1 capsule p.o. daily. 14. Ipratropium 0.5 mg inhaled every 6 hours p.r.n. wheezing. 15. Ferrous sulfate 325 mg p.o. daily. 16. Vitamin D 1000 units p.o. daily. 17. Armodafinil 150 mg p.o. daily. 18. Tylenol 650 mg p.o. every 4 hours p.r.n. pain. HISTORY OF PRESENT ILLNESS/HOSPITAL COURSE: Rosa M Latham is a 73-year-old white female with past medical history significant for cirrhosis of the liver, heart failure with reduced ejection fraction, hypothyroidism, atrial fibrillation not on anticoagulation and diabetes mellitus type 2, who presented to the Emergency Department from [facility] due to concerns of increased shortness of breath and increased fluid retention. Per [facility] documentation the patient gained 50 pounds in 1 week. Initially she had developed new orthopnea. Her lower extremity edema passed into her mid torso with 2 to 3+ edema. During her hospital stay she was diuresed with IV Lasix and her home spironolactone was continued. She did not have good diuretic response to this and her spironolactone was increased to 50 mg daily. During this time her home torsemide was held. She continued to not have good response to this diuresis and 5 mg of metolazone was added. On day of discharge her weight is measured at 254 pounds and 14 ounces. Per [facility] her last weight on July 14 was 253 pounds on their scale; it appears the patient has returned to normal with regard to her chronic leg edema with chronic leg wounds with venous stasis. Of note, the edema to the patient's pannus does still remain, although it is improved from admission. During her stay transthoracic echo was completed and her left ventricular systolic function has improved from her last echo. However, she does have longstanding peripheral changes from venous stasis. Initially during her stay her hemoglobin remained at baseline. On day prior to discharge hemoglobin is 9.3 which is around her baseline. She does have chronic kidney disease which would likely benefit from being placed on an JAME inhibitor. However, it is likely that the patient was intolerant to this treatment in the past as she is on midodrine for hypertension and she was frequently with blood pressure to systolic in the 90s during her hospitalization. For treatment of her liver disease her home lactulose and rifaximin was continued. 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 This is consistent with chronic cirrhosis. As for treatment of her hypothyroidism it was found that her TSH was 19.52 despite being on 250 micrograms of Synthroid at home. It is possible that her absorption was suboptimal due to her iron supplements. Her iron supplements were held and her home dose was continued. Iron deficiency or other patient history of iron deficiency anemia appears less likely given that her ferritin was within normal limits. Her vitamin B12 and folate levels were within normal limits. It is more possible that her anemia is related to anemia of chronic disease. Regarding her thrombocytopenia which is likely secondary to her liver cirrhosis, her platelet count was at baseline and at admission around 78 and at discharge was 66. For treatment of her type 2 diabetes she was placed on a carb consistent diet and had a Lispro sliding scale ordered with a.c. and h.s. fingersticks. For treatment of patient's atrial fibrillation her metoprolol was continued. On date of discharge patient is feeling well. She does not have shortness of breath or chest pain. She agrees that her edema is improved in her abdomen and lower legs, and she feels that she is similar to when she arrived to [facility]. She denies abdominal pain, nausea and vomiting. She did note that she had "stomach upset" after eating dinner yesterday which has since resolved. REVIEW OF SYSTEMS: An 11-point review of systems was completed and all pertinent positives and negatives are as above in the HPI. All other systems are negative. PHYSICAL EXAMINATION: General: Morbidly obese female, sitting in hospital chair , appearing in no acute distress. Head: Normocephalic, atraumatic. ENT: Mucous membranes moist. Eyes: Sclerae anicteric, PERRL, and EOMI. Neck: Supple and without JVD. Cardiac: Regular rate and rhythm, without murmurs, rubs or gallops. Respiratory: Lungs are clear to auscultation throughout. Chest expansion is symmetrical with respirations. Abdomen: Large. There is hypertrophic changes to lower abdominal quadrants of the pannus with trace pitting edema. Bowel sounds are normoactive x3. Abdomen is nondistended and nontender to palpation and soft. Extremities: There is +1 pitting edema pretibially approximately 2 cm below the patella to approximately mid tibia. There is no edema to the ankles or feet. Skin pigmentations and dry skin throughout the bilateral lower extremities, as well as less than 0.5 cm wounds which are chronic. No clubbing. Neurologic: The patient is alert and oriented x3. No focal deficits. DISCHARGE PLAN: The patient is to return to [facility] where she is staying for subacute rehab. Diet: A low sodium diet is recommended in addition to a heart-healthy diet. Activity: Patient is to return to normal activity and participate in physical therapy, and her rehab at [facility]. Patient is to continue her home torsemide of 80 mg daily, increase her spironolactone to 50 mg daily, and take a new medicine of metolazone 5 mg daily for treatment of her CHF. Although her left ventricular output has improved per echo it is evident that she has chronic lower extremity edema which may also contain a component of myxedema. For treatment of her hypothyroidism it is recommended that her TSH be followed up in the outpatient setting given that her TSH was elevated during this admission despite 250 micrograms daily of Synthroid. Her anemia is stable and it is questionable whether continuation of iron supplements is necessary especially given this is possibly decreasing absorption of Synthroid; it is recommended that her iron supplement be taken at least 4 hours after her Synthroid to potentially avoid this. Regarding treatment of her liver cirrhosis her home lactulose and rifaximin can be continued. It is recommended to followup her platelet count although it appears at baseline. For treatment of her diabetes she does not need any medication as her A1c was 5.9%. She is to return to diet control for treatment of this. For treatment of her atrial fibrillation her5 metoprolol is to be continued. She does not take anticoagulation due to history of GI bleed and especially in the setting of thrombocytopenia this is recommended to continue. For treatment of hypotension patient's midodrine was continued. Furthermore for treatment of her peripheral edema it is suggested that she continue to be weighed weekly at [facility]. She is to return to the Emergency Department if she has greater than 10 pound weight gaining 1 week, if she has shortness of breath or if peripheral edema is visibly worsened. Patient stated she had interest in a lateral transfer to a different facility when she arrived to [facility]. The other facilities for subacute rehab that she was interested in did not have available beds during her hospital stay and thus she was agreeable to return to [facility]. CONDITION ON DISCHARGE: Improved, stable. TIME SPENT: Approximately 55 minutes were spent on this discharge, approximately half of that time was spent at bedside. LUZ MARIA BASS, YADIRA [id number]/[facility] #: [id number] [facility]ITALMariann
== END 2018-07-27 17:15 | DRG 291 ==
LOC: ED 12:38 → MED 16:07
PROVIDERS: ADMIT Internal Medicine; ATTEND Student in an Organized Health Care Education/Training Program
DX: I13.0 Hypertensive heart and chronic kidney disease with heart failure and stage 1 through stage 4 chronic kidney disease, or unspecified chronic kidney disease (principal); I50.23 Acute on chronic systolic (congestive) heart failure; R18.8 Other ascites; E66.2 Morbid (severe) obesity with alveolar hypoventilation; Z68.42 Body mass index [BMI] 45.0-49.9, adult; I51.81 Takotsubo syndrome; E11.22 Type 2 diabetes mellitus with diabetic chronic kidney disease; N18.9 Chronic kidney disease, unspecified; I48.91 Unspecified atrial fibrillation; J44.9 Chronic obstructive pulmonary disease, unspecified; M19.90 Unspecified osteoarthritis, unspecified site; M81.0 Age-related osteoporosis without current pathological fracture; E11.39 Type 2 diabetes mellitus with other diabetic ophthalmic complication; K74.60 Unspecified cirrhosis of liver; I25.10 Atherosclerotic heart disease of native coronary artery without angina pectoris; R16.1 Splenomegaly, not elsewhere classified; E03.9 Hypothyroidism, unspecified; I87.8 Other specified disorders of veins; D50.9 Iron deficiency anemia, unspecified; D69.6 Thrombocytopenia, unspecified; D53.9 Nutritional anemia, unspecified; I27.20 Pulmonary hypertension, unspecified; I08.1 Rheumatic disorders of both mitral and tricuspid valves; D89.2 Hypergammaglobulinemia, unspecified; H42 Glaucoma in diseases classified elsewhere; I95.9 Hypotension, unspecified; Z82.49 Family history of ischemic heart disease and other diseases of the circulatory system; Z91.041 Radiographic dye allergy status; I25.2 Old myocardial infarction; Z83.3 Family history of diabetes mellitus
CPT/HCPCS: 36415; 71045; 74176; 80048; 80053; 81003; 82607; 82728; 82746; 83516; 83540; 83550; 83605; 83735; 83880; 84155; 84165; 84436; 84443; 84479; 84484; 85025; 85610; 86038; 86140; 93005; 93306; 94640; 99285; A9270-GY; G8978-GP-CM; G8979-GP-CK; G8987-GO-CM; G8988-GO-CI; J1940

== ENCOUNTER 2018-08-18 12:11 | Emergency (ER) | payer MEDICARE, BC ==
--- OUTSIDE RECORDS SUMMARY | 2018-08-18 12:16 | XMS REPORT | Continuity of Care Document ---
:1945 External Reference #:[id number] Author Name Rebecca See Care Team Providers Name Role Phone Joy Koenig DO Primary Care Physician Unavailable Payers Date Identification Numbers Payment Provider Subscriber Policy Number: [id number] Medicare Rosa M Latham PayID: [id number] [address] [place] [address] Policy Number: [id number] [facility] Rosa M Latham PayID: [id number] [address] [place] [address] Advance Directives Description No Information Available Problems [...] has never smoked Allergies, Adverse Reactions, Alerts Active Allergies Reaction Severity Comments Date Bactrim 06/17/2018 Thiazide-Type Diuretics 06/17/2018 Iodine 06/17/2018 Medications Active Medications SIG Qnty Indications Ordering Provider Date Torsemide 80mg po daily Joy Arya, 06/17/2018 20mg Tablets D.O. Lactulose 30g po tid Joy Arya, 06/17/2018 20GM/30ML D.O. Solution Tylenol 8 Hour 650mg po q6hr Joy Arya, 06/17/2018 650mg prn pain D.O. Tablets ER Nystatin apply to skin Joy Arya, 06/17/2018 Powder folds bid D.O. Novolog per sliding Joy Arya, 06/17/2018 100Unit/ML scale D.O. Solution Levothyroxine Sodium 25mcg po daily Joy Arya, 06/17/2018 D.O. 25mcg Tablets Ferrousul 325mg po daily Joy Arya, 06/17/2018 325(65Fe) mg D.O. Tablets Guaifenesin ER 1200mg po bid Joy Arya, 06/17/2018 1200mg D.O. Tablets ER 12HR Levalbuterol HCL 1 neb inh qid Joy Arya, 06/17/2018 D.O. 0.63mg/3ML Nebulizer Midodrine HCL 2.5mg po tid Joy Arya, 06/17/2018 2.5mg D.O. Tablets Eq Omeprazole 40mg po bid Joy Arya, 06/17/2018 Magnesium D.O. 20mg Capsules DR Ipratropium [place] 1 neb inh qid Joy Arya, 06/17/2018 0.02% D.O. Solution Zofran 4mg po q6hr prn 30tabs Joy Arya, 06/17/2018 4mg Tablets nausea D.O. Vitamin D 1000 units po Joy Arya, 06/17/2018 (Cholecalciferol) daily D.O. 1000Unit Capsules Xifaxan 1tab po q8hr Joy Arya, 06/17/2018 550mg Tablets D.O. Metoprolol Tartrate 12.5mg po bid Joy Arya, 06/17/2018 25mg D.O. Tablets Acidophilus 1 cap po daily Joy Arya, 06/17/2018 Capsules D.O. History Medications Ipratropium [place] 1 squirt to each Joy Arya, 06/17/2018 - 0.03% nostril daily D.O. 06/17/2018 Solution Immunizations Description No Information Available Vital Signs [...] Date Facility Test Result H/L Range Note Urinalysis Profile 07/17/2018 [facility] Urine Color Yellow [address] [place] [address] [phone] Urine Appearance Cloudy Urine Specific [place] 1.009 Low 1.010-1.030 Urine pH 5.0 N 5-9 Urine Urobilinogen Negative Negative Urine Ketones Negative Negative Urine Protein Negative Negative Urine Leukocytes Negative Negative Urine Blood Negative Negative Urine Nitrite Negative Negative Urine Bilirubin Negative Negative Urine Glucose Negative Negative Inr/Protime 07/17/2018 [facility] Inr 1.18 High 0.77-1.[address] [place] [address] [phone] CBC Auto Diff 07/17/2018 [facility] White Blood 3.9 N 3.5- 10.[address] Count 10^3/uL [place], [place] [id number] [phone] Red Blood Count 2.58 10^6/uL Low 3.70-4.87 Hemoglobin 8.6 g/dL Low 12.0-16.0 Hematocrit 26 % Low 33-41 Mean Corpuscular Volume 100 fL High 80-97 Mean Corpuscular Hemoglobin 34 pg High 27-31 Mean Corpuscular HGB Conc 33 g/dL N 31-36 Red Cell Distribution Width 17 % High 10.5-15 Platelet Count 78 10^3/uL Low 150-450 1 Mean Platelet Volume 7.4 fL N 7.4-10.4 Abs Neutrophils 2.9 10^3/uL N 1.5-7.7 Abs Lymphocytes 0.3 10^3/uL Low 1.0-4.8 Abs Monocytes 0.6 10^3/uL N 0-0.8 Abs Eosinophils 0.1 10^3/uL N 0-0.6 Abs Basophils 0.1 10^3/uL N 0-0.2 Abs Nucleated RBC 0 10^3/uL Granulocyte % 72.4 % Lymphocyte % 8.6 % Monocyte % 14.0 % Eosinophil % 3.6 % Basophil % 1.4 % Nucleated Red Blood Cells % 0 Laboratory test 07/17/2018 [facility] B-Type 522 pg/mL High <= [address] [place] [address] Peptide BNP [phone] Lactic Acid 1.1 mmol/L N 0.5-2.0 2 Comp Metabolic Panel 07/17/2018 [facility] Sodium 137 mmol/L N 135-145 [address] [place] [address] [phone] Potassium 4.0 mmol/L N 3.5-5.0 Chloride 100 mmol/L Low 101-111 Co2 Carbon Dioxide 31 mmol/L N 22-32 Anion Gap 6 mmol/L N 2-11 Glucose 111 mg/dL High 70-100 Blood Urea Nitrogen 51 mg/dL High 6-24 Creatinine 1.45 mg/dL High 0.51-0.95 BUN/Creatinine Ratio 35.2 High 8-20 Calcium 8.9 mg/dL N 8.6-10.3 Total Protein 7.7 g/dL N 6.4-8.9 Albumin 3.2 g/dL N 3.2-5.2 Globulin 4.5 g/dL High 2-4 Albumin/Globulin Ratio 0.7 Low 1-3 Total Bilirubin 0.80 mg/dL N 0.2-1.0 Alkaline Phosphatase 218 U/L High 34-104 Alt 13 U/L N 7-52 Ast 29 U/L N 13-39 Egfr Non- 35.3 >60 Egfr 42.7 >60 3 Laboratory test 07/17/2018 [facility] C Reactive 8.31 mg/L High <8.[address] [place] [address] [phone] Troponin-I (TnI) 0.02 ng/mL <0.04 4 Magnesium 2.2 mg/dL N 1.9-2.7 TSH (Thyroid Stim Horm) 19.52 mcIU/mL High 0.34-5.60 Comp Metabolic Panel 07/16/2018 [facility] Sodium 139 mmol/L N 135-145 5 [address] [place] [address] [phone] Potassium 4.1 mmol/L N 3.5-5.0 Chloride 101 mmol/L N 101-111 Co2 Carbon Dioxide 31 mmol/L N 22-32 Anion Gap 7 mmol/L N 2-11 Glucose 113 mg/dL High 70-100 Blood Urea Nitrogen 51 mg/dL High 6-24 Creatinine 1.43 mg/dL High 0.51-0.95 BUN/Creatinine Ratio 35.7 High 8-20 Calcium 8.8 mg/dL N 8.6-10.3 Total Protein 7.5 g/dL N 6.4-8.9 Albumin 3.3 g/dL N 3.2-5.2 Globulin 4.2 g/dL High 2-4 Albumin/Globulin Ratio 0.8 Low 1-3 Total Bilirubin 0.90 mg/dL N 0.2-1.0 Alkaline Phosphatase 218 U/L High 34-104 Alt 12 U/L N 7-52 Ast 27 U/L N 13-39 Egfr Non- 35.9 >60 Egfr 43.4 >60 6 CBC Auto Diff 07/16/2018 [facility] White Blood 3.8 10^3/uL N 3.5-10.[address] [place] [address] [phone] Red Blood Count 2.59 10^6/uL Low 3.70-4.87 Hemoglobin 8.6 g/dL Low 12.0-16.0 Hematocrit 26 % Low 33-41 Mean Corpuscular Volume 101 fL High 80-97 Mean Corpuscular Hemoglobin 33 pg High 27-31 Mean Corpuscular HGB Conc 33 g/dL N 31-36 Red Cell Distribution Width 16 % High 10.5-15 Platelet Count 78 10^3/uL Low 150-450 7 Mean Platelet Volume 8.3 fL N 7.4-10.4 Abs Neutrophils 2.7 10^3/uL N 1.5-7.7 Abs Lymphocytes 0.4 10^3/uL Low 1.0-4.8 Abs Monocytes 0.5 10^3/uL N 0-0.8 Abs Eosinophils 0.1 10^3/uL N 0-0.6 Abs Basophils 0.1 10^3/uL N 0-0.2 Abs Nucleated RBC 0 10^3/uL Granulocyte % 72.2 % Lymphocyte % 10.7 % Monocyte % 12.3 % Eosinophil % 3.5 % Basophil % 1.3 % Nucleated Red Blood Cells % 0 Comp Metabolic Panel 06/22/2018 [facility] Sodium 135 mmol/L N 135-[address] [place] [address] [phone] Potassium 4.1 mmol/L N 3.5-5.0 Chloride 99 [...] Egfr Non- 35.3 >60 Egfr 42.7 >60 9 Laboratory test 06/22/2018 [facility] C Reactive 11.90 mg/L High <8.01 [address] [place] [address] [phone] CBC Auto Diff 06/22/2018 [facility] White Blood 3.5 N 3.5- 10.[address] Count 10^3/[place] [address] [phone] Red Blood Count 2.59 10^6/uL Low 4.00-5.40 [...] Blood Cells % 0 Urinalysis Profile 05/29/2018 [facility] Urine Color Yellow [address] [place] [address] [phone] Urine Appearance Clear Urine Specific [place] 1.025 N 1.010-1.030 Urine pH 6.0 N 5-9 Urine Urobilinogen Negative Negative Urine Ketones Trace Abnormal Negative Urine Protein Negative Negative Urine Leukocytes Negative Negative Urine Blood Negative Negative Urine Nitrite Negative Negative Urine Bilirubin Negative Negative Urine Glucose Negative Negative 1 Consistent with Previous Results Reported on 07/16/18 2 [facility] Severe Sepsis and Septic Shock Management Bundle Measure requires all lactic acids initially measuring >2.0 mmol/L be repeated. 3 Because ethnic data is not always readily [...] 15-29 5 Kidney failure <15 (or dialysis) 4 Troponin-I testing on Plasma Separator Tubes (PST) has a known false positive rate of 0.20-0.40%. All positive troponins reflex immediate secondary confirmatory testing. 5 [facility] , Room Number [id number] 6 Because ethnic data is not always readily [...] 15-29 5 Kidney failure <15 (or dialysis) 7 Consistent with Previous Results Reported on 06/22/18 8 ROOM/FLOOR NOT PROVIDED 9 Because ethnic data is not always readily [...] 15-29 5 Kidney failure <15 (or dialysis) 10 ROOM/FLOOR NOT PROVIDED Procedures Date Code Description Status 07/19/2018 31609 ECHO Transthorasic Realtime 2D W Doppler & Color Flow Hosp Completed 08/17/2017 36817 ECHO Transthorasic Realtime 2D W Doppler & Color Flow Hosp Completed 08/17/2017 09282 EKG, Interpretation Only Completed Encounters Type Date Location Provider Dx Diagnosis Office Visit 07/27/2018 [facility] Nithya I50.9 Heart failure, 9:16a manuel Edwards PA-C unspecified Hospitalists Office Visit 07/26/2018 [facility] Nithya I11.0 Hypertensive heart 9:16a manuel Edwards PA-C disease with heart Hospitalists failure I50.23 Acute on chronic systolic (congestive) heart failure I95.9 Hypotension, unspecified K74.60 Unspecified cirrhosis of liver E03.9 Hypothyroidism, unspecified I48.91 Unspecified atrial fibrillation D64.9 Anemia, unspecified Office Visit 07/25/2018 9:16a [facility] Katie Jose Juan, I11.0 Hypertensive heart Assoc,pc AEROPHYSICS ENGINEER disease with heart Hospitalists failure I50.23 Acute on chronic systolic (congestive) heart failure I95.9 Hypotension, unspecified K74.60 Unspecified cirrhosis of liver D64.9 Anemia, unspecified I48.91 Unspecified atrial fibrillation E03.9 Hypothyroidism, unspecified Office Visit 07/24/2018 9:15a [facility] Katie Jose Juan, I11.0 Hypertensive heart Assoc,pc AEROPHYSICS ENGINEER disease with heart Hospitalists failure I50.23 Acute on chronic systolic (congestive) heart failure I95.9 Hypotension, unspecified K74.60 Unspecified cirrhosis of liver D64.9 Anemia, unspecified Office Visit 07/23/2018 9:15a [facility] Katie Jose Juan, I11.0 Hypertensive heart Assoc,pc AEROPHYSICS ENGINEER disease with heart Hospitalists failure I50.23 Acute on chronic systolic (congestive) heart failure K74.60 Unspecified cirrhosis of liver D64.9 Anemia, unspecified I95.9 Hypotension, unspecified Office Visit 07/22/2018 9:14a [facility] Katie Jose Juan, I11.0 Hypertensive heart Assoc,pc AEROPHYSICS ENGINEER disease with heart Hospitalists failure I50.23 Acute on chronic systolic (congestive) heart failure K74.60 Unspecified cirrhosis of liver D64.9 Anemia, unspecified I95.9 Hypotension, unspecified Office Visit 07/21/2018 9:14a [facility] Katie Jose Juan, I11.0 Hypertensive heart Assoc,pc AEROPHYSICS ENGINEER disease with heart Hospitalists failure I50.23 Acute on chronic systolic (congestive) heart failure I95.9 Hypotension, unspecified K74.60 Unspecified cirrhosis of liver D64.9 Anemia, unspecified Office Visit 07/20/2018 [facility] Manisha I50.23 Acute on chronic 9:14a Assoc,pc Massiel Doto, systolic Hospitalists AEROPHYSICS ENGINEER (congestive) heart failure I11.0 Hypertensive heart disease with heart failure I95.9 Hypotension, unspecified D64.9 Anemia, unspecified E03.9 Hypothyroidism, unspecified K74.60 Unspecified cirrhosis of liver I48.91 Unspecified atrial fibrillation Office Visit 07/19/2018 9:13a [facility] Sachin I11.0 Hypertensive heart Assoc,YADIRA Benedict disease with heart Hospitalists failure I50.20 Unspecified systolic (congestive) heart failure I95.9 Hypotension, unspecified K74.60 Unspecified cirrhosis of liver D64.9 Anemia, unspecified I48.91 Unspecified atrial fibrillation Office Visit 07/18/2018 9:13a [facility] Sachin K74.60 Unspecified Assoc,YADIRA Benedict cirrhosis of Hospitalists liver D69.6 Thrombocytopenia, unspecified I11.0 Hypertensive heart disease with heart failure I50.20 Unspecified systolic (congestive) heart failure I48.91 Unspecified atrial fibrillation Office Visit 07/17/2018 [facility] Mile K74.60 Unspecified 9:12a Assoc,manuel Paz NP cirrhosis of Hospitalists liver D69.6 Thrombocytopenia, unspecified I48.2 Chronic atrial fibrillation I50.20 Unspecified systolic (congestive) heart failure I11.0 Hypertensive heart disease with heart failure Office Visit 07/15/2018 8:45a [facility] Irais I50.32 Chronic diastolic Irvin, AEROPHYSICS ENGINEER (congestive) heart failure K74.60 Unspecified cirrhosis of liver Office Visit 07/14/2018 8:15a [facility] Joy Hummelr, I50.32 Chronic diastolic D.O. (congestive) heart failure I48.2 Chronic atrial fibrillation L89.622 Pressure ulcer of left heel, stage 2 E66.01 Morbid (severe) obesity due to excess calories K72.10 Chronic hepatic failure without coma N18.4 Chronic kidney disease, stage 4 (severe) Office Visit 07/08/2018 [facility]enterology Tomer Smith I50.22 Chronic systolic 10:15a MD Ryan (congestive) heart failure E66.01 Morbid (severe) obesity due to excess calories I48.2 Chronic atrial fibrillation K74.60 Unspecified cirrhosis of liver Office Visit 06/28/2018 12:15p [facility] Gavi Romeo, L03.115 Cellulitis of AEROPHYSICS ENGINEER right lower limb L89.622 Pressure ulcer of left heel, stage 2 K72.10 Chronic hepatic failure without coma Office Visit 06/25/2018 9:00a [facility] Germania I87.313 Chronic venous MD Alan hypertension w ulcer of bilateral low extrm L89.622 Pressure ulcer of left heel, stage 2 F43.21 Adjustment disorder with depressed mood Office Visit 06/21/2018 12:15p [facility], I87.313 Chronic venous AEROPHYSICS ENGINEER hypertension w ulcer of bilateral low extrm L89.622 Pressure ulcer of left heel, stage 2 L03.115 Cellulitis of right lower limb Office Visit 06/17/2018 9:00a [facility] Joy Koenig, I48.2 Chronic atrial D.O. fibrillation I50.32 Chronic diastolic (congestive) heart failure K72.10 Chronic hepatic failure without coma N18.4 Chronic kidney disease, stage 4 (severe) Office Visit 06/04/2018 10:30a [facility] Germania I48.2 Chronic atrial MD [...] R60.9 Edema, unspecified Office Visit 05/31/2018 8:15a [facility], L03.115 Cellulitis of AEROPHYSICS ENGINEER right lower limb L89.622 Pressure ulcer of left heel, stage 2 K72.10 Chronic hepatic failure without coma Office Visit 05/28/2018 12:30p [facility] Germania Phillips, K72.10 Chronic hepatic MD failure without coma I13.0 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 syndrome Hospitalists R57.0 Cardiogenic shock N17.9 Acute kidney failure, unspecified I48.92 Unspecified atrial flutter Office Visit 08/19/2017 12:28p [facility] Shelely Gregory, I48.2 Chronic atrial Of Padmini Salmon fibrillation I42.9 Cardiomyopathy, unspecified I21.4 Non-St elevation (Nstemi) myocardial infarction Office Visit 08/19/2017 11:32a [facility] I51.81 Takotsubo Assmireya,manuel Vogt M.D. syndrome Hospitalists R57.0 Cardiogenic shock N17.9 Acute kidney failure, unspecified I48.92 Unspecified atrial flutter Office Visit 08/18/2017 11:32a [facility] I51.81 [facility],manuel Ramirez DO syndrome Hospitalists R57.0 Cardiogenic shock N17.9 Acute kidney failure, unspecified I48.92 Unspecified atrial flutter Office Visit 08/18/2017 11:31a [facility] Abhi Gray I51.81 Takotsubo Thomas, D.O. syndrome R57.0 Cardiogenic shock N17.9 Acute kidney failure, unspecified I48.92 Unspecified atrial flutter Office Visit 08/17/2017 12:27p [facility] Joe Temple I48.91 Unspecified atrial Of Padmini Nunez M.D. fibrillation I51.9 Heart disease, unspecified Office Visit 08/17/2017 11:30a [facility] Abhi Gray I51.81 Takotsubo Thomas, D.O. syndrome I48.92 Unspecified atrial flutter R57.0 Cardiogenic shock N17.9 Acute kidney failure, unspecified Plan of Treatment 07/15/2018 - Irais Bryan, NPI50.32 Chronic diastolic (congestive) heart failureComments:- no acute changes overnight - will continue diuretics as prescribed yesterday - continue with weights on M//FK74.60 Unspecified cirrhosis of liverComments:- Will order ultrasound today to evaluate for acities and the possible need for paracentesis - will continue with increased diuretics as prescribed yesterday- patient with no weight gain this week - weight is trending down
[2018-08-18] MEDS ORDERED: oxyCODONE/Acetamin 5/325 MG* TAB PO ONE (12:25)
--- NOTE | 2018-08-18 12:28 | ED ---
Adult Trauma - HPI Summary HPI Summary: Pt is a 73 y/o F presenting to the ED brought in by EMS for a fall. She states she fell out of her wheelchair when trying to reach her call [place], and lost her balance, and toppled over. She reports pain on her middle forehead, R-sided rib cage, neck, and R knee. She denies LOC, and states that her Tetanus shot is UTD. - History of Current Complaint Chief Complaint: EDFall Stated Complaint: FELL/HEAD LC PER EMS Time Seen by Provider: 08/18/18 12:12 Hx Obtained From: Patient Mechanism of Injury: Fall Ambulatory at the Scene: No Loss of Consciousness: no loss of consciousness Onset/Duration: Started Hours Ago, Still Present Onset of Pain: Immediate Onset Severity: Moderate Current Severity: Moderate Pain Intensity: 6 Pain Scale Used: 0-10 Numeric Location: Head, Neck, Extremities, Other - ribs Character: Aching Aggravating Factor(s): Movement, Palpation Alleviating Factor(s): Nothing Associated Signs & Symptoms: Negative: Loss of Consciousness - Additional Pertinent History Primary Care Physician: VIKKI - Allergy/Home Medications Allergies/Adverse Reactions: Allergies Allergy/AdvReac Type Severity Reaction Status Date / Time Iodinated Contrast- Oral and Allergy Unknown Verified 08/17/17 05:41 IV Dye Reaction Details Home Medications: Home Medications Atorvastatin* [Lipitor*] 40 mg PO BEDTIME 08/18/18 [History Confirmed 08/18/18] Lactobacillus Acidophilus* [Culturelle*] 1 cap PO DAILY 08/18/18 [History Confirmed 08/18/18] Levothyroxine TAB* [Synthroid TAB*] 50 mcg PO DAILY 08/18/18 [History Confirmed 08/18/18] Midodrine (NF) 2.5 mg PO TID 08/18/18 [History Confirmed 08/18/18] Nystatin CREAM* [Nystatin Cream*] 1 applic TOPICAL TID 08/18/18 [History Confirmed 08/18/18] diPHENhydraMINE PO* [Benadryl PO 25 MG TAB*] 12.5 mg PO Q12HR PRN 08/18/18 [ History Confirmed 08/18/18] PMH/Surg Hx/FS Hx/Imm Hx Previously Healthy: Yes Endocrine/Hematology History: Reports: Hx Diabetes, Hx Anemia - iron deficiency Denies: Hx Thyroid Disease Cardiovascular History: Reports: Hx Atrial Fibrillation, Hx Congestive Heart Failure, Hx Hypertension, Hx Myocardial Infarction Denies: Hx Pacemaker/ICD Respiratory History: Reports: Hx Chronic Obstructive Pulmonary Disease (COPD) Denies: Hx Asthma GI History: Reports: Hx Hiatal Hernia Denies: Hx Ulcer History: Reports: Hx Chronic Renal Failure, Other Problems/Disorders - CKD Musculoskeletal History: Reports: Hx Arthritis, Hx Osteoporosis Sensory History: Reports: Hx Glaucoma - beginning stages Denies: Hx Contacts or Glasses, Hx Hearing Aid Opthamlomology History: Reports: Hx Glaucoma - beginning stages Denies: Hx Contacts or Glasses - Surgical History Surgery Procedure, Year, and Place: Tonsillectomy. D&Cs. Hernia repair 2007 Infectious Disease History: No Infectious Disease History: Denies: Hx Clostridium Difficile, Hx Hepatitis, Hx Human Immunodeficiency Virus (HIV), Hx of Known/Suspected MRSA, Hx Shingles, Hx Tuberculosis, Hx Known/ Suspected VRE, Hx Known/Suspected VRSA, History Other Infectious Disease, Traveled Outside the [place] in Last 30 Days - Family History Known Family History: Positive: Hypertension, Diabetes - Social History [facility]: [facility] Alcohol Use: None Hx Substance Use: No Substance Use Type: Reports: None Hx Tobacco Use: No Smoking Status (MU): Never Smoked Tobacco Review of Systems Positive: Myalgia - forehead pain, R-sided rib pain, neck pain Positive: Other - abrasions on R elbow and knee Neurological: Negative - LOC All Other Systems Reviewed And Are Negative: Yes Physical Exam - Summary Physical Exam Summary: GENERAL: Patient is a well-developed and nourished female who is lying comfortable in the stretcher. Patient is not in any acute respiratory distress. HEAD AND FACE: Normocephalic. Abrasion on mid-forehead. EYES: PERRLA, EOMI x 2. EARS: Hearing grossly intact. MOUTH: Oropharynx within normal limits. NECK: Supple, trachea is midline, no adenopathy, no JVD, no carotid bruit. CHEST: Symmetric, tender along L lateral rib cage. LUNGS: Clear to auscultation bilaterally. No wheezing or crackles. CVS: Regular rate and rhythm, S1 and S2 present, no murmurs or gallops appreciated. ABDOMEN: Soft, non-tender. Bowel sounds are normal. No abnormal abdominal pulsations. EXTREMITIES: Full ROM in all major joints, no edema, no cyanosis or clubbing. NEURO: Alert and oriented x 3. No acute neurological deficits. Speech is normal and follows commands. SKIN: Dry and warm. Skin tear on R elbow, and abrasion on R knee. Triage Information Reviewed: Yes Vital Signs On Initial Exam: Initial Vitals Temp Pulse Resp BP Pulse Ox 97.3 F 74 18 110/55 95 08/18/18 12:17 08/18/18 12:17 08/18/18 12:17 08/18/18 12:17 08/18/18 12:17 Vital Signs Reviewed: Yes - [place] Coma Scale Best Eye Response: 4 - Spontaneous Best Motor Response: 6 - Obeys Commands Best Verbal Response: 5 - Oriented Coma Scale Total: 15 Diagnostics - Vital Signs Vital Signs Temp Pulse Resp BP Pulse Ox 08/18/18 12:17 97.3 F 74 18 110/55 95 - Laboratory Result Diagrams: 08/18/18 14:21 08/18/18 14:21 Lab Statement: Any lab studies that have been ordered have been reviewed, and results considered in the medical decision making process. - Radiology Elbow XR Radiology Interpretation Completed By: Radiologist Summary of Radiographic Findings: No fracture of the R elbow is noted. ED physician has reviewed this report. Ribs w/ CXR Radiology Interpretation Completed By: Radiologist Summary of Radiographic Findings: Findings suggestive of pulmonary edema. No evidence for fracture. ED physician has reviewed this report. Knee XR Radiology Interpretation Completed By: Radiologist Summary of Radiographic Findings: 1. OSTEOPENIA. 2. OSTEOARTHRITIS. 3. PERIPHERAL ARTERIAL DISEASE. 4. NO ACUTE OSSEOUS INJURY. THE DEGREE OF OSTEOPENIA MAY MAKE A NONDISPLACED FRACTURE RADIOGRAPHICALLY OCCULT. IF SYMPTOMS PERSIST, RECOMMEND REPEAT IMAGING. ED physician has reviewed this report. - CT C-spine CT CT Interpretation Completed By: Radiologist Summary of CT Findings: 1. STRAIGHTENING OF THE CERVICAL SPINE, NO EVIDENCE FOR FRACTURE. 2. MILD CERVICAL SPONDYLOSIS DESCRIBED. 3. ABERRANT ORIGIN OF THE RIGHT SUBCLAVIAN ARTERY. ED physician has reviewed this report. Brain CT CT Interpretation Completed By: Radiologist Summary of CT Findings: 1. NO EVIDENCE FOR ACUTE INTRACRANIAL ABNORMALITY. 2. SMALL AREA OF HEMORRHAGE IN THE SCALP ANTERIOR TO THE FRONTAL BONES, NO EVIDENCE FOR FRACTURE. ED physician has reviewed this report. - EKG 1421 Cardiac Rate: Other Rate - 74bpm EKG Rhythm: Atrial Fibrillation ST Segment: Normal Ectopy: None Summary of EKG Findings: EKG at 1421 shows atrial fibrillation at 74bpm with incomplete RBBB and LAFB. Adult Trauma Course/Dx - Course Course Of Treatment: Pt is a 73 y/o F presenting to the ED brought in by EMS for a fall out of her wheelchair. She reports pain in her forehead, neck, R- sided rib, and R knee. She denies LOC, and states her Tetanus shot is UTD. Upon exam, she has an abrasion on her mid-forehead, and skin tears on her R knee and R elbow. Her R-sided rib cage is tender to palpation on the lateral portion. C- spine CT shows: 1. STRAIGHTENING OF THE CERVICAL SPINE, NO EVIDENCE FOR FRACTURE. 2. MILD CERVICAL SPONDYLOSIS DESCRIBED. 3. ABERRANT ORIGIN OF THE RIGHT SUBCLAVIAN ARTERY. Brain CT shows: 1. NO EVIDENCE FOR ACUTE INTRACRANIAL ABNORMALITY. 2. SMALL AREA OF HEMORRHAGE IN THE SCALP ANTERIOR TO THE FRONTAL BONES, NO EVIDENCE FOR FRACTURE. Ribs w/ CXR shows: Findings suggestive of pulmonary edema. No evidence for fracture. Elbow XR shows: No fracture of the R elbow is noted. Knee XR shows: 1. OSTEOPENIA. 2. OSTEOARTHRITIS. 3. PERIPHERAL ARTERIAL DISEASE. 4. NO ACUTE OSSEOUS INJURY. THE DEGREE OF OSTEOPENIA MAY MAKE A NONDISPLACED FRACTURE RADIOGRAPHICALLY OCCULT. IF SYMPTOMS PERSIST, RECOMMEND REPEAT IMAGING. EKG at 1421 shows atrial fibrillation at 74bpm with incomplete RBBB and LAFB. Pts bloodwork shows RBC of 2.64, Hgb of 8.7, Hct of 26, MCH of 33, RDW of 16, and plt count of 73. Her INR is 1.39. Her chemistry shows sodium of 132, chloride of 91, BUN of 94, Creatinine of 1.80, BUN/Creatinine ratio of 52.2, total bilirubin of 1.20 , alkaline phosphate of 213, BNP of 417, globulin of 4.9, and albumin/globulin ratio of 0.7. This patient presented to the ED with an original complaint of fall, which we initially got X-Rays for to r/o rib fractures. The X-Ray showed no rib fracture but did show pulmonary edema which I then ordered bloodwork for. I reviewed the labs and they are essentially at baseline. The decision was made to give her IV Lasix to help with her fluid retention. I discussed the case with Dr. Thomson at 1528 who recommended increasing the Torsemide from 80mg to 100mg and have her f/u with her PCP. The entire time the pt was here her SaO2 was above 95%, and she can be safely discharged with dx including fall and pulmonary edema. - Diagnoses Provider Diagnoses: Fall, Pulmonary edema Discharge - Sign-Out/Discharge Documenting (check all that apply): Patient Departure Patient Received Moderate/Deep Sedation with Procedure: No - Discharge Plan Condition: Stable Disposition: HOME Referrals: Joy Koenig DO [Primary Care Provider] - Additional Instructions: Please increase your Torsemide from 80mg to 100mg. Follow up with your primary care provider in the next 1-3 days. Return to the emergency department with any new or worsening symptoms. - Billing Disposition and Condition Condition: STABLE Disposition: Home - Attestation Statements Document Initiated by Madeleineibkimberlee: Yes Documenting Scribe: Divya Barroso Provider For Whom Reyes is Documenting (Include Credential): Melvi Nguyen MD. Scribe Attestation: Divya Pedro, cassiused for Melvi Nguyen MD. on 08/19/18 at 1116. Scribe Documentation Reviewed: Yes Provider Attestation: The documentation as recorded by the Divya fritz accurately reflects the service I personally performed and the decisions made by Elicia watt MD. Status of Scribe Document: Viewed
[2018-08-18 14:41] LABS: Activated Partial Thrombo Time 33.8 seconds (26.0-36.3); INR 1.39 (0.82-1.09)
[2018-08-18 14:42] LABS: Hematocrit 26 % (35-47); Hemoglobin 8.7 g/dL (12.0-16.0); Mean Corpuscular HGB Conc 34 g/dL (31-36); Mean Corpuscular Hemoglobin 33 pg (27-31); Mean Corpuscular Volume 97 fL (80-97); Platelet Count 73 10^3/uL (150-450); Red Blood Count 2.64 10^6 /uL (3.70-4.87); Red Cell Distribution Width 16 % (10.5-15); White Blood Count 5.4 10^3/uL (3.5-10.8)
[2018-08-18 14:48] LABS: Albumin 3.6 g/dL (3.2-5.2); Albumin/Globulin Ratio 0.7 (1-3); BUN/Creatinine Ratio 52.2 (8-20); Calcium 9.6 mg/dL (8.6-10.3); EGFR African American 33.3 (>60); EGFR Non-African American 27.5 (>60); Globulin 4.9 g/dL (2-4); Potassium 3.5 mmol/L (3.5-5.0); Total Bilirubin 1.2 mg/dL (0.2-1.0); Total Protein 8.5 g/dL (6.4-8.9)
[2018-08-18 14:50] LABS: Troponin I 0.03 ng/mL (<0.04)
[2018-08-18 15:02] LABS: ABS Eosinophils 0.2 10^3/ul (0-0.6); ABS Lymphocytes 0.4 10^3/ul (1.0-4.8); ABS Monocytes 0.6 10^3/ul (0-0.8); ABS Neutrophils 4.2 10^3/ul (1.5-7.7); Eosinophil % 2.9 %; Lymphocyte % 6.8 %; Nucleated Red Blood Cells % 0.1
[2018-08-18] MEDS ORDERED: Furosemide IV* 10 MG/ML VIAL (40 MG) IV ONE (15:30)
[2018-08-18] MEDS ORDERED: Bacitracin OINTMENT* 0.5% 0.5 oz TUBE TOPICAL ONE (15:43)
[2018-08-18 16:06] VITALS: BP 100/66
== END 2018-08-18 16:04 | disposition home or self-care (01) ==
LOC: ED 12:11
DX: J81.1 Chronic pulmonary edema (principal); I10 Essential (primary) hypertension; I48.91 Unspecified atrial fibrillation; E11.9 Type 2 diabetes mellitus without complications; D50.9 Iron deficiency anemia, unspecified; J44.9 Chronic obstructive pulmonary disease, unspecified; I50.9 Heart failure, unspecified; I25.2 Old myocardial infarction
CPT/HCPCS: 36415; 70450; 72125; 80053; 83605; 83880; 84484; 85025; 85610; 85730; 93005; 96374; 99284; A9270-GY; J1940

== ENCOUNTER 2019-01-02 08:18 | Inpatient (IN) | payer MEDICARE, BC ==
--- NOTE | 2019-01-02 08:59 | ED ---
Shortness of Breath - HPI Summary HPI Summary: This patient is a 73 year old F arriving via ambulance from [facility] to [facility] with a chief complaint of shortness of breath since 01/02/19 in AM. Patient states she has been experiencing shortness of breath due to ascites. The patient rates the pain 3/10 in severity per potato chip maker. Symptoms aggravated by ascites. Symptoms alleviated by nothing. Patient reports lower bilateral edema and ascites. Patient denies fever, chest pain and chills. - History of Current Complaint Chief Complaint: EDShortnessOfBreath Time Seen by Provider: 01/02/19 08:27 Hx Obtained From: Patient Onset/Duration: Sudden Onset, Still Present Timing: Constant Dyspnea At: Rest Aggravating Factors: Other - Ascites Alleviating Factors: Nothing - Allergy/Home Medications Allergies/Adverse Reactions: Allergies Allergy/AdvReac Type Severity Reaction Status Date / Time Iodinated Contrast Media Allergy Unknown Verified 08/17/17 05:41 [Iodinated Contrast- Oral Reaction and IV Dye] Details Home Medications: Home Medications Fluticasone Propionate [Flonase Allergy Relief] 50 mcg NA DAILY 01/02/19 [ History Confirmed 01/02/19] Torsemide 100 MG 100 mg PO DAILY 01/02/19 [History Confirmed 01/02/19] PMH/Surg Hx/FS Hx/Imm Hx Endocrine/Hematology History: Reports: Hx Diabetes, Hx Anemia - iron deficiency Denies: Hx Thyroid Disease Cardiovascular History: Reports: Hx Atrial Fibrillation, Hx Congestive Heart Failure, Hx Hypertension, Hx Myocardial Infarction Denies: Hx Pacemaker/ICD Respiratory History: Reports: Hx Chronic Obstructive Pulmonary Disease (COPD) Denies: Hx Asthma GI History: Reports: Hx Hiatal Hernia Denies: Hx Ulcer History: Reports: Hx Chronic Renal Failure, Other Problems/Disorders - CKD Musculoskeletal History: Reports: Hx Arthritis, Hx Osteoporosis Sensory History: Reports: Hx Glaucoma - beginning stages Denies: Hx Contacts or Glasses, Hx Hearing Aid Opthamlomology History: Reports: Hx Glaucoma - beginning stages Denies: Hx Contacts or Glasses - Surgical History Surgery Procedure, Year, and Place: Tonsillectomy. D&Cs. Hernia repair 2007 Infectious Disease History: No Infectious Disease History: Denies: Hx Clostridium Difficile, Hx Hepatitis, Hx Human Immunodeficiency Virus (HIV), Hx of Known/Suspected MRSA, Hx Shingles, Hx Tuberculosis, Hx Known/ Suspected VRE, Hx Known/Suspected VRSA, History Other Infectious Disease, Traveled Outside the [place] in Last 30 Days - Family History Known Family History: Positive: Hypertension, Diabetes - Social History Alcohol Use: None Hx Substance Use: No Substance Use Type: Reports: None Hx Tobacco Use: No Smoking Status (MU): Never Smoked Tobacco Review of Systems Negative: Fever, Chills Positive: Shortness Of Breath Positive: Other - Ascites All Other Systems Reviewed And Are Negative: Yes Physical Exam - Summary Physical Exam Summary: VITAL SIGNS: Reviewed. GENERAL: Patient is an elderly and obese FEMALE who is lying comfortable in the stretcher. Patient is not in any acute respiratory distress. HEAD AND FACE: No signs of trauma. No ecchymosis, hematomas or skull depressions. No sinus tenderness. EYES: PERRLA, EOMI x 2, No injected conjunctiva, no nystagmus. EARS: Hearing grossly intact. Ear canals and tympanic membranes are within normal limits. MOUTH: Oropharynx within normal limits. NECK: Supple, trachea is midline, no adenopathy, no JVD, no carotid bruit, no c- spine tenderness, neck with full ROM. CHEST: Symmetric, no tenderness at palpation. LUNGS: Clear to auscultation bilaterally. No wheezing. Crackles present. CVS: Regular rate and rhythm, S1 and S2 present, no murmurs or gallops appreciated. ABDOMEN: Soft, non-tender. Abdomen is ascites. No rebound, no guarding, and no masses palpated. Bowel sounds are normal. EXTREMITIES: FROM in all major joints, bilateral lower extremity edema and multiple erythema surrounded with clear discharge, no cyanosis or clubbing. NEURO: Alert and oriented x 3. No acute neurological deficits. Speech is normal and follows commands. SKIN: Multiple erythema surrounded with clear discharge on bilateral lower extremities. Otherwise skin is Dry and warm. Triage Information Reviewed: Yes Vital Signs On Initial Exam: Initial Vitals Temp Pulse Resp BP Pulse Ox 97.2 F 82 20 99/58 98 01/02/19 08:29 01/02/19 08:29 01/02/19 08:29 01/02/19 08:29 01/02/19 08:29 Vital Signs Reviewed: Yes Diagnostics - Vital Signs Vital Signs Temp Pulse Resp BP Pulse Ox 01/02/19 08:29 97.2 F 82 20 99/58 98 - Laboratory Result Diagrams: 01/02/19 08:48 01/02/19 08:48 Lab Statement: Any lab studies that have been ordered have been reviewed, and results considered in the medical decision making process. - Radiology Chest Xray Radiology Interpretation Completed By: Radiologist Summary of Radiographic Findings: Chest Xray reveals, per radiologist, IMPRESSION:1. MILD INTERSTITIAL PULMONARY EDEMA SUSPECTED. 2. UNCHANGED CARDIOMEGALY. 3. NO FOCAL AIRSPACE OPACIFICATION IN THE HYPOINFLATED LUNGS. ED Physician has reviewed this report. - EKG 0833 Cardiac Rate: Other Rate - Low voltage atrial fibrilation at 84 bpm EKG Rhythm: Atrial Fibrillation EKG Comparison: No Significant Change Summary of EKG Findings: EKG reveals low voltage atrial fibrilation at 84 bpm. with no significant changes compared to prior on 08/18/18. Course/Dx - Course Assessment/Plan: Patient is a 73-year-old female who presents to the emergency department with a chief complaint of having shortness of breath and an increase in abdominal distention and swelling of her lower extremities. Blood work was ordered, chest x-ray was ordered. Blood work shows slight anemia which is chronic for this patient, sodium 133, BUNs a 64 and creatinine is 2.61. The patient has a history of chronic renal failure. Glucose is 121, alkaline phosphatase of 202, CRP is 15.8 BNP is 451. Chest x-ray impression: Mild interstitial pulmonary edema. Unchanged cardiomegaly. No focal airspace opacification in the hyperinflated lungs. The patient seems to be intravascularly depleted and extravascular overloaded. I discussed my physical exam, findings and test results with Dr. Godoy from the hospital services who accepted the patient for admission. - Diagnoses Provider Diagnoses: CHF (congestive heart failure), Ascitic fluid, Edema leg - Physician Notifications Discussed Care of Patient With: Fly Godoy - Hospitalist Time Discussed With Above Provider: 09:46 Instructed by Provider To: Other - Dr. Campbell discussed patients physical exam, findings and test results with Dr. Godoy hospitalist who accepted the patient for admission. Discharge ED - Sign-Out/Discharge Documenting (check all that apply): Patient Departure - admitted Patient Received Moderate/Deep Sedation with Procedure: No - Discharge Plan Condition: Stable Disposition: ADMITTED TO [facility] Referrals: Joy Koenig DO [Primary Care Provider] - - Attestation Statements Document Initiated by Scribe: Yes Documenting Scribe: Nyla Gao Provider For Whom Scribe is Documenting (Include Credential): Dr. Rohan Campbell Scribe Attestation: I, Nyla Gao , scribed for Dr. Rohan Campbell on 01/02/19 at 1018. Status of Scribe Document: Ready
[2019-01-02 09:05] LABS: ABS Eosinophils 0.2 10^3/ul (0-0.6); ABS Lymphocytes 0.4 10^3/ul (1.0-4.8); ABS Monocytes 0.6 10^3/ul (0-0.8); Eosinophil % 4.3 %; Hematocrit 25 % (35-47); Hemoglobin 8.3 g/dL (12.0-16.0); Lymphocyte % 10.3 %; Mean Corpuscular HGB Conc 34 g/dL (31-36); Mean Corpuscular Hemoglobin 33 pg (27-31); Mean Corpuscular Volume 98 fL (80-97); Mean Platelet Volume 7.6 fL (7.4-10.4); Nucleated Red Blood Cells % 0.1; Platelet Count 72 10^3/uL (150-450); Red Blood Count 2.52 10^6 /uL (3.70-4.87); Red Cell Distribution Width 16 % (10-15); White Blood Count 4.3 10^3/uL (3.5-10.8)
[2019-01-02 09:16] LABS: Albumin 3.3 g/dL (3.2-5.2); Albumin/Globulin Ratio 0.8 (1-3); BUN/Creatinine Ratio 32.2 (8-20); C Reactive Protein 15.84 mg/L (<8.01); Calcium 8.7 mg/dL (8.6-10.3); EGFR African American 21.7 (>60); EGFR Non-African American 17.9 (>60); Globulin 4.2 g/dL (2-4); Potassium 4.4 mmol/L (3.5-5.0); Total Bilirubin 0.8 mg/dL (0.2-1.0); Total Protein 7.5 g/dL (6.4-8.9)
[2019-01-02 09:20] LABS: Troponin I 0.03 ng/mL (<0.04)
[2019-01-02 09:21] LABS: CKMB ng/mL 3.2 ng/mL (0.6-6.3)
[2019-01-02] MEDS ORDERED: NS 0.9% 250 ML* 250 ML IV ONE (09:43)
[2019-01-02] MEDS ORDERED: Acetaminophen TAB* 325 MG PO PRN (11:24)
[2019-01-02] MEDS ORDERED: Ipratropium 0.5MG/2.5ML NEB* 0.5 MG/2.5 ML NEB.SOLN INH PRN (11:26)
[2019-01-02] MEDS: Levalbuterol 0.63MG/3ML NEB* UNIT OF USE INH SCH ×2 (13:39→19:27)
[2019-01-02 13:45] LABS: Urine Appearance Cloudy; Urine Bacteria 1+ (Absent); Urine Bilirubin Negative (Negative); Urine Blood 2+ (Negative); Urine Color Yellow; Urine Glucose Negative (Negative); Urine Ketones Negative (Negative); Urine Nitrite Positive (Negative); Urine Protein Negative (Negative); Urine Red Blood Cell 2+(6-10/hpf) (Absent); Urine Specific Gravity 1.011 (1.010-1.030); Urine Squamous Epithelial Cell Present (Absent); Urine Urobilinogen Negative (Negative); Urine White Blood Cell 3+(>20/hpf) (Absent)
[2019-01-02] MEDS: RiFAXimin* 550 MG TAB PO SCH ×2 (16:19→23:20)
[2019-01-02] MEDS: cefTRIAXone(*) 1 GM in NS 0.9% 50 ML* 50 ML IVPB SCH (16:19)
[2019-01-02] MEDS: Metoprolol Tartrate TAB* 25 MG PO SCH ×2 (16:19→23:20)
[2019-01-02] MEDS: Lactulose* 15 ML UDC PO SCH ×2 (16:23→23:20)
--- NOTE | 2019-01-02 16:35 | HP ---
CC: Anais Grace * HISTORY AND PHYSICAL: DATE OF ADMISSION: 01/02/19 PROVIDER: Irais Bryan NP PRIMARY CARE PROVIDER: Anais Grace. ATTENDING PHYSICIAN WHILE IN THE HOSPITAL: Dr. Fly Godoy * (dictated by Irais Bryan NP) CHIEF COMPLAINT: Shortness of breath, increased abdominal swelling. HISTORY OF PRESENT ILLNESS: Ms. Latham is a 73-year-old female with a past medical history significant for cirrhosis of the liver; atrial fibrillation, not on anticoagulation due to severe GI bleeding; type 2 diabetes; coronary artery disease; morbid obesity; chronic kidney disease; history of heart failure ; history of metabolic encephalopathy; hypertension; iron deficiency anemia; thrombocytopenia; osteoarthritis; hypothyroidism, who presented to the emergency room with complaints of progressively worsening shortness of breath x1 month and swelling in her abdomen. The patient does report that her abdomen is becoming more swollen and that she has had weight gain. Due to swelling in her abdomen has made it hard for her to breathe, due to her worsening shortness of breath and swelling in the abdomen, she presented to the emergency room for further evaluation. While in the emergency room, the patient had routine lab work drawn. She was found to be anemic on her lab work and thrombocytopenia, which is consistent with her baseline. Due to her progressive worsening and shortness of breath, hospital medicine was asked to see and evaluate her for admission. PAST MEDICAL HISTORY: Significant for: 1. Iron deficiency anemia. 2. Type 2 diabetes. 3. Hypertension. 4. Morbid obesity. 5. Chronic kidney disease. 6. History of heart failure. 7. Osteoarthritis. 8. History of cardiomyopathy. Most recent echo with an EF of 60% to 65% from July of 2018, also showed severe tricuspid regurgitation and moderate pulmonary hypertension. 9. Afib. Not on anticoagulation due to severe GI bleeding HOME MEDICATIONS: Include: 1. Acetaminophen 650 mg p.o. q.4 hours as needed. 2. Atorvastatin 40 mg p.o. at bedtime. 3. Vitamin D 1000 units p.o. q.a.m. 4. Ferrous sulfate 325 mg p.o. daily. 5. Ipratropium bromide 0.5 mg p.o. q.6 hours while awake. 6. Lactulose 15 mL p.o. t.i.d. 7. Xopenex 0.63 mg every 6 hours while awake. 8. Levothyroxine 50 mcg p.o. daily. 9. Metoprolol 12.5 mg p.o. q.8 hours. 10. Midodrine 2.5 mg p.o. t.i.d. 11. Fluticasone 50 mcg nasal spray daily. 12. Pantoprazole 40 mg p.o. daily. 13. Lyrica 25 mg p.o. b.i.d. 14. Rifaximin 550 mg p.o. q.8 hours. 15. Spironolactone 50 mg p.o. daily. 16. Demadex 100 mg p.o. daily. 17. Midodrine cream 1% topically b.i.d. 18. Lactobacillus 1 tab p.o. daily. 19. Zofran 4 mg p.o. q.6 hours as needed for nausea. 20. Guaifenesin 1200 mg p.o. b.i.d. p.r.n. 21. Benadryl 25 mg p.o. q.12 hours p.r.n. ALLERGIES: To IV CONTRAST. FAMILY HISTORY: Mother had an AL, at the age of 66. No reported history of diabetes or cancer within the family. SOCIAL HISTORY: Denies any tobacco, alcohol, or illicit drug use. She currently resides at [facility]. She uses a sit to stand, to be moved from bed to a wheelchair. Surrogate decision maker in the event she is unable to make her own decisions is her son. She is a full code. REVIEW OF SYSTEMS: She denies any fever, chills, unintended weight loss. She denies any chest pain. She does report increased swelling and edema to her abdomen. Denies any cough, hemoptysis. She does report progressively worsening shortness of breath x1 month. No nausea, vomiting, diarrhea, abdominal pain, gross hematuria or dysuria. Denies any focal weakness or sensory loss. Denies any visual complaints, dysphagia. She does report a scabbed areas noted to bilateral lower extremities. Denies any psychosis or anxiety. PHYSICAL EXAMINATION GENERAL: At this time, Ms. Latham is 73-year-old female who is alert and oriented, tearful, resting on the stretcher in the emergency room. She is in no acute distress. VITAL SIGNS: Blood pressure 109/54, heart rate 79, respirations are 17, O2 saturation 95%, temperature was 97.2. HEENT: Head is atraumatic, normocephalic. She does have some ecchymosis noted to her left lower eyelid. Mucous membranes are moist. Pupils are equal and reactive to light. EOMs are intact. Sclerae anicteric and not pale. NECK: Supple. LUNGS: Clear to auscultation bilaterally. No wheezes, rales, or rhonchi. CARDIAC: S1, S2. irregular rate and rhythm. No rubs or gallops. ABDOMEN: Obese with mild firmness. She does have pitting edema noted to the abdomen. NEUROLOGIC: She is awake, alert, and oriented x3. Speech is clear. Thought process is intact. There is no gross focal deficit. SKIN: She does have bilateral open areas noted to bilateral lower extremities that are scabbed. There is no surrounding erythema. She does have purple discoloration noted to bilateral feet. DIAGNOSTIC STUDIES/LAB DATA: WBCs are 4.3, RBCs 2.52, hemoglobin 8.3, hematocrit is 25, platelet count is 72. Sodium 133, potassium 4.4, chloride 103 , carbon dioxide is 20, anion gap was 10, BUN was 84, creatinine 2.61, glucose was 121, lactic acid 0.9, calcium 8.7, ASTs were 22, ALTs were 11, alkaline phosphatase was 202. CK was 38. Troponin I was 0.03. C-reactive protein was 15.84, BNP was 451. Urine is pending. She had an electrocardiogram, which showed atrial fibrillation at a rate of 84. ASSESSMENT AND PLAN: Ms. Latham is a 73-year-old female with a past medical history significant for iron deficiency anemia, type 2 diabetes, hypertension, morbid obesity, chronic kidney disease, history of congestive heart failure, osteoarthritis, atrial fibrillation, liver cirrhosis, who presented to the emergency room with complaints of increased abdominal distention and progressively worsening shortness of breath. She will be admitted under observation for: 1. Shortness of breath. I suspect this could be related to the increased abdominal distention which is likely related to ascites . The patient does appear to be intravascularly dry. At this time, we will continue with O2 as needed via nasal cannula. She can have breathing treatments with Xopenex and Atrovent as previously prescribed. We will continue on torsemide and spironolactone as previously prescribed. 2. Abdominal distention. I suspect this could be related to increase in ascites in her abdomen. I will get an ultrasound of her abdomen to evaluate the amount of fluid and we will order an ultrasound guided paracentesis for tomorrow. I suspect that this could be contributing to her weight gain and abdominal distension. 3. Acute kidney injury, acute on chronic kidney disease. The patient does have an elevation in her BUN and creatinine above her normal baseline. She did receive 250 cc of normal saline in the emergency room. I am going to hold off on her further fluid hydration as the patient does have increased abdominal distention and likely ascites. I am getting an ultrasound of her abdomen as well. We will evaluate for any further kidney disease. The patient denies any pain with urination or burning at this time. If the patient does appear to have a urinary tract infection, I ordered an ultrasound of her kidneys to rule out any obstruction causing increase in her BUN and creatinine. I suspect this could be related to dehydration as the patient does appear to be intravascularly dehydrated. She also appears to have extravascular fluid overload. 4. Diabetes type II. The patient does not currently take any medications for diabetes. We will monitor during her hospitalizations with fingersticks a.c.. 5. Thrombocytopenia. The patient has a history of chronic thrombocytopenia. Her platelet count is 72 today, which appears to be at her baseline today. We will repeat a CBC tomorrow. This is likely related to underlying chronic liver and kidney disease. 6. Iron deficiency anemia. The patient does have a history of iron deficiency anemia. Her H and H is at her current baseline. I will just get the stool for occult to rule any occult bleeding, but this is likely related from her chronic liver and kidney disease as well. 7. FEN. Consistent carb diet. 8. Code status. She is full code. 9. Deep vein thrombosis prophylaxis. I will place her on SCDs as the patient does have thrombocytopenia with platelet count of 72 and a history of gastrointestinal bleeding. 10. Disposition. The patient will be placed inpatient. TIME SPENT: Time spent on this admission was approximately 60 minutes, greater than half that time was spent at the bedside reviewing events leading thus far to her hospitalization, performing physical exam, and reviewing my plan of care. I have discussed this with my attending, Dr. Fly Godoy; he is in agreement with my plan. IRAIS BRYAN, MACHINE SET UP TECHNICIAN [id number]/[facility] #: [id number] [facility] HOSPITALMariann
[2019-01-02] MEDS ORDERED: NS 0.9% 500 ML* 500 ML IV ONE (19:54)
[2019-01-02] MEDS: Atorvastatin* 40 MG TAB PO SCH (23:19)
[2019-01-02] MEDS: Pregabalin CAP(*) 25 MG PO SCH (23:19)
[2019-01-03] MEDS: Levalbuterol 0.63MG/3ML NEB* UNIT OF USE INH SCH ×3 (01:38→12:47)
[2019-01-03 06:38] LABS: ABS Eosinophils 0.2 10^3/ul (0-0.6); ABS Lymphocytes 0.4 10^3/ul (1.0-4.8); ABS Monocytes 0.5 10^3/ul (0-0.8); ABS Neutrophils 2.7 10^3/ul (1.5-7.7); Eosinophil % 4.1 %; Hematocrit 24 % (35-47); Hemoglobin 8.2 g/dL (12.0-16.0); Lymphocyte % 11.3 %; Mean Corpuscular HGB Conc 34 g/dL (31-36); Mean Corpuscular Hemoglobin 33 pg (27-31); Mean Corpuscular Volume 99 fL (80-97); Mean Platelet Volume 7.8 fL (7.4-10.4); Nucleated Red Blood Cells % 0.3; Platelet Count 69 10^3/uL (150-450); Red Blood Count 2.46 10^6 /uL (3.70-4.87); Red Cell Distribution Width 16 % (10-15); White Blood Count 3.8 10^3/uL (3.5-10.8)
[2019-01-03] MEDS: Levothyroxine TAB* 50 MCG TAB PO SCH (06:39)
[2019-01-03] MEDS: Metoprolol Tartrate TAB* 25 MG PO SCH ×3 (06:39→22:03)
[2019-01-03] MEDS: RiFAXimin* 550 MG TAB PO SCH ×3 (06:40→22:06)
[2019-01-03 06:52] LABS: BUN/Creatinine Ratio 33.6 (8-20); Calcium 8.9 mg/dL (8.6-10.3); EGFR Non-African American 17.4 (>60); Potassium 4.4 mmol/L (3.5-5.0)
[2019-01-03] MEDS ORDERED: Furosemide IV* 10 MG/ML 10 ML VIAL (100 MG) IV ONE (08:16)
[2019-01-03] MEDS ORDERED: Influenza VAC *QUAD* 2019-20* 0.5 ML SYRINGE IM ONE (09:00)
[2019-01-03] MEDS ORDERED: Torsemide TAB* 20 MG PO SCH (09:00)
[2019-01-03] MEDS: Pregabalin CAP(*) 25 MG PO SCH ×2 (09:17→22:06)
[2019-01-03] MEDS: Lactulose* 15 ML UDC PO SCH ×3 (09:17→22:06)
[2019-01-03] MEDS: Fluticasone NASAL SPRAY 50MCG* 16 gm SPRAY BTL INTRANASAL SCH (09:17)
[2019-01-03] MEDS: Metolazone TAB* 5 MG PO SCH (09:18)
[2019-01-03] MEDS: Ferrous Sulfate TAB* 325 MG PO SCH (09:18)
[2019-01-03] MEDS: Cholecalciferol TAB* 1000 UNITS PO SCH (09:18)
[2019-01-03] MEDS: Pantoprazole TAB * 40 MG TAB PO SCH (09:18)
[2019-01-03] MEDS: Spironolactone TAB* 25 MG PO SCH (09:19)
[2019-01-03] MEDS: cefTRIAXone(*) 1 GM in NS 0.9% 50 ML* 50 ML IVPB SCH (14:44)
[2019-01-03] MEDS ORDERED: Furosemide IV* 10 MG/ML VIAL (40 MG) IV ONE (16:03)
[2019-01-03] MEDS: Cefepime 2 GM in Dextrose(*) 2 GM/50 ML BAG IV SCH (16:07)
--- NOTE | 2019-01-03 17:03 | PN ---
Subjective Date of Service: 01/03/19 Interval History: Patient tells me her SOB is resolved. Did not have SOB with exertion getting to chair either. Denies fever/chills, abd pain, abd bloating, nausea, chest pain. Feels well rested as she slept today. Objective Active Medications: Acetaminophen (Tylenol Tab*) 650 mg PO Q4H PRN PRN Reason: FEVER/PAIN Atorvastatin Calcium (Lipitor*) 40 mg PO BEDTIME [facility] Last Admin: 01/02/19 23:19 Dose: 40 mg Cholecalciferol (Vitamin D Tab*) 1,000 units PO QAM [facility] Last Admin: 01/03/19 09:18 Dose: 1,000 units Ferrous Sulfate (Ferrous Sulfate Tab*) 325 mg PO DAILY [facility] Last Admin: 01/03/19 09:18 Dose: 325 mg Fluticasone Propionate (Flonase Nasal [place] 50mcg*) 1 spray INTRANASAL DAILY [facility] Last Admin: 01/03/19 09:17 Dose: 1 spray Cefepime HCl (Maxipime 2 Gm In Dextrose Duplex (*)) 2 gm in 50 mls @ 100 mls/ hr IV Q12H [facility] Last Admin: 01/03/19 16:07 Dose: 100 mls/hr Ipratropium [place] (Atrovent 0.5 Mg Neb.Brionna*) 0.5 mg INH [id number] AWAKE PRN PRN Reason: SOB/WHEEZING Lactulose (Lactulose*) 15 ml PO TID [facility] Last Admin: 01/03/19 14:44 Dose: 15 ml Levalbuterol HCl (Xopenex 0.63mg/3ml Neb*) 0.63 mg INH [id number] AWAKE PRN PRN Reason: SOB/WHEEZING Levothyroxine Sodium (Synthroid Tab*) 50 mcg PO 0600 [facility] Last Admin: 01/03/19 06:39 Dose: 50 mcg Metolazone (Zaroxolyn Tab*) 5 mg PO DAILY@0830 [facility] Last Admin: 01/03/19 09:18 Dose: 5 mg Metoprolol Tartrate (Lopressor Tab*) 12.5 mg PO Q8HR [facility] Last Admin: 01/03/19 14:45 Dose: 12.5 mg Midodrine (Midodrine) 2.5 mg PO TID [facility]; Protocol Last Admin: 01/03/19 14:44 Dose: 2.5 mg Pantoprazole Sodium (Protonix Tab*) 40 mg PO DAILY [facility] Last Admin: 01/03/19 09:18 Dose: 40 mg Pregabalin (Lyrica Cap(*)) 25 mg PO BID [facility] Last Admin: 01/03/19 09:17 Dose: 25 mg Rifaximin (Xifaxan*) 550 mg PO Q8HR [facility] Last Admin: 01/03/19 14:45 Dose: 550 mg Spironolactone (Aldactone Tab*) 50 mg PO DAILY [facility] Last Admin: 01/03/19 09:19 Dose: 50 mg Vital Signs - 8 hr 01/03/19 01/03/19 01/03/19 09:17 11:00 11:15 Temperature 97.3 F Pulse Rate 83 Respiratory 17 16 16 Rate Blood Pressure 110/50 (mmHg) O2 Sat by Pulse 99 Oximetry Oxygen Devices in Use Now: None Appearance: Obese, elderly white female, sitting in chair, in NAD Eyes: No Scleral Icterus, PERRLA Ears/Nose/Mouth/Throat: Mucous Membranes Moist Neck: NL Appearance and Movements; NL JVP Respiratory: Symmetrical Chest Expansion and Respiratory Effort, - - faint crackles in bilateral lung bases Cardiovascular: NL Sounds; No Murmurs; No JVD, RRR Abdominal: - - abdomen soft, nontender, nondistended; erythema and +2 pitting edema to bilateral lower quadrants of abdomen, worsening on most inferior aspects Extremities: No Clubbing, Cyanosis, - - +2 pitting edema up to knees in bilateral LEs Skin: No Rash or Ulcers Neurological: Alert and Oriented x 3, NL Muscle Strength and Tone Result Diagrams: 01/03/19 05:59 01/03/19 05:59 Microbiology and Other Data: Microbiology 01/02/19 13:31 Urine Culture - Preliminary Urine Citrobacter Freundii 01/02/19 11:23 Nasal Screen MRSA (PCR) - Final Nasal Mrsa Detected Assess/Plan/Problems-Billing Assessment: 73 yo female with PMHx cirrhosis of unclear etiology, iron deficiency anemia, DMT2, HTN, CKD, atrial fib, cardiomyopathy with EF 60-65% presents with shortness of breath and 15 lbs of weight gain per [facility] staff. - Patient Problems (1) Acute on chronic systolic congestive heart failure Current Visit: No Status: Acute Code(s): I50.23 - ACUTE ON CHRONIC SYSTOLIC (CONGESTIVE) HEART FAILURE SNOMED Code(s): 484082486 Comment: -hx diastolic heart failure, cardiomyopathy with EF 60-65% -presented with 15 lbs weight gain and shortness of breath -SOB resolved today. Daily weights ordered and showing patient gained 3 kg, which is likely measurement error and repeat is pending. Difficulty obtaining standing weight with patient due to needing EZ stand for transfers -patient has chronic depending edema of lower abdomen and LE edema, but both are worse from her baseline -takes 100 mg torsemide at home. Ordered metolazone and 80 mg IV lasix this AM with additional 40 mg IV lasix this afternoon. Measuring strict I&O -continue home spironolactone and metoprolol (2) Acute kidney injury superimposed on CKD Current Visit: Yes Status: Acute Code(s): N17.9 - ACUTE KIDNEY FAILURE, UNSPECIFIED; N18.9 - CHRONIC KIDNEY DISEASE, UNSPECIFIED SNOMED Code(s): 76389213 Comment: -likely vascular congestion related to heart failure, though there is likely a prerenal component in setting of UTI -initially diuresis was avoided due to LUISA and 250mL fluid given, but Cr minimally worsened still today -hopeful for improvement with diuresis -renal ultrasound without hydronephrosis (3) UTI (urinary tract infection) Current Visit: No Status: Acute Comment: -culture demonstrates citrobacter freundii. S&S pending -initially on empiric ceftriaxone, changed to cefepime with culture result -no leukocytosis, afebrile, without evidence of sepsis (4) Cirrhosis Current Visit: Yes Status: Acute Comment: -no evidence of decompensation -LFTs wnl -PT and PTT pending -chronic thrombocytopenia. Plts today 69 -no evidence of ascites on ultrasound -continue home lactulose and rifaximin (5) Atrial fibrillation Current Visit: No Status: Acute Code(s): I48.91 - UNSPECIFIED ATRIAL FIBRILLATION SNOMED Code(s): 89478838 Comment: - Rate controlled - Not on anticoagulation due to history of severe GI bleed - Continue metoprolol (6) Diabetes mellitus Current Visit: No Status: Acute Code(s): E11.9 - TYPE 2 DIABETES MELLITUS WITHOUT COMPLICATIONS SNOMED Code(s): 34312296 Comment: - Diet controlled - Ordering SS lispro for coverage if needed (7) Hypotension Current Visit: No Status: Acute Comment: - Chronic. Unknown etiology, possibly liver disease vs heart disease - Continue midodrine (8) Hypothyroidism Current Visit: No Status: Acute Code(s): E03.9 - HYPOTHYROIDISM, UNSPECIFIED SNOMED Code(s): 65370175 Comment: -continue home 50 mcg synthroid (9) Iron deficiency anemia Current Visit: Yes Status: Acute Code(s): D50.9 - IRON DEFICIENCY ANEMIA, UNSPECIFIED SNOMED Code(s): 61089364 Comment: -continue home iron supplement (10) DVT prophylaxis Current Visit: No Status: Acute Code(s): JBO1787 - SNOMED Code(s): 389759488 Comment: - SCDs d/t thrombocytopenia and history of severe GI bleed (11) Full code status Current Visit: No Status: Acute Code(s): Z78.9 - OTHER SPECIFIED HEALTH STATUS SNOMED Code(s): 884027545 Comment: Status and Disposition: Inpatient requiring IV diuresis. Will likely return to [facility] at discharge
[2019-01-03] MEDS ORDERED: Dextrose 50% VIAL 50 ml IV PUSH PRN (17:10)
[2019-01-03] MEDS: Atorvastatin* 40 MG TAB PO SCH (22:06)
[2019-01-04] MEDS: Pregabalin CAP(*) 25 MG PO SCH ×4 (00:05→20:50)
[2019-01-04] MEDS: Cefepime 2 GM in Dextrose(*) 2 GM/50 ML BAG IV SCH (03:54)
[2019-01-04] MEDS: Metoprolol Tartrate TAB* 25 MG PO SCH ×3 (05:45→20:51)
[2019-01-04] MEDS: RiFAXimin* 550 MG TAB PO SCH ×3 (06:20→20:49)
[2019-01-04] MEDS: Levothyroxine TAB* 50 MCG TAB PO SCH (06:20)
[2019-01-04 07:03] LABS: ABS Basophils 0.1 10^3/ul (0-0.2); ABS Eosinophils 0.2 10^3/ul (0-0.6); ABS Lymphocytes 0.4 10^3/ul (1.0-4.8); ABS Monocytes 0.4 10^3/ul (0-0.8); ABS Neutrophils 3.2 10^3/ul (1.5-7.7); Eosinophil % 3.8 %; Hematocrit 25 % (35-47); Hemoglobin 8.5 g/dL (12.0-16.0); Lymphocyte % 10.5 %; Mean Corpuscular HGB Conc 34 g/dL (31-36); Mean Corpuscular Hemoglobin 33 pg (27-31); Mean Corpuscular Volume 99 fL (80-97); Nucleated Red Blood Cells % 0.3; Red Blood Count 2.57 10^6 /uL (3.70-4.87); Red Cell Distribution Width 16 % (10-15); White Blood Count 4.3 10^3/uL (3.5-10.8)
[2019-01-04 07:04] LABS: INR 1.39 (0.82-1.09)
[2019-01-04 07:19] LABS: Albumin 3.4 g/dL (3.2-5.2); Albumin/Globulin Ratio 0.7 (1-3); BUN/Creatinine Ratio 34.2 (8-20); Calcium 9.1 mg/dL (8.6-10.3); EGFR African American 20.7 (>60); EGFR Non-African American 17.1 (>60); Globulin 4.7 g/dL (2-4); Potassium 4.3 mmol/L (3.5-5.0); Total Bilirubin 0.8 mg/dL (0.2-1.0); Total Protein 8.1 g/dL (6.4-8.9)
[2019-01-04 07:33] LABS: Mean Platelet Volume 7.8 fL (7.4-10.4); Platelet Count 71 10^3/uL (150-450)
[2019-01-04] MEDS: Insulin LISPRO* 1 UNITS UNIT SUBCUT SCH (07:45)
[2019-01-04] MEDS ORDERED: Furosemide IV* 10 MG/ML 10 ML VIAL (100 MG) IV ONE (09:00)
[2019-01-04] MEDS: Fluticasone NASAL SPRAY 50MCG* 16 gm SPRAY BTL INTRANASAL SCH (09:11)
[2019-01-04] MEDS: Pantoprazole TAB * 40 MG TAB PO SCH (09:12)
[2019-01-04] MEDS: Lactulose* 15 ML UDC PO SCH ×3 (09:12→20:51)
[2019-01-04] MEDS: Spironolactone TAB* 25 MG PO SCH (09:12)
[2019-01-04] MEDS: Cholecalciferol TAB* 1000 UNITS PO SCH (09:13)
[2019-01-04] MEDS: Ferrous Sulfate TAB* 325 MG PO SCH (09:13)
[2019-01-04] MEDS: Metolazone TAB* 5 MG PO SCH (09:13)
--- NOTE | 2019-01-04 10:54 | PN ---
Subjective Date of Service: 01/04/19 Interval History: Patient resting this morning and easily awakens. Tells me she is feeling well. Not experiencing shortness of breath. Denies chest pain, fever/chills, abd pain. Worked with PT and felt it went well. Objective Active Medications: Acetaminophen (Tylenol Tab*) 650 mg PO Q4H PRN PRN Reason: FEVER/PAIN Atorvastatin Calcium (Lipitor*) 40 mg PO BEDTIME [facility] Last Admin: 01/03/19 22:06 Dose: 40 mg Cholecalciferol (Vitamin D Tab*) 1,000 units PO QAM [facility] Last Admin: 01/04/19 09:13 Dose: 1,000 units Dextrose (Dextrose 50% Vial 50 Ml*) 25 ml IV PUSH .FOR FS < 60 - SS PRN PRN Reason: FS < 60 Ferrous Sulfate (Ferrous Sulfate Tab*) 325 mg PO DAILY [facility] Last Admin: 01/04/19 09:13 Dose: 325 mg Fluticasone Propionate (Flonase Nasal [place] 50mcg*) 1 spray INTRANASAL DAILY [facility] Last Admin: 01/04/19 09:11 Dose: 1 spray Furosemide (Lasix Iv*) 40 mg IV ONCE ONE Stop: 01/04/19 16:01 Cefepime HCl (Maxipime 2 Gm In Dextrose Duplex (*)) 2 gm in 50 mls @ 100 mls/ hr IV Q12H [facility] Last Admin: 01/04/19 03:54 Dose: 100 mls/hr Insulin Human Lispro (Humalog*) 0 units SUBCUT 0900 [facility]; Protocol Last Admin: 01/04/19 07:45 Dose: Not Given Ipratropium [place] (Atrovent 0.5 Mg Neb.Brionna*) 0.5 mg INH [id number] AWAKE PRN PRN Reason: SOB/WHEEZING Lactulose (Lactulose*) 15 ml PO TID [facility] Last Admin: 01/04/19 09:12 Dose: 15 ml Levalbuterol HCl (Xopenex 0.63mg/3ml Neb*) 0.63 mg INH [id number] AWAKE PRN PRN Reason: SOB/WHEEZING Levothyroxine Sodium (Synthroid Tab*) 50 mcg PO 0600 [facility] Last Admin: 01/04/19 06:20 Dose: 50 mcg Metolazone (Zaroxolyn Tab*) 5 mg PO DAILY@0830 [facility] Last Admin: 01/04/19 09:13 Dose: 5 mg Metoprolol Tartrate (Lopressor Tab*) 12.5 mg PO Q8HR [facility] Last Admin: 01/04/19 05:45 Dose: Not Given Midodrine (Midodrine) 2.5 mg PO TID [facility]; Protocol Last Admin: 01/04/19 09:12 Dose: 2.5 mg Pantoprazole Sodium (Protonix Tab*) 40 mg PO DAILY [facility] Last Admin: 01/04/19 09:12 Dose: 40 mg Pregabalin (Lyrica Cap(*)) 25 mg PO BID [facility] Last Admin: 01/04/19 09:13 Dose: 25 mg Rifaximin (Xifaxan*) 550 mg PO Q8HR [facility] Last Admin: 01/04/19 06:20 Dose: 550 mg Spironolactone (Aldactone Tab*) 50 mg PO DAILY [facility] Last Admin: 01/04/19 09:12 Dose: 50 mg Vital Signs - 8 hr 01/04/19 01/04/19 01/04/19 03:19 03:31 07:00 Temperature 97.5 F 97.0 F Pulse Rate 68 66 Respiratory 20 19 20 Rate Blood Pressure 105/59 122/55 (mmHg) O2 Sat by Pulse 95 97 Oximetry 01/04/19 01/04/19 08:00 09:13 Temperature Pulse Rate Respiratory 20 20 Rate Blood Pressure (mmHg) O2 Sat by Pulse Oximetry Oxygen Devices in Use Now: None Appearance: Obese, elderly white female, in chair, appearing in NAD Eyes: No Scleral Icterus, PERRLA Ears/Nose/Mouth/Throat: Mucous Membranes Moist Neck: NL Appearance and Movements; NL JVP Respiratory: Symmetrical Chest Expansion and Respiratory Effort, - - faint crackles in right lung base Cardiovascular: NL Sounds; No Murmurs; No JVD, RRR Abdominal: - - abd soft, nontender, nondistended; +1 pitting edema to lower quadrants of abdomen and panus Extremities: No Clubbing, Cyanosis, - - +2 pitting edema in bilateral LEs up to knees, unchanged from yesterday Skin: No Rash or Ulcers, - - diffuse old ecchymosis to upper extremities Neurological: Alert and Oriented x 3, NL Muscle Strength and Tone Result Diagrams: 01/04/19 06:18 01/04/19 06:18 Microbiology and Other Data: Microbiology 01/02/19 13:31 Urine Culture - Preliminary Urine Citrobacter Freundii 01/02/19 11:23 Nasal Screen MRSA (PCR) - Final Nasal Mrsa Detected Assess/Plan/Problems-Billing Assessment: 73 yo female with PMHx cirrhosis of unclear etiology, iron deficiency anemia, DMT2, HTN, CKD, atrial fib, cardiomyopathy with EF 60-65% presents with shortness of breath and 15 lbs of weight gain per [facility] staff. - Patient Problems (1) Acute on chronic systolic congestive heart failure Current Visit: No Status: Acute Code(s): I50.23 - ACUTE ON CHRONIC SYSTOLIC (CONGESTIVE) HEART FAILURE SNOMED Code(s): 669945305 Comment: -hx diastolic heart failure, cardiomyopathy with EF 60-65% -presented with 15 lbs weight gain and shortness of breath -weight at [facility] on 12/15/18 was 263 lbs. Today weight is still 280 lbs which is unchanged from admission. Standing weights are not possbile due to patient mobility. Nursing has assured that bed weight is being appropriately tared and no extra items in bed -patient has chronic depending edema of lower abdomen and LE edema, but both are worse from her baseline. This overall appears unchanged from yesterday. -continuing metolazone and 80 mg IV lasix in AM, but increasing PM lasix dose to 80mg due to poor diuresis response yesterday -continue strict I&O -continue home spironolactone and metoprolol -will increase metolazone for tomorrow morning (2) Acute kidney injury superimposed on CKD Current Visit: Yes Status: Acute Code(s): N17.9 - ACUTE KIDNEY FAILURE, UNSPECIFIED; N18.9 - CHRONIC KIDNEY DISEASE, UNSPECIFIED SNOMED Code(s): 06795630 Comment: -likely vascular congestion related to heart failure, though there is likely a prerenal component in setting of UTI -minimally worsened again today, possibly due to the fact that her UTI has not been adequately treated for full 24 hours due to ceftriaxone resistance -hopeful for improvement with further diuresis -renal ultrasound without hydronephrosis (3) UTI (urinary tract infection) Current Visit: No Status: Acute Comment: -culture demonstrates citrobacter freundii. S&S demonstrates sensitivity to cefepime and resistance to ceftriaxone -continue cefepime -no leukocytosis, afebrile, without evidence of sepsis (4) Cirrhosis Current Visit: Yes Status: Acute Comment: -no evidence of decompensation -LFTs wnl. INR is elevated to 1.39, which is unchanged from prior admission in August 2018 -chronic thrombocytopenia. Plts around baseline -no evidence of ascites on ultrasound -continue home lactulose and rifaximin (5) Atrial fibrillation Current Visit: No Status: Acute Code(s): I48.91 - UNSPECIFIED ATRIAL FIBRILLATION SNOMED Code(s): 49235159 Comment: - Rate controlled - Not on anticoagulation due to history of severe GI bleed - Continue metoprolol (6) Diabetes mellitus Current Visit: No Status: Acute Code(s): E11.9 - TYPE 2 DIABETES MELLITUS WITHOUT COMPLICATIONS SNOMED Code(s): 53197811 Comment: - Diet controlled - Ordering SS lispro for coverage if needed - Good BG control - A1c 6.2% indicating good control (7) Hypotension Current Visit: No Status: Acute Comment: - Chronic. Unknown etiology, possibly liver disease vs heart disease - Continue midodrine (8) Hypothyroidism Current Visit: No Status: Acute Code(s): E03.9 - HYPOTHYROIDISM, UNSPECIFIED SNOMED Code(s): 85090062 Comment: -continue home 50 mcg synthroid (9) Iron deficiency anemia Current Visit: Yes Status: Acute Code(s): D50.9 - IRON DEFICIENCY ANEMIA, UNSPECIFIED SNOMED Code(s): 60455182 Comment: -continue home iron supplement (10) DVT prophylaxis Current Visit: No Status: Acute Code(s): SDW1388 - SNOMED Code(s): 470004973 Comment: - SCDs d/t thrombocytopenia and history of severe GI bleed (11) Full code status Current Visit: No Status: Acute Code(s): Z78.9 - OTHER SPECIFIED HEALTH STATUS SNOMED Code(s): 839826479 Comment: Status and Disposition: Inpatient requiring IV diuresis. Will likely return to [facility] at discharge
[2019-01-04] MEDS ORDERED: Hydrocortisone 1% CREAM* 30 GM TUBE TOPICAL PRN (15:28)
[2019-01-04] MEDS ORDERED: Furosemide IV* 10 MG/ML VIAL (40 MG) IV ONE ×2 (16:00)
[2019-01-04] MEDS: Atorvastatin* 40 MG TAB PO SCH (20:49)
[2019-01-05] MEDS: Cefepime 2 GM in Dextrose(*) 2 GM/50 ML BAG IV SCH (04:06)
[2019-01-05] MEDS: RiFAXimin* 550 MG TAB PO SCH ×3 (05:04→21:48)
[2019-01-05] MEDS: Levothyroxine TAB* 50 MCG TAB PO SCH (05:04)
[2019-01-05] MEDS: Metoprolol Tartrate TAB* 25 MG PO SCH ×3 (05:04→21:53)
[2019-01-05 06:20] LABS: ABS Eosinophils 0.2 10^3/ul (0-0.6); ABS Lymphocytes 0.3 10^3/ul (1.0-4.8); ABS Monocytes 0.4 10^3/ul (0-0.8); ABS Neutrophils 3.5 10^3/ul (1.5-7.7); Eosinophil % 5.4 %; Hematocrit 26 % (35-47); Hemoglobin 8.5 g/dL (12.0-16.0); Lymphocyte % 7.7 %; Mean Corpuscular HGB Conc 33 g/dL (31-36); Mean Corpuscular Hemoglobin 33 pg (27-31); Mean Corpuscular Volume 99 fL (80-97); Mean Platelet Volume 7.8 fL (7.4-10.4); Nucleated Red Blood Cells % 0.3; Platelet Count 69 10^3/uL (150-450); Red Blood Count 2.59 10^6 /uL (3.70-4.87); Red Cell Distribution Width 16 % (10-15); White Blood Count 4.5 10^3/uL (3.5-10.8)
[2019-01-05 06:26] LABS: BUN/Creatinine Ratio 34.2 (8-20); Calcium 8.9 mg/dL (8.6-10.3); EGFR African American 20.7 (>60); EGFR Non-African American 17.1 (>60); Potassium 4.2 mmol/L (3.5-5.0)
[2019-01-05] MEDS: Ferrous Sulfate TAB* 325 MG PO SCH (08:33)
[2019-01-05] MEDS: Metolazone TAB* 5 MG PO SCH (08:33)
[2019-01-05] MEDS: Cholecalciferol TAB* 1000 UNITS PO SCH (08:33)
[2019-01-05] MEDS: Pregabalin CAP(*) 25 MG PO SCH ×2 (08:33→21:51)
[2019-01-05] MEDS ORDERED: Furosemide IV* 10 MG/ML 10 ML VIAL (100 MG) IV ONE (09:00)
[2019-01-05] MEDS: Insulin LISPRO* 1 UNITS UNIT SUBCUT SCH (09:05)
[2019-01-05] MEDS: Pantoprazole TAB * 40 MG TAB PO SCH (09:13)
[2019-01-05] MEDS: Spironolactone TAB* 25 MG PO SCH (09:13)
[2019-01-05] MEDS: Lactulose* 15 ML UDC PO SCH ×3 (09:13→21:48)
[2019-01-05] MEDS: Fluticasone NASAL SPRAY 50MCG* 16 gm SPRAY BTL INTRANASAL SCH (09:13)
--- NOTE | 2019-01-05 10:39 | PN ---
Subjective Date of Service: 01/05/19 Interval History: Patient is complaining of itch to her arms, thighs, and perineal area. Denies difficulty breathing thus far today. Denies chest pain, abd pain, fever/chills. Objective Active Medications: Acetaminophen (Tylenol Tab*) 650 mg PO Q4H PRN PRN Reason: FEVER/PAIN Atorvastatin Calcium (Lipitor*) 40 mg PO BEDTIME [facility] Last Admin: 01/04/19 20:49 Dose: 40 mg Cholecalciferol (Vitamin D Tab*) 1,000 units PO QAM [facility] Last Admin: 01/05/19 08:33 Dose: 1,000 units Dextrose (Dextrose 50% Vial 50 Ml*) 25 ml IV PUSH .FOR FS < 60 - SS PRN PRN Reason: FS < 60 Ferrous Sulfate (Ferrous Sulfate Tab*) 325 mg PO DAILY [facility] Last Admin: 01/05/19 08:33 Dose: 325 mg Fluticasone Propionate (Flonase Nasal [place] 50mcg*) 1 spray INTRANASAL DAILY [facility] Last Admin: 01/05/19 09:13 Dose: 1 spray Cefepime HCl (Maxipime 2 Gm In Dextrose Duplex (*)) 2 gm in 50 mls @ 100 mls/ hr IV Q24H [facility] Last Admin: 01/05/19 04:06 Dose: 100 mls/hr Insulin Human Lispro (Humalog*) 0 units SUBCUT 0900 [facility]; Protocol Last Admin: 01/05/19 09:05 Dose: Not Given Ipratropium [place] (Atrovent 0.5 Mg Neb.Brionna*) 0.5 mg INH [id number] AWAKE PRN PRN Reason: SOB/WHEEZING Lactulose (Lactulose*) 15 ml PO TID [facility] Last Admin: 01/05/19 09:13 Dose: 15 ml Levalbuterol HCl (Xopenex 0.63mg/3ml Neb*) 0.63 mg INH [id number] AWAKE PRN PRN Reason: SOB/WHEEZING Levothyroxine Sodium (Synthroid Tab*) 50 mcg PO 0600 [facility] Last Admin: 01/05/19 05:04 Dose: 50 mcg Metolazone (Zaroxolyn Tab*) 10 mg PO DAILY@0830 [facility] Last Admin: 01/05/19 08:33 Dose: 10 mg Metoprolol Tartrate (Lopressor Tab*) 12.5 mg PO Q8HR [facility] Last Admin: 01/05/19 05:04 Dose: 12.5 mg Midodrine (Midodrine) 2.5 mg PO TID [facility]; Protocol Last Admin: 01/05/19 09:13 Dose: 2.5 mg Nystatin (Nystatin Top Powder*) 1 applic TOPICAL TID [facility] Pantoprazole Sodium (Protonix Tab*) 40 mg PO DAILY [facility] Last Admin: 01/05/19 09:13 Dose: 40 mg Pregabalin (Lyrica Cap(*)) 25 mg PO BID [facility] Last Admin: 01/05/19 08:33 Dose: 25 mg Rifaximin (Xifaxan*) 550 mg PO Q8HR [facility] Last Admin: 01/05/19 05:04 Dose: 550 mg Spironolactone (Aldactone Tab*) 50 mg PO DAILY [facility] Last Admin: 01/05/19 09:13 Dose: 50 mg Vital Signs - 8 hr 01/05/19 01/05/19 01/05/19 03:32 08:00 08:33 Temperature 97.3 F 97.6 F Pulse Rate 88 80 Respiratory 20 22 20 Rate Blood Pressure 108/78 118/66 (mmHg) O2 Sat by Pulse 96 96 Oximetry 01/05/19 01/05/19 10:00 10:23 Temperature Pulse Rate Respiratory 16 20 Rate Blood Pressure (mmHg) O2 Sat by Pulse Oximetry Oxygen Devices in Use Now: None Appearance: Obese, elderly white female, laying in bed, appearing in NAD Eyes: No Scleral Icterus, PERRLA Ears/Nose/Mouth/Throat: Mucous Membranes Moist Neck: NL Appearance and Movements; NL JVP Respiratory: Symmetrical Chest Expansion and Respiratory Effort, Clear to Auscultation Cardiovascular: NL Sounds; No Murmurs; No JVD, RRR Abdominal: - - +1 pitting edema to lower quadrants of abdomen and panus; abd soft, nontender, nondistended Extremities: No Clubbing, Cyanosis, - - +2 pitting edema pretibially bilaterally ; no edema in knees Skin: - - skin is warm and dry. Erythema to postero-medial aspect of thighs near perineal area and buttock with small satellite points of erythema surrounding Neurological: Alert and Oriented x 3, NL Muscle Strength and Tone Result Diagrams: 01/05/19 05:56 01/05/19 05:56 Microbiology and Other Data: Microbiology 01/02/19 13:31 Urine Culture - Preliminary Urine Citrobacter Freundii 01/02/19 11:23 Nasal Screen MRSA (PCR) - Final Nasal Mrsa Detected Assess/Plan/Problems-Billing Assessment: 73 yo female with PMHx cirrhosis of unclear etiology, iron deficiency anemia, DMT2, HTN, CKD, atrial fib, cardiomyopathy with EF 60-65% presents with shortness of breath and 15 lbs of weight gain per [facility] staff. - Patient Problems (1) Acute on chronic systolic congestive heart failure Current Visit: No Status: Acute Code(s): I50.23 - ACUTE ON CHRONIC SYSTOLIC (CONGESTIVE) HEART FAILURE SNOMED Code(s): 905141908 Comment: -hx diastolic heart failure, cardiomyopathy with EF 60-65% -presented with 15 lbs weight gain and shortness of breath. Weight at [facility] on 12/15/18 was 263 lbs -patient has chronic dependent edema of lower abdomen and LE edema -increased metolazone today with AM dose of IV lasix; will add 5mg metolazone with PM IV lasix starting tomorrow -cont IV lasix 80 mg BID -continue strict I&O -continue home spironolactone and metoprolol -approx 1.7 lbs of weight loss today. Very minimal improvement of LE edema evident in edema not extending up to knees anymore. SOB and crackles in lungs resolved. (2) Rash Current Visit: Yes Status: Acute Code(s): R21 - RASH AND OTHER NONSPECIFIC SKIN ERUPTION SNOMED Code(s): 523012679 Comment: -location, symptomatic itch, and erythema appears consistent with cutaneous candidiasis -starting TID nystatin powder -I believe the itching on her arms is related to dry skin (3) Acute kidney injury superimposed on CKD Current Visit: Yes Status: Acute Code(s): N17.9 - ACUTE KIDNEY FAILURE, UNSPECIFIED; N18.9 - CHRONIC KIDNEY DISEASE, UNSPECIFIED SNOMED Code(s): 42957567 Comment: -likely vascular congestion related to heart failure, though there is likely a prerenal component in setting of UTI -stable today with Cr at 2.72 -hopeful for improvement with further diuresis -renal ultrasound without hydronephrosis (4) UTI (urinary tract infection) Current Visit: No Status: Acute Comment: -culture demonstrates citrobacter freundii. S&S demonstrates sensitivity to cefepime and resistance to ceftriaxone -continue cefepime -no leukocytosis, afebrile, without evidence of sepsis (5) Cirrhosis Current Visit: Yes Status: Acute Comment: -no evidence of decompensation -LFTs wnl. INR is elevated to 1.39, which is unchanged from prior admission in August 2018 -chronic thrombocytopenia. Plts around baseline -no evidence of ascites on ultrasound -continue home lactulose and rifaximin (6) Atrial fibrillation Current Visit: No Status: Acute Code(s): I48.91 - UNSPECIFIED ATRIAL FIBRILLATION SNOMED Code(s): 18582039 Comment: - Rate controlled - Not on anticoagulation due to history of severe GI bleed - Continue metoprolol (7) Diabetes mellitus Current Visit: No Status: Acute Code(s): E11.9 - TYPE 2 DIABETES MELLITUS WITHOUT COMPLICATIONS SNOMED Code(s): 33964883 Comment: - Diet controlled - Ordering SS lispro for coverage if needed - Good BG control - A1c 6.2% indicating good control - D/c fingersticks (8) Hypotension Current Visit: No Status: Acute Comment: - Chronic. Unknown etiology, possibly liver disease vs heart disease - Continue midodrine (9) Hypothyroidism Current Visit: No Status: Acute Code(s): E03.9 - HYPOTHYROIDISM, UNSPECIFIED SNOMED Code(s): 95721692 Comment: -continue home 50 mcg synthroid (10) Iron deficiency anemia Current Visit: Yes Status: Acute Code(s): D50.9 - IRON DEFICIENCY ANEMIA, UNSPECIFIED SNOMED Code(s): 69566274 Comment: -continue home iron supplement (11) DVT prophylaxis Current Visit: No Status: Acute Code(s): BAI5106 - SNOMED Code(s): 789714042 Comment: - SCDs d/t thrombocytopenia and history of severe GI bleed (12) Full code status Current Visit: No Status: Acute Code(s): Z78.9 - OTHER SPECIFIED HEALTH STATUS SNOMED Code(s): 637502129 Comment: Status and Disposition: Inpatient requiring IV diuresis. Will likely return to [facility] at discharge
[2019-01-05] MEDS: Nystatin TOP POWDER* 15 GM BTL TOPICAL SCH ×2 (14:42→21:59)
[2019-01-05] MEDS ORDERED: Metolazone TAB* 5 MG PO SCH (16:30)
[2019-01-05] MEDS: Furosemide IV* 10 MG/ML 10 ML VIAL (100 MG) IV SCH (16:49)
[2019-01-05] MEDS: Atorvastatin* 40 MG TAB PO SCH (21:48)
[2019-01-06] MEDS: Cefepime 2 GM in Dextrose(*) 2 GM/50 ML BAG IV SCH (03:56)
[2019-01-06] MEDS: Metoprolol Tartrate TAB* 25 MG PO SCH ×3 (05:08→22:02)
[2019-01-06] MEDS: RiFAXimin* 550 MG TAB PO SCH ×3 (05:08→22:03)
[2019-01-06] MEDS: Levothyroxine TAB* 50 MCG TAB PO SCH (05:08)
[2019-01-06 06:39] LABS: BUN/Creatinine Ratio 35.4 (8-20); Calcium 8.8 mg/dL (8.6-10.3); EGFR African American 20.5 (>60); EGFR Non-African American 16.9 (>60); Potassium 4.3 mmol/L (3.5-5.0)
[2019-01-06] MEDS: Insulin LISPRO* 1 UNITS UNIT SUBCUT SCH (10:00)
[2019-01-06] MEDS: Furosemide IV* 10 MG/ML 10 ML VIAL (100 MG) IV SCH ×2 (10:09→17:12)
[2019-01-06] MEDS: Lactulose* 15 ML UDC PO SCH ×3 (10:09→22:00)
[2019-01-06] MEDS: Fluticasone NASAL SPRAY 50MCG* 16 gm SPRAY BTL INTRANASAL SCH (10:09)
[2019-01-06] MEDS: Pregabalin CAP(*) 25 MG PO SCH ×2 (10:10→22:02)
[2019-01-06] MEDS: Cholecalciferol TAB* 1000 UNITS PO SCH (10:10)
[2019-01-06] MEDS: Spironolactone TAB* 25 MG PO SCH (10:10)
[2019-01-06] MEDS: Ferrous Sulfate TAB* 325 MG PO SCH (10:10)
[2019-01-06] MEDS: Pantoprazole TAB * 40 MG TAB PO SCH (10:11)
[2019-01-06] MEDS: Metolazone TAB* 5 MG PO SCH ×2 (10:11→17:14)
[2019-01-06] MEDS: Nystatin TOP POWDER* 15 GM BTL TOPICAL SCH ×3 (10:12→22:06)
[2019-01-06] MEDS: Acetaminophen TAB* 325 MG PO PRN (10:12)
--- NOTE | 2019-01-06 10:54 | PN ---
Subjective Date of Service: 01/06/19 Interval History: Pt c/o intermittent SOB; states she has no difficulty with standing, but has SOB with laying flat, rolling in bed. She c/o productive cough, urinary urgency. She has itching in b/l arms. She is intermittently tearful, stating she does not want to go back to retirement. She has no other complaints today. Objective Active Medications: Acetaminophen (Tylenol Tab*) 650 mg PO Q4H PRN Atorvastatin Calcium (Lipitor*) 40 mg PO BEDTIME [facility] Cholecalciferol (Vitamin D Tab*) 1,000 units PO QAM [facility] Dextrose (Dextrose 50% Vial 50 Ml*) 25 ml IV PUSH .FOR FS < 60 - SS PRN Ferrous Sulfate (Ferrous Sulfate Tab*) 325 mg PO DAILY [facility] Fluticasone Propionate (Flonase Nasal [place] 50mcg*) 1 spray INTRANASAL DAILY [facility] Furosemide (Lasix Iv*) 80 mg IV 0800,1700 [facility] Cefepime HCl (Maxipime 2 Gm In Dextrose Duplex (*)) 2 gm in 50 mls @ 100 mls/ hr IV Q24H [facility] Insulin Human Lispro (Humalog*) 0 units SUBCUT 0900 [facility]; Protocol Ipratropium [place] (Atrovent 0.5 Mg Neb.Brionna*) 0.5 mg INH [id number] AWAKE PRN Lactulose (Lactulose*) 15 ml PO TID [facility] Levalbuterol HCl (Xopenex 0.63mg/3ml Neb*) 0.63 mg INH [id number] AWAKE PRN Levothyroxine Sodium (Synthroid Tab*) 50 mcg PO 0600 [facility] Metolazone (Zaroxolyn Tab*) 10 mg PO DAILY@0830 [facility] Metolazone (Zaroxolyn Tab*) 5 mg PO DAILY@1630 [facility] Metoprolol Tartrate (Lopressor Tab*) 12.5 mg PO Q8HR [facility] Midodrine (Midodrine) 2.5 mg PO TID [facility]; Protocol Nystatin (Nystatin Top Powder*) 1 applic TOPICAL TID [facility] Pantoprazole Sodium (Protonix Tab*) 40 mg PO DAILY [facility] Pregabalin (Lyrica Cap(*)) 25 mg PO BID [facility] Rifaximin (Xifaxan*) 550 mg PO Q8HR [facility] Spironolactone (Aldactone Tab*) 50 mg PO DAILY [facility] Vital Signs: Temp Pulse Resp BP Pulse Ox 96.8 F 91 16 98/42 96 01/06/19 07:40 01/06/19 07:40 01/06/19 10:10 01/06/19 07:40 01/06/19 07:40 Oxygen Devices in Use Now: None Appearance: Pt is sitting in chair with LE at floor. She appears to be in no acute distress. Intermittently tearful. Appears older than stated age. Eyes: No Scleral Icterus, PERRLA Ears/Nose/Mouth/Throat: NL Teeth, Lips, Gums, Clear Oropharnyx, Mucous Membranes Moist Neck: NL Appearance and Movements; NL JVP, Trachea Midline Respiratory: Symmetrical Chest Expansion and Respiratory Effort, Clear to Auscultation - Without rhonchi, wheeze, rales Cardiovascular: NL Sounds; No Murmurs; No JVD, RRR Abdominal: - - BS in all quadrants. Abdomen is firm, enlarged with 1+ pitting edema. Nontender to palpation. Extremities: No Clubbing, Cyanosis, - - 2+ pitting edema to b/l LE to knees; no edema to thighs. Neurological: Alert and Oriented x 3 Result Diagrams: 01/05/19 05:56 01/07/19 06:12 Microbiology and Other Data: Microbiology 01/02/19 13:31 Urine Culture - Preliminary Urine Citrobacter Freundii 01/02/19 11:23 Nasal Screen MRSA (PCR) - Final Nasal Mrsa Detected Assess/Plan/Problems-Billing Assessment: 73 yo female with PMHx cirrhosis of unclear etiology, iron deficiency anemia, DMT2, HTN, CKD, atrial fib, cardiomyopathy with EF 60-65% presents with shortness of breath and 15 lbs of weight gain per [facility] staff. - Patient Problems (1) Acute on chronic diastolic heart failure Comment: -hx diastolic heart failure, cardiomyopathy with EF 60-65% -presented with 15 lbs weight gain and shortness of breath; weight at [facility] on 12/15/18 was 263 lbs -patient has chronic dependent edema of lower abdomen and LE edema -increased a.m. metolazone dose, add 5mg metolazone with p.m. IV lasix 01/05 -cont IV lasix 80 mg BID -Increase spironolactone to 100 01/06, due to trace ascites in abdomen -continue strict I&O -continue home metoprolol -Approx 2# weight loss since admission -Continues to have b/l LE, abdominal edema; Pulm exam without crackles, denies SOB (2) Acute kidney injury superimposed on CKD Comment: -likely vascular congestion related to heart failure, though there is likely a prerenal component in setting of UTI -stable today with Cr at 2.74 -hopeful for improvement with further diuresis -renal ultrasound without hydronephrosis (3) UTI (urinary tract infection) Comment: -culture demonstrates citrobacter freundii, c&s demonstrates sensitivity to cefepime and resistance to ceftriaxone -continue cefepime (day 2) -no leukocytosis, afebrile, without evidence of sepsis (4) Rash Comment: -location, symptomatic itch, and erythema appears consistent with cutaneous candidiasis -starting TID nystatin powder -I believe the itching on her arms is related to dry skin; no rash observed on arms; will start benadryl (5) Cirrhosis Comment: -no evidence of decompensation -LFTs wnl. INR is elevated to 1.39, which is unchanged from prior admission in August 2018 -chronic thrombocytopenia. Plts around baseline -trace ascites on US -continue home lactulose and rifaximin (6) Iron deficiency anemia Comment: -continue home iron supplement (7) Atrial fibrillation Comment: - Rate controlled - Not on anticoagulation due to history of severe GI bleed - Continue metoprolol (8) Diabetes mellitus Comment: - Diet controlled - Ordering SS lispro for coverage if needed - Good BG control - A1c 6.2% indicating good control - D/c fingersticks (9) Hypotension Comment: - Chronic. Unknown etiology, possibly liver disease vs heart disease - Continue midodrine (10) Hypothyroidism Comment: -continue home 50 mcg synthroid (11) DVT prophylaxis Comment: - SCDs d/t thrombocytopenia and history of severe GI bleed (12) Full code status Comment: Status and Disposition: Inpatient requiring IV diuresis. Will likely return to [facility] at discharge.
[2019-01-06] MEDS ORDERED: diPHENhydraMINE PO* 25 MG PO ONE (11:13)
[2019-01-06] MEDS ORDERED: Spironolactone TAB* 25 MG PO ONE (14:12)
[2019-01-06] MEDS: Atorvastatin* 40 MG TAB PO SCH (22:01)
[2019-01-07] MEDS: Acetaminophen TAB* 325 MG PO PRN (02:39)
[2019-01-07] MEDS: Cefepime 2 GM in Dextrose(*) 2 GM/50 ML BAG IV SCH (04:31)
[2019-01-07] MEDS: RiFAXimin* 550 MG TAB PO SCH ×3 (05:41→21:45)
[2019-01-07] MEDS: Metoprolol Tartrate TAB* 25 MG PO SCH ×3 (05:41→21:53)
[2019-01-07] MEDS: Levothyroxine TAB* 50 MCG TAB PO SCH (05:41)
[2019-01-07 06:39] LABS: BUN/Creatinine Ratio 33.7 (8-20); Calcium 8.7 mg/dL (8.6-10.3); EGFR African American 19.3 (>60); Potassium 4.1 mmol/L (3.5-5.0)
[2019-01-07] MEDS: Furosemide IV* 10 MG/ML 10 ML VIAL (100 MG) IV SCH ×2 (08:57→17:37)
[2019-01-07] MEDS: Insulin LISPRO* 1 UNITS UNIT SUBCUT SCH (08:57)
[2019-01-07] MEDS: Ferrous Sulfate TAB* 325 MG PO SCH (08:58)
[2019-01-07] MEDS: Fluticasone NASAL SPRAY 50MCG* 16 gm SPRAY BTL INTRANASAL SCH (08:58)
[2019-01-07] MEDS: Pregabalin CAP(*) 25 MG PO SCH ×2 (08:58→21:46)
[2019-01-07] MEDS: Cholecalciferol TAB* 1000 UNITS PO SCH (08:58)
[2019-01-07] MEDS: Lactulose* 15 ML UDC PO SCH ×3 (08:58→21:45)
[2019-01-07] MEDS: Metolazone TAB* 5 MG PO SCH ×2 (08:58→17:37)
[2019-01-07] MEDS: Pantoprazole TAB * 40 MG TAB PO SCH (08:59)
[2019-01-07] MEDS: Spironolactone TAB* 25 MG PO SCH (08:59)
[2019-01-07] MEDS: diPHENhydraMINE PO* 25 MG PO PRN (08:59)
[2019-01-07] MEDS: Nystatin TOP POWDER* 15 GM BTL TOPICAL SCH ×3 (08:59→21:57)
--- NOTE | 2019-01-07 14:03 | PN ---
Subjective Date of Service: 01/07/19 Interval History: Pt c/o SOB while laying flat. She has an occasional cough. She has loose BMs, last one was today. She denies dysuria. She has no other complaints today. Objective Active Medications: Acetaminophen (Tylenol Tab*) 650 mg PO Q4H PRN Atorvastatin Calcium (Lipitor*) 40 mg PO BEDTIME [facility] Cholecalciferol (Vitamin D Tab*) 1,000 units PO QAM [facility] Dextrose (Dextrose 50% Vial 50 Ml*) 25 ml IV PUSH .FOR FS < 60 - SS PRN Diphenhydramine HCl (Benadryl Po*) 25 mg PO BEDTIME PRN Ferrous Sulfate (Ferrous Sulfate Tab*) 325 mg PO DAILY [facility] Fluticasone Propionate (Flonase Nasal [place] 50mcg*) 1 spray INTRANASAL DAILY [facility] Furosemide (Lasix Iv*) 80 mg IV 0800,1700 [facility] Cefepime HCl (Maxipime 2 Gm In Dextrose Duplex (*)) 2 gm in 50 mls @ 100 mls/ hr IV Q24H [facility] Insulin Human Lispro (Humalog*) 0 units SUBCUT 0900 [facility]; Protocol Ipratropium [place] (Atrovent 0.5 Mg Neb.Brionna*) 0.5 mg INH [id number] AWAKE PRN Lactulose (Lactulose*) 15 ml PO TID [facility] Levalbuterol HCl (Xopenex 0.63mg/3ml Neb*) 0.63 mg INH [id number] AWAKE PRN Levothyroxine Sodium (Synthroid Tab*) 50 mcg PO 0600 [facility] Metolazone (Zaroxolyn Tab*) 10 mg PO DAILY@0830 [facility] Metolazone (Zaroxolyn Tab*) 5 mg PO DAILY@1630 [facility] Metoprolol Tartrate (Lopressor Tab*) 12.5 mg PO Q8HR [facility] Midodrine (Midodrine) 2.5 mg PO TID [facility]; Protocol Nystatin (Nystatin Top Powder*) 1 applic TOPICAL TID [facility] Pantoprazole Sodium (Protonix Tab*) 40 mg PO DAILY [facility] Pregabalin (Lyrica Cap(*)) 25 mg PO BID [facility] Rifaximin (Xifaxan*) 550 mg PO Q8HR [facility] Spironolactone (Aldactone Tab*) 100 mg PO DAILY [facility] Vital Signs: Temp Pulse Resp BP Pulse Ox 97.9 F 78 18 116/62 96 01/07/19 07:00 01/07/19 07:00 01/07/19 11:36 01/07/19 07:00 01/07/19 07:00 Oxygen Devices in Use Now: None Appearance: Pt is sitting in bed with HOB elevated. She has mild increased work of breathing. No other distress. Eyes: No Scleral Icterus, PERRLA Ears/Nose/Mouth/Throat: NL Teeth, Lips, Gums, Clear Oropharnyx, Mucous Membranes Moist Neck: NL Appearance and Movements; NL JVP, Trachea Midline Respiratory: Symmetrical Chest Expansion and Respiratory Effort, Clear to Auscultation, - - Mild increased work of breathing, clear breath sounds Cardiovascular: NL Sounds; No Murmurs; No JVD, RRR, - - B/l LE, abdominal edema Abdominal: NL Sounds; No Tenderness; No Distention, - - Abdominal edema 1+ Extremities: No Clubbing, Cyanosis, - - B/l LE 2+ pitting edema to from knee distally; abdomen with 1+ pitting edema Neurological: Alert and Oriented x 3 Result Diagrams: 01/05/19 05:56 01/07/19 06:12 Microbiology and Other Data: Microbiology 01/02/19 13:31 Urine Culture - Preliminary Urine Citrobacter Freundii 01/02/19 11:23 Nasal Screen MRSA (PCR) - Final Nasal Mrsa Detected Assess/Plan/Problems-Billing Assessment: 73 yo female with PMHx cirrhosis of unclear etiology, iron deficiency anemia, DMT2, HTN, CKD, atrial fib, cardiomyopathy with EF 60-65% presents with shortness of breath and 15 lbs of weight gain per [facility] staff. - Patient Problems (1) Acute on chronic diastolic heart failure Comment: -hx diastolic heart failure, cardiomyopathy with EF 60-65% -presented with 15 lbs weight gain and shortness of breath; weight at [facility] on 12/15/18 was 263 lbs -patient has chronic dependent edema of lower abdomen and LE edema -increased a.m. metolazone dose, add 5mg metolazone with p.m. IV lasix 01/05 -cont IV lasix 80 mg BID -Increase spironolactone to 100 01/07, due to trace ascites in abdomen -continue strict I&O -Fluid restriction, sodium restriction -Approx 2# weight loss since admission, but with slight increasing over last 72h -Continues to have b/l LE, abdominal edema; Pulm exam without crackles, denies SOB; little to no improvement (2) Acute kidney injury superimposed on CKD Comment: -likely vascular congestion related to heart failure, though there is likely a prerenal component in setting of UTI -Cr increased from 2.74 to 2.88 -Urine studies for FENa ordered -renal ultrasound without hydronephrosis -Nephrology consulted (3) UTI (urinary tract infection) Comment: -culture demonstrates citrobacter freundii, c&s demonstrates sensitivity to cefepime and resistance to ceftriaxone -continue cefepime (day 3) -no leukocytosis, afebrile, without evidence of sepsis (4) Rash Comment: -location, symptomatic itch, and erythema appears consistent with cutaneous candidiasis -starting TID nystatin powder -I believe the itching on her arms is related to dry skin; no rash observed on arms; will start benadryl (5) Cirrhosis Comment: -no evidence of decompensation -LFTs wnl. INR is elevated to 1.39, which is unchanged from prior admission in August 2018 -chronic thrombocytopenia. Plts around baseline -trace ascites on US -continue home lactulose and rifaximin (6) Iron deficiency anemia Comment: -continue home iron supplement (7) Atrial fibrillation Comment: - Rate controlled - Not on anticoagulation due to history of severe GI bleed - Continue metoprolol (8) Diabetes mellitus Comment: - Diet controlled - Ordering SS lispro for coverage if needed - Good BG control - A1c 6.2% indicating good control - D/c fingersticks (9) Hypotension Comment: - Chronic. Unknown etiology, possibly liver disease vs heart disease - Continue midodrine (10) Hypothyroidism Comment: -continue home 50 mcg synthroid (11) DVT prophylaxis Comment: - SCDs d/t thrombocytopenia and history of severe GI bleed (12) Full code status Comment: Status and Disposition: Inpatient requiring IV diuresis. Will likely return to [facility] at discharge.
[2019-01-07 18:22] LABS: Urine Creatinine Concentration 42.17 mg/dL
--- NOTE | 2019-01-07 20:29 | CONS ---
CONSULTATION NOTE: DATE OF CONSULT: 01/07/19 REQUESTING PROVIDER: YADIRA tSory REASON FOR CONSULT: Renal failure and volume overload. HISTORY OF PRESENT ILLNESS: A 73-year-old female with past medical history of liver cirrhosis; atria l fibrillation, not on anticoagulation due to severe GI bleeding; type 2 diabetes; coronary artery di sease; morbid obesity; chronic kidney disease; history of heart failure; history of toxic metabolic e ncephalopathy; hypertension; iron-deficiency anemia; thrombocytopenia; osteoarthritis; hypothyroidism , came into the emergency room with complaints of progressive shortness of breath over a month and sw elling in her abdomen. The patient was thought to have ascites; however, much fluid was not seen on ultrasound. The patient reports that her breathing is better; however, still short of breath. The p atient's diuretics were up-titrated through hospital course. With respect to her kidney function, the patient has not seen a director of retention in the past. In reviewi ng her past numbers, the patient's creatinine has been noted to be in the 1.6 to 1.8 range in the pas t with progressive worsening since August/September of this year and was still maintained in the 1.6 range. In December, the patient's creatinine was noted to be 2 and then 2.6. When the patient came to the hospital on 01/02/19, it was noted to be 2.6 and currently noted to be 2.8. This is also in the sett ing of up-titrating her diuretics. PAST MEDICAL HISTORY: 1. Iron-deficiency anemia. 2. Type 2 diabetes. 3. Hypertension. 4. Morbid obesity. 5. Chronic kidney disease. 6. Heart failure. 7. Osteoarthritis. 8. History of cardiomyopathy. Prior echocardiogram showed EF of 30% to 35%, but recent echocardiogr am from July shows EF of 60% to 65%, severe tricuspid regurg and moderate pulmonary hypertension. 9. Atrial fibrillation, not on anticoagulation due to severe GI bleeding. MEDICATIONS: 1. Acetaminophen 650 mg p.o. q.4 hours as needed. 2. Atorvastatin 40 mg p.o. at bedtime. 3. Vitamin D 1000 units p.o. q.a.m. 4. Ferrous sulfate 325 mg p.o. daily. 5. Ipratropium 0.5 mg p.o. q.6 hours while awake. 6. Lactulose 15 mL p.o. t.i.d. 7. Xopenex 0.63 mg every 6 hours while awake. 8. Levothyroxine 50 mcg p.o. daily. 9. Metoprolol 12.5 mg p.o. q.8 hours. 10. Midodrine 2.5 mg p.o. t.i.d. 11. Fluticasone 50 mcg nasal spray daily. 12. Pantoprazole 40 mg p.o. daily. 13. Lyrica 25 mg p.o. b.i.d. 14. Rifaximin 550 mg p.o. q.8 hours. 15. Spironolactone 50 mg p.o. daily. 16. Demadex 100 mg p.o. daily. 17. Midodrine 1% topical b.i.d. 18. Lactobacillus 1 tab p.o. daily. 19. Zofran 4 mg p.o. q.6 hours as needed for nausea. 20. Guaifenesin 1200 mg p.o. b.i.d. p.r.n. 21. Benadryl 25 mg p.o. q.12 hours p.r.n. ALLERGIES: To IV CONTRAST. FAMILY HISTORY: Mother had an GA, at age 66. No reported kidney disease, diabetes, or cancer i n the family. SOCIAL HISTORY: Denies any alcohol, tobacco, or illicit drug use. Resides at [facility]. To move from bed to a wheelchair, uses [id number]. The patient reports that she used to work in [employer] and had exposure to multiple chemicals. REVIEW OF SYSTEMS: Denies any fevers, chills. Reports weight gain. Reports that in the past she wa s 234 pounds and currently 270 pounds. No nausea, vomiting, diarrhea, or abdominal pain. Reports on going shortness of breath, which has improved since admission, but still short of breath. Other 14-p oint review of systems within normal limits. PHYSICAL EXAM: Vitals: Temperature 96.5, pulse 72, respiratory rate 20, oxygen saturation 98% on ro om air, blood pressure 102/53. HEENT: The patient noted to have some facial bruising. Heart: S1, S2 present. Irregularly irregular at the time of exam. Lungs: Decreased breath sounds bilaterally. No crackles auscultated. Abdomen: Distended. No rebound. No guarding. Noted to have minimal as cites and obese. Extremities noted to have edema. Neuro: Alert, oriented x3. Gait not tested. ASSESSMENT AND PLAN: A 73-year-old female with history of multiple medical problems including chroni c kidney disease, cardiomyopathy, gastrointestinal bleeding, atrial fibrillation, liver cirrhosis, ty pe 2 diabetes, here for further evaluation of dyspnea and renal failure. 1. Acute kidney injury on chronic kidney disease. This appears to be more related to diuretics. Th e patient is likely intravascularly depleted and third-spacing with volume overload. The patient rep orts that she is short of breath; however, is 98% to 99% on room air. Her dyspnea could also be mult ifactorial as the patient likely may have sleep apnea, pulmonary hypertension, cardiomyopathy and com ponent of volume overload. 2. With respect to her diuretic regimen and for evaluation of her kidney, recommend checking UA agai n as during the initial UA, the patient had a urinary tract infection. Recommend checking urine crea tinine, urine urea, and urine sodium. The patient's FENa may not be accurate as the patient is on di uretics, but FEUrea can be calculated to help and decide if the patient is intravascularly depleted. 3. We would not up-titrate the diuretics further and we would consider reducing the diuretics to Las ix 60 mg b.i.d. and continuing the spironolactone. We would then evaluate if the patient continues t o need the metolazone and see if she needs it 3 times a week as needed. We will monitor kidney funct ion through the course and decide on a good diuretic regimen for the patient. 4. With above testing, as the patient is in the hospital, recommend collecting a 24-hour urine to ev aluate for proteinuria and rule out nephrotic syndrome and other etiology that could predispose the p atient to volume overload. Also recommend checking SPEP, UPEP, kappa/lambda light chains on the ashlyn ent. 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 We would also rule out othe r etiology. 5. Recommend repeating an echocardiogram to evaluate her cardiac function as the patient previously only had 30% to 35% and this was noted to be improved. Also recommend with this to check her pulmona ry artery pressure and to evaluate for pulmonary hypertension. 6. If the patient is still short of breath, can consider PE and other etiology and can consider imag ing of her chest with a CAT scan. As stated above, her shortness of breath seems multifactorial and the patient definitely has multiple risk factors to be short of breath. 7. For now, recommend repeating a chest x-ray tomorrow to assess her volume and recommend reducing t he Lasix to 60 twice a day and continuing the other meds and these can be further adjusted based on h er clinical course. 8. The patient reports that she has not seen a GI doctor as an outpatient and does not report signif icant alcohol use. I reviewed the CAT scan that she had in July of her abdomen and pelvis and there was some nodularity and suggestion of liver cirrhosis. Can consider further evaluation as an outpat ient. The patient is on midodrine, but appears to not be in decompensated liver failure and it seems like the midodrine was started more in the setting of hypotension than to treat for hepatorenal synd aria or other etiology. 9. The patient's kidney function may also improve with treatment of her urinary tract infection. Th e patient is currently on cefepime and is continuing treatment. We will follow with the medical team and be available for any questions. [id number]/[facility] #: [id number]
[2019-01-07] MEDS: Atorvastatin* 40 MG TAB PO SCH (21:45)
[2019-01-08] MEDS: Levothyroxine TAB* 50 MCG TAB PO SCH (05:26)
[2019-01-08] MEDS: Cefepime 2 GM in Dextrose(*) 2 GM/50 ML BAG IV SCH (05:26)
[2019-01-08] MEDS: Metoprolol Tartrate TAB* 25 MG PO SCH ×3 (05:28→20:57)
[2019-01-08 06:27] LABS: ABS Eosinophils 0.3 10^3/ul (0-0.6); ABS Lymphocytes 0.4 10^3/ul (1.0-4.8); ABS Monocytes 0.5 10^3/ul (0-0.8); ABS Neutrophils 3.8 10^3/ul (1.5-7.7); Eosinophil % 5.4 %; Hematocrit 26 % (35-47); Hemoglobin 8.7 g/dL (12.0-16.0); Lymphocyte % 8.2 %; Mean Corpuscular HGB Conc 34 g/dL (31-36); Mean Corpuscular Hemoglobin 33 pg (27-31); Mean Corpuscular Volume 98 fL (80-97); Mean Platelet Volume 8.4 fL (7.4-10.4); Nucleated Red Blood Cells % 0.3; Platelet Count 69 10^3/uL (150-450); Red Blood Count 2.63 10^6 /uL (3.70-4.87); Red Cell Distribution Width 16 % (10-15)
[2019-01-08 06:32] LABS: Albumin 3.2 g/dL (3.2-5.2); Albumin/Globulin Ratio 0.7 (1-3); BUN/Creatinine Ratio 32.5 (8-20); Calcium 8.8 mg/dL (8.6-10.3); EGFR African American 18.8 (>60); EGFR Non-African American 15.6 (>60); Globulin 4.4 g/dL (2-4); Potassium 4.3 mmol/L (3.5-5.0); Total Bilirubin 0.8 mg/dL (0.2-1.0); Total Protein 7.6 g/dL (6.4-8.9)
[2019-01-08] MEDS: Fluticasone NASAL SPRAY 50MCG* 16 gm SPRAY BTL INTRANASAL SCH (07:52)
[2019-01-08] MEDS: Lactulose* 15 ML UDC PO SCH ×3 (07:52→20:56)
[2019-01-08] MEDS: Metolazone TAB* 5 MG PO SCH (07:53)
[2019-01-08] MEDS: RiFAXimin* 550 MG TAB PO SCH ×3 (07:53→20:56)
[2019-01-08] MEDS: Spironolactone TAB* 25 MG PO SCH (07:53)
[2019-01-08] MEDS: Pregabalin CAP(*) 25 MG PO SCH ×2 (07:53→20:55)
[2019-01-08] MEDS: Cholecalciferol TAB* 1000 UNITS PO SCH (07:53)
[2019-01-08] MEDS: Pantoprazole TAB * 40 MG TAB PO SCH (07:54)
[2019-01-08] MEDS: Nystatin TOP POWDER* 15 GM BTL TOPICAL SCH ×3 (07:54→20:58)
[2019-01-08] MEDS: Ferrous Sulfate TAB* 325 MG PO SCH (07:54)
[2019-01-08] MEDS: Insulin LISPRO* 1 UNITS UNIT SUBCUT SCH (07:54)
[2019-01-08] MEDS ORDERED: Furosemide IV* 10 MG/ML 10 ML VIAL (100 MG) IV SCH (08:00)
[2019-01-08] MEDS: Acetaminophen TAB* 325 MG PO PRN (08:11)
[2019-01-08 14:35] LABS: Urine Appearance Clear; Urine Bilirubin Negative (Negative); Urine Blood Negative (Negative); Urine Color Yellow; Urine Glucose Negative (Negative); Urine Ketones Negative (Negative); Urine Nitrite Negative (Negative); Urine Protein Negative (Negative); Urine Specific Gravity 1.009 (1.010-1.030); Urine Urobilinogen Negative (Negative)
--- NOTE | 2019-01-08 15:40 | PN ---
Subjective Date of Service: 01/08/19 Interval History: Pt c/o SOB only with laying flat. She has not ambulated, but does not believe she has SOB with ambulation. She continues to have a cough, which is chronic. She states she feels as if the swelling in her legs has decreased, but feels that the abdomen is unchanged. She has no other complaints today. Objective Active Medications: Acetaminophen (Tylenol Tab*) 650 mg PO Q4H PRN Atorvastatin Calcium (Lipitor*) 40 mg PO BEDTIME KYLEE Cholecalciferol (Vitamin D Tab*) 1,000 units PO QAM KYLEE Dextrose (Dextrose 50% Vial 50 Ml*) 25 ml IV PUSH .FOR FS < 60 - SS PRN Diphenhydramine HCl (Benadryl Po*) 25 mg PO BEDTIME PRN Ferrous Sulfate (Ferrous Sulfate Tab*) 325 mg PO DAILY KYLEE Fluticasone Propionate (Flonase Nasal [place] 50mcg*) 1 spray INTRANASAL DAILY KYLEE Furosemide (Lasix Iv*) 60 mg IV 0800,1700 KYLEE Cefepime HCl (Maxipime 2 Gm In Dextrose Duplex (*)) 2 gm in 50 mls @ 100 mls/ hr IV Q24H [facility] Insulin Human Lispro (Humalog*) 0 units SUBCUT 0900 KYLEE; Protocol Ipratropium [place] (Atrovent 0.5 Mg Neb.Brionna*) 0.5 mg INH [id number] AWAKE PRN Lactulose (Lactulose*) 15 ml PO TID KYLEE Levalbuterol HCl (Xopenex 0.63mg/3ml Neb*) 0.63 mg INH [id number] AWAKE PRN Levothyroxine Sodium (Synthroid Tab*) 50 mcg PO 0600 KYLEE Metolazone (Zaroxolyn Tab*) 10 mg PO DAILY@0830 KYLEE Metolazone (Zaroxolyn Tab*) 5 mg PO DAILY@1630 KYLEE Metoprolol Tartrate (Lopressor Tab*) 12.5 mg PO Q8HR KYLEE Midodrine (Midodrine) 2.5 mg PO TID KYLEE; Protocol Nystatin (Nystatin Top Powder*) 1 applic TOPICAL TID KYLEE Pantoprazole Sodium (Protonix Tab*) 40 mg PO DAILY KYLEE Pregabalin (Lyrica Cap(*)) 25 mg PO BID KYLEE Rifaximin (Xifaxan*) 550 mg PO Q8HR [facility] Spironolactone (Aldactone Tab*) 100 mg PO DAILY [facility] Vital Signs: Temp Pulse Resp BP Pulse Ox 97.0 F 62 17 109/69 99 01/08/19 11:14 01/08/19 11:14 01/08/19 11:14 01/08/19 11:14 01/08/19 11:14 Oxygen Devices in Use Now: None Appearance: Pt is an ill-appearing older white woman who is sitting up in chair with LE elevated. She is pleasant and appears happy, but intermittently tearful. Eyes: No Scleral Icterus, PERRLA Ears/Nose/Mouth/Throat: NL Teeth, Lips, Gums, Clear Oropharnyx, - - Mildy dry mucous membranes Neck: NL Appearance and Movements; NL JVP, Trachea Midline Respiratory: Symmetrical Chest Expansion and Respiratory Effort, - - Faint crackles at b/l bases. Cardiovascular: NL Sounds; No Murmurs; No JVD, RRR, - - b/l LE, abdominal edema Abdominal: NL Sounds; No Tenderness; No Distention, No Hepatosplenomegaly, - - Abdomen 1+ pitting edema Extremities: No Clubbing, Cyanosis, - - 1+ pitting edema to LE, 1+ pitting edema to abdomen. Neurological: Alert and Oriented x 3 Result Diagrams: 01/08/19 05:31 01/08/19 05:31 Microbiology and Other Data: Microbiology 01/02/19 13:31 Urine Culture - Preliminary Urine Citrobacter Freundii 01/02/19 11:23 Nasal Screen MRSA (PCR) - Final Nasal Mrsa Detected Assess/Plan/Problems-Billing Assessment: 73 yo female with PMHx cirrhosis of unclear etiology, iron deficiency anemia, DMT2, HTN, CKD, atrial fib, cardiomyopathy with EF 60-65% presents with shortness of breath and 15 lbs of weight gain per [facility] staff. - Patient Problems (1) Acute on chronic diastolic heart failure Comment: -hx diastolic heart failure, cardiomyopathy with EF 60-65% -presented with 15 lbs weight gain and shortness of breath; weight at [facility] on 12/15/18 was 263 lbs -patient has chronic dependent edema of lower abdomen and LE edema -Lasix 40 BID with d/c metolazone -Spironolacte 50 -Continue strict I&O -Fluid restriction, sodium restriction -No true weight change since admission -Continues to have b/l LE, abdominal edema; pulm exam with faint crackles at bases, denies SOB; little to no improvement overall -Consulted nephrology; they recommend 4 doses albumin over 48hours with lasix to follow (2) Acute kidney injury superimposed on CKD Comment: -Cr continues to rise -Urine studies for FEurea reveals prerenal cause of failure; pt appears intravascularly dry with persistent edema -Consulted nephrology; recommend albumin 25g bid x4 doses with lasix dose after administration -Continue to monitor kidney fx -renal ultrasound without hydronephrosis -Nephrology consulted (3) UTI (urinary tract infection) Comment: -culture demonstrates citrobacter freundii, c&s demonstrates sensitivity to cefepime and resistance to ceftriaxone -continue cefepime (day 4) -no leukocytosis, afebrile, without evidence of sepsis (4) Rash Comment: -location, symptomatic itch, and erythema appears consistent with cutaneous candidiasis -starting TID nystatin powder -I believe the itching on her arms is related to dry skin; no rash observed on arms; will start benadryl (5) Cirrhosis Comment: -no evidence of decompensation -LFTs wnl. INR is elevated to 1.39, which is unchanged from prior admission in August 2018 -chronic thrombocytopenia. Plts around baseline -trace ascites on US -continue home lactulose and rifaximin (6) Iron deficiency anemia Comment: -continue home iron supplement (7) Atrial fibrillation Comment: - Rate controlled - Not on anticoagulation due to history of severe GI bleed - Continue metoprolol (8) Diabetes mellitus Comment: - Diet controlled - Ordering SS lispro for coverage if needed - Good BG control - A1c 6.2% indicating good control - D/c fingersticks (9) Hypotension Comment: - Chronic. Unknown etiology, possibly liver disease vs heart disease - Continue midodrine (10) Hypothyroidism Comment: -continue home 50 mcg synthroid (11) DVT prophylaxis Comment: - SCDs d/t thrombocytopenia and history of severe GI bleed (12) Full code status Comment: Status and Disposition: Inpatient requiring IV diuresis. Will likely return to [facility] at discharge.
[2019-01-08] MEDS: Albumin Human 25%* 25 GM/100 ML BTL IV SCH (17:22)
[2019-01-08] MEDS: Atorvastatin* 40 MG TAB PO SCH (20:55)
[2019-01-08] MEDS: Furosemide IV* 10 MG/ML 10 ML VIAL (100 MG) IV SCH (20:56)
[2019-01-08] MEDS: diPHENhydraMINE PO* 25 MG PO PRN (20:56)
[2019-01-09 02:53] LABS: Urine Creatinine Concentration 48.91 mg/dL
[2019-01-09] MEDS: diPHENhydraMINE PO* 25 MG PO PRN ×2 (04:59→23:50)
[2019-01-09] MEDS: Levothyroxine TAB* 50 MCG TAB PO SCH (05:37)
[2019-01-09] MEDS: Metoprolol Tartrate TAB* 25 MG PO SCH ×3 (05:37→21:18)
[2019-01-09] MEDS: RiFAXimin* 550 MG TAB PO SCH ×3 (05:37→21:18)
[2019-01-09] MEDS: Cefepime 2 GM in Dextrose(*) 2 GM/50 ML BAG IV SCH (05:38)
[2019-01-09 06:10] LABS: BUN/Creatinine Ratio 32.4 (8-20); Calcium 8.7 mg/dL (8.6-10.3); EGFR African American 17.8 (>60); EGFR Non-African American 14.7 (>60); Potassium 4.3 mmol/L (3.5-5.0)
[2019-01-09] MEDS: Lactulose* 15 ML UDC PO SCH ×3 (08:30→21:19)
[2019-01-09] MEDS: Fluticasone NASAL SPRAY 50MCG* 16 gm SPRAY BTL INTRANASAL SCH (08:31)
[2019-01-09] MEDS: Cholecalciferol TAB* 1000 UNITS PO SCH (08:31)
[2019-01-09] MEDS: Pregabalin CAP(*) 25 MG PO SCH ×2 (08:31→21:15)
[2019-01-09] MEDS: Pantoprazole TAB * 40 MG TAB PO SCH (08:32)
[2019-01-09] MEDS: Ferrous Sulfate TAB* 325 MG PO SCH (08:33)
[2019-01-09] MEDS: Spironolactone TAB* 25 MG PO SCH (08:33)
[2019-01-09] MEDS: Nystatin TOP POWDER* 15 GM BTL TOPICAL SCH ×3 (08:34→21:19)
--- NOTE | 2019-01-09 09:44 | PN ---
Subjective Date of Service: 01/09/19 Interval History: Pt states that she slept better last night; states she is usually afraid to become SOB during sleep, which causes her difficulty with sleeping. She said she had SOB at beginning of sleep, but then she was able to fall asleep. She has been up with EZ lift and transferring, but no ambulation. She states she has coughing at night some times, but not throughout day. She c/o dizziness, lightheadedness. Pt later found to be hypotensive in 80's. She c/o dizziness/lightheadedness. Suspect this is due to low intravascular volume. 500 cc IVF bolus given with improvement in BP and symptoms. Objective Active Medications: Acetaminophen (Tylenol Tab*) 650 mg PO Q4H PRN Atorvastatin Calcium (Lipitor*) 40 mg PO BEDTIME KYLEE Cholecalciferol (Vitamin D Tab*) 1,000 units PO QAM KYLEE Diphenhydramine HCl (Benadryl Po*) 25 mg PO BEDTIME PRN Diphenhydramine HCl (Benadryl Po*) 25 mg PO Q6H PRN Ferrous Sulfate (Ferrous Sulfate Tab*) 325 mg PO DAILY KYLEE Fluticasone Propionate (Flonase Nasal [place] 50mcg*) 1 spray INTRANASAL DAILY KYLEE Furosemide (Lasix Iv*) 80 mg IV 1030,1930 KYLEE Cefepime HCl (Maxipime 2 Gm In Dextrose Duplex (*)) 2 gm in 50 mls @ 100 mls/ hr IV Q24H KYLEE Albumin Human (Albumin Human 25%*) 25 gm in 100 mls @ 50 mls/hr IV 0800,1700 KYLEE Ipratropium [place] (Atrovent 0.5 Mg Neb.Brionna*) 0.5 mg INH [id number] AWAKE PRN Lactulose (Lactulose*) 15 ml PO TID KYLEE Levalbuterol HCl (Xopenex 0.63mg/3ml Neb*) 0.63 mg INH [id number] AWAKE PRN Levothyroxine Sodium (Synthroid Tab*) 50 mcg PO 0600 KYLEE Metoprolol Tartrate (Lopressor Tab*) 12.5 mg PO Q8HR KYLEE Midodrine (Midodrine) 2.5 mg PO TID KYLEE; Protocol Nystatin (Nystatin Top Powder*) 1 applic TOPICAL TID KYLEE Pantoprazole Sodium (Protonix Tab*) 40 mg PO DAILY KYLEE Pregabalin (Lyrica Cap(*)) 25 mg PO BID KYLEE Rifaximin (Xifaxan*) 550 mg PO Q8HR KYLEE Spironolactone (Aldactone Tab*) 50 mg PO DAILY KYLEE Vital Signs: Temp Pulse Resp BP Pulse Ox 97.5 F 81 16 92/50 90 01/09/19 12:02 01/09/19 12:02 01/09/19 13:08 01/09/19 12:02 01/09/19 12:02 Oxygen Devices in Use Now: None Appearance: Pt chronically ill-appearing older white woman who is sitting up in chair with LE at ground. Eyes: No Scleral Icterus, PERRLA Ears/Nose/Mouth/Throat: NL Teeth, Lips, Gums, Clear Oropharnyx, - - Dry oral mucosa Neck: NL Appearance and Movements; NL JVP, Trachea Midline Respiratory: Symmetrical Chest Expansion and Respiratory Effort, - - Faint crackles at bases b/l. Cardiovascular: NL Sounds; No Murmurs; No JVD, - - Irregular. B/l LE 1-2+ pitting edema; abd edema trace-1+ Abdominal: No Hepatosplenomegaly, - - BS in all quadrants; nondistended; pitting edema to abdomen Extremities: No Clubbing, Cyanosis, - - 1-2+ pitting to b/l LE; trace-1+ pitting edema to abdomen Neurological: Alert and Oriented x 3 Result Diagrams: 01/08/19 05:31 01/09/19 05:40 Microbiology and Other Data: Microbiology 01/02/19 13:31 Urine Culture - Preliminary Urine Citrobacter Freundii 01/02/19 11:23 Nasal Screen MRSA (PCR) - Final Nasal Mrsa Detected Assess/Plan/Problems-Billing Assessment: 73 yo female with PMHx cirrhosis of unclear etiology, iron deficiency anemia, DMT2, HTN, CKD, atrial fib, cardiomyopathy with EF 60-65% presents with shortness of breath and 15 lbs of weight gain per [facility] staff. - Patient Problems (1) Hypotension Comment: -Chronic; unknown etiology, possibly liver disease vs heart disease -Today with episode of hypotension SBP 80's; patient appears intravascularly dry with persistent edema -500 cc IVF bolus ordered; SBP improved to 108 -Continue midodrine (2) Acute on chronic diastolic heart failure Comment: -H/o diastolic heart failure, cardiomyopathy with EF 60-65% -presented with 15 lbs weight gain and shortness of breath; weight on 12/15/18 was 263# -patient has chronic dependent edema of lower abdomen and LE edema -Lasix 40 BID with d/c metolazone -Spironolacte 50 -Continue strict I&O -Fluid restriction, sodium restriction -No true weight change since admission -Continues to have b/l LE, abdominal edema; pulm exam with faint crackles at bases, c/o SOB with laying flat; little to no improvement overall -Consulted nephrology; they recommend 4 doses albumin over 48hours with lasix to follow -Repeat Echo ordered (3) Acute kidney injury superimposed on CKD Comment: -Cr continues to rise -Renal ultrasound without hydronephrosis -Urine studies for FE urea suggests prerenal cause; pt appears intravascularly dry with persistent edema -Consulted nephrology; recommend albumin 25g bid x4 doses with lasix dose after administration -Continue to monitor kidney fx (4) UTI (urinary tract infection) Comment: -culture demonstrates citrobacter freundii, c&s demonstrates sensitivity to cefepime and resistance to ceftriaxone -continue cefepime (day 5) -no leukocytosis, afebrile, without evidence of sepsis (5) Rash Comment: -location, symptomatic itch, and erythema appears consistent with cutaneous candidiasis -starting TID nystatin powder -I believe the itching on her arms is related to dry skin; no rash observed on arms; will start benadryl (6) Cirrhosis Comment: -no evidence of decompensation -LFTs wnl. INR is elevated to 1.39, which is unchanged from prior admission in August 2018 -chronic thrombocytopenia. Plts around baseline -trace ascites on US -continue home lactulose and rifaximin (7) Iron deficiency anemia Comment: -continue home iron supplement (8) Atrial fibrillation Comment: - Rate controlled - Not on anticoagulation due to history of severe GI bleed - Continue metoprolol (9) Diabetes mellitus Comment: - Diet controlled - Good BG control - A1c 6.2% indicating good control - D/c fingersticks (10) Hypothyroidism Comment: -continue home 50 mcg synthroid (11) DVT prophylaxis Comment: - SCDs d/t thrombocytopenia and history of severe GI bleed (12) Full code status Comment: Status and Disposition: Inpatient requiring IV diuresis. Will likely return to [facility] at discharge.
[2019-01-09] MEDS: Acetaminophen TAB* 325 MG PO PRN ×3 (10:29→21:15)
[2019-01-09] MEDS: Furosemide IV* 10 MG/ML 10 ML VIAL (100 MG) IV SCH ×2 (13:16→21:19)
[2019-01-09] MEDS: Albumin Human 25%* 25 GM/100 ML BTL IV SCH ×2 (13:17→18:10)
[2019-01-09] MEDS ORDERED: NS 0.9% 500 ML* 500 ML IV ONE (15:00)
[2019-01-09] MEDS: Atorvastatin* 40 MG TAB PO SCH (21:16)
[2019-01-10] MEDS: RiFAXimin* 550 MG TAB PO SCH ×3 (04:41→21:07)
[2019-01-10] MEDS: Metoprolol Tartrate TAB* 25 MG PO SCH ×3 (04:41→23:08)
[2019-01-10] MEDS: Levothyroxine TAB* 50 MCG TAB PO SCH (04:41)
[2019-01-10] MEDS: Cefepime 2 GM in Dextrose(*) 2 GM/50 ML BAG IV SCH (04:41)
--- NOTE | 2019-01-10 08:59 | PN ---
Progress Note - Progress Note Date of Service: 01/10/19 Note: Inpatient Nephrology FU Note: Dr. Javier Alvarez. [facility] Nephrology Admitted with SOB. Has LUISA on CKD: Progressive LUISA Baseline sCr (1.3-1.4)(2017)---->slowly worse (1.5)(-07/2018)---> s/p LUISA on CKD BUN/sCr (142/1.82)(09/2018), then sCr assumed (1.6-1.7) baseline , with eGFR (30). But since 12/2018, BUN/sCr progressively worse (2.1)(2018)---->2.6-2.7 slowly over this admission 2.7--->2.8--->2.9--->3.1 eGFR 14-15. Of note, her main c/c is SOB, massive LE edema and abdominal wall edema Last CXR: Severe cardiomegaly & Pulmonary vascular congestion & BL small PLEF Provisional diagnosis so far is cirrhosis with hepatorenal, started on albumin 25 gm BID. Has low blood pressure on midodrine. Of note, Last Abd US: Small ascites and splenomegaly but liver normal shape echogenicity and contour & no renal hydronephrosis Although Had CTAP 07/2018 Signs of hepatic cirrhosis with increased nodularity Of note, no repeat echo since July but Echo 07/2018: Then sCr was 1.5 LVEF 60-65% RVSP 45 mmHg RV overload No pericardial effusion or significant valvular heart disease. Denied NSAIDs nausea vomiting PMH: LUISA on CKD Acute on chronic diastolic heart failure Cirrhosis Iron deficiency anemia AFib DM Hypothyroidism Thrombocytopenia CAD Acute on chronic systolic CHF HFrEF Intake & Output 01/08/19 01/09/19 01/10/19 01/11/19 06:59 06:59 06:59 06:59 Intake Total 1060 1804 1340 Output Total 945 900 550 Balance 115 904 790 Weight 127.913 kg 125.69 kg 129.092 kg Intake: IV Fluids 70 40 350 ABX - CEFEPIME 50 NS (0.9%) 20 40 350 IVPB 65 ABX - CEFEPIME 65 Oral 990 1420 990 Albumin 279 Output: Urine 945 900 150 Liquid Stool 400 Other: Estimated Void Small Medium Medium # Bowel Movements 0 0 1 Estimated Stool Amount Medium Small # Voids 0 1 0 Active Medications: Acetaminophen Atorvastatin Cholecalciferol Diphenhydramine Diphenhydramine Ferrous Sulfate Fluticasone Furosemide IV 80 qd Cefepime 2 g/d Albumin 25 g BID Ipratropium Lactulose Levalbuterol Levothyroxine Metoprolol 12.5 mg TID Midodrine 2.5 TID Nystatin Pantoprazole Pregabalin 25 BID Rifaximin 550 TID Spironolactone 50 qd Objective: .Vital Signs: Temp Pulse Resp BP Pulse Ox 97.2 F 62 20 109/52 94 01/10/19 07:47 01/10/19 07:47 01/10/19 07:47 01/10/19 07:47 01/10/19 07:47 .Heart: AFib +++ LE Edema No Rub .Lungs: bilateral air entry bilateral crackles .Extremities: No amputations ++ LE edema Laboratory Reviewed and pertinents are: Sodium 133 mmol/L (135-145) L 01/09/19 05:40 Potassium 4.3 mmol/L (3.5-5.0) 01/09/19 05:40 BUN 100 mg/dL (6-24) H 01/09/19 05:40 Creatinine 3.09 mg/dL (0.51-0.95) H 01/09/19 05:40 Hemoglobin A1c 6.2 % (4.0-5.6) H 01/04/19 06:18 Calcium 8.7 mg/dL (8.6-10.3) 01/09/19 05:40 AST 25 U/L (13-39) 01/08/19 05:31 ALT 12 U/L (7-52) 01/08/19 05:31 Assessment and Plan: LUISA on CKD. Likely cardiorenal vs hepatorenal, possibly complicated by Hypotension, ATN!? Change diuretics to IV Bumex 2 mg twice a day Stop spironolactone May continue albumin 100 g daily for 2 days Avoid IV fluids Dialysis may be indicated soon, but not now. She is undecided yet Check INR Low BP: May use albumin as a colloid, & limit IV fluid boluses to 200-250 cc to maintain SBP >100 Electrolytes: okay Informed about lab/radiology results & prognosis. All questions were answered. Made part of the treatment plan. Patient seen and examined in the presence of the Hospitalist
[2019-01-10] MEDS: Albumin Human 25%* 25 GM/100 ML BTL IV SCH ×5 (09:56→22:55)
[2019-01-10] MEDS: Lactulose* 15 ML UDC PO SCH ×3 (09:57→20:35)
[2019-01-10] MEDS: Pantoprazole TAB * 40 MG TAB PO SCH (09:57)
[2019-01-10] MEDS: Ferrous Sulfate TAB* 325 MG PO SCH (09:57)
[2019-01-10] MEDS: Cholecalciferol TAB* 1000 UNITS PO SCH (09:57)
[2019-01-10] MEDS: Pregabalin CAP(*) 25 MG PO SCH ×2 (09:57→20:36)
[2019-01-10] MEDS: Spironolactone TAB* 25 MG PO SCH (09:57)
--- NOTE | 2019-01-10 10:46 | PN ---
Subjective Date of Service: 01/10/19 Interval History: Pt feels SOB is improving somewhat, but continues to have LE, abdominal edema. Had a bout of hypotension yesterday, given 500cc fluid bolus; resolved. She slept well last night. She coughs at times, but not frequently. She has no other complaints today. Objective Active Medications: Acetaminophen (Tylenol Tab*) 650 mg PO Q4H PRN Atorvastatin Calcium (Lipitor*) 40 mg PO BEDTIME KYLEE Bumetanide (Bumex*) 2 mg SLOW PUSH BID KYLEE Cholecalciferol (Vitamin D Tab*) 1,000 units PO QAM KYLEE Diphenhydramine HCl (Benadryl Po*) 25 mg PO BEDTIME PRN Diphenhydramine HCl (Benadryl Po*) 25 mg PO Q6H PRN Ferrous Sulfate (Ferrous Sulfate Tab*) 325 mg PO DAILY KYLEE Fluticasone Propionate (Flonase Nasal [place] 50mcg*) 1 spray INTRANASAL DAILY KYLEE Cefepime HCl (Maxipime 2 Gm In Dextrose Duplex (*)) 2 gm in 50 mls @ 100 mls/ hr IV Q24H KYLEE Albumin Human (Albumin Human 25%*) 25 gm in 100 mls @ 0 mls/hr IV QID KYLEE Ipratropium [place] (Atrovent 0.5 Mg Neb.Brionna*) 0.5 mg INH [id number] AWAKE PRN Lactulose (Lactulose*) 15 ml PO TID KYLEE Levalbuterol HCl (Xopenex 0.63mg/3ml Neb*) 0.63 mg INH [id number] AWAKE PRN Levothyroxine Sodium (Synthroid Tab*) 50 mcg PO 0600 KYLEE Metoprolol Tartrate (Lopressor Tab*) 12.5 mg PO Q8HR KYLEE Midodrine (Midodrine) 2.5 mg PO TID KYLEE; Protocol Nystatin (Nystatin Top Powder*) 1 applic TOPICAL TID KYLEE Pantoprazole Sodium (Protonix Tab*) 40 mg PO DAILY KYLEE Pregabalin (Lyrica Cap(*)) 25 mg PO BID KYLEE Rifaximin (Xifaxan*) 550 mg PO Q8HR KYLEE Vital Signs: Temp Pulse Resp BP Pulse Ox 97.2 F 62 18 109/52 94 01/10/19 07:47 01/10/19 07:47 01/10/19 09:57 01/10/19 07:47 01/10/19 07:47 Oxygen Devices in Use Now: None Appearance: Pt sitting in chair, LE at floor. She is chronically ill- appearing. She is breathing comfortably, in no acute distress. Ears/Nose/Mouth/Throat: NL Teeth, Lips, Gums, Clear Oropharnyx, - - Mildly dry mucous membranes. Neck: NL Appearance and Movements; NL JVP, Trachea Midline Respiratory: Symmetrical Chest Expansion and Respiratory Effort, - - Bibasilar rales Cardiovascular: NL Sounds; No Murmurs; No JVD, - - Irregularly irregular with rate control. Abdominal: NL Sounds; No Tenderness; No Distention, - - Abdomen with trace edema Extremities: No Clubbing, Cyanosis, - - B/l LE 1-2+ pitting edema; abdomen with trace edema Neurological: Alert and Oriented x 3 Result Diagrams: 01/10/19 12:10 01/10/19 12:10 Microbiology and Other Data: Microbiology 01/02/19 13:31 Urine Culture - Preliminary Urine Citrobacter Freundii 01/02/19 11:23 Nasal Screen MRSA (PCR) - Final Nasal Mrsa Detected Assess/Plan/Problems-Billing Assessment: 73 yo female with PMHx cirrhosis of unclear etiology, iron deficiency anemia, DMT2, HTN, CKD, atrial fib, cardiomyopathy with EF 60-65% presents with shortness of breath and 15 lbs of weight gain per [facility] staff. - Patient Problems (1) Acute kidney injury superimposed on CKD Comment: -Cr continues to rise; nephrology consulting and suggests pt may need dialysis at some point, but no indication currently -Renal ultrasound without hydronephrosis -Hepatorenal vs cardiorenal -Echo pending -Urine studies for FE urea suggests prerenal cause; pt appears intravascularly dry with persistent edema -Consulted nephrology; recommend albumin 25g qid x2days and assess for improvement -Continue to monitor kidney fx (2) Acute on chronic diastolic heart failure Comment: -H/o diastolic heart failure, cardiomyopathy with EF 60-65%; awaiting repeat echo -presented with 15 lbs weight gain and shortness of breath; weight on 12/15/18 was 263# -patient has chronic dependent edema of lower abdomen and LE edema -Continue strict I&O; add dacosta for improved measurement -Fluid restriction, sodium restriction -No true weight change since admission -Continues to have b/l LE, abdominal edema; pulm exam with faint crackles at bases, c/o SOB with laying flat; little to no improvement overall -Consulted nephrology; recommend albumed qid x2days and assess for improvement -Will hold diuretics for time being to assess for improvement in kidney function -CPAP ordered for afterload reduction -D/c lasix, spironolactone -Continue to monitor kidney function -Repeat Echo ordered (3) Hypotension Comment: -Acute hypotensive episode resolved with 500cc fluid bolus -Chronic; unknown etiology, possibly liver disease vs heart disease -Today with episode of hypotension SBP 80's; patient appears intravascularly dry with persistent edema -500 cc IVF bolus ordered; SBP improved to 108 -Continue midodrine (4) UTI (urinary tract infection) Comment: -Resolved -culture demonstrates citrobacter freundii, c&s demonstrates sensitivity to cefepime and resistance to ceftriaxone -Treated with cefepime -no leukocytosis, afebrile, without evidence of sepsis (5) Rash Comment: -location, symptomatic itch, and erythema appears consistent with cutaneous candidiasis -starting TID nystatin powder -I believe the itching on her arms is related to dry skin; no rash observed on arms; will start benadryl (6) Cirrhosis Comment: -no evidence of decompensation -LFTs wnl. INR is elevated to 1.39, which is unchanged from prior admission in August 2018 -chronic thrombocytopenia. Plts around baseline -trace ascites on US -continue home lactulose and rifaximin (7) Iron deficiency anemia Comment: -continue home iron supplement (8) Atrial fibrillation Comment: - Rate controlled - Not on anticoagulation due to history of severe GI bleed - Continue metoprolol (9) Diabetes mellitus Comment: - Diet controlled - Good BG control - A1c 6.2% indicating good control - D/c fingersticks (10) Hypothyroidism Comment: -continue home 50 mcg synthroid (11) DVT prophylaxis Comment: - SCDs d/t thrombocytopenia and history of severe GI bleed (12) Full code status Comment: Status and Disposition: Inpatient requiring IV diuresis. Will likely return to [facility] at discharge.
[2019-01-10] MEDS ORDERED: Bumetanide IV* 0.25 MG/ML 4 ML VIAL SLOW PUSH SCH (11:00)
[2019-01-10] MEDS: Fluticasone NASAL SPRAY 50MCG* 16 gm SPRAY BTL INTRANASAL SCH (11:01)
[2019-01-10] MEDS: Furosemide IV* 10 MG/ML 10 ML VIAL (100 MG) IV SCH (11:01)
[2019-01-10] MEDS: Nystatin TOP POWDER* 15 GM BTL TOPICAL SCH ×3 (11:04→20:42)
[2019-01-10 13:47] LABS: ABS Eosinophils 0.3 10^3/ul (0-0.6); ABS Lymphocytes 0.5 10^3/ul (1.0-4.8); ABS Monocytes 0.5 10^3/ul (0-0.8); ABS Neutrophils 3.2 10^3/ul (1.5-7.7); Eosinophil % 5.8 %; Hematocrit 25 % (35-47); Hemoglobin 8.5 g/dL (12.0-16.0); Mean Corpuscular HGB Conc 34 g/dL (31-36); Mean Corpuscular Hemoglobin 33 pg (27-31); Mean Corpuscular Volume 99 fL (80-97); Mean Platelet Volume 8.6 fL (7.4-10.4); Nucleated Red Blood Cells % 0.2; Platelet Count 67 10^3/uL (150-450); Red Blood Count 2.53 10^6 /uL (3.70-4.87); Red Cell Distribution Width 17 % (10-15); White Blood Count 4.6 10^3/uL (3.5-10.8)
[2019-01-10 13:51] LABS: INR 1.57 (0.82-1.09)
[2019-01-10 14:04] LABS: BUN/Creatinine Ratio 31.3 (8-20); Calcium 8.8 mg/dL (8.6-10.3); EGFR African American 17.1 (>60); EGFR Non-African American 14.2 (>60); Potassium 3.8 mmol/L (3.5-5.0)
[2019-01-10] MEDS ORDERED: Perflutren Lipid Microsphere* 3 ML VIAL ONE (14:23)
--- NOTE | 2019-01-10 16:22 | ECHO ---
*[facility]* [place] [address] Fax #: [phone] Transthoracic Echocardiogram Patient: Rosa M Latham : 1945 Study Date: 01/10/2019 Age: 73 Gender: F HR: 72 bpm Height: 64 in /162.6 cm BSA: 2.27 m^2 Weight: 282.4 lb /128.4 kg BMI: 48.6 kg/m^2 *[employer] Trainer: * Ashley Amato RDCS *Referring Physician: * Oliva Granger *Reading Physician: * Joe Nunez MD Indications: SOB. Edema. History: Atrial fibrillation. Congestive heart failure. Liver cirrhosis. Ascites. Risk factors: Diabetes mellitus. Morbidly obese. Conclusions Summary: - Left ventricle: The cavity size is normal. Wall thickness is mildly to moderately increased. Systolic function is normal. The estimated ejection fraction is 55-60%. Wall motion is normal; there are no regional wall motion abnormalities. - Right ventricle: Systolic function is mildly to moderately reduced. Systolic pressure is moderately increased. - Ventricular septum: There is septal flattening of the interventricular septum consistent with RV volume or pressure overload. - Left atrium: The atrium is severely dilated. - Mitral valve: There is moderate regurgitation, with multiple jets. - Aortic valve: There is no evidence of stenosis. There is no significant regurgitation. - Tricuspid valve: There is moderate-severe regurgitation. - Pericardium, extracardiac: There is no significant pericardial effusion. - Compared to study of 07/19/18, there is little change. Study data: Transthoracic echocardiogram. Procedure: Transthoracic echocardiography was performed. Image quality was suboptimal. The study was technically limited due to poor patient compliance and body habitus. Intravenous Definity , 3 mlswas administered. Complete 2D, spectral Doppler, and color flow Doppler. Location: Bedside. Patient status: Inpatient. Patient room number: 406. Rhythm: Atrial fibrillation. Findings Left ventricle: The cavity size is normal. Wall thickness is mildly to moderately increased. Systolic function is normal. The estimated ejection fraction is 55-60%. Wall motion is normal; there are no regional wall motion abnormalities. Left ventricular diastolic function parameters are indeterminate. Right ventricle: The cavity size is moderately dilated. Systolic function is mildly to moderately reduced. Systolic pressure is moderately increased. Ventricular septum: There is septal flattening of the interventricular septum consistent with RV volume or pressure overload. Left atrium: The atrium is severely dilated. Right atrium: The atrium is moderately to severely dilated. Mitral valve: The leaflets are mildly thickened. There is no evidence of stenosis. There is moderate regurgitation, with multiple jets. Aortic valve: The valve is trileaflet. The leaflets are mildly thickened. There is no evidence of stenosis. There is no significant regurgitation. Tricuspid valve: The leaflets are normal thickness. There is no evidence of stenosis. There is moderate-severe regurgitation. Pulmonic valve: The leaflets are normal thickness. There is no evidence of stenosis. There is trace regurgitation. Aorta: Aortic root: The aortic root is appears normal. Ascending aorta: The ascending aorta is appears normal. Aortic arch: The aortic arch is poorly visualized. Pericardium: A prominent pericardial fat pad is present. There is no significant pericardial effusion. Pulmonary arteries: The main pulmonary artery is normal-sized. Systolic pressure is moderately increased. Systemic veins: Inferior vena cava: The vessel is dilated. There is (< 50%) respiratory change in the IVC dimension. Measurements Left ventricle Value Ref Aortic valve Value Ref JASEN, LAX 4.5 cm 3.8 - 5.2 Barrie diam, ED 1.8 cm ----- ESD, LAX 3.1 cm 2.2 - 3.5 Peak v, S 1.29 m/sec ----- FS, LAX 32 % 27 - 45 VTI, S 24.5 cm ----- PW, ED, LAX (H) 1.3 cm 0.6 - 0.9 Mean grad, S 3.0 mm Hg ----- FS 31 % 27 - 45 Peak grad, S 7.0 mm Hg ----- PW, ED (H) 1.3 cm 0.6 - 0.9 LVOT/AV, VTI ratio 0.73 ----- PW/ID, ED 0.29 JATIN, VTI 2.31 cm^2 ----- E', lat barrie, TDI 13.4 cm/sec >=10.0 JATIN, Vmax 2.01 cm^2 --- -- E/e', lat barrie, 9 TDI Mitral valve Value Ref E', med barrie, TDI 9.2 cm/sec >=7.0 Peak E 1.15 m/sec --- -- E/e', med barrie, 13 Decel time 186 ms ----- TDI Peak grad, D 5.3 mm Hg ----- E', avg, TDI 11.3 cm/sec Peak LV-LA grad S 56 mm Hg ----- E/e', avg, TDI 10 <=14 MR alias velocity 0.31 m/sec --- -- MR PISA radius 0.3 cm ----- LVOT Value Ref Max MR v 3.75 m/sec ----- Diam, S 2.00 cm Regurg VTI 114.0 cm ----- Area 3.1 cm^2 ERO, PISA 0.05 cm^2 ----- Peak mary, S 0.83 m/sec MR vol, PISA 6 ml ----- VTI, S 18.0 cm MR fraction, PISA 10 % ----- Mean grad, S 2 mm Hg SV 57 ml Pulmonic valve Value Ref SV/bsa 25 ml/m^2 Peak v, S 0.66 m/sec ----- Peak grad, S 2.0 mm Hg ----- Ventricular septum Value Ref IVS, ED (H) 1.2 cm 0.6 - 0.9 Tricuspid valve Value Ref TR peak v (H) 3.1 m/sec <=2.8 Right ventricle Value Ref Peak RV-RA grad, S 38 mm Hg ----- JASEN, LAX 4.4 cm JASEN minor ax, A4C (H) 5.5 cm 1.9 - 3.5 Aortic root Value Ref mid Root diam 2.7 cm <4.3 Pressure, S 53 mm Hg Ascending aorta Value Ref Left atrium Value Ref AAo AP diam, S 3.3 cm ----- AP dim, ES (H) 4.80 cm 2.70 - 3.80 Pulmonary artery Value Ref ML dim, A4C 4.5 cm Pressure, S 51.0 mm Hg ----- SI dim, A4C 7.8 cm Vol/bsa, ES, 1-p (H) 46 ml/m^2 11 - 40 Inferior vena cava Value Ref A4C Diam 4.1 cm ----- Vol/bsa, ES, A/L (H) 50 ml/m^2 16 - 34 Right atrium Value Ref SI dim, ES (H) 6.4 cm 3.4 - 5.3 ML dim, ES, A4C (H) 4.8 cm 2.6 - 4.4 SI dim, ES, A4C (H) 6.4 cm 3.4 - 5.3 Estimated RAP 15 mm Hg Legend: (L) and (H) chele values outside specified reference range. Prepared and electronically signed by Joe Nunez MD 01/10/2019 16:21
[2019-01-10 17:51] LABS: Albumin 2.9 g/dL (3.4-4.7); Albumin/Globulin Ratio 0.62; Gamma Globulin 2.8 g/dL (0.6-1.6); Total Protein(PEP) 7.6 g/dL (6.3 - 7.9)
[2019-01-10 17:52] LABS: Kappa Free Light Chain 16.9 mg/dL; Lambda Free Light Chain 8.53 mg/dL
[2019-01-10] MEDS: Atorvastatin* 40 MG TAB PO SCH (20:37)
[2019-01-11] MEDS: Acetaminophen TAB* 325 MG PO PRN ×3 (00:03→14:33)
[2019-01-11 03:32] LABS: Urine Appearance Cloudy; Urine Bacteria 1+ (Absent); Urine Bilirubin Negative (Negative); Urine Blood 3+ (Negative); Urine Color Amber; Urine Glucose Negative (Negative); Urine Ketones Negative (Negative); Urine Nitrite Negative (Negative); Urine Protein 2+(100 mg/dL) (Negative); Urine Red Blood Cell 3+(>10/hpf) (Absent); Urine Specific Gravity 1.014 (1.010-1.030); Urine Squamous Epithelial Cell Present (Absent); Urine Urobilinogen Negative (Negative); Urine White Blood Cell 3+(>20/hpf) (Absent)
[2019-01-11] MEDS: Levothyroxine TAB* 50 MCG TAB PO SCH (06:22)
[2019-01-11] MEDS: RiFAXimin* 550 MG TAB PO SCH ×3 (06:22→22:37)
[2019-01-11] MEDS: Metoprolol Tartrate TAB* 25 MG PO SCH ×3 (06:22→22:52)
[2019-01-11 06:41] LABS: BUN/Creatinine Ratio 29.7 (8-20); Calcium 9.1 mg/dL (8.6-10.3); EGFR African American 15.8 (>60); Potassium 4.5 mmol/L (3.5-5.0)
[2019-01-11] MEDS: busPIRone TAB* 5 MG PO PRN ×3 (07:49→22:37)
--- NOTE | 2019-01-11 08:22 | PN ---
Progress Note - Progress Note Date of Service: 01/11/19 Note: Inpatient Nephrology FU Note: Dr. Javier Alvarez. DIRECTOR OF CLINICAL APPLICATIONS Nephrology s/p Echo: LA severely dilated. LVEF preserved 55-60%. Significant RV volume overload. Mild to moderate pulmonary hypertension. Progressive LUISA sCr (1.3-1.4)(2017)---->(1.5)()--->(142/1.82)(09/2018)---->(2.1)(12/20)----> 2.7--->2.8--->2.9--->3.1 BUN/sCr last few days 96/2.95--->100/3.1--->100/3.2 & today 102/3.44 Still SOB, massive LE edema and abdominal wall edema Active Medications: Acetaminophen Atorvastatin Buspirone Cholecalciferol Diphenhydramine Ferrous Sulfate Fluticasone Albumin 25 g QID Ipratropium Lactulose Levalbuterol Levothyroxine Metoprolol 12.5 TID Midodrine Nystatin Pantoprazole Pregabalin Rifaximin 550 TID Objective: .Vital Signs: Temp Pulse Resp BP Pulse Ox 98 F 87 20 98/64 94 01/11/19 04:15 01/11/19 04:15 01/11/19 04:15 01/11/19 04:15 01/11/19 04:15 .Heart: AFib +++ LE Edema No Rub .Lungs: Bilateral air entry bilateral crackles .Extremities: No amputations ++ LE edema Laboratory Reviewed and pertinent are: Sodium 134 mmol/L (135-145) L 01/11/19 06:00 Potassium 4.5 mmol/L (3.5-5.0) 01/11/19 06:00 BUN 102 mg/dL (6-24) H 01/11/19 06:00 Creatinine 3.44 mg/dL (0.51-0.95) H 01/11/19 06:00 Hemoglobin A1c 6.2 % (4.0-5.6) H 01/04/19 06:18 Calcium 9.1 mg/dL (8.6-10.3) 01/11/19 06:00 AST 25 U/L (13-39) 01/08/19 05:31 ALT 12 U/L (7-52) 01/08/19 05:31 Assessment and Plan: LUISA on CKD: Cardiorenal vs. Hepatorenal, possibly complicated by Hypotension, ATN!? GN unlikely Plan to place HDC and start HD IV Bumex 2 mg twice a day Same albumin 100 g daily for 2 days Dialysis 1st thing tomorrow Prognosis poor Electrolytes: okay Informed about lab/radiology results & prognosis. All questions were answered. She was made part of the treatment plan. I spoke to her son Ant, who delegated everything to his mother. He decided to let her decide. She agreed for HDC and signed a consent Discussed with Hospitalist
[2019-01-11] MEDS: Lactulose* 15 ML UDC PO SCH ×3 (10:03→22:51)
[2019-01-11] MEDS: Bumetanide TAB* 2 MG PO SCH ×2 (10:03→17:24)
[2019-01-11] MEDS: Cholecalciferol TAB* 1000 UNITS PO SCH (10:03)
[2019-01-11] MEDS: Pregabalin CAP(*) 25 MG PO SCH ×2 (10:03→22:37)
[2019-01-11] MEDS: Pantoprazole TAB * 40 MG TAB PO SCH (10:04)
[2019-01-11] MEDS: Ferrous Sulfate TAB* 325 MG PO SCH ×2 (10:04→22:38)
[2019-01-11] MEDS: Albumin Human 25%* 25 GM/100 ML BTL IV SCH ×4 (10:07→22:21)
[2019-01-11] MEDS: Fluticasone NASAL SPRAY 50MCG* 16 gm SPRAY BTL INTRANASAL SCH (10:25)
[2019-01-11] MEDS ORDERED: Heparin DIALYSIS ONLY(*) 1,000 UNITS/ML VIAL DIALYSIS ONE (12:00)
--- NOTE | 2019-01-11 14:42 | OP ---
Operative Report - Blank - Operative Report Note: Temp. HDC: Consent was obtained, in chart. Patient understands risks, benefits, alternatives and wants to proceed. Coags checked & Ok. Rt IJV was chosen, and patency was checked by US. Procedure indicated for Hemodialysis as patient has no other Access. Following strict hand hygiene and following the standard sterile precautions, and a full sterile attire for myself, including a gown, cap, face mask and a double pair of sterile gloves. The procedure started with 2 ID time out at the bed side. Catheter Insertion Checklist utilized. Patient couldn't tolerate Trendelenburg position. US was used throughout the procedure. Right Neck and Chest were prepped with 2% Chlorhexidine, and the surgical field was surrounded by sterile surgical towels. A sterile full body drape was placed to cover the patient from head to toe. Rt IJ was chosen. Under real time US guidance the Rt IJV was accessed by a 21-G needle, then a 0.018 micro wire was threaded through the 21-G needle into the vein and the 21- G needle was pulled out, leaving the micro wire in, then a 4-Fr sheath and stylet were passed over the micro wire into the vein. Both, the micro wire and the stylet were removed and the 4-Fr sheath was kept in place. Then, a 0.035 J tip wire was passed through the 4-Fr sheath, then the 4-Fr sheath was removed and the 0.035 J tip wire was kept in the vein with pressure over the venotomy site. Then a # 11 Blade scalpel was used to paresh the skin near the venotomy, followed by sequential dilatation of the venotomy using 12 then 14 Fr dilators. Bleeding was controlled by pressure over the dilated venotomy site. Then a temporary Hemodialysis Catheter (Mp) was passed over the 0.035 wire into the vein to the central circulation with excellent return in both Ports. The 0.035 J tip wire was removed, and both ports flushed with saline, checked again for flow and draw and both worked very well then flushed again with saline Caps were applied over both ports. The catheter was secured and tethered in place using 2-0 Nylon sutures. CXR called ordered stat to verify the location of the tip and r/o any complications. Complications: None Estimated Bleeding: <20 cc Will start HD tomorrow, Simone has an agreement with the hospital to do dialysis , only if it is ready before noon: So will start tomorrow.
[2019-01-11] MEDS: Nystatin TOP POWDER* 15 GM BTL TOPICAL SCH ×3 (14:46→22:51)
--- NOTE | 2019-01-11 15:52 | PN ---
Subjective Date of Service: 01/11/19 Interval History: C/o symptomatic SOB to IVANA Stiles this morning, appears related to anxiety. Patient says "I feel like I'm in the twilight zone." SOB improved by time of my evaluation in afternoon. Denies abd pain, chest pain , fever/chills. Objective Active Medications: Acetaminophen (Tylenol Tab*) 650 mg PO Q4H PRN PRN Reason: FEVER/PAIN Last Admin: 01/11/19 14:33 Dose: 650 mg Atorvastatin Calcium (Lipitor*) 40 mg PO BEDTIME [facility] Last Admin: 01/10/19 20:37 Dose: 40 mg Bumetanide (Bumex Tab*) 2 mg PO 0900,1700 [facility] Last Admin: 01/11/19 10:03 Dose: 2 mg Buspirone HCl (Buspar Tab*) 5 mg PO TID PRN PRN Reason: ANXIETY Last Admin: 01/11/19 14:53 Dose: 5 mg Cholecalciferol (Vitamin D Tab*) 1,000 units PO QAM [facility] Last Admin: 01/11/19 10:03 Dose: 1,000 units Diphenhydramine HCl (Benadryl Po*) 25 mg PO BEDTIME PRN PRN Reason: ITCHING Last Admin: 01/09/19 23:50 Dose: 25 mg Diphenhydramine HCl (Benadryl Po*) 25 mg PO Q6H PRN PRN Reason: ITCHING Ferrous Sulfate (Ferrous Sulfate Tab*) 325 mg PO DAILY [facility] Last Admin: 01/11/19 10:04 Dose: 325 mg Fluticasone Propionate (Flonase Nasal [place] 50mcg*) 1 spray INTRANASAL DAILY [facility] Last Admin: 01/11/19 10:25 Dose: 1 spray Albumin Human (Albumin Human 25%*) 25 gm in 100 mls @ 50 mls/hr IV QID [facility] Stop: 01/12/19 10:59 Last Admin: 01/11/19 14:36 Dose: 50 mls/hr Ipratropium [place] (Atrovent 0.5 Mg Neb.Brionna*) 0.5 mg INH [id number] AWAKE PRN PRN Reason: SOB/WHEEZING Lactulose (Lactulose*) 15 ml PO TID [facility] Last Admin: 01/11/19 14:31 Dose: 15 ml Levalbuterol HCl (Xopenex 0.63mg/3ml Neb*) 0.63 mg INH [id number] AWAKE PRN PRN Reason: SOB/WHEEZING Levothyroxine Sodium (Synthroid Tab*) 50 mcg PO 0600 [facility] Last Admin: 01/11/19 06:22 Dose: 50 mcg Metoprolol Tartrate (Lopressor Tab*) 12.5 mg PO Q8HR [facility] Last Admin: 01/11/19 14:37 Dose: 12.5 mg Midodrine (Midodrine) 2.5 mg PO TID [facility]; Protocol Last Admin: 01/11/19 14:31 Dose: 2.5 mg Nystatin (Nystatin Top Powder*) 1 applic TOPICAL TID [facility] Last Admin: 01/11/19 14:46 Dose: Not Given Pantoprazole Sodium (Protonix Tab*) 40 mg PO DAILY [facility] Last Admin: 01/11/19 10:04 Dose: 40 mg Pregabalin (Lyrica Cap(*)) 25 mg PO BID [facility] Last Admin: 01/11/19 10:03 Dose: 25 mg Rifaximin (Xifaxan*) 550 mg PO Q8HR [facility] Last Admin: 01/11/19 14:31 Dose: 550 mg Vital Signs - 8 hr 01/11/19 01/11/19 01/11/19 08:00 10:03 10:30 Temperature 98.2 F Pulse Rate 97 Respiratory 20 20 20 Rate Blood Pressure 117/61 (mmHg) O2 Sat by Pulse 95 Oximetry 01/11/19 01/11/19 01/11/19 10:45 12:07 12:08 Temperature 98.1 F 98 F Pulse Rate 93 102 Respiratory 20 22 22 Rate Blood Pressure 117/50 101/55 (mmHg) O2 Sat by Pulse 93 96 Oximetry 01/11/19 01/11/19 14:35 14:55 Temperature 98.4 F 98.1 F Pulse Rate 96 93 Respiratory 20 20 Rate Blood Pressure 131/70 133/67 (mmHg) O2 Sat by Pulse 94 92 Oximetry Oxygen Devices in Use Now: None Appearance: Obese elderly white female, laying upright in bed, appearing anxious , tearful at times Eyes: No Scleral Icterus, PERRLA Ears/Nose/Mouth/Throat: Mucous Membranes Moist Neck: - - neck with catheter in right IJ Respiratory: Symmetrical Chest Expansion and Respiratory Effort, Clear to Auscultation Cardiovascular: NL Sounds; No Murmurs; No JVD, RRR Abdominal: - - abdomen with +1 pitting edema to lower abdomen; no tenderness to palpation Extremities: No Clubbing, Cyanosis, - - +2 pitting edema pretibially in bilateral LEs Skin: - - skin warm, dry, and intact Neurological: Alert and Oriented x 3 Result Diagrams: 01/10/19 12:10 01/11/19 06:00 Microbiology and Other Data: Microbiology 01/02/19 13:31 Urine Culture - Preliminary Urine Citrobacter Freundii 01/02/19 11:23 Nasal Screen MRSA (PCR) - Final Nasal Mrsa Detected Assess/Plan/Problems-Billing Assessment: 73 yo female with PMHx cirrhosis of unclear etiology, iron deficiency anemia, DMT2, HTN, CKD, atrial fib, cardiomyopathy with EF 60-65% presents with shortness of breath and 15 lbs of weight gain per [facility] staff. - Patient Problems (1) Acute kidney injury superimposed on CKD Current Visit: Yes Status: Acute Code(s): N17.9 - ACUTE KIDNEY FAILURE, UNSPECIFIED; N18.9 - CHRONIC KIDNEY DISEASE, UNSPECIFIED SNOMED Code(s): 11588883 Comment: -Cr continuing to rise -Renal ultrasound without hydronephrosis -Hepatorenal vs cardiorenal, appears more consistent with poor flow related to heart failure -Urine studies for FE urea suggests prerenal cause; pt appears intravascularly dry with persistent edema -Dr. Alvarez with nephrology placed temporary HD catheter to IJ today with plan for dialysis tomorrow. Continuing albumin per nephrology rec -started bumex 2mg IV BID per nephrology rec. No metolazone today due to mild hyponatremia (2) Acute on chronic systolic congestive heart failure Current Visit: No Status: Acute Code(s): I50.23 - ACUTE ON CHRONIC SYSTOLIC (CONGESTIVE) HEART FAILURE SNOMED Code(s): 813126028 Comment: -hx diastolic EF, most recent echo during this hospitalization with EF 55-60% -presented with 15lbs weight gain and shortness of breath. Weight at [facility] 12/15/18 was 263 lbs -pt has chronic dependent edema of lower abdomen and LE edema -started IV bumex BID per cardiology -holding home spironolactone -continue metoprolol -likely HF is contributing to fluid overload causing LUISA (3) Anxiety Current Visit: Yes Status: Acute Code(s): F41.9 - ANXIETY DISORDER, UNSPECIFIED SNOMED Code(s): 05664279 Comment: -starting buspar prn (4) Rash Current Visit: Yes Status: Acute Code(s): R21 - RASH AND OTHER NONSPECIFIC SKIN ERUPTION SNOMED Code(s): 387978069 Comment: -location, symptomatic itch, and erythema appears consistent with cutaneous candidiasis -continue TID nystatin powder (5) Cirrhosis Current Visit: Yes Status: Acute Comment: -no evidence of decompensation -LFTs wnl. INR is increased to 1.57 -chronic thrombocytopenia. Plts around baseline -trace ascites on US -continue home lactulose and rifaximin (6) Atrial fibrillation Current Visit: No Status: Acute Code(s): I48.91 - UNSPECIFIED ATRIAL FIBRILLATION SNOMED Code(s): 80821714 Comment: - Rate controlled - Not on anticoagulation due to history of severe GI bleed - Continue metoprolol (7) Diabetes mellitus Current Visit: No Status: Acute Code(s): E11.9 - TYPE 2 DIABETES MELLITUS WITHOUT COMPLICATIONS SNOMED Code(s): 73779435 Comment: - Diet controlled - Good BG control - A1c 6.2% indicating good control (8) Hypotension Current Visit: No Status: Acute Comment: -Chronic; unknown etiology, possibly liver disease vs heart disease -Continue midodrine (9) Hypothyroidism Current Visit: No Status: Acute Code(s): E03.9 - HYPOTHYROIDISM, UNSPECIFIED SNOMED Code(s): 31590742 Comment: -continue home 50 mcg synthroid (10) Iron deficiency anemia Current Visit: Yes Status: Acute Code(s): D50.9 - IRON DEFICIENCY ANEMIA, UNSPECIFIED SNOMED Code(s): 84147107 Comment: -increasing home iron supplement to TID (11) UTI (urinary tract infection) Current Visit: No Status: Acute Comment: -Resolved -culture demonstrates citrobacter freundii, c&s demonstrates sensitivity to cefepime and resistance to ceftriaxone -Treated with cefepime -no leukocytosis, afebrile, without evidence of sepsis (12) DVT prophylaxis Current Visit: No Status: Acute Code(s): XCK2302 - SNOMED Code(s): 885585192 Comment: - SCDs d/t thrombocytopenia and history of severe GI bleed (13) Full code status Current Visit: No Status: Acute Code(s): Z78.9 - OTHER SPECIFIED HEALTH STATUS SNOMED Code(s): 482992922 Comment: Status and Disposition: Inpatient, requiring dialysis tomorrow. Will likely return to [facility] at discharge.
--- NOTE | 2019-01-11 16:03 | CONSULT ---
Subjective Date of Service: 01/11/19 Interval History: Ms. Latham is a 73 yo female with PMH significant for MAURI, DM2, HTN, morbid obesity, CKD, HF, osteoarthritis, cardiomyopathy, A fib, lymphedema, and chronic venous stasis ulcers; who presented to the hospital with complaints of shortness of breath and ABD swelling. Presented to the hospital with bilateral LE ulcers. She was last seen by Dr. Whitfield (wound care provider) at [facility] on 12/14/18 for venous stasis wound on bilateral LEs. At that point she is documented to have healed wounds on her left medial cordova and no other wounds documented. Previously the wound was being treated with calcium alginate and rolled gauze. She has been following intermittently with the wound care provider since June 2018. Patient seen and examined at bedside. Family History: Unchanged from Admission Social History: Unchanged from Admission Past Medical History: Unchanged from Admission Review of Systems - Measurements Intake and Output: Intake and Output Last 24 Hours 01/09/19 01/10/19 01/11/19 01/12/19 06:59 06:59 06:59 06:59 Intake Total 1804 1340 1114 225 Output Total 900 550 275 200 Balance 904 790 839 25 Weight 277 lb 1.6 oz 284 lb 9.6 oz 299 lb Intake: IV Fluids 40 350 25 Albumin 25 NS (0.9%) 40 350 IVPB 65 74 100 ABX - CEFEPIME 65 Albumin 74 100 Oral 4321 777 5790 100 Albumin 279 Output: Urine 900 150 75 Garcia 200 200 Liquid Stool 400 Other: Estimated Void Medium Medium Large Date of Last Bowel [id number] Movement # Bowel Movements 0 1 1 Estimated Stool Amount Small Small # Voids 1 0 1 - Review of Systems Constitutional Symptoms: Negative: Fever, Other - Chills Dermatology: Positive: Other - Wounds to bilateral Legs Endocrinology: Positive: Diabetes Mellitus Objective Active Medications: Acetaminophen (Tylenol Tab*) 650 mg PO Q4H PRN Reason: FEVER/PAIN Atorvastatin Calcium (Lipitor*) 40 mg PO BEDTIME [facility] Bumetanide (Bumex Tab*) 2 mg PO 0900,1700 [facility] Buspirone HCl (Buspar Tab*) 5 mg PO TID PRN Reason: ANXIETY Cholecalciferol (Vitamin D Tab*) 1,000 units PO QAM [facility] Diphenhydramine HCl (Benadryl Po*) 25 mg PO BEDTIME PRN Reason: ITCHING Diphenhydramine HCl (Benadryl Po*) 25 mg PO Q6H PRN Reason: ITCHING Ferrous Sulfate (Ferrous Sulfate Tab*) 325 mg PO DAILY [facility] Fluticasone Propionate (Flonase Nasal [place] 50mcg*) 1 spray INTRANASAL DAILY [facility] Albumin Human (Albumin Human 25%*) 25 gm in 100 mls @ 50 mls/hr IV QID [facility] Stop: 01/12/19 10:59 Ipratropium [place] (Atrovent 0.5 Mg Neb.Brionna*) 0.5 mg INH [id number] AWAKE PRN Reason: SOB/WHEEZING Lactulose (Lactulose*) 15 ml PO TID [facility] Levalbuterol HCl (Xopenex 0.63mg/3ml Neb*) 0.63 mg INH [id number] AWAKE PRN Reason: SOB/WHEEZING Levothyroxine Sodium (Synthroid Tab*) 50 mcg PO 0600 [facility] Metoprolol Tartrate (Lopressor Tab*) 12.5 mg PO Q8HR [facility] Midodrine (Midodrine) 2.5 mg PO TID [facility]; Protocol Nystatin (Nystatin Top Powder*) 1 applic TOPICAL TID [facility] Pantoprazole Sodium (Protonix Tab*) 40 mg PO DAILY [facility] Pregabalin (Lyrica Cap(*)) 25 mg PO BID [facility] Rifaximin (Xifaxan*) 550 mg PO Q8HR [facility] Vital Signs 01/11/19 01/11/19 14:35 14:55 Temperature 98.4 F 98.1 F Pulse Rate 96 93 Respiratory 20 20 Rate Blood Pressure 131/70 133/67 (mmHg) O2 Sat by Pulse 94 92 Oximetry Oxygen Devices in Use Now: None Appearance: NAD, laying in bed Ears/Nose/Mouth/Throat: Mucous Membranes Moist Respiratory: Symmetrical Chest Expansion and Respiratory Effort Skin: - - see skin note below Neurological: Alert and Oriented x 3 Result Diagrams: 01/24/19 05:14 01/24/19 05:14 Additional Lab and Data: Above labs were pulled into the note, when the note was edited prior to signing the note. Please see labs from day of consultation below. Laboratory Tests 01/10/19 01/11/19 12:10 06:00 WBC 4.6 Hgb 8.5 L Hct 25 L Plt Count 67 L Sodium 134 L Potassium 4.5 Chloride 101 Carbon Dioxide 19 L BUN 102 H Creatinine 3.44 H Glucose 94 Skin Deviation Note - Skin Deviation Findings Left medial lower leg - There are several superficial wounds present. There is a scabbed area near the ankle, measures 0.7 cm x 0.8 cm x 0.1 cm. The wound that is proximal to the 1st and more posterior, measures 1.2 cm x 0.6 cm x 0.1 cm. The periwound is macerated. There is a wound posterior to this wound (not well visualized in the picture), measures 1.1 cm x 0.5 cm x 0.1 cm. The wound base is pink granulation tissue. The next proximal wound on the medial aspect of the leg, measures 0.7 cm x 0.8 cm x 0.1 cm. The wound bed is pink granulation tissue. The periwound is macerates, this measures 2.6 cm x 2 cm. The most proximal wound that is more posterior, measures 0.6 cm x 0.4 cm x 0.1 cm. The wound base is pink granulation tissue. The surrounding skin is intact, no drainage noted. Right medial lower leg - There are 2 wounds. The proximal wound measures 1.4 cm x 0.6 cm x 0.1 cm. The wound base is red granulation tissue, and the periwound is macerated. The surrounding skin is intact, no erythema and no drainage noted. The distal wound measures 2.5 cm x 1.5 cm x 0.1 cm. THe wound base is red granulation tissue and the periwound is macerated. The surrounding skin is intact, no erythema, or drainage noted. Right lateral lower leg - There is a superficial wound, the open area measures 2 cm x 1 cm x 0.1, with an area of white macerated tissue below that measures 2 cm x 1 cm. The wound base is pink, with macerated skin in the periwound, the surrounding skin is intact. There is no drainage noted at this time. Right second toe - There is an ulcer, measures 0.8 cm x 1.2 cm x 0.2 cm. The wound was covered by eschar that was removed with the wound was probed, this reveled a red granulation tissue in the wound base. The surrounding skin is intact. Small amount of purulent drainage and serosang drainage noted. Right upper arm - Skin tear with loss of skin flap, measures 3 cm x 2 cm x 0.1 cm. The wound base is red granulation tissue with a small amount of yellow slough. The surrounding skin is intact. Wound Problem/Plan Assessment: Ms. Latham is a 73 yo female with PMH significant for MAURI, DM2, HTN, morbid obesity, CKD, HF, osteoarthritis, cardiomyopathy, A fib, lymphedema, and chronic venous stasis ulcers; who presented to the hospital with complaints of shortness of breath and ABD swelling. Presented to the hospital with bilateral LE ulcers. 1. Bilateral LE venous stasis ulcers. Suspect there is also a component of lymphedema. Recommend applying calcium alginate to the open areas, followed by rolled gauze, change every other day or as needed for drainage. Keep legs elevated to help with edema management. Recommend checking ABIs, unable to palpate DP pulses (this may be due to edema, as they were previously documented as palpable at [facility]), should not use compression on the legs without ABIs. 2. Left heel pain. There is no ulcer or erythema to the heel. The heel is noted to be boggy. Recommend keeping heels elevated off the bed and monitor for skin breakdown. 3. Right upper arm skin tear. Recommend applying opifoam and change every 3 days. Discontinue dressing once the wound has healed. 4. Right 2nd toe ulcer, non pressure, suspect a diabetic ulcer. Unclear how long this has been present. There was purulent drainage noted and wound culture was obtained. The wound unroofed when obtaining the culture. Recommend applying calcium alginate and dry dressing (either wrap with rolled gauze or use a bandaid), change every other day. As above recommend ABIs. If this wound persists and doesn't heal, consider MRI to eval for osteomyelitis. 5. Diet. Consistent carbohydrate, sodium restriction, and 1.5L fluid restriction. 6. Code Status. Full Code Status. 7. Disposition. Inpatient, disposition per primary medicine team. Is Patient a Wound Clinic Patient: No Attending: Diana Warren
[2019-01-11 20:12] LABS: Lambda Free Light Chain 13.2 mg/dL
[2019-01-11 21:33] LABS: Hepatitis B Surface Ab Not Immune (Immune)
[2019-01-11 21:42] LABS: Hepatitis C Antibody Reactive (Negative)
[2019-01-11] MEDS: Atorvastatin* 40 MG TAB PO SCH (22:51)
[2019-01-12] MEDS: Acetaminophen TAB* 325 MG PO PRN ×3 (00:56→22:19)
[2019-01-12] MEDS: RiFAXimin* 550 MG TAB PO SCH ×3 (05:30→22:18)
[2019-01-12] MEDS: Levothyroxine TAB* 50 MCG TAB PO SCH (05:30)
[2019-01-12] MEDS: Metoprolol Tartrate TAB* 25 MG PO SCH ×3 (05:31→22:19)
[2019-01-12] MEDS: Albumin Human 25%* 25 GM/100 ML BTL IV SCH (08:14)
[2019-01-12] MEDS: Nystatin TOP POWDER* 15 GM BTL TOPICAL SCH ×2 (08:20→13:55)
[2019-01-12] MEDS: Fluticasone NASAL SPRAY 50MCG* 16 gm SPRAY BTL INTRANASAL SCH (08:20)
[2019-01-12] MEDS: Cholecalciferol TAB* 1000 UNITS PO SCH (08:21)
[2019-01-12] MEDS: Pregabalin CAP(*) 25 MG PO SCH ×2 (08:21→22:18)
[2019-01-12] MEDS: Bumetanide TAB* 2 MG PO SCH (08:21)
[2019-01-12] MEDS: Ferrous Sulfate TAB* 325 MG PO SCH ×3 (08:21→22:18)
[2019-01-12] MEDS: Lactulose* 15 ML UDC PO SCH ×3 (08:21→22:20)
[2019-01-12] MEDS: Pantoprazole TAB * 40 MG TAB PO SCH (08:21)
[2019-01-12 08:43] LABS: Hepatitis B Surface Antigen Nonreactive (Nonreactive)
--- NOTE | 2019-01-12 09:36 | PN ---
Progress Note - Progress Note Date of Service: 01/12/19 Note: Inpatient Nephrology FU Note/Acute Hemodialysis Note Dr. Javier Alvarez. SCHEDULE CHECKER Nephrology Progressive LUISA & Fluid Overload Renal u/s no HN HCV-Ab +ve, could be Chronic HCV Liver disease vs. Cardiac Cirrhosis. LUISA, Fluid overload & Hypotension: Hepatorenal vs. Cardiorenal. s/p Rt IJ Temp. HDC yesterday Plan for HD today On IV Bumex & Albumin. No metolazone in view of Hypo-Na sCr trend (1.3-1.4)(2017)---->(1.5)(-07/2018)--->(142/1.82)(09/2018)---->(2.1) (12/20/2018) BUN/sCr last few days 96/2.95--->100/3.1--->100/3.2--->102/3.44. Today n/a labs Clinically SOB, massive LE edema and abdominal wall edema Active Medications: Acetaminophen (Tylenol Tab*) 650 mg PO Q4H PRN PRN Reason: FEVER/PAIN Last Admin: 01/12/19 05:30 Dose: 650 mg Atorvastatin Calcium (Lipitor*) 40 mg PO BEDTIME [facility] Last Admin: 01/11/19 22:51 Dose: 40 mg Bumetanide (Bumex Tab*) 2 mg PO 0900,1700 [facility] Last Admin: 01/12/19 08:21 Dose: 2 mg Buspirone HCl (Buspar Tab*) 5 mg PO TID PRN PRN Reason: ANXIETY Last Admin: 01/11/19 22:37 Dose: 5 mg Cholecalciferol (Vitamin D Tab*) 1,000 units PO QAM [facility] Last Admin: 01/12/19 08:21 Dose: 1,000 units Diphenhydramine HCl (Benadryl Po*) 25 mg PO Q6H PRN PRN Reason: ITCHING Ferrous Sulfate (Ferrous Sulfate Tab*) 325 mg PO TID [facility] Last Admin: 01/12/19 08:21 Dose: 325 mg Fluticasone Propionate (Flonase Nasal [place] 50mcg*) 1 spray INTRANASAL DAILY [facility] Last Admin: 01/12/19 08:20 Dose: 1 spray Albumin Human (Albumin Human 25%*) 25 gm in 100 mls @ 50 mls/hr IV QID [facility] Stop: 01/12/19 10:59 Last Admin: 01/12/19 08:14 Dose: 50 mls/hr Ipratropium [place] (Atrovent 0.5 Mg Neb.Brionna*) 0.5 mg INH [id number] AWAKE PRN PRN Reason: SOB/WHEEZING Lactulose (Lactulose*) 15 ml PO TID [facility] Last Admin: 01/12/19 08:21 Dose: Not Given Levalbuterol HCl (Xopenex 0.63mg/3ml Neb*) 0.63 mg INH [id number] AWAKE PRN PRN Reason: SOB/WHEEZING Levothyroxine Sodium (Synthroid Tab*) 50 mcg PO 0600 [facility] Last Admin: 01/12/19 05:30 Dose: 50 mcg Metoprolol Tartrate (Lopressor Tab*) 12.5 mg PO Q8HR [facility] Last Admin: 01/12/19 05:31 Dose: Not Given Midodrine (Midodrine) 2.5 mg PO TID [facility]; Protocol Last Admin: 01/12/19 08:22 Dose: 2.5 mg Nystatin (Nystatin Top Powder*) 1 applic TOPICAL TID [facility] Last Admin: 01/12/19 08:20 Dose: 1 applic Pantoprazole Sodium (Protonix Tab*) 40 mg PO DAILY [facility] Last Admin: 01/12/19 08:21 Dose: 40 mg Pregabalin (Lyrica Cap(*)) 25 mg PO BID [facility] Last Admin: 01/12/19 08:21 Dose: 25 mg Rifaximin (Xifaxan*) 550 mg PO Q8HR [facility] Last Admin: 01/12/19 05:30 Dose: 550 mg Objective: .Vital Signs: Temp Pulse Resp BP Pulse Ox 97 F 73 18 120/53 94 01/12/19 07:26 01/12/19 07:26 01/12/19 08:21 01/12/19 07:26 01/12/19 07:26 .Heart: AFib +++ LE Edema No Rub .Lungs: Bilateral crackles .Extremities: No amputations ++ LE edema Assessment and Plan: Progressive LUISA on CKD Cardiorenal vs. Hepatorenal HD today for short Rx for 2 Hr: QB 200 & QD 400. 2K Bath & Heparin free. UF Goal 1-2 L BP permitting Plan HD again tomorrow. Same IV Bumex & albumin [place] CMP advised Prognosis poor
[2019-01-12] MEDS ORDERED: Heparin DIALYSIS ONLY(*) 1,000 UNITS/ML VIAL DIALYSIS ONE (11:30)
[2019-01-12 11:33] LABS: Albumin 4.6 g/dL (3.2-5.2); Albumin/Globulin Ratio 1.3 (1-3); BUN/Creatinine Ratio 26.5 (8-20); Calcium 9.1 mg/dL (8.6-10.3); EGFR African American 13.7 (>60); EGFR Non-African American 11.3 (>60); Globulin 3.6 g/dL (2-4); Potassium 4.5 mmol/L (3.5-5.0); Total Protein 8.2 g/dL (6.4-8.9)
[2019-01-12 16:19] LABS: Albumin 3.6 g/dL (3.4-4.7); Albumin/Globulin Ratio 0.81; Gamma Globulin 2.7 g/dL (0.6-1.6)
--- NOTE | 2019-01-12 18:51 | PN ---
Subjective Date of Service: 01/12/19 Interval History: Patient was complaining of lower extremity pain in the morning to RN, but later resolved without pain medication. RN Fernandez tells me that patient was visibly anxious earlier today. This has subsided by time of my evaluation. Patient tells me she is worried about needing more dialysis, but was comforted by the fact that the dialysis team told her she did a good job. She denies difficulty breathing, chest pain, abd pain, fever/chills. Family History: Unchanged from Admission Social History: Unchanged from Admission Past Medical History: Unchanged from Admission Objective Active Medications: Acetaminophen (Tylenol Tab*) 650 mg PO Q4H PRN PRN Reason: FEVER/PAIN Last Admin: 01/12/19 05:30 Dose: 650 mg Atorvastatin Calcium (Lipitor*) 40 mg PO BEDTIME [facility] Last Admin: 01/11/19 22:51 Dose: 40 mg Buspirone HCl (Buspar Tab*) 5 mg PO TID PRN PRN Reason: ANXIETY Last Admin: 01/11/19 22:37 Dose: 5 mg Cholecalciferol (Vitamin D Tab*) 1,000 units PO QAM [facility] Last Admin: 01/12/19 08:21 Dose: 1,000 units Diphenhydramine HCl (Benadryl Po*) 25 mg PO Q6H PRN PRN Reason: ITCHING Ferrous Sulfate (Ferrous Sulfate Tab*) 325 mg PO TID [facility] Last Admin: 01/12/19 13:53 Dose: 325 mg Fluticasone Propionate (Flonase Nasal [place] 50mcg*) 1 spray INTRANASAL DAILY [facility] Last Admin: 01/12/19 08:20 Dose: 1 spray Ipratropium [place] (Atrovent 0.5 Mg Neb.Brionna*) 0.5 mg INH [id number] AWAKE PRN PRN Reason: SOB/WHEEZING Lactulose (Lactulose*) 15 ml PO TID [facility] Last Admin: 01/12/19 13:32 Dose: Not Given Levalbuterol HCl (Xopenex 0.63mg/3ml Neb*) 0.63 mg INH [id number] AWAKE PRN PRN Reason: SOB/WHEEZING Levothyroxine Sodium (Synthroid Tab*) 50 mcg PO 0600 [facility] Last Admin: 01/12/19 05:30 Dose: 50 mcg Metoprolol Tartrate (Lopressor Tab*) 12.5 mg PO Q8HR [facility] Last Admin: 01/12/19 13:54 Dose: 12.5 mg Midodrine (Midodrine) 2.5 mg PO TID [facility]; Protocol Last Admin: 01/12/19 13:53 Dose: 2.5 mg Nystatin (Nystatin Top Powder*) 1 applic TOPICAL TID [facility] Last Admin: 01/12/19 13:55 Dose: 1 applic Pantoprazole Sodium (Protonix Tab*) 40 mg PO DAILY [facility] Last Admin: 01/12/19 08:21 Dose: 40 mg Pregabalin (Lyrica Cap(*)) 25 mg PO BID [facility] Last Admin: 01/12/19 08:21 Dose: 25 mg Rifaximin (Xifaxan*) 550 mg PO Q8HR [facility] Last Admin: 01/12/19 13:53 Dose: 550 mg Vital Signs - 8 hr 01/12/19 01/12/19 14:06 15:39 Temperature 97.6 F 97.9 F Pulse Rate 89 93 Respiratory 20 20 Rate Blood Pressure 121/71 113/63 (mmHg) O2 Sat by Pulse 94 92 Oximetry Oxygen Devices in Use Now: None Appearance: Obese, elderly white female, laying upright in bed, appearing in NAD Eyes: No Scleral Icterus, PERRLA Ears/Nose/Mouth/Throat: Mucous Membranes Moist Neck: - - right IJ temp cath in place, surrounding ecchymosis Respiratory: Symmetrical Chest Expansion and Respiratory Effort, Clear to Auscultation Cardiovascular: NL Sounds; No Murmurs; No JVD, RRR Abdominal: - - abd soft, nontender, nondistended; significantly decreased edema to lower abdomen Extremities: No Clubbing, Cyanosis, - - trace edema to left lower extremity pedally; +1 pitting edema right LE pretibially Skin: - - skin warm and dry Neurological: Alert and Oriented x 3 Result Diagrams: 01/10/19 12:10 01/12/19 11:00 Additional Lab and Data: Above BMP was pulled into the note, when the note was edited prior to signing the note. Please see BMP from day of consultation below. Laboratory Tests 01/08/19 01/10/19 05:31 12:10 Sodium 133 L Potassium 3.8 Chloride 98 L Carbon Dioxide 23 BUN 100 H Creatinine 3.20 H Glucose 109 H Total Protein 7.6 Albumin 3.2 Microbiology and Other Data: Microbiology 01/02/19 13:31 Urine Culture - Preliminary Urine Citrobacter Freundii 01/02/19 11:23 Nasal Screen MRSA (PCR) - Final Nasal Mrsa Detected Assess/Plan/Problems-Billing Assessment: 73 yo female with PMHx cirrhosis of unclear etiology, iron deficiency anemia, DMT2, HTN, CKD, atrial fib, cardiomyopathy with EF 60-65% presents with shortness of breath and 15 lbs of weight gain per [facility] staff. - Patient Problems (1) Acute kidney injury superimposed on CKD Current Visit: Yes Status: Acute Code(s): N17.9 - ACUTE KIDNEY FAILURE, UNSPECIFIED; N18.9 - CHRONIC KIDNEY DISEASE, UNSPECIFIED SNOMED Code(s): 19292751 Comment: -Cr continuing to rise -Dialysis today, Dr. Alvarez plans for additional dialysis tomorrow -albumin discontinued, discontinuing bumex per Dr. Alvarez's rec -Renal ultrasound without hydronephrosis -Hepatorenal vs cardiorenal, appears more consistent with poor flow related to heart failure however etiology unclear; hepatorenal syndrome is on the differential -appreciate nephrology consult (2) Acute on chronic systolic congestive heart failure Current Visit: No Status: Acute Code(s): I50.23 - ACUTE ON CHRONIC SYSTOLIC (CONGESTIVE) HEART FAILURE SNOMED Code(s): 568903859 Comment: -hx diastolic EF, most recent echo during this hospitalization with EF 55-60% -presented with 15lbs weight gain and shortness of breath. Weight at [facility] 12/15/18 was 263 lbs -pt has chronic dependent edema of lower abdomen and LE edema -started IV bumex BID per cardiology -holding home spironolactone -continue metoprolol (3) Anxiety Current Visit: Yes Status: Acute Code(s): F41.9 - ANXIETY DISORDER, UNSPECIFIED SNOMED Code(s): 04856255 Comment: -continue buspar prn, started during this hospitalization (4) Rash Current Visit: Yes Status: Acute Code(s): R21 - RASH AND OTHER NONSPECIFIC SKIN ERUPTION SNOMED Code(s): 310839250 Comment: -location, symptomatic itch, and erythema appears consistent with cutaneous candidiasis -continue TID nystatin powder (5) Cirrhosis Current Visit: Yes Status: Acute Comment: -presumed secondary to CANALES based on GI consult in previously hospitalization, though hepC screen is positive. Pending PCR -no evidence of decompensation -LFTs wnl. INR is increased to 1.57 -chronic thrombocytopenia. Plts around baseline -trace ascites on US -continue home lactulose and rifaximin (6) Atrial fibrillation Current Visit: No Status: Acute Code(s): I48.91 - UNSPECIFIED ATRIAL FIBRILLATION SNOMED Code(s): 25898975 Comment: - Rate controlled - Not on anticoagulation due to history of severe GI bleed - Continue metoprolol (7) Diabetes mellitus Current Visit: No Status: Acute Code(s): E11.9 - TYPE 2 DIABETES MELLITUS WITHOUT COMPLICATIONS SNOMED Code(s): 45314759 Comment: - Diet controlled - Good BG control - A1c 6.2% indicating good control (8) Hypotension Current Visit: No Status: Acute Comment: -Chronic; unknown etiology, possibly liver disease vs heart disease -Continue midodrine (9) Hypothyroidism Current Visit: No Status: Acute Code(s): E03.9 - HYPOTHYROIDISM, UNSPECIFIED SNOMED Code(s): 46008430 Comment: -continue home 50 mcg synthroid (10) Iron deficiency anemia Current Visit: Yes Status: Acute Code(s): D50.9 - IRON DEFICIENCY ANEMIA, UNSPECIFIED SNOMED Code(s): 84560377 Comment: -increasing home iron supplement to TID (11) UTI (urinary tract infection) Current Visit: No Status: Acute Comment: -Resolved -culture demonstrates citrobacter freundii, c&s demonstrates sensitivity to cefepime and resistance to ceftriaxone -Treated with cefepime -no leukocytosis, afebrile, without evidence of sepsis (12) DVT prophylaxis Current Visit: No Status: Acute Code(s): JXH6512 - SNOMED Code(s): 144257746 Comment: - SCDs d/t thrombocytopenia and history of severe GI bleed (13) Full code status Current Visit: No Status: Acute Code(s): Z78.9 - OTHER SPECIFIED HEALTH STATUS SNOMED Code(s): 985388391 Comment: Status and Disposition: Inpatient requiring further dialysis. Will likely return to [facility] at discharge.
[2019-01-12] MEDS: Atorvastatin* 40 MG TAB PO SCH (22:18)
[2019-01-13] MEDS: Nystatin TOP POWDER* 15 GM BTL TOPICAL SCH ×4 (00:46→21:06)
[2019-01-13] MEDS: busPIRone TAB* 5 MG PO PRN ×2 (00:57→10:16)
[2019-01-13] MEDS: RiFAXimin* 550 MG TAB PO SCH ×3 (06:03→20:39)
[2019-01-13] MEDS: Levothyroxine TAB* 50 MCG TAB PO SCH (06:03)
[2019-01-13] MEDS: Metoprolol Tartrate TAB* 25 MG PO SCH ×3 (06:03→21:06)
--- NOTE | 2019-01-13 09:08 | PN ---
Progress Note - Progress Note Date of Service: 01/13/19 Note: Acute Hemodialysis Note Dr. Javier Alvarez. [facility] Nephrology Progressive LUISA & Fluid Overload. Started HD yesterday HCV-Ab +ve. HCV PCR pending Tolerated HD well with 1L UF Rt IJ Temp. HDC s/p ecchymosis around the catheter site. She's coagulopathic Plan for HD today, ramp up treatment gradually to 3 hours, goal UF 2 L Off IV Bumex & Albumin. sCr peaked yesterday before dialysis 3.9 Denied significant clinical improvement, still massively edematous & fluid overload Active Medications: Acetaminophen (Tylenol Tab*) 650 mg PO Q4H PRN PRN Reason: FEVER/PAIN Last Admin: 01/12/19 22:19 Dose: 650 mg Atorvastatin Calcium (Lipitor*) 40 mg PO BEDTIME [facility] Last Admin: 01/12/19 22:18 Dose: 40 mg Buspirone HCl (Buspar Tab*) 5 mg PO TID PRN PRN Reason: ANXIETY Last Admin: 01/13/19 00:57 Dose: 5 mg Cholecalciferol (Vitamin D Tab*) 1,000 units PO QAM [facility] Last Admin: 01/12/19 08:21 Dose: 1,000 units Diphenhydramine HCl (Benadryl Po*) 25 mg PO Q6H PRN PRN Reason: ITCHING Ferrous Sulfate (Ferrous Sulfate Tab*) 325 mg PO TID [facility] Last Admin: 01/12/19 22:18 Dose: 325 mg Fluticasone Propionate (Flonase Nasal [place] 50mcg*) 1 spray INTRANASAL DAILY [facility] Last Admin: 01/12/19 08:20 Dose: 1 spray Ipratropium [place] (Atrovent 0.5 Mg Neb.Brionna*) 0.5 mg INH [id number] AWAKE PRN PRN Reason: SOB/WHEEZING Lactulose (Lactulose*) 15 ml PO TID [facility] Last Admin: 01/12/19 22:20 Dose: Not Given Levalbuterol HCl (Xopenex 0.63mg/3ml Neb*) 0.63 mg INH [id number] AWAKE PRN PRN Reason: SOB/WHEEZING Levothyroxine Sodium (Synthroid Tab*) 50 mcg PO 0600 [facility] Last Admin: 01/13/19 06:03 Dose: 50 mcg Metoprolol Tartrate (Lopressor Tab*) 12.5 mg PO Q8HR [facility] Last Admin: 01/13/19 06:03 Dose: 12.5 mg Midodrine (Midodrine) 2.5 mg PO TID [facility]; Protocol Last Admin: 01/12/19 22:20 Dose: 2.5 mg Nystatin (Nystatin Top Powder*) 1 applic TOPICAL TID [facility] Last Admin: 01/13/19 00:46 Dose: 1 applic Pantoprazole Sodium (Protonix Tab*) 40 mg PO DAILY [facility] Last Admin: 01/12/19 08:21 Dose: 40 mg Pregabalin (Lyrica Cap(*)) 25 mg PO BID [facility] Last Admin: 01/12/19 22:18 Dose: 25 mg Rifaximin (Xifaxan*) 550 mg PO Q8HR [facility] Last Admin: 01/13/19 06:03 Dose: 550 mg Objective: .Vital Signs: Temp Pulse Resp BP Pulse Ox 97.7 F 75 20 118/49 96 01/13/19 03:40 01/13/19 03:40 01/13/19 03:40 01/13/19 03:40 01/13/19 03:40 .Meck: Rt IJ temporary HD catheter & ecchymosis on Rt half of the neck, Rt upper back & Rt upper chest .Heart: AFib +++ LE Edema No Rub .Lungs: Bilateral crackles .Extremities: No amputations ++ LE edema Labs from yesterday: Sodium 134 mmol/L (135-145) L 01/12/19 11:00 Potassium 4.5 mmol/L (3.5-5.0) 01/12/19 11:00 BUN 103 mg/dL (6-24) H 01/12/19 11:00 Creatinine 3.89 mg/dL (0.51-0.95) H 01/12/19 11:00 Hemoglobin A1c 6.2 % (4.0-5.6) H 01/04/19 06:18 Calcium 9.1 mg/dL (8.6-10.3) 01/12/19 11:00 AST 19 U/L (13-39) 01/12/19 11:00 ALT 9 U/L (7-52) 01/12/19 11:00 Assessment and Plan: HD today second treatment for 3 Hr: QB 300/QD 600. 2K Bath & Heparin free. Check INR rule out worsening coagulopathy UF Goal today 2 L BP permitting Prognosis poor Plan to give the patient 1week to 10 days worth of HD & reassess for renal recovery and overall condition
[2019-01-13 09:23] LABS: BUN/Creatinine Ratio 22.5 (8-20); Calcium 9.3 mg/dL (8.6-10.3); EGFR African American 15.7 (>60); EGFR Non-African American 12.9 (>60); Potassium 4.2 mmol/L (3.5-5.0)
[2019-01-13 09:47] LABS: INR 1.69 (0.82-1.09)
[2019-01-13] MEDS ORDERED: Heparin DIALYSIS ONLY(*) 1,000 UNITS/ML VIAL DIALYSIS ONE (10:00)
[2019-01-13] MEDS: Pregabalin CAP(*) 25 MG PO SCH ×2 (10:15→20:39)
[2019-01-13] MEDS: Fluticasone NASAL SPRAY 50MCG* 16 gm SPRAY BTL INTRANASAL SCH (10:15)
[2019-01-13] MEDS: Cholecalciferol TAB* 1000 UNITS PO SCH (10:16)
[2019-01-13] MEDS: diPHENhydraMINE PO* 25 MG PO PRN (10:16)
[2019-01-13] MEDS: Lactulose* 15 ML UDC PO SCH ×4 (10:17→20:38)
[2019-01-13] MEDS: Ferrous Sulfate TAB* 325 MG PO SCH ×3 (10:17→20:38)
[2019-01-13] MEDS: Pantoprazole TAB * 40 MG TAB PO SCH (10:29)
[2019-01-13 11:16] LABS: ABS Eosinophils 0.2 10^3/ul (0-0.6); ABS Lymphocytes 0.4 10^3/ul (1.0-4.8); ABS Monocytes 0.5 10^3/ul (0-0.8); ABS Neutrophils 3.6 10^3/ul (1.5-7.7); ABS Nucleated RBC 0.1 10^3/ul; Eosinophil % 4.8 %; Hematocrit 24 % (35-47); Hemoglobin 8.1 g/dL (12.0-16.0); Lymphocyte % 8.9 %; Mean Corpuscular HGB Conc 34 g/dL (31-36); Mean Corpuscular Hemoglobin 33 pg (27-31); Mean Corpuscular Volume 98 fL (80-97); Mean Platelet Volume 8.5 fL (7.4-10.4); Nucleated Red Blood Cells % 1.2; Platelet Count 65 10^3/uL (150-450); Red Blood Count 2.44 10^6 /uL (3.70-4.87); Red Cell Distribution Width 17 % (10-15); White Blood Count 4.8 10^3/uL (3.5-10.8)
--- NOTE | 2019-01-13 13:22 | PN ---
Subjective Date of Service: 01/13/19 Interval History: Patient tells me her breathing feels uncomfortable. She is observed coughing while eating her lunch. She tells me this does not normally happen. Denies fever /chills, chest pain, abd pain. Tells me her bilateral heels hurt. Family History: Unchanged from Admission Social History: Unchanged from Admission Past Medical History: Unchanged from Admission Objective Active Medications: Acetaminophen (Tylenol Tab*) 650 mg PO Q4H PRN PRN Reason: FEVER/PAIN Last Admin: 01/12/19 22:19 Dose: 650 mg Atorvastatin Calcium (Lipitor*) 40 mg PO BEDTIME [facility] Last Admin: 01/12/19 22:18 Dose: 40 mg Buspirone HCl (Buspar Tab*) 5 mg PO TID PRN PRN Reason: ANXIETY Last Admin: 01/13/19 10:16 Dose: 5 mg Cholecalciferol (Vitamin D Tab*) 1,000 units PO QAM [facility] Last Admin: 01/13/19 10:16 Dose: 1,000 units Diphenhydramine HCl (Benadryl Po*) 25 mg PO Q6H PRN PRN Reason: ITCHING Last Admin: 01/13/19 10:16 Dose: 25 mg Ferrous Sulfate (Ferrous Sulfate Tab*) 325 mg PO TID [facility] Last Admin: 01/13/19 10:17 Dose: 325 mg Fluticasone Propionate (Flonase Nasal [place] 50mcg*) 1 spray INTRANASAL DAILY [facility] Last Admin: 01/13/19 10:15 Dose: 1 spray Ipratropium [place] (Atrovent 0.5 Mg Neb.Brionna*) 0.5 mg INH [id number] AWAKE PRN PRN Reason: SOB/WHEEZING Lactulose (Lactulose*) 15 ml PO TID [facility] Last Admin: 01/13/19 10:27 Dose: Not Given Levalbuterol HCl (Xopenex 0.63mg/3ml Neb*) 0.63 mg INH [id number] AWAKE PRN PRN Reason: SOB/WHEEZING Levothyroxine Sodium (Synthroid Tab*) 50 mcg PO 0600 [facility] Last Admin: 01/13/19 06:03 Dose: 50 mcg Metoprolol Tartrate (Lopressor Tab*) 12.5 mg PO Q8HR [facility] Last Admin: 01/13/19 06:03 Dose: 12.5 mg Midodrine (Midodrine) 2.5 mg PO TID [facility]; Protocol Last Admin: 01/13/19 10:16 Dose: 2.5 mg Nystatin (Nystatin Top Powder*) 1 applic TOPICAL TID [facility] Last Admin: 01/13/19 10:27 Dose: Not Given Pantoprazole Sodium (Protonix Tab*) 40 mg PO DAILY [facility] Last Admin: 01/13/19 10:29 Dose: 40 mg Pregabalin (Lyrica Cap(*)) 25 mg PO BID [facility] Last Admin: 01/13/19 10:15 Dose: 25 mg Rifaximin (Xifaxan*) 550 mg PO Q8HR [facility] Last Admin: 01/13/19 06:03 Dose: 550 mg Vital Signs - 8 hr 01/13/19 01/13/19 01/13/19 07:00 10:15 10:16 Temperature 98.8 F Pulse Rate 90 Respiratory 20 20 20 Rate Blood Pressure 145/65 (mmHg) O2 Sat by Pulse 94 Oximetry Oxygen Devices in Use Now: None Appearance: Obese, elderly white female, laying upright in bed, in NAD, coughing at times Eyes: No Scleral Icterus, PERRLA Neck: - - temp cath in right IJ with surrounding ecchymosis Respiratory: Symmetrical Chest Expansion and Respiratory Effort, - - faint inspiratory wheezing Cardiovascular: NL Sounds; No Murmurs; No JVD, RRR Abdominal: - - abd soft, nontender, nondistended; +1 pitting edema to dependent lower portion of abdomen Extremities: - - +1 pitting edema pretibially bilaterally Skin: - - diffuse ecchymosis which is overall unchanged on extremities Neurological: Alert and Oriented x 3 Result Diagrams: 01/13/19 09:40 01/13/19 08:30 Additional Lab and Data: Above BMP was pulled into the note, when the note was edited prior to signing the note. Please see BMP from day of consultation below. Laboratory Tests 01/08/19 01/10/19 05:31 12:10 Sodium 133 L Potassium 3.8 Chloride 98 L Carbon Dioxide 23 BUN 100 H Creatinine 3.20 H Glucose 109 H Total Protein 7.6 Albumin 3.2 Microbiology and Other Data: Microbiology 01/02/19 13:31 Urine Culture - Preliminary Urine Citrobacter Freundii 01/02/19 11:23 Nasal Screen MRSA (PCR) - Final Nasal Mrsa Detected Assess/Plan/Problems-Billing Assessment: 73 yo female with PMHx cirrhosis of unclear etiology, iron deficiency anemia, DMT2, HTN, CKD, atrial fib, cardiomyopathy with EF 60-65% presents with shortness of breath and 15 lbs of weight gain per [facility] staff. - Patient Problems (1) Cough Current Visit: Yes Status: Acute Code(s): R05 - COUGH SNOMED Code(s): 62157490 Comment: -coughing while eating food, concern for possible aspiration -wheezing on exam -O2 saturation in 90s on RA. CXR appears improved from prior during this hospital stay. Low concern for pneumonitis/PNA but will continue to monitor (2) Hematuria Current Visit: Yes Status: Acute Code(s): R31.9 - HEMATURIA, UNSPECIFIED SNOMED Code(s): 80227762 Comment: -dolores bloody clots in urine via dacosta catheter which is new overnight -catheter was placed 01/10/19, though traumatic dacosta may be possible -ordering bladder and renal ultrasound, pending (3) Acute kidney injury superimposed on CKD Current Visit: Yes Status: Acute Code(s): N17.9 - ACUTE KIDNEY FAILURE, UNSPECIFIED; N18.9 - CHRONIC KIDNEY DISEASE, UNSPECIFIED SNOMED Code(s): 57040022 Comment: -Cr decreased after dialysis yesterday. Additional dialysis completed today -Renal ultrasound without hydronephrosis initially, pending additional -Hepatorenal vs cardiorenal, appears more consistent with poor flow related to heart failure however etiology unclear; hepatorenal syndrome is on the differential -appreciate nephrology consult. Planning 7-10 days of dialysis to trial and assess recovery (4) Acute on chronic systolic congestive heart failure Current Visit: No Status: Acute Code(s): I50.23 - ACUTE ON CHRONIC SYSTOLIC (CONGESTIVE) HEART FAILURE SNOMED Code(s): 104334994 Comment: -hx diastolic EF, most recent echo during this hospitalization with EF 55-60% -presented with 15lbs weight gain and shortness of breath. Weight at [facility] 12/15/18 was 263 lbs -pt has chronic dependent edema of lower abdomen and LE edema -bumex has been discontinued per nephrology -holding home spironolactone -continue metoprolol (5) Anxiety Current Visit: Yes Status: Acute Code(s): F41.9 - ANXIETY DISORDER, UNSPECIFIED SNOMED Code(s): 70743425 Comment: -d/c buspar due to hepatic and renal impairment -will order prn ativan (6) Rash Current Visit: Yes Status: Acute Code(s): R21 - RASH AND OTHER NONSPECIFIC SKIN ERUPTION SNOMED Code(s): 679194438 Comment: -location, symptomatic itch, and erythema appears consistent with cutaneous candidiasis -continue TID nystatin powder -prn benadryl for itching (7) Cirrhosis Current Visit: Yes Status: Acute Comment: -presumed secondary to CANALES based on GI consult in previous hospitalization, though hepC screen is positive. Pending PCR. -no evidence of decompensation -INR continues to increase -chronic thrombocytopenia. Plts around baseline -trace ascites on US; her abdomen size is due to dependent edema and not large ascites -continue home lactulose and rifaximin (8) Atrial fibrillation Current Visit: No Status: Acute Code(s): I48.91 - UNSPECIFIED ATRIAL FIBRILLATION SNOMED Code(s): 83440212 Comment: - Rate controlled - Not on anticoagulation due to history of severe GI bleed - Continue metoprolol (9) Diabetes mellitus Current Visit: No Status: Acute Code(s): E11.9 - TYPE 2 DIABETES MELLITUS WITHOUT COMPLICATIONS SNOMED Code(s): 53054767 Comment: - Diet controlled - Good BG control - A1c 6.2% indicating good control (10) Hypotension Current Visit: No Status: Acute Comment: -Chronic; unknown etiology, possibly liver disease vs heart disease -Continue midodrine (11) Hypothyroidism Current Visit: No Status: Acute Code(s): E03.9 - HYPOTHYROIDISM, UNSPECIFIED SNOMED Code(s): 21353709 Comment: -continue home 50 mcg synthroid (12) Iron deficiency anemia Current Visit: Yes Status: Acute Code(s): D50.9 - IRON DEFICIENCY ANEMIA, UNSPECIFIED SNOMED Code(s): 66689897 Comment: -cont iron supplement to TID (13) UTI (urinary tract infection) Current Visit: No Status: Acute Comment: -Resolved -culture demonstrates citrobacter freundii, c&s demonstrates sensitivity to cefepime and resistance to ceftriaxone -Treated with cefepime -no leukocytosis, afebrile, without evidence of sepsis (14) DVT prophylaxis Current Visit: No Status: Acute Code(s): FDY9327 - SNOMED Code(s): 864809455 Comment: - SCDs d/t thrombocytopenia and history of severe GI bleed (15) Full code status Current Visit: No Status: Acute Code(s): Z78.9 - OTHER SPECIFIED HEALTH STATUS SNOMED Code(s): 162871696 Comment: Status and Disposition: Inpatient requiring further dialysis. Will likely return to [facility] at discharge.
[2019-01-13 13:35] LABS: Albumin 4.3 g/dL (3.2-5.2); Albumin/Globulin Ratio 1.2 (1-3); Globulin 3.5 g/dL (2-4); Indirect Bilirubin 0.8 mg/dL (0.3-1.0); Total Bilirubin 1.3 mg/dL (0.2-1.0); Total Protein 7.8 g/dL (6.4-8.9)
[2019-01-13] MEDS: Acetaminophen TAB* 325 MG PO PRN ×2 (13:51→20:39)
[2019-01-13] MEDS: Atorvastatin* 40 MG TAB PO SCH (20:37)
[2019-01-13] MEDS: LORazepam TAB(*) 0.5 MG PO PRN (20:40)
[2019-01-14] MEDS: busPIRone TAB* 5 MG PO PRN (02:44)
[2019-01-14 06:19] LABS: ABS Eosinophils 0.3 10^3/ul (0-0.6); ABS Lymphocytes 0.5 10^3/ul (1.0-4.8); ABS Monocytes 0.6 10^3/ul (0-0.8); ABS Neutrophils 3.1 10^3/ul (1.5-7.7); ABS Nucleated RBC 0.1 10^3/ul; Eosinophil % 5.8 %; Hematocrit 25 % (35-47); Hemoglobin 8.2 g/dL (12.0-16.0); Mean Corpuscular HGB Conc 32 g/dL (31-36); Mean Corpuscular Hemoglobin 32 pg (27-31); Mean Corpuscular Volume 100 fL (80-97); Mean Platelet Volume 8.5 fL (7.4-10.4); Nucleated Red Blood Cells % 1.3; Platelet Count 68 10^3/uL (150-450); Red Blood Count 2.55 10^6 /uL (3.70-4.87); Red Cell Distribution Width 17 % (10-15); White Blood Count 4.4 10^3/uL (3.5-10.8)
[2019-01-14] MEDS: Metoprolol Tartrate TAB* 25 MG PO SCH ×3 (06:21→20:48)
[2019-01-14] MEDS: RiFAXimin* 550 MG TAB PO SCH ×3 (06:21→20:49)
[2019-01-14] MEDS: Levothyroxine TAB* 50 MCG TAB PO SCH (06:21)
[2019-01-14 06:25] LABS: INR 1.74 (0.82-1.09)
[2019-01-14 06:28] LABS: Albumin 4.2 g/dL (3.2-5.2); Calcium 9.7 mg/dL (8.6-10.3); Potassium 3.8 mmol/L (3.5-5.0); Total Bilirubin 1.5 mg/dL (0.2-1.0)
[2019-01-14 06:34] LABS: Albumin/Globulin Ratio 1.2 (1-3); BUN/Creatinine Ratio 18.3 (8-20); EGFR African American 19.7 (>60); EGFR Non-African American 16.3 (>60); Globulin 3.6 g/dL (2-4); Total Protein 7.8 g/dL (6.4-8.9)
[2019-01-14] MEDS: Nystatin TOP POWDER* 15 GM BTL TOPICAL SCH ×3 (08:45→20:47)
[2019-01-14] MEDS: Fluticasone NASAL SPRAY 50MCG* 16 gm SPRAY BTL INTRANASAL SCH (08:45)
[2019-01-14] MEDS: diPHENhydraMINE PO* 25 MG PO PRN (08:45)
--- NOTE | 2019-01-14 08:46 | PN ---
Subjective Date of Service: 01/14/19 Interval History: Ms. Latham is feeling fine this morning. She offers no specific complaints. She is not sleeping well because she is not in her own bed. She denies SOB, but is more SOB when laying flat. She is more comfortable sitting up. She does not feel she is being treated well here in the hospital. She reports that last night there were 2 men in the hallway outside her room talking about "becoming vampires" and this is concerning to her. She denies CP, N/V. Endorses poor appetite. No concerns from nursing. Family History: Unchanged from Admission Social History: Unchanged from Admission Past Medical History: Unchanged from Admission Objective Active Medications: Acetaminophen (Tylenol Tab*) 650 mg PO Q4H PRN FEVER/PAIN Atorvastatin Calcium (Lipitor*) 40 mg PO BEDTIME [facility] Buspirone HCl (Buspar Tab*) 5 mg PO TID PRN ANXIETY Cholecalciferol (Vitamin D Tab*) 1,000 units PO QAM [facility] Diphenhydramine HCl (Benadryl Po*) 25 mg PO Q6H PRN ITCHING Ferrous Sulfate (Ferrous Sulfate Tab*) 325 mg PO TID [facility] Fluticasone Propionate (Flonase Nasal [place] 50mcg*) 1 spray INTRANASAL DAILY [facility] Ipratropium [place] (Atrovent 0.5 Mg Neb.Brionna*) 0.5 mg INH [id number] AWAKE PRN SOB/WHEEZING Lactulose (Lactulose*) 15 ml PO TID [facility] Levalbuterol HCl (Xopenex 0.63mg/3ml Neb*) 0.63 mg INH [id number] AWAKE PRN SOB/WHEEZING Levothyroxine Sodium (Synthroid Tab*) 50 mcg PO 0600 [facility] Lorazepam (Ativan Tab(*)) 0.5 mg PO Q6H PRN ANXIETY Metoprolol Tartrate (Lopressor Tab*) 12.5 mg PO Q8HR [facility] Midodrine (Midodrine) 2.5 mg PO TID [facility]; Protocol Nystatin (Nystatin Top Powder*) 1 applic TOPICAL TID [facility] Pantoprazole Sodium (Protonix Tab*) 40 mg PO DAILY [facility] Pregabalin (Lyrica Cap(*)) 25 mg PO BID [facility] Rifaximin (Xifaxan*) 550 mg PO Q8HR [facility] Vital Signs - 8 hr 10/04/19 10/04/19 10/04/19 00:59 01:00 02:00 Temperature Pulse Rate Respiratory 20 20 Rate Blood Pressure 110/58 (mmHg) O2 Sat by Pulse Oximetry 01/14/19 01/14/19 01/14/19 03:34 06:19 07:46 Temperature 98.1 F 97.5 F Pulse Rate 73 103 71 Respiratory 19 19 20 Rate Blood Pressure 95/61 114/96 100/56 (mmHg) O2 Sat by Pulse 94 93 Oximetry Oxygen Devices in Use Now: None Appearance: Elderly female sitting in bed in NAD Ears/Nose/Mouth/Throat: Mucous Membranes Moist Neck: NL Appearance and Movements; NL JVP, Trachea Midline Respiratory: Symmetrical Chest Expansion and Respiratory Effort, Clear to Auscultation Cardiovascular: NL Sounds; No Murmurs; No JVD Abdominal: NL Sounds; No Tenderness; No Distention Extremities: - - Generalized +1 pitting Neurological: - - Oriented to self and place, paranoia Lines/Tubes/Other Access: Clean, Dry and Intact Peripheral IV, Clean, Dry and Intact Other Access - Right ID HD cath Nutrition: Taking PO's Result Diagrams: 01/14/19 05:39 01/14/19 05:39 Assess/Plan/Problems-Billing Assessment: Ms. Latham is a 73 yo F with PMH of cirrhosis of unclear etiology, iron deficiency anemia, DMT2, HTN, CKD, atrial fib, and cardiomyopathy with EF 60-65% ; who presents with shortness of breath and 15 lbs of weight gain per [facility] staff, now on acute HD. - Patient Problems (1) Acute kidney injury superimposed on CKD Code(s): N17.9 - ACUTE KIDNEY FAILURE, UNSPECIFIED; N18.9 - CHRONIC KIDNEY DISEASE, UNSPECIFIED Comment: - Renal ultrasound without hydronephrosis - Hepatorenal vs cardiorenal; appears more consistent with poor flow related to heart failure however etiology unclear; hepatorenal syndrome remains on the differential - Appreciate nephrology consult; planning trial dialysis, 7-10 days - Third HD treatment today, tolerated well (2) Acute on chronic diastolic heart failure Code(s): I50.33 - ACUTE ON CHRONIC DIASTOLIC (CONGESTIVE) HEART FAILURE Comment: - Presented with 15 lbs weight gain and shortness of breath; weight on 12/15/18 was 263# - History of diastolic heart failure, cardiomyopathy with EF 60-65% - Echo this admission unchanged from prior - Chronic dependent edema of lower abdomen and LE edema - Continue strict I&O, Dacosta - Fluid restriction, sodium restriction - CPAP for afterload reduction - Diuretics d/c'd d/t renal function - Continue metoprolol (3) Hematuria Code(s): R31.9 - HEMATURIA, UNSPECIFIED Comment: - Urine remains bloody - Catheter was placed 01/10/19, though traumatic dacosta may be possible - Bladder and renal US unremarkable (4) UTI (urinary tract infection) Comment: - Completed course of cefepime (5) Cirrhosis Comment: - Presumed secondary to CANALES based on GI consult in previous hospitalization, though hep C screen is positive - No evidence of decompensation - INR continues to increase - Chronic thrombocytopenia; plts around baseline - Trace ascites on US; abdomen size is due to dependent edema and not large ascites - Continue lactulose, rifaximin (6) Atrial fibrillation Code(s): I48.91 - UNSPECIFIED ATRIAL FIBRILLATION Comment: - Rate controlled - Not on anticoagulation due to history of severe GI bleed - Continue metoprolol (7) Diabetes mellitus Code(s): E11.9 - TYPE 2 DIABETES MELLITUS WITHOUT COMPLICATIONS Comment: - Diet controlled - A1c 6.2% indicating good control (8) Iron deficiency anemia Code(s): D50.9 - IRON DEFICIENCY ANEMIA, UNSPECIFIED Comment: - Continue ferrous sulfate (9) Anxiety Code(s): F41.9 - ANXIETY DISORDER, UNSPECIFIED Comment: - Buspar d/c'd due to hepatic and renal impairment - Continue lorazepam PRN (10) Hypothyroidism Code(s): E03.9 - HYPOTHYROIDISM, UNSPECIFIED Comment: - Continue levothyroxine (11) DVT prophylaxis Comment: - SCDs d/t thrombocytopenia and history of severe GI bleed (12) Full code status Code(s): Z78.9 - OTHER SPECIFIED HEALTH STATUS Comment: Status and Disposition: Inpatient requiring further dialysis. Will likely return to [facility] at discharge. Attending: Michael Cain
[2019-01-14] MEDS: Lactulose* 15 ML UDC PO SCH ×3 (08:47→20:44)
[2019-01-14] MEDS ORDERED: Heparin DIALYSIS ONLY(*) 1,000 UNITS/ML VIAL DIALYSIS ONE (11:00)
--- NOTE | 2019-01-14 14:02 | PN ---
Progress Note - Progress Note Date of Service: 01/14/19 Note: Inpatient Acute HD Note Date of Service: 01/14/19 Dr. Javier Alvarez, [facility] Nephrology LUISA & Fluid Overload. On HD since 01/12 via Rt IJ Temp. HDC. HCV-Ab +ve. HCV PCR pending, possible HCV related Cirrhosis She was seen on HD today, and she has tolerated HD sessions, been ramped up. Today had UF 3.1L and for 3Hr. Total UF so far close to 6L last 3 days, and plan to hold off of HD for Sat & Sun and fu sCr trend off HD. Worsening Coagulopathy & Thrombocytopenia, s/p ecchymosis, at multiple places. She has gross hematuria. Off IV Bumex & Albumin, since HD started Active Medications: Acetaminophen (Tylenol Tab*) 650 mg PO Q4H PRN PRN Reason: FEVER/PAIN Last Admin: 01/13/19 20:39 Dose: 650 mg Atorvastatin Calcium (Lipitor*) 40 mg PO BEDTIME [facility] Last Admin: 01/13/19 20:37 Dose: 40 mg Buspirone HCl (Buspar Tab*) 5 mg PO TID PRN PRN Reason: ANXIETY Last Admin: 01/14/19 02:44 Dose: 5 mg Cholecalciferol (Vitamin D Tab*) 1,000 units PO QAM [facility] Last Admin: 01/13/19 10:16 Dose: 1,000 units Diphenhydramine HCl (Benadryl Po*) 25 mg PO Q6H PRN PRN Reason: ITCHING Last Admin: 01/14/19 08:45 Dose: 25 mg Ferrous Sulfate (Ferrous Sulfate Tab*) 325 mg PO TID [facility] Last Admin: 01/13/19 20:38 Dose: 325 mg Fluticasone Propionate (Flonase Nasal [place] 50mcg*) 1 spray INTRANASAL DAILY [facility] Last Admin: 01/13/19 10:15 Dose: 1 spray Ipratropium [place] (Atrovent 0.5 Mg Neb.Brionna*) 0.5 mg INH [id number] AWAKE PRN PRN Reason: SOB/WHEEZING Lactulose (Lactulose*) 15 ml PO TID [facility] Last Admin: 01/14/19 08:47 Dose: Not Given Levalbuterol HCl (Xopenex 0.63mg/3ml Neb*) 0.63 mg INH [id number] AWAKE PRN PRN Reason: SOB/WHEEZING Levothyroxine Sodium (Synthroid Tab*) 50 mcg PO 0600 [facility] Last Admin: 01/14/19 06:21 Dose: 50 mcg Lorazepam (Ativan Tab(*)) 0.5 mg PO Q6H PRN PRN Reason: ANXIETY Last Admin: 01/13/19 20:40 Dose: 0.5 mg Metoprolol Tartrate (Lopressor Tab*) 12.5 mg PO Q8HR [facility] Last Admin: 01/14/19 06:21 Dose: 12.5 mg Midodrine (Midodrine) 2.5 mg PO TID [facility]; Protocol Last Admin: 01/14/19 08:45 Dose: 2.5 mg Nystatin (Nystatin Top Powder*) 1 applic TOPICAL TID [facility] Last Admin: 01/13/19 21:06 Dose: 1 applic Pantoprazole Sodium (Protonix Tab*) 40 mg PO DAILY [facility] Last Admin: 01/13/19 10:29 Dose: 40 mg Pregabalin (Lyrica Cap(*)) 25 mg PO BID [facility] Last Admin: 01/13/19 20:39 Dose: 25 mg Rifaximin (Xifaxan*) 550 mg PO Q8HR [facility] Last Admin: 01/14/19 06:21 Dose: 550 mg Objective: .Vital Signs: Temp Pulse Resp BP Pulse Ox 97.5 F 71 16 100/56 93 01/14/19 07:46 01/14/19 07:46 01/14/19 08:45 01/14/19 07:46 01/14/19 07:46 .Neck: Rt IJ temporary HD catheter & ecchymosis on Rt half of the neck, Rt upper back & Rt upper chest Slightly worse than yesterday. .Heart: AFib +++ LE Edema No Rub .Lungs: Decreased crackles .Extremities: No amputations ++ LE, Abd wall & sacral edema Labs: Sodium 134 mmol/L (135-145) L 01/14/19 05:39 Potassium 3.8 mmol/L (3.5-5.0) 01/14/19 05:39 BUN 52 mg/dL (6-24) H 01/14/19 05:39 Creatinine 2.84 mg/dL (0.51-0.95) H 01/14/19 05:39 Hemoglobin A1c 6.2 % (4.0-5.6) H 01/04/19 06:18 Calcium 9.7 mg/dL (8.6-10.3) 01/14/19 05:39 AST 24 U/L (13-39) 01/14/19 05:39 ALT 8 U/L (7-52) 01/14/19 05:39 Assessment and Plan: Assessment and Plan: HD today for 3rd treatment HD was 3 Hr: QB 400/QD 600. 3K Bath & Heparin free, except catheter flush. Worsening coagulopathy, hematuria & thrombocytopenia!! Liver Cirrhosis and Portal HTN?! UF today was 3.1L and tolerated well, last SBP 110-115 No HD Sat or Sun & fu BMP, to assess for renal recovery! Overall prognosis is poor in view of Multi-organ dysfunction
[2019-01-14] MEDS: Ferrous Sulfate TAB* 325 MG PO SCH ×3 (15:29→20:44)
[2019-01-14] MEDS: LORazepam TAB(*) 0.5 MG PO PRN (15:36)
[2019-01-14] MEDS: Pantoprazole TAB * 40 MG TAB PO SCH (15:37)
[2019-01-14] MEDS: Pregabalin CAP(*) 25 MG PO SCH ×2 (15:37→20:45)
[2019-01-14] MEDS: Cholecalciferol TAB* 1000 UNITS PO SCH (15:38)
--- NOTE | 2019-01-14 20:20 | PN ---
Hospitalist Progress Note Date of Service: 01/14/19 Called about patient pulling her HD cath from Right IJ. Per nurse was bleeding quite a bit initially. By the time I saw the neck bleeding subsided sutures were still there. Recommended Pressure dressing to the site especially given elevated INR/Low Plt with multiple skin ecchymosis. Repeat CBC to check for any drop in HB at 2300. Called and updated the billboard poster regarding this who will re-evaluate if patient needs HD on thursday as it will be challenging to get another HD cath in her with her low Plt and high INR.
[2019-01-14] MEDS: Atorvastatin* 40 MG TAB PO SCH (20:44)
[2019-01-14] MEDS: Levalbuterol 0.63MG/3ML NEB* UNIT OF USE INH PRN (22:51)
[2019-01-15 00:14] LABS: ABS Basophils 0.1 10^3/ul (0-0.2); ABS Eosinophils 0.2 10^3/ul (0-0.6); ABS Lymphocytes 0.4 10^3/ul (1.0-4.8); ABS Monocytes 0.7 10^3/ul (0-0.8); ABS Neutrophils 3.3 10^3/ul (1.5-7.7); Eosinophil % 5.1 %; Hematocrit 25 % (35-47); Lymphocyte % 8.9 %; Mean Corpuscular HGB Conc 33 g/dL (31-36); Mean Corpuscular Hemoglobin 33 pg (27-31); Mean Corpuscular Volume 100 fL (80-97); Nucleated Red Blood Cells % 0.9; Platelet Count 61 10^3/uL (150-450); Red Blood Count 2.45 10^6 /uL (3.70-4.87); Red Cell Distribution Width 18 % (10-15); White Blood Count 4.7 10^3/uL (3.5-10.8)
[2019-01-15] MEDS: LORazepam TAB(*) 0.5 MG PO PRN (04:04)
[2019-01-15] MEDS: RiFAXimin* 550 MG TAB PO SCH ×3 (05:07→20:57)
[2019-01-15] MEDS: Levothyroxine TAB* 50 MCG TAB PO SCH (05:07)
[2019-01-15] MEDS: Metoprolol Tartrate TAB* 25 MG PO SCH ×4 (05:11→22:06)
[2019-01-15 06:26] LABS: BUN/Creatinine Ratio 12.5 (8-20); Calcium 9.2 mg/dL (8.6-10.3); EGFR African American 22.2 (>60); EGFR Non-African American 18.3 (>60); Potassium 3.5 mmol/L (3.5-5.0)
[2019-01-15] MEDS: Levalbuterol 0.63MG/3ML NEB* UNIT OF USE INH PRN (09:27)
[2019-01-15] MEDS: Ferrous Sulfate TAB* 325 MG PO SCH ×3 (10:37→20:57)
[2019-01-15 10:38] LABS: ABS Eosinophils 0.2 10^3/ul (0-0.6); ABS Lymphocytes 0.5 10^3/ul (1.0-4.8); ABS Monocytes 0.6 10^3/ul (0-0.8); ABS Neutrophils 2.9 10^3/ul (1.5-7.7); ABS Nucleated RBC 0.1 10^3/ul; Eosinophil % 5.1 %; Hematocrit 23 % (35-47); Hemoglobin 7.7 g/dL (12.0-16.0); Lymphocyte % 10.8 %; Mean Corpuscular HGB Conc 33 g/dL (31-36); Mean Corpuscular Hemoglobin 33 pg (27-31); Mean Corpuscular Volume 101 fL (80-97); Mean Platelet Volume 8.5 fL (7.4-10.4); Nucleated Red Blood Cells % 1.5; Platelet Count 61 10^3/uL (150-450); Red Cell Distribution Width 18 % (10-15); White Blood Count 4.2 10^3/uL (3.5-10.8)
[2019-01-15] MEDS: Cholecalciferol TAB* 1000 UNITS PO SCH (10:40)
[2019-01-15] MEDS: Pantoprazole TAB * 40 MG TAB PO SCH (10:40)
[2019-01-15] MEDS: Lactulose* 15 ML UDC PO SCH ×3 (10:41→20:57)
[2019-01-15] MEDS: Pregabalin CAP(*) 25 MG PO SCH ×2 (10:53→20:53)
[2019-01-15] MEDS: Nystatin TOP POWDER* 15 GM BTL TOPICAL SCH ×3 (10:56→22:05)
[2019-01-15] MEDS: Fluticasone NASAL SPRAY 50MCG* 16 gm SPRAY BTL INTRANASAL SCH (10:56)
--- NOTE | 2019-01-15 15:55 | PN ---
Subjective Date of Service: 01/15/19 Interval History: Ms. Latham is very lethargic today and not able to participate in conversation. She will wake to voice and will groan when asked questions, but will not give any coherent responses. Spoke with son to update him on patient's condition. He is not willing to make any decisions about code status at this point. Patient became agitated overnight and pulled out dialysis catheter. There was an undetermined amount of blood loss, but bleeding has been controlled. Nursing concerned about patient's overall condition. Family History: Unchanged from Admission Social History: Unchanged from Admission Past Medical History: Unchanged from Admission Objective Active Medications: Acetaminophen (Tylenol Tab*) 650 mg PO Q4H PRN FEVER/PAIN Atorvastatin Calcium (Lipitor*) 40 mg PO BEDTIME KYLEE Buspirone HCl (Buspar Tab*) 5 mg PO TID PRN ANXIETY Cholecalciferol (Vitamin D Tab*) 1,000 units PO QAM KYLEE Diphenhydramine HCl (Benadryl Po*) 25 mg PO Q6H PRN ITCHING Ferrous Sulfate (Ferrous Sulfate Tab*) 325 mg PO TID KYLEE Fluticasone Propionate (Flonase Nasal [place] 50mcg*) 1 spray INTRANASAL DAILY KYLEE Ipratropium [place] (Atrovent 0.5 Mg Neb.Brionna*) 0.5 mg INH [id number] AWAKE PRN SOB/WHEEZING Lactulose (Lactulose*) 15 ml PO TID KYLEE Levalbuterol HCl (Xopenex 0.63mg/3ml Neb*) 0.63 mg INH [id number] AWAKE PRN SOB/WHEEZING Levothyroxine Sodium (Synthroid Tab*) 50 mcg PO 0600 KYLEE Lorazepam (Ativan Tab(*)) 0.5 mg PO Q6H PRN ANXIETY Metoprolol Tartrate (Lopressor Tab*) 12.5 mg PO Q8HR KYLEE Midodrine (Midodrine) 2.5 mg PO TID KYLEE; Protocol Nystatin (Nystatin Top Powder*) 1 applic TOPICAL TID KYLEE Pantoprazole Sodium (Protonix Tab*) 40 mg PO DAILY KYLEE Pregabalin (Lyrica Cap(*)) 25 mg PO BID KYLEE Rifaximin (Xifaxan*) 550 mg PO Q8HR KYLEE Vital Signs - 8 hr 01/15/19 01/15/1919 07:50 08:00 09:29 Temperature 97.2 F Pulse Rate 66 62 Respiratory 20 20 20 Rate Blood Pressure 101/42 (mmHg) O2 Sat by Pulse 100 99 Oximetry 01/15/19 01/15/19 10:53 11:25 Temperature 97.9 F Pulse Rate 87 Respiratory 24 20 Rate Blood Pressure 103/43 (mmHg) O2 Sat by Pulse 95 Oximetry Oxygen Devices in Use Now: Nasal Cannula - 2.5L Appearance: Elderly female sitting in bed, abdominal breathing, but in NAD Neck: NL Appearance and Movements; NL JVP, Trachea Midline Respiratory: Symmetrical Chest Expansion and Respiratory Effort, Clear to Auscultation Cardiovascular: NL Sounds; No Murmurs; No JVD Abdominal: NL Sounds; No Tenderness; No Distention Extremities: - - +2 generalized pitting Neurological: - - Wakes to voice Lines/Tubes/Other Access: Clean, Dry and Intact Peripheral IV Result Diagrams: 01/15/19 10:00 01/15/19 05:47 Assess/Plan/Problems-Billing Assessment: Ms. Latham is a 73 yo F with PMH of cirrhosis of unclear etiology, iron deficiency anemia, DMT2, HTN, CKD, atrial fib, and cardiomyopathy with EF 60-65% ; who presents with shortness of breath and 15 lbs of weight gain per [facility] staff, now on acute HD. - Patient Problems (1) Acute kidney injury superimposed on CKD Code(s): N17.9 - ACUTE KIDNEY FAILURE, UNSPECIFIED; N18.9 - CHRONIC KIDNEY DISEASE, UNSPECIFIED Comment: - Renal ultrasound without hydronephrosis - Hepatorenal vs cardiorenal; appears more consistent with poor flow related to heart failure however etiology unclear; hepatorenal syndrome remains on the differential - Appreciate nephrology consult; planning trial dialysis, 7-10 days - Third HD treatment 01/14/19; next dialysis planned for Thursday, but this will need to be readdressed by Nephrology as she will need a new dialysis catheter placed (2) Acute on chronic diastolic heart failure Code(s): I50.33 - ACUTE ON CHRONIC DIASTOLIC (CONGESTIVE) HEART FAILURE Comment: - Presented with 15 lbs weight gain and shortness of breath; weight on 12/15/18 was 263# - History of diastolic heart failure, cardiomyopathy with EF 60-65% - Echo this admission unchanged from prior - Chronic dependent edema of lower abdomen and LE edema - Continue strict I&O, [place] - Fluid restriction, sodium restriction - CPAP for afterload reduction - Diuretics d/c'd d/t renal function - Continue metoprolol (3) Hematuria Code(s): R31.9 - HEMATURIA, UNSPECIFIED Comment: - Urine remains bloody - Catheter was placed 01/10/19, though traumatic dacosta may be possible - Bladder and renal US unremarkable (4) UTI (urinary tract infection) Comment: - Completed course of cefepime (5) Cirrhosis Comment: - Presumed secondary to CANALES based on GI consult in previous hospitalization, though hep C screen is positive - No evidence of decompensation - INR continues to increase - Chronic thrombocytopenia; plts around baseline - Trace ascites on US; abdomen size is due to dependent edema and not large ascites - Continue lactulose, rifaximin (6) Atrial fibrillation Code(s): I48.91 - UNSPECIFIED ATRIAL FIBRILLATION Comment: - Rate controlled - Not on anticoagulation due to history of severe GI bleed - Continue metoprolol (7) Diabetes mellitus Code(s): E11.9 - TYPE 2 DIABETES MELLITUS WITHOUT COMPLICATIONS Comment: - Diet controlled - A1c 6.2% indicating good control (8) Iron deficiency anemia Code(s): D50.9 - IRON DEFICIENCY ANEMIA, UNSPECIFIED Comment: - Continue ferrous sulfate (9) Anxiety Code(s): F41.9 - ANXIETY DISORDER, UNSPECIFIED Comment: - Buspar d/c'd due to hepatic and renal impairment - Continue lorazepam PRN (10) Hypothyroidism Code(s): E03.9 - HYPOTHYROIDISM, UNSPECIFIED Comment: - Continue levothyroxine (11) DVT prophylaxis Comment: - SCDs d/t thrombocytopenia and history of severe GI bleed (12) Full code status Code(s): Z78.9 - OTHER SPECIFIED HEALTH STATUS Comment: Status and Disposition: Inpatient requiring further dialysis, but condition is guarded. Will likely return to [facility] at discharge. Attending: Joy Koenig
[2019-01-15] MEDS: Atorvastatin* 40 MG TAB PO SCH (20:53)
[2019-01-15] MEDS: busPIRone TAB* 5 MG PO PRN (20:54)
[2019-01-15] MEDS: diPHENhydraMINE PO* 25 MG PO PRN (20:55)
[2019-01-16] MEDS: Metoprolol Tartrate TAB* 25 MG PO SCH ×3 (05:26→21:34)
[2019-01-16] MEDS: RiFAXimin* 550 MG TAB PO SCH ×3 (05:36→23:16)
[2019-01-16] MEDS: Levothyroxine TAB* 50 MCG TAB PO SCH (05:36)
[2019-01-16 05:56] LABS: ABS Basophils 0.1 10^3/ul (0-0.2); ABS Eosinophils 0.3 10^3/ul (0-0.6); ABS Lymphocytes 0.4 10^3/ul (1.0-4.8); ABS Monocytes 0.6 10^3/ul (0-0.8); Eosinophil % 6.2 %; Hematocrit 23 % (35-47); Hemoglobin 7.5 g/dL (12.0-16.0); Lymphocyte % 8.9 %; Mean Corpuscular HGB Conc 32 g/dL (31-36); Mean Corpuscular Hemoglobin 33 pg (27-31); Mean Corpuscular Volume 103 fL (80-97); Nucleated Red Blood Cells % 0.8; Platelet Count 61 10^3/uL (150-450); Red Blood Count 2.29 10^6 /uL (3.70-4.87); Red Cell Distribution Width 19 % (10-15); White Blood Count 4.3 10^3/uL (3.5-10.8)
[2019-01-16 06:05] LABS: Albumin/Globulin Ratio 1.1 (1-3); BUN/Creatinine Ratio 10.7 (8-20); Calcium 9.5 mg/dL (8.6-10.3); EGFR African American 16.7 (>60); EGFR Non-African American 13.8 (>60); Globulin 3.5 g/dL (2-4); Potassium 3.9 mmol/L (3.5-5.0); Total Bilirubin 1.4 mg/dL (0.2-1.0); Total Protein 7.5 g/dL (6.4-8.9)
[2019-01-16] MEDS: Ferrous Sulfate TAB* 325 MG PO SCH ×3 (10:18→23:16)
[2019-01-16] MEDS: Pregabalin CAP(*) 25 MG PO SCH ×2 (10:18→23:17)
[2019-01-16] MEDS: Cholecalciferol TAB* 1000 UNITS PO SCH (10:18)
[2019-01-16] MEDS: Pantoprazole TAB * 40 MG TAB PO SCH (10:18)
[2019-01-16] MEDS: Lactulose* 15 ML UDC PO SCH ×3 (10:19→23:16)
[2019-01-16] MEDS: Fluticasone NASAL SPRAY 50MCG* 16 gm SPRAY BTL INTRANASAL SCH (10:19)
[2019-01-16] MEDS: Nystatin TOP POWDER* 15 GM BTL TOPICAL SCH ×3 (10:19→23:18)
--- NOTE | 2019-01-16 15:11 | PN ---
Subjective Date of Service: 01/16/19 Interval History: Ms. Latham is feeling better today. She does not recall any events from yesterday , but states she does remember seeing me. She is awake and just finished eating breakfast on my exam. She denies SOB, cough, CP, N/V. Long discussion about goals of care and code status - she would like "everything done" and wants to remain a full code at this time. No concerns from nursing. Family History: Unchanged from Admission Social History: Unchanged from Admission Past Medical History: Unchanged from Admission Objective Active Medications: Acetaminophen (Tylenol Tab*) 650 mg PO Q4H PRN FEVER/PAIN Atorvastatin Calcium (Lipitor*) 40 mg PO BEDTIME KYLEE Buspirone HCl (Buspar Tab*) 5 mg PO TID PRN ANXIETY Cholecalciferol (Vitamin D Tab*) 1,000 units PO QAM KYLEE Diphenhydramine HCl (Benadryl Po*) 25 mg PO Q6H PRN ITCHING Ferrous Sulfate (Ferrous Sulfate Tab*) 325 mg PO TID KYLEE Fluticasone Propionate (Flonase Nasal [place] 50mcg*) 1 spray INTRANASAL DAILY KYLEE Ipratropium [place] (Atrovent 0.5 Mg Neb.Brionna*) 0.5 mg INH [id number] AWAKE PRN SOB/WHEEZING Lactulose (Lactulose*) 15 ml PO TID KYLEE Levalbuterol HCl (Xopenex 0.63mg/3ml Neb*) 0.63 mg INH RT.[id number] AWAKE PRN SOB/WHEEZING Levothyroxine Sodium (Synthroid Tab*) 50 mcg PO 0600 KYLEE Metoprolol Tartrate (Lopressor Tab*) 12.5 mg PO Q8HR KYLEE Midodrine (Midodrine) 2.5 mg PO TID KYLEE; Protocol Nystatin (Nystatin Top Powder*) 1 applic TOPICAL TID KYLEE Pantoprazole Sodium (Protonix Tab*) 40 mg PO DAILY KYLEE Pregabalin (Lyrica Cap(*)) 25 mg PO BID KLYEE Rifaximin (Xifaxan*) 550 mg PO Q8HR KYLEE Vital Signs - 8 hr 01/16/19 01/16/19 01/16/19 07:34 08:00 10:18 Temperature 98.0 F Pulse Rate 80 Respiratory 20 20 19 Rate Blood Pressure 123/65 (mmHg) O2 Sat by Pulse 98 Oximetry 01/16/19 01/16/19 11:50 12:29 Temperature 97.6 F Pulse Rate 92 Respiratory 19 20 Rate Blood Pressure 121/69 (mmHg) O2 Sat by Pulse 100 Oximetry Oxygen Devices in Use Now: Nasal Cannula - 2.5L Appearance: Elderly female sitting in bed in NAD Ears/Nose/Mouth/Throat: Mucous Membranes Moist Neck: NL Appearance and Movements; NL JVP, Trachea Midline Respiratory: Symmetrical Chest Expansion and Respiratory Effort, Clear to Auscultation Cardiovascular: NL Sounds; No Murmurs; No JVD, RRR Abdominal: NL Sounds; No Tenderness; No Distention Extremities: - - +1 generalized Neurological: - - Oriented to self and place, somewhat to situation Nutrition: Taking PO's Result Diagrams: 01/16/19 05:24 01/16/19 05:24 Assess/Plan/Problems-Billing Assessment: Ms. Latham is a 73 yo F with PMH of cirrhosis of unclear etiology, iron deficiency anemia, DMT2, HTN, CKD, atrial fib, and cardiomyopathy with EF 60-65% ; who presents with shortness of breath and 15 lbs of weight gain per [facility] staff, now on acute HD. - Patient Problems (1) Acute kidney injury superimposed on CKD Code(s): N17.9 - ACUTE KIDNEY FAILURE, UNSPECIFIED; N18.9 - CHRONIC KIDNEY DISEASE, UNSPECIFIED Comment: - Renal ultrasound without hydronephrosis - Hepatorenal vs cardiorenal; appears more consistent with poor flow related to heart failure however etiology unclear; hepatorenal syndrome remains on the differential - Appreciate nephrology consult; planning trial dialysis, 7-10 days - Third HD treatment 01/14/19; next dialysis planned for Thursday, but this will need to be readdressed by Nephrology as she will need a new dialysis catheter placed (2) Acute on chronic diastolic heart failure Code(s): I50.33 - ACUTE ON CHRONIC DIASTOLIC (CONGESTIVE) HEART FAILURE Comment: - Presented with 15 lbs weight gain and shortness of breath; weight on 12/15/18 was 263# - History of diastolic heart failure, cardiomyopathy with EF 60-65% - Echo this admission unchanged from prior - Chronic dependent edema of lower abdomen and LE edema - Continue strict I&O, [place] - Fluid restriction, sodium restriction - CPAP for afterload reduction - Diuretics d/c'd d/t renal function - Continue metoprolol (3) Hematuria Code(s): R31.9 - HEMATURIA, UNSPECIFIED Comment: - Urine remains dark, but no dolores blood - Catheter was placed 01/10/19, though traumatic dacosta may be possible - Bladder and renal US unremarkable (4) UTI (urinary tract infection) Comment: - Completed course of cefepime (5) Cirrhosis Comment: - Presumed secondary to CANALES based on GI consult in previous hospitalization, though hep C screen is positive; ? multiple myeloma - No evidence of decompensation - INR continues to increase - Chronic thrombocytopenia; plts around baseline - Trace ascites on US; abdomen size is due to dependent edema and not large ascites - Continue lactulose, rifaximin (6) Atrial fibrillation Code(s): I48.91 - UNSPECIFIED ATRIAL FIBRILLATION Comment: - Rate controlled - Not on anticoagulation due to history of severe GI bleed - Continue metoprolol (7) Diabetes mellitus Code(s): E11.9 - TYPE 2 DIABETES MELLITUS WITHOUT COMPLICATIONS Comment: - Diet controlled - A1c 6.2% indicating good control (8) Iron deficiency anemia Code(s): D50.9 - IRON DEFICIENCY ANEMIA, UNSPECIFIED Comment: - Continue ferrous sulfate (9) Anxiety Code(s): F41.9 - ANXIETY DISORDER, UNSPECIFIED Comment: - Buspar d/c'd due to hepatic and renal impairment - D/c lorazepam; suspect that this is what caused sedation on 01/15/19 as she is likely not able to clear d/t renal and hepatic impairment (10) Hypothyroidism Code(s): E03.9 - HYPOTHYROIDISM, UNSPECIFIED Comment: - Continue levothyroxine (11) DVT prophylaxis Comment: - SCDs d/t thrombocytopenia and history of severe GI bleed (12) Full code status Code(s): Z78.9 - OTHER SPECIFIED HEALTH STATUS Comment: Status and Disposition: Inpatient requiring further dialysis, but condition is guarded. Will likely return to [facility] at discharge. Attending: Michael Cain
[2019-01-16] MEDS: Atorvastatin* 40 MG TAB PO SCH (23:17)
[2019-01-17] MEDS: Metoprolol Tartrate TAB* 25 MG PO SCH ×3 (04:56→22:02)
[2019-01-17] MEDS: Levothyroxine TAB* 50 MCG TAB PO SCH (05:00)
[2019-01-17] MEDS: Acetaminophen TAB* 325 MG PO PRN (05:00)
[2019-01-17] MEDS: diPHENhydraMINE PO* 25 MG PO PRN (05:01)
[2019-01-17 06:27] LABS: INR 1.56 (0.82-1.09)
[2019-01-17 06:39] LABS: Albumin 4.2 g/dL (3.2-5.2); Calcium 9.4 mg/dL (8.6-10.3); Potassium 4.1 mmol/L (3.5-5.0); Total Bilirubin 1.4 mg/dL (0.2-1.0)
[2019-01-17 06:45] LABS: Albumin/Globulin Ratio 1.3 (1-3); BUN/Creatinine Ratio 10.2 (8-20); EGFR African American 13.9 (>60); EGFR Non-African American 11.5 (>60); Globulin 3.3 g/dL (2-4); Total Protein 7.5 g/dL (6.4-8.9)
[2019-01-17 08:26] LABS: ABS Basophils 0.1 10^3/ul (0-0.2); ABS Eosinophils 0.3 10^3/ul (0-0.6); ABS Lymphocytes 0.5 10^3/ul (1.0-4.8); ABS Monocytes 0.7 10^3/ul (0-0.8); ABS Nucleated RBC 0.1 10^3/ul; Eosinophil % 6.5 %; Hematocrit 24 % (35-47); Hemoglobin 7.7 g/dL (12.0-16.0); Lymphocyte % 11.3 %; Mean Corpuscular HGB Conc 33 g/dL (31-36); Mean Corpuscular Hemoglobin 33 pg (27-31); Mean Corpuscular Volume 102 fL (80-97); Mean Platelet Volume 7.8 fL (7.4-10.4); Nucleated Red Blood Cells % 1.6; Platelet Count 67 10^3/uL (150-450); Red Blood Count 2.31 10^6 /uL (3.70-4.87); Red Cell Distribution Width 18 % (10-15); White Blood Count 4.6 10^3/uL (3.5-10.8)
[2019-01-17] MEDS: RiFAXimin* 550 MG TAB PO SCH ×3 (08:58→22:01)
[2019-01-17] MEDS: Lactulose* 15 ML UDC PO SCH ×3 (09:57→22:01)
[2019-01-17] MEDS: Pregabalin CAP(*) 25 MG PO SCH ×2 (09:58→22:01)
[2019-01-17] MEDS: Cholecalciferol TAB* 1000 UNITS PO SCH (09:58)
[2019-01-17] MEDS: Pantoprazole TAB * 40 MG TAB PO SCH (10:00)
[2019-01-17] MEDS: Fluticasone NASAL SPRAY 50MCG* 16 gm SPRAY BTL INTRANASAL SCH (10:00)
[2019-01-17] MEDS: Ferrous Sulfate TAB* 325 MG PO SCH ×3 (10:00→22:01)
[2019-01-17] MEDS: Nystatin TOP POWDER* 15 GM BTL TOPICAL SCH ×3 (10:07→22:02)
[2019-01-17] MEDS ORDERED: NS 0.9% IV SCH ×2 (12:00→14:00)
[2019-01-17] MEDS ORDERED: OCTREOTIDE ACETATE IV SCH ×2 (12:00→14:00)
[2019-01-17] MEDS: Octreotide Acetate* 50 MCG/ML ML SUBCUT SCH ×2 (15:15→22:01)
--- NOTE | 2019-01-17 18:01 | PN ---
Subjective Date of Service: 01/17/19 Interval History: Patient had discussion about goals of care with Dr. Lobo and Dr. Hull today. To both providers she is expressing wanting aggressive medical therapy at this point. Attempted goals of care discussion with patient myself today but patient was not oriented to time or current president. Patient tells me she doesn't feel good today but is unable to explain further. Tells me her breathing feels comfortable, denies chest pain, difficulty breathing, fever/chills, abd pain, nausea/vomiting. Family History: Unchanged from Admission Social History: Unchanged from Admission Past Medical History: Unchanged from Admission Objective Active Medications: Acetaminophen (Tylenol Tab*) 650 mg PO Q4H PRN PRN Reason: FEVER/PAIN Last Admin: 01/17/19 05:00 Dose: 650 mg Atorvastatin Calcium (Lipitor*) 40 mg PO BEDTIME [facility] Last Admin: 01/16/19 23:17 Dose: 40 mg Buspirone HCl (Buspar Tab*) 5 mg PO TID PRN PRN Reason: ANXIETY Last Admin: 01/15/19 20:54 Dose: 5 mg Cholecalciferol (Vitamin D Tab*) 1,000 units PO QAM [facility] Last Admin: 01/17/19 09:58 Dose: 1,000 units Diphenhydramine HCl (Benadryl Po*) 25 mg PO Q6H PRN PRN Reason: ITCHING Last Admin: 01/17/19 05:01 Dose: 25 mg Ferrous Sulfate (Ferrous Sulfate Tab*) 325 mg PO TID [facility] Last Admin: 01/17/19 15:15 Dose: 325 mg Fluticasone Propionate (Flonase Nasal [place] 50mcg*) 1 spray INTRANASAL DAILY [facility] Last Admin: 01/17/19 10:00 Dose: 1 spray Ipratropium [place] (Atrovent 0.5 Mg Neb.Brionna*) 0.5 mg INH RT.[id number] AWAKE PRN PRN Reason: SOB/WHEEZING Lactulose (Lactulose*) 15 ml PO TID [facility] Last Admin: 01/17/19 15:13 Dose: 15 ml Levalbuterol HCl (Xopenex 0.63mg/3ml Neb*) 0.63 mg INH [id number] AWAKE PRN PRN Reason: SOB/WHEEZING Last Admin: 01/15/19 09:27 Dose: 0.63 mg Levothyroxine Sodium (Synthroid Tab*) 50 mcg PO 0600 [facility] Last Admin: 01/17/19 05:00 Dose: 50 mcg Metoprolol Tartrate (Lopressor Tab*) 12.5 mg PO Q8HR [facility] Last Admin: 01/17/19 15:13 Dose: 12.5 mg Midodrine (Midodrine) 2.5 mg PO TID [facility]; Protocol Last Admin: 01/17/19 15:14 Dose: 2.5 mg Nystatin (Nystatin Top Powder*) 1 applic TOPICAL TID [facility] Last Admin: 01/17/19 15:16 Dose: 1 applic Octreotide Acetate (Octreotide Acetate*) 50 mcg SUBCUT TID [facility] Last Admin: 01/17/19 15:15 Dose: 50 mcg Pantoprazole Sodium (Protonix Tab*) 40 mg PO DAILY [facility] Last Admin: 01/17/19 10:00 Dose: 40 mg Pregabalin (Lyrica Cap(*)) 25 mg PO BID [facility] Last Admin: 01/17/19 09:58 Dose: 25 mg Rifaximin (Xifaxan*) 550 mg PO Q8HR [facility] Last Admin: 01/17/19 15:13 Dose: 550 mg Vital Signs - 8 hr 01/17/19 01/17/19 01/17/19 10:01 11:34 14:59 Temperature 97.4 F 97.7 F Pulse Rate 74 84 Respiratory 20 16 16 Rate Blood Pressure 97/63 120/58 (mmHg) O2 Sat by Pulse 100 99 Oximetry Oxygen Devices in Use Now: Nasal Cannula Appearance: Obese, elderly, white female, laying upright in bed, appearing in NAD Eyes: No Scleral Icterus, PERRLA Ears/Nose/Mouth/Throat: Mucous Membranes Moist Neck: NL Appearance and Movements; NL JVP Respiratory: Symmetrical Chest Expansion and Respiratory Effort, Clear to Auscultation Cardiovascular: NL Sounds; No Murmurs; No JVD, RRR Abdominal: - - +1 pitting edema to lower abdomen, abd otherwise soft and nondistended, nontender Extremities: No Clubbing, Cyanosis, - - +1 pitting edema to RLE pretibially Skin: No Rash or Ulcers Neurological: NL Muscle Strength and Tone, - - alert, oriented to self and location but not time Result Diagrams: 01/17/19 07:53 10/07/19 05:30 Additional Lab and Data: Above BMP was pulled into the note, when the note was edited prior to signing the note. Please see BMP from day of consultation below. Laboratory Tests 01/08/19 01/10/19 05:31 12:10 Sodium 133 L Potassium 3.8 Chloride 98 L Carbon Dioxide 23 BUN 100 H Creatinine 3.20 H Glucose 109 H Total Protein 7.6 Albumin 3.2 Microbiology and Other Data: Microbiology 01/02/19 13:31 Urine Culture - Preliminary Urine Citrobacter Freundii 01/02/19 11:23 Nasal Screen MRSA (PCR) - Final Nasal Mrsa Detected Assess/Plan/Problems-Billing Assessment: Ms. Latham is a 73 yo F with PMH of cirrhosis of unclear etiology, iron deficiency anemia, DMT2, HTN, CKD, atrial fib, and cardiomyopathy with EF 60-65% ; who presents with shortness of breath and 15 lbs of weight gain per [facility] staff, received acute HD and pending further tunneled dialysis catheter. - Patient Problems (1) Acute kidney injury superimposed on CKD Current Visit: Yes Status: Acute Code(s): N17.9 - ACUTE KIDNEY FAILURE, UNSPECIFIED; N18.9 - CHRONIC KIDNEY DISEASE, UNSPECIFIED SNOMED Code(s): 71294994 Comment: - Now with gross hematuria which has continued - Renal ultrasound without hydronephrosis - Hepatorenal remains on the differential. Consulting GI for further insight - Appreciate nephrology consult. Patient removed temporary IJ catheter over the weekend while agitated. Now at near baseline mental status and wishing for further dialysis. Ordered tunneled dialysis catheter placement. - Will attempt additional goals of care discussion with patient's son tomorrow - Appreciate Dr. Hull's consult today (2) Diastolic heart failure Current Visit: Yes Status: Acute Code(s): I50.30 - UNSPECIFIED DIASTOLIC ( CONGESTIVE) HEART FAILURE SNOMED Code(s): 122747666 Comment: -hx diastolic EF, most recent echo during this hospitalization with EF 55-60% -presented with 15lbs weight gain and shortness of breath. Weight at [facility] 12/15/18 was 263 lbs -pt has chronic dependent edema of lower abdomen and LE edema -bumex has been discontinued per nephrology -holding home spironolactone -continue metoprolol (3) Cirrhosis Current Visit: Yes Status: Acute Comment: - Presumed secondary to CANALES based on GI consult in previous hospitalization, though hep C screen is positive; ? multiple myeloma - Consulting GI to confirm to better define for goals of care - No evidence of decompensation - INR to 1.56 today - Chronic thrombocytopenia; plts around baseline - Trace ascites on US; abdomen size is due to dependent edema and not large ascites - Continue lactulose, rifaximin - Starting octreotide (4) Anxiety Current Visit: Yes Status: Acute Code(s): F41.9 - ANXIETY DISORDER, UNSPECIFIED SNOMED Code(s): 17454555 Comment: - Buspar d/c'd due to hepatic and renal impairment - D/c lorazepam; suspect that this is what caused sedation on 01/15/19 as she is likely not able to clear d/t renal and hepatic impairment - Starting zoloft (5) Rash Current Visit: Yes Status: Acute Code(s): R21 - RASH AND OTHER NONSPECIFIC SKIN ERUPTION SNOMED Code(s): 310883898 Comment: -location, symptomatic itch, and erythema appears consistent with cutaneous candidiasis -continue TID nystatin powder -prn benadryl for itching (6) Atrial fibrillation Current Visit: No Status: Acute Code(s): I48.91 - UNSPECIFIED ATRIAL FIBRILLATION SNOMED Code(s): 11715152 Comment: - Rate controlled - Not on anticoagulation due to history of severe GI bleed - Continue metoprolol (7) Diabetes mellitus Current Visit: No Status: Acute Code(s): E11.9 - TYPE 2 DIABETES MELLITUS WITHOUT COMPLICATIONS SNOMED Code(s): 41885877 Comment: - Diet controlled - A1c 6.2% indicating good control (8) Hypotension Current Visit: No Status: Acute Comment: -Chronic; unknown etiology, possibly liver disease vs heart disease -Continue midodrine (9) Hypothyroidism Current Visit: No Status: Acute Code(s): E03.9 - HYPOTHYROIDISM, UNSPECIFIED SNOMED Code(s): 45625994 Comment: - Continue levothyroxine (10) Iron deficiency anemia Current Visit: Yes Status: Acute Code(s): D50.9 - IRON DEFICIENCY ANEMIA, UNSPECIFIED SNOMED Code(s): 82733760 Comment: - Continue ferrous sulfate (11) UTI (urinary tract infection) Current Visit: No Status: Acute Comment: - Completed course of cefepime (12) DVT prophylaxis Current Visit: No Status: Acute Code(s): IYR8176 - SNOMED Code(s): 351579226 Comment: - SCDs d/t thrombocytopenia and history of severe GI bleed (13) Full code status Current Visit: No Status: Acute Code(s): Z78.9 - OTHER SPECIFIED HEALTH STATUS SNOMED Code(s): 771641352 Comment: Status and Disposition: Inpatient requiring further dialysis, but condition is guarded. Will likely return to [facility] at discharge.
--- NOTE | 2019-01-17 20:32 | CONSULT ---
Palliative / Hospice Consult Ordering Provider: Nithya Morris - [facility]-Dr Koenig Referal Reason: Goals of care/no bowel meds/no narcotics - Subjective Code Status: Full Code Advance Directives Location: No Advance Directives MOLST Part A Completed: Yes - on chart MOLST Part E Completed:: Yes - on chart - History or Present Illness History or Present Illness: 73yo female with morbid obesity resident of [facility] presents with SOB and increasing abdominal swelling. PMH is significant for cirrhosis, afib not on anticoagulation due GI bleed in the past, HTN, type 2 DM, CAD, CKD, OA, iron def anemia, thrombocytopenia, diastolic heart failure, h/o metabolic encephalopathy and hypothyroidism. PSHx 26yrs ago had NE, one son Ant recently engaged, no tob, no etoh, no drugs. 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 Studies CXR-mild pulmonary edema and cardiomegaly, ekg-afib, renal u/s-no hydronephrosis but it was limited due to body size, US abd-splenomegaly & trace ascites, echo EF 55-60% L atrium severely dilated, mod mitral regurge and mod-severe TR, CXR #2 cardiomegaly, pulm edema & small bilateral effusion, CXR #3-pulm interstitial edema, cardiomegaly, venous doppler no dvt, abd/bladder u/s no hydronephrosis, CXR #4 CHF unchanged, H/H 7.7, plt 67, BUN/Cr 39/3.84, egfr 11.5, tbili 1.4, alb 4.2, inr 1.56, urine cult jurgen and R toe with MRSA. Pt is admitted with acute on chronic CHF, acute on chronic kidney disease, UTI started on dialysis 01/12 to be continued for 7-10 days. Pt was last hospitalized 07/17- and ER visit for fall. Prognosis is felt to be poor. All history is from the pt and medical record. Lab Values: Abnormal Lab Results 01/17/19 01/17/19 01/17/19 05:30 05:30 07:53 WBC 4.6 RBC 2.31 L Hgb 7.7 L Hct 24 L MCV 102 H MCH 33 H MCHC 33 RDW 18 H Plt Count 67 L MPV 7.8 Neut % (Auto) 66.1 Lymph % (Auto) 11.3 [place] % (Auto) 14.9 Eos % (Auto) 6.5 Baso % (Auto) 1.2 Absolute Neuts (auto) 3.0 Absolute Lymphs (auto) 0.5 L Absolute Monos (auto) 0.7 Absolute Eos (auto) 0.3 Absolute Basos (auto) 0.1 Absolute Nucleated RBC 0.1 Nucleated RBC % 1.6 INR (Anticoag Therapy) 1.56 H Sodium 139 Potassium 4.1 Chloride 99 L Carbon Dioxide 29 Anion Gap 11 BUN 39 H Creatinine 3.84 H Est GFR ( Amer) 13.9 Est GFR (Non-Af Amer) 11.5 BUN/Creatinine Ratio 10.2 Glucose 107 H Calcium 9.4 Total Bilirubin 1.40 H AST 24 ALT 9 Alkaline Phosphatase 132 H Total Protein 7.5 Albumin 4.2 Globulin 3.3 Albumin/Globulin Ratio 1.3 Laboratory Last Values WBC 4.6 10^3/uL (3.5-10.8) 01/17/19 07:53 RBC 2.31 10^6 /uL (3.70-4.87) L 01/17/19 07:53 Hgb 7.7 g/dL (12.0-16.0) L 01/17/19 07:53 Hct 24 % (35-47) L 01/17/19 07:53 MCV 102 fL (80-97) H 01/17/19 07:53 MCH 33 pg (27-31) H 01/17/19 07:53 MCHC 33 g/dL (31-36) 01/17/19 07:53 RDW 18 % (10-15) H 01/17/19 07:53 Plt Count 67 10^3/uL (150-450) L 01/17/19 07:53 MPV 7.8 fL (7.4-10.4) 01/17/19 07:53 Neut % (Auto) 66.1 % 01/17/19 07:53 Lymph % (Auto) 11.3 % 01/17/19 07:53 [place] % (Auto) 14.9 % 01/17/19 07:53 Eos % (Auto) 6.5 % 01/17/19 07:53 Baso % (Auto) 1.2 % 01/17/19 07:53 Absolute Neuts (auto) 3.0 10^3/ul (1.5-7.7) 01/17/19 07:53 Absolute Lymphs (auto) 0.5 10^3/ul (1.0-4.8) L 01/17/19 07:53 Absolute Monos (auto) 0.7 10^3/ul (0-0.8) 01/17/19 07:53 Absolute Eos (auto) 0.3 10^3/ul (0-0.6) 01/17/19 07:53 Absolute Basos (auto) 0.1 10^3/ul (0-0.2) 01/17/19 07:53 Absolute Nucleated RBC 0.1 10^3/ul 01/17/19 07:53 Nucleated RBC % 1.6 01/17/19 07:53 INR (Anticoag Therapy) 1.56 (0.82-1.09) H 01/17/19 05:30 APTT 39.0 seconds (26.0-38.0) H 01/04/19 06:18 Patient Temperature Not Reportable 01/15/19 14:49 ABG pH 7.36 (7.35-7.45) 01/15/19 14:49 ABG pH (Temp Correct) Not Reportable 01/15/19 14:49 ABG pCO2 50 mmHg (35-45) H 01/15/19 14:49 ABG pCO2 (Temp Corrct Not Reportable 01/15/19 14:49 ABG pO2 96 mmHg (80-100) 01/15/19 14:49 ABG pO2 (Temp Correct Not Reportable 01/15/19 14:49 ABG HCO3 26.4 mmol/L (19-31) 01/15/19 14:49 ABG O2 Saturation 99.1 % (94.0-98.0) H 01/15/19 14:49 ABG Base Excess 1.9 mmol/L (-2.0-2.0) 01/15/19 14:49 Respiration Rate Not Reportable 01/15/19 14:49 O2 Delivery Device 2.5 l nc 01/15/19 14:49 Ventilator Type Not Reportable 01/15/19 14:49 Vent Mode Not Reportable 01/15/19 14:49 FiO2 Not Reportable 01/15/19 14:49 Inspiratory Time Not Reportable 01/15/19 14:49 PEEP Not Reportable 01/15/19 14:49 Pressure Support Not Reportable 01/15/19 14:49 Pressure Control Not Reportable 01/15/19 14:49 EPAP Not Reportable 01/15/19 14:49 IPAP Not Reportable 01/15/19 14:49 BiPAP Not Reportable 01/15/19 14:49 Sodium 139 mmol/L (135-145) 01/17/19 05:30 Potassium 4.1 mmol/L (3.5-5.0) 01/17/19 05:30 Chloride 99 mmol/L (101-111) L 01/17/19 05:30 Carbon Dioxide 29 mmol/L (22-32) 01/17/19 05:30 Anion Gap 11 mmol/L (2-11) 01/17/19 05:30 BUN 39 mg/dL (6-24) H 01/17/19 05:30 Creatinine 3.84 mg/dL (0.51-0.95) H 01/17/19 05:30 Est GFR ( Amer) 13.9 (>60) 01/17/19 05:30 Est GFR (Non-Af Amer) 11.5 (>60) 01/17/19 05:30 BUN/Creatinine Ratio 10.2 (8-20) 01/17/19 05:30 Glucose 107 mg/dL (70-100) H 01/17/19 05:30 POC Glucose (mg/dL) 108 mg/dL (70-100) H 01/08/19 07:48 Hemoglobin A1c 6.2 % (4.0-5.6) H 01/04/19 06:18 Lactic Acid 0.9 mmol/L (0.5-2.0) 01/02/19 08:48 Calcium 9.4 mg/dL (8.6-10.3) 01/17/19 05:30 Total Bilirubin 1.40 mg/dL (0.2-1.0) H 01/17/19 05:30 Direct Bilirubin 0.50 mg/dL (0.03-0.18) H 01/13/19 08:30 Indirect Bilirubin 0.8 mg/dL (0.3-1.0) 01/13/19 08:30 AST 24 U/L (13-39) 01/17/19 05:30 ALT 9 U/L (7-52) 01/17/19 05:30 Alkaline Phosphatase 132 U/L (34-104) H 01/17/19 05:30 Ammonia 34 mcmol/L (16-53) 01/15/19 15:00 Total Creatine Kinase 38 U/L (10-223) 01/02/19 08:48 CK-MB (CK-2) 3.2 ng/mL (0.6-6.3) 01/02/19 08:48 Troponin I 0.03 ng/mL (<0.04) 01/02/19 08:48 C-Reactive Protein 15.84 mg/L (<8.01) H 01/02/19 08:48 B-Natriuretic Peptide 451 pg/mL (<=100) H 01/02/19 08:48 Total Protein 7.5 g/dL (6.4-8.9) 01/17/19 05:30 Total Protein (PEP) 8.0 g/dL (6.3 - 7.9) H 01/10/19 12:07 Albumin 4.2 g/dL (3.2-5.2) 01/17/19 05:30 Albumin (PEP) 3.6 g/dL (3.4-4.7) 01/10/19 12:07 Globulin 3.3 g/dL (2-4) 01/17/19 05:30 Albumin/Globulin Ratio 1.3 (1-3) 01/17/19 05:30 Albumin/Globulin (PEP) 0.81 01/10/19 12:07 Lsgit-7-Oairxijzy 0.2 g/dL (0.1-0.3) 01/10/19 12:07 Ozifk-1-Crsvrksyl 0.7 g/dL (0.6-1.0) 01/10/19 12:07 Ewrt-2-Cudrikbw 0.9 g/dL (0.7-1.2) 01/10/19 12:07 Gamma Globulins 2.7 g/dL (0.6-1.6) H 01/10/19 12:07 M-Davis Not Reportable 01/10/19 12:07 M-Davis 2 Not Reportable 01/10/19 12:07 PEP Impression See comment 01/10/19 12:07 Urine Color Kelin 01/11/19 03:18 Urine Appearance Cloudy 01/11/19 03:18 Urine pH 5.0 (5-9) 01/11/19 03:18 Ur Specific [place] 1.014 (1.010-1.030) 01/11/19 03:18 Urine Protein 2+(100 mg/dl) (Negative) A 01/11/19 03:18 Urine Ketones Negative (Negative) 01/11/19 03:18 Urine Blood 3+ (Negative) A 01/11/19 03:18 Urine Nitrate Negative (Negative) 01/11/19 03:18 Urine Bilirubin Negative (Negative) 01/11/19 03:18 Urine Urobilinogen Negative (Negative) 01/11/19 03:18 Ur Leukocyte Esterase 2+ (Negative) A 01/11/19 03:18 Urine WBC (Auto) 3+(>20/hpf) (Absent) A 01/11/19 03:18 Urine RBC (Auto) 3+(>10/hpf) (Absent) A 01/11/19 03:18 Ur Squamous Epith Cells Present (Absent) A 01/11/19 03:18 Urine Bacteria 1+ (Absent) A 01/11/19 03:18 Hyaline Casts Present (Absent) A 01/11/19 03:18 Urine Collection Time 24 hr 01/09/19 01:25 Urine Total Volume 800 mL 01/09/19 01:25 Ur Creatinine 24 Hour 391.28 mg/24Hr (600-1800) L 01/09/19 01:25 Ur Creatinine Concen 48.91 mg/dL 01/09/19 01:25 Ur Total Protein Conc 19 mg/dL 01/09/19 01:25 Ur Total Protein 24 Hr 152 mg/24Hr (0-165) 01/09/19 01:25 U Sodium Concentration 78 mmol/L 01/07/19 17:25 Ur Urea Nitrogen Conc 271 mg/dL 01/08/19 01:25 Urine Glucose Negative (Negative) 01/11/19 03:18 [place] Light Chain 19.0 mg/dL H 01/10/19 12:07 Lambda Light Chain 13.2 mg/dL H 01/10/19 12:07 [place]/Lambda Ratio 1.44 01/10/19 12:07 Hepatitis B Antibody Not immune (Immune) A 01/11/19 05:58 Hep Bs Antigen Nonreactive (Nonreactive) 01/12/19 05:54 Hep B Core Total Ab Negative (Negative) 01/11/19 05:58 Hep B Core IgM Ab Nonreactive (Nonreactive) 01/12/19 05:54 Hepatitis C Antibody Reactive (Negative) A 01/11/19 05:58 Hepatitis C Ab Index 1.00 s/c 01/11/19 05:58 Hepatitis C RNA Quant Undetected IU/mL (Undetected) 01/11/19 05:58 - Objective Active Medications: Acetaminophen (Tylenol Tab*) 650 mg PO Q4H PRN PRN Reason: FEVER/PAIN Last Admin: 01/17/19 05:00 Dose: 650 mg Atorvastatin Calcium (Lipitor*) 40 mg PO BEDTIME [facility] Last Admin: 01/16/19 23:17 Dose: 40 mg Buspirone HCl (Buspar Tab*) 5 mg PO TID PRN PRN Reason: ANXIETY Last Admin: 01/15/19 20:54 Dose: 5 mg Cholecalciferol (Vitamin D Tab*) 1,000 units PO QAM [facility] Last Admin: 01/17/19 09:58 Dose: 1,000 units Diphenhydramine HCl (Benadryl Po*) 25 mg PO Q6H PRN PRN Reason: ITCHING Last Admin: 01/17/19 05:01 Dose: 25 mg Ferrous Sulfate (Ferrous Sulfate Tab*) 325 mg PO TID [facility] Last Admin: 01/17/19 15:15 Dose: 325 mg Fluticasone Propionate (Flonase Nasal [place] 50mcg*) 1 spray INTRANASAL DAILY [facility] Last Admin: 01/17/19 10:00 Dose: 1 spray Ipratropium [place] (Atrovent 0.5 Mg Neb.Brionna*) 0.5 mg INH [id number] AWAKE PRN PRN Reason: SOB/WHEEZING Lactulose (Lactulose*) 15 ml PO TID [facility] Last Admin: 01/17/19 15:13 Dose: 15 ml Levalbuterol HCl (Xopenex 0.63mg/3ml Neb*) 0.63 mg INH [id number] AWAKE PRN PRN Reason: SOB/WHEEZING Last Admin: 01/15/19 09:27 Dose: 0.63 mg Levothyroxine Sodium (Synthroid Tab*) 50 mcg PO 0600 [facility] Last Admin: 01/17/19 05:00 Dose: 50 mcg Metoprolol Tartrate (Lopressor Tab*) 12.5 mg PO Q8HR [facility] Last Admin: 01/17/19 15:13 Dose: 12.5 mg Midodrine (Midodrine) 2.5 mg PO TID [facility]; Protocol Last Admin: 01/17/19 15:14 Dose: 2.5 mg Nystatin (Nystatin Top Powder*) 1 applic TOPICAL TID [facility] Last Admin: 01/17/19 15:16 Dose: 1 applic Octreotide Acetate (Octreotide Acetate*) 50 mcg SUBCUT TID [facility] Last Admin: 01/17/19 15:15 Dose: 50 mcg Pantoprazole Sodium (Protonix Tab*) 40 mg PO DAILY [facility] Last Admin: 01/17/19 10:00 Dose: 40 mg Pregabalin (Lyrica Cap(*)) 25 mg PO BID [facility] Last Admin: 01/17/19 09:58 Dose: 25 mg Rifaximin (Xifaxan*) 550 mg PO Q8HR [facility] Last Admin: 01/17/19 15:13 Dose: 550 mg Sertraline HCl (Zoloft*) 25 mg PO DAILY [facility] Vital Signs: Vital Signs: Temp Pulse Resp BP Pulse Ox 97.7 F 84 16 120/58 99 01/17/19 14:59 01/17/19 14:59 01/17/19 14:59 01/17/19 14:59 01/17/19 14:59 Patient Weight: Weight 128.14 kg Intake and Output: Intake & Output 01/15/19 01/16/19 01/17/19 01/18/19 06:59 06:59 06:59 06:59 Intake Total 500 100 495 240 Output Total 50 110 170 Balance 450 -10 325 240 Weight 127.686 kg 128.14 kg Intake: Oral 500 100 495 240 Output: Urine 0 Garcia 50 110 170 Other: Date of Last Bowel 01/14/19 Movement # Bowel Movements 1 Estimated Stool Amount Medium ADLs: Meal Record Start: 01/02/19 13: 35 Freq: DAILY@0900,1400,1800 Status: Active Protocol: Created 01/02/19 13:35 System (Rec: 09/22/19 13:35 System RESP-M08) Document 01/02/19 18:00 [id number] (Rec: 01/02/19 20:41 [id number] MED-C11) Document 01/03/19 09:00 XKS4374 (Rec: 01/03/19 10:51 [id number] MED-C11) Document 01/03/19 13:15 [id number] (Rec: 01/03/19 13:16 SCU9948 MED-C11) Document 01/03/19 18:00 WTY8264 (Rec: 01/03/19 21:02 CUL0051 MED-C09) Document 01/04/19 09:00 XNC5888 (Rec: 01/04/19 10:31 LTS7515 MED-C09) Document 01/04/19 14:00 LIM6085 (Rec: 01/04/19 14:40 PRC1987 MED-C11) Document 01/04/19 18:00 TAF0435 (Rec: 01/04/19 20:55 YRX9752 MED-C11) Document 01/05/19 09:00 PYF7111 (Rec: 01/05/19 09:45 UCY7906 MED-C09) Document 01/05/19 14:00 EHB5415 (Rec: 01/05/19 14:07 HII3574 MED-C09) Document 01/05/19 18:00 ASW0598 (Rec: 01/05/19 19:06 ISR5743 MED-C09) Document 01/06/19 18:00 PBZ7946 (Rec: 01/06/19 22:30 PYU4161 MED-C11) Document 01/07/19 09:00 VJX4657 (Rec: 01/07/19 12:22 MEO2616 MED-C11) Document 01/07/19 14:00 FMW1171 (Rec: 01/07/19 14:16 WPU0860 MED-C09) Document 01/07/19 18:00 NYJ9724 (Rec: 01/07/19 23:41 WEZ8651 MED-C11) Document 01/08/19 09:00 XPA5404 (Rec: 01/08/19 09:22 QNW3102 MED-C16) Document 01/08/19 14:00 RLC5030 (Rec: 01/08/19 17:38 RYN4211 MED-C11) Document 01/08/19 18:00 ZFJ9437 (Rec: 01/08/19 22:48 VZP4030 MED-C11) Document 01/09/19 09:00 THI3265 (Rec: 01/09/19 09:31 HXR1985 MED-C11) Document 01/09/19 18:00 CFW7759 (Rec: 01/09/19 21:47 KMF5852 MED-C09) Document 01/10/19 09:00 XTB9984 (Rec: 01/10/19 10:27 MCN2851 MED-C09) Document 01/10/19 13:30 CYC6647 (Rec: 01/10/19 13:31 MKC2048 MED-C09) Document 01/10/19 18:00 JMB5124 (Rec: 01/10/19 23:39 DRA9242 MED-C16) Document 01/11/19 09:00 FHB4842 (Rec: 01/11/19 15:03 LKR3649 TELE-C11) Document 01/11/19 14:00 IGJ6841 (Rec: 01/11/19 15:04 ABZ7341 TELE-C11) Document 01/11/19 18:00 UHC2492 (Rec: 01/11/19 21:53 OXI3806 TELE-C10) Document 01/12/19 09:00 IAB5432 (Rec: 01/12/19 09:16 VCG4052 TELE-M15) Document 01/12/19 14:00 ISS2063 (Rec: 01/12/19 14:35 DKH0805 TELE-M15) Document 01/12/19 18:00 IME7428 (Rec: 01/12/19 18:15 QNX2304 TELE-C01) Document 01/13/19 09:00 VNY6909 (Rec: 01/13/19 09:46 JUW9193 TELE-C05) Document 01/13/19 13:20 CXP1345 (Rec: 01/13/19 13:20 EWJ8503 TELE-C13) Document 01/13/19 18:00 AMB0098 (Rec: 01/13/19 19:56 BDY4399 TELE-C05) Document 01/14/19 09:00 YDO1059 (Rec: 01/14/19 10:31 SIR6897 TELE-C01) Document 01/14/19 14:00 XEP8830 (Rec: 01/14/19 15:10 IXA4433 TELE-C01) Document 01/14/19 18:00 IAZ4992 (Rec: 01/14/19 19:51 NQL8884 TELE-C07) Document 01/15/19 09:00 FYY7832 (Rec: 01/15/19 13:25 ZQM3717 TELE-C06) Document 01/15/19 14:00 FFC2658 (Rec: 01/15/19 14:37 RKJ4909 TELE-C06) Document 01/15/19 18:00 KGF5282 (Rec: 01/15/19 18:58 AJU0849 TELE-C09) Document 01/16/19 09:00 HVN7281 (Rec: 01/16/19 14:55 ABU1427 TELE-C07) Document 01/16/19 14:00 DLK5999 (Rec: 01/16/19 14:55 JTX7174 TELE-C07) Document 01/16/19 18:00 WTT7463 (Rec: 01/16/19 20:51 IPY8547 TELE-C09) Document 01/17/19 09:00 DSB6677 (Rec: 01/17/19 09:10 KRA0824 TELE-C11) Document 01/17/19 14:00 YRR9591 (Rec: 01/17/19 14:28 NGA3941 TELE-C11) Document 01/17/19 18:00 YOL4639 (Rec: 01/17/19 20:00 XNT8786 TELE-M20) Intake and Output Start: 01/02/19 08: 33 Freq: Status: Active Protocol: Created 01/02/19 08:33 System (Rec: 01/02/19 08:33 System EDRM-C11) Document 01/08/19 23:57 LSM6193 (Rec: 01/08/19 23:57 IMX6363 MED-C12) Intake and Output Start: 01/02/19 13: 35 Freq: DAILY@0600,1400,2200 Status: Active Protocol: Created 01/02/19 13:35 System (Rec: 01/02/19 13:35 System RESP-M08) Document 01/02/19 22:00 HOB8917 (Rec: 01/03/19 04:10 BMA7588 MED-C26) Document 01/03/19 06:00 GOY0994 (Rec: 01/03/19 06:05 VCB8280 MED-C09) Document 01/03/19 11:51 LZJ9656 (Rec: 01/03/19 11:51 PXF6547 MED-C11) Document 01/03/19 22:00 GSD0690 (Rec: 01/03/19 23:52 ZJY5495 MED-C26) Document 01/04/19 04:02 OAJ3581 (Rec: 01/04/19 04:03 VWP5396 MED-C26) Document 01/04/19 14:00 ICW3844 (Rec: 01/04/19 14:40 ELN1536 MED-C11) Document 01/04/19 22:00 XAP7515 (Rec: 01/04/19 22:41 UIX3718 MED-C11) Document 01/05/19 06:00 YYO4082 (Rec: 01/05/19 06:11 OEC4440 MED-C07) Document 01/05/19 14:00 XZB7810 (Rec: 01/05/19 14:07 BIF4336 MED-C09) Document 01/05/19 22:00 RCY6167 (Rec: 01/05/19 23:58 ZPU6647 MED-C09) Document 01/06/19 05:11 BMS2068 (Rec: 01/06/19 05:11 WMP8300 MED-M28) Document 01/06/19 06:00 SVP9380 (Rec: 01/06/19 06:07 CZK5582 MED-C09) Document 01/06/19 22:00 ZDI4747 (Rec: 01/06/19 22:26 YRB6195 MED-M22) Document 01/07/19 05:33 EDA0644 (Rec: 01/07/19 05:34 ADB4971 MED-C11) Document 01/07/19 14:00 NPC0816 (Rec: 01/07/19 14:16 AUD5523 MED-C09) Document 01/07/19 22:00 VXP2831 (Rec: 01/07/19 23:43 QTR0737 MED-C11) Document 01/08/19 06:00 EPU8637 (Rec: 01/08/19 06:12 GGP3115 MED-C11) Document 01/08/19 14:00 CSR9539 (Rec: 01/08/19 17:38 OXI7863 MED-C11) Document 01/08/19 22:00 DXL4259 (Rec: 01/08/19 23:10 CXG3445 MED-C11) Document 01/09/19 06:00 PEF5006 (Rec: 01/09/19 06:20 CXA4637 MED-C16) Document 01/09/19 15:56 BMU7711 (Rec: 01/09/19 15:56 HRB1496 TELE-M11) Document 01/09/19 22:00 AWY2379 (Rec: 01/10/19 01:07 WHK4628 MED-C14) Document 01/10/19 05:48 UAU0170 (Rec: 01/10/19 05:49 PUB5708 MED-C14) Document 01/10/19 14:00 CTF7210 (Rec: 01/10/19 14:06 CXA3981 MED-C09) Document 01/11/19 06:00 CZO9433 (Rec: 01/11/19 06:33 YJS6707 TELE-C06) Document 01/11/19 14:00 NLV2521 (Rec: 01/11/19 15:05 VHG0970 TELE-C11) Document 01/11/19 22:00 SAC8567 (Rec: 01/12/19 06:30 CYF1805 TELE-C10) Document 01/12/19 06:00 NCF3808 (Rec: 01/12/19 07:03 FPY7993 TELE-C10) Document 01/12/19 22:00 OEM6285 (Rec: 01/12/19 22:05 HHJ1592 TELE-C11) Document 01/13/19 06:00 OBR4777 (Rec: 01/13/19 06:04 EFY3478 TELE-C06) Document 01/13/19 13:21 SGR1452 (Rec: 01/13/19 13:21 EWF6638 TELE-C13) Document 01/13/19 22:00 QGN4106 (Rec: 01/13/19 22:24 JEK4614 TELE-C05) Document 01/14/19 06:00 SZF4208 (Rec: 01/14/19 06:12 GMZ1306 TELE-C10) Document 01/14/19 14:00 NDY8861 (Rec: 01/14/19 14:29 SUW3647 TELE-C01) Document 01/14/19 22:00 URK5904 (Rec: 01/15/19 00:27 LHV7733 TELE-C13) Document 01/15/19 06:00 HXS4313 (Rec: 01/15/19 06:24 ODP7764 TELE-C09) Document 01/15/19 22:00 QXU3336 (Rec: 01/15/19 22:36 GIF2774 TELE-C11) Document 01/16/19 05:51 CCO0295 (Rec: 01/16/19 05:51 WRP7580 MED-M01) Document 01/16/19 06:45 PBJ4307 (Rec: 01/16/19 06:45 TXX4318 TELE-C11) Document 01/16/19 14:00 ALB6758 (Rec: 01/16/19 14:59 WZM1115 TELE-C07) Document 01/16/19 22:00 BVN0279 (Rec: 01/16/19 22:17 VWW0660 TELE-C09) Document 01/17/19 06:00 WZE9416 (Rec: 01/17/19 06:22 QHY5741 TELE-C03) Document 01/17/19 14:00 FBA7353 (Rec: 01/17/19 14:28 BVK7707 TELE-C11) Eyes: No Scleral Icterus, PERRLA Ears/Nose/Mouth/Throat: Mucous Membranes Moist Neck: NL Appearance and Movements; NL JVP - ecchymotic area under her chin Cardiovascular: NL Sounds; No Murmurs; No JVD, RRR Abdominal: - - +1 pitting edema to lower abdomen, abd otherwise soft and nondistended, nontender Extremities: No Clubbing, Cyanosis, - - +1 pitting edema to RLE pretibially Neurological: Alert and Oriented x 3, NL Muscle Strength and Tone, - - alert, oriented to self and location but not time - Assessment Assessment: 73yo female with acute on chronic CHF, acute on chronic kidney disease and UTI - Plan Consult Plan (MU): Other Plan: Long discussion with pt about goals of care. When I asked what she knew of her health problems she stated "they told me I am dying." Pt is very ambivalent saying she wants to be comfortable and doesn't want to be intubated but then says she wants to be around for her son's wedding in 2 yrs or she is a fighter and wants to fight for any extra day she has with her son. Pt mentioned wanting to go to [facility] in [place] although no beds are available according to margie colindres at this time. She used to live in [place]. She is at [facility] because it is closer to her son who lives in [place]. We have not discussed hospice yet but will follow pt while in hospital. Pt is eligible for hospice if she forgoes dialysis with end stage renal disease, diastolic CHF, severe TR and liver disease. KPS 40%. PPS 40%. - Time On Unit Date of Evaluation: 01/17/19 Hospice Consult Time in: 13:30 Hospice Consult Time Out: 15:00 Hospice Consult Time Total: 90 > 50% of Time Spend In Counseling or Coordinating Care: Yes
[2019-01-17] MEDS: Atorvastatin* 40 MG TAB PO SCH (22:01)
--- NOTE | 2019-01-18 02:56 | PN ---
PROGRESS NOTE: DATE OF VISIT: 01/17/19 SUBJECTIVE: The patient is seen and examined at bedside. Case discussed with the patient. The patient does not understand the gravity of the situation or how sick she is, not sure if she wants to continue dialysis. On one hand says she does not want to be in bed like this and suffer. On the other hand says that she does not want to give up and does not want to and wants to keep going. Vitals and labs had been reviewed. PHYSICAL EXAM: HEENT: NC/AT. Heart: S1, S2 present. Regular rate and rhythm. Lungs: Decreased breath sounds bilaterally. Abdomen: Distended with ascites. No rebound, no guarding. Extremities: Noted to have significant edema. Neuro: Alert and oriented at the time of exam. ASSESSMENT AND PLAN: 1. Acute kidney injury, likely secondary to hepatorenal syndrome. The patient' s picture is consistent with hepatorenal syndrome. With her indices, the patient's UA has also been bland, not noted to have significant proteinuria or other etiology to explain her worsening kidney function. 2. The patient's kidney ultrasound has been reviewed. This was a poor quality picture and the ultrasound would be difficult with her body habitus. We will order a noncontrast CT of her abdomen and pelvis to evaluate her liver and also her kidney and rule out other etiology, also to evaluate for any significant ascites. The patient's prior imaging did not have significant ascites to tap, but we will reevaluate. 3. In the meantime, recommend adding octreotide to the midodrine to treat her for possible hepatorenal syndrome. 4. Recommend GI evaluation to ascertain her cirrhosis. The patient has seen Gastroenterology remotely in the past. 5. The patient's MELD score noted to be elevated. 6. Coagulopathy with increased INR in the setting of liver disease. 7. At this time, as the patient does not want to give up, discuss dialysis in particular with the patient. Usually, patients with hepatorenal syndrome will have extremely poor prognosis and typically we do not dialyze them unless there is a bridge to liver transplantation which I am not sure if the patient would be a candidate for with all her other medical problems but we will let GI plan on further management and plan. 8. In the interim, the patient was dialyzed 3 times and had about 6 L off, but the patient got confused and pulled out her temporary dialysis catheter on Thursday and bled after this. 9. At this point, the patient wants to continue dialysis and can only offer time- limited trial as the patient may not do well with long-term dialysis with her etiology and clinical condition. 10. Recommend getting a palliative care consultation and involving the patient' s family including her son for further discussion. 11. In the meantime, recommend getting a tunneled dialysis catheter. Requesting a tunnel dialysis catheter with Interventional Radiology as the patient at this time wants to continue on time-limited trial of dialysis. 12. The patient does not have any emergent indications for dialysis today. We will monitor her condition closely and we will await further family discussion and catheter placement and decide on further plans. 13. Case discussed with the medical team as well and we will follow closely. [id number] #: [id number] MITESH
[2019-01-18] MEDS: RiFAXimin* 550 MG TAB PO SCH ×3 (05:22→21:10)
[2019-01-18] MEDS: Levothyroxine TAB* 50 MCG TAB PO SCH (05:22)
[2019-01-18] MEDS: Metoprolol Tartrate TAB* 25 MG PO SCH ×3 (05:22→21:13)
--- NOTE | 2019-01-18 09:17 | CONS ---
CONSULTATION REPORT: DATE OF CONSULT: 01/17/19 REQUESTING PHYSICIAN: M[facility] Hospitalist Service. NARRATIVE: Ms. Latham is a very pleasant 73-year-old female who has a past medical history of liver cirrhosis, AFib, type 2 diabetes, coronary artery disease, chronic renal insufficiency, congestive heart failure, history of metabolic encephalopathy, hypertension, anemia, thrombocytopenia, hypothyroid and obesity who presented on 01/02/19 with worsening shortness of breath. She states that her abdomen had become more swollen. She was unable to breathe very well and she came to the emergency room and admitted secondary to anemia, thrombocytopenia, and worsening shortness of breath. Since being in the hospital, she has had consultations from the nephrology service who has started her on dialysis due to her worsening renal insufficiency. There was thought to be a component of both chronic renal insufficiency and acute on chronic potentially secondary to hepatorenal. The patient is already on midodrine. Her liver disease is thought to be secondary to CANALES cirrhosis. She does have a positive HCV antibody; however, her RNA is undetectable. She tells me that she has never been diagnosed with hep C nor treated for hep C to the best of her knowledge. Likely she would remember being treated for hep C. She very well could have been exposed to hep C in the past and then cleared by her own immune system. Currently, she states that she is still short of breath, but better. She states that her abdomen has not increased in size at all. She is concerned because she has been told by her previous physicians that many of her organs are failing. She has been intermittently confused over the past few days. On Thursday, she seemed extremely confused; per the notes yesterday she seemed better. Today, she is oriented to person, but she is not sure of the current date nor time. PAST MEDICAL HISTORY: Please see the HPI. PAST SURGICAL HISTORY: Noncontributory. MEDICATIONS AT HOME: Include: 1. Atorvastatin. 2. Lactulose. 3. Xopenex. 4. Levothyroxine. 5. Metoprolol. 6. Midodrine. 7. Fluticasone. 8. Pantoprazole. 9. Lyrica. 10. Rifaximin. 11. Spironolactone. 12. Demadex. 13. Zofran. 14. Benadryl. ALLERGIES: IV CONTRAST. FAMILY HISTORY: Significant for coronary artery disease. SOCIAL HISTORY: No tobacco or alcohol. No IV drug use. She lives at [facility]. REVIEW OF SYSTEMS: Twelve systems were reviewed, please see the HPI. Other than that mentioned in the HPI are unremarkable. PHYSICAL EXAM: Vital Signs: Temperature is 97.7, blood pressure is 120/58, pulse is 84, respiratory rate of 16, O2 sat is 99%. General: Chronically ill appearing elderly female, lying flat in bed. Alert, oriented only to person, not to day or month. HEENT: Mucous membranes are moist without lesions, ulcers , or exudate. Neck is supple. Trachea is midline. Head is normocephalic atraumatic. Skin: Numerous petechial hemorrhages. Heart: Irregular rate and rhythm. Lungs: Coarse breath sounds bilaterally. Abdomen: Morbidly obese. Positive bowel sounds. Soft, nontender. No dull flanks. Skin is warm and dry. DIAGNOSTIC STUDIES/LAB DATA: Of note, white count is 4.6, hemoglobin is 7.7, platelet count of 67,000. INR is 1.56, down from 1.74. Sodium is 139, BUN is 39, creatinine is 3.84, glucose is 104, bilirubin is 1.4, AST is 24, ALT is 9, alk phos is 132. She had a CT abdomen and pelvis that she just returned from, which reveals a right pleural effusion, small amount of ascites, diffuse edema in the subcutaneous tissue and a markedly distended inferior vena cava and venous structures suggestive of fluid overload. ASSESSMENT AND PLAN: This is a pleasant 73-year-old female with multisystem organ failure. From a GI and hepatology standpoint, she does appear to have cirrhosis. She has thrombocytopenia. INR is elevated. She likely has a component of both nonalcoholic steatohepatitis and potentially hepatitis C in the past. The hepatitis C is not currently active. Unfortunately, she does have severe renal insufficiency; likely there is a component of hepatorenal. She has already been treated with midodrine. At this point, she does have Nephrology on board. The amount of ascites on the recent CT is traced to minimal. She does have a component of encephalopathy. She is already on lactulose and Xifaxan. I would recommend we continue with those, the lactulose , may be also multifactorial. Her primary team is currently addressing her long -term needs and desires. I think that this is very appropriate. I do not see from a Hepatology standpoint much more to offer her. Given her multisystem organ failure, she would not be a liver transplant candidate. We will continue to follow along, and please call with any questions. [id number]/[facility] #: [id number] MITESH
[2019-01-18] MEDS: Lactulose* 15 ML UDC PO SCH ×3 (09:53→21:10)
[2019-01-18] MEDS: Pregabalin CAP(*) 25 MG PO SCH ×2 (09:53→21:09)
[2019-01-18] MEDS: Cholecalciferol TAB* 1000 UNITS PO SCH (09:56)
[2019-01-18] MEDS: Ferrous Sulfate TAB* 325 MG PO SCH ×3 (09:57→21:10)
[2019-01-18] MEDS: Pantoprazole TAB * 40 MG TAB PO SCH (09:57)
[2019-01-18] MEDS: Octreotide Acetate* 50 MCG/ML ML SUBCUT SCH ×3 (09:58→22:03)
[2019-01-18] MEDS: Sertraline* 25 MG TAB PO SCH (09:58)
[2019-01-18] MEDS: Nystatin TOP POWDER* 15 GM BTL TOPICAL SCH (09:58)
[2019-01-18] MEDS: Fluticasone NASAL SPRAY 50MCG* 16 gm SPRAY BTL INTRANASAL SCH (09:59)
--- NOTE | 2019-01-18 10:28 | PN ---
Subjective Date of Service: 01/18/19 Interval History: Patient tells me she feels well today. She does not recall telling the nurse she didn't want to wear clothes anymore which is why she doesn't have a gown on. She tells me she's at [facility] and says she forgot she's been at the hospital. Denies difficulty breathing, lower extremity pain, abd pain ,nausea, chest pain. Family History: Unchanged from Admission Social History: Unchanged from Admission Past Medical History: Unchanged from Admission Objective Active Medications: Acetaminophen (Tylenol Tab*) 650 mg PO Q4H PRN PRN Reason: FEVER/PAIN Last Admin: 01/17/19 05:00 Dose: 650 mg Atorvastatin Calcium (Lipitor*) 40 mg PO BEDTIME [facility] Last Admin: 01/17/19 22:01 Dose: 40 mg Buspirone HCl (Buspar Tab*) 5 mg PO TID PRN PRN Reason: ANXIETY Last Admin: 01/15/19 20:54 Dose: 5 mg Cholecalciferol (Vitamin D Tab*) 1,000 units PO QAM [facility] Last Admin: 01/18/19 09:56 Dose: 1,000 units Diphenhydramine HCl (Benadryl Po*) 25 mg PO Q6H PRN PRN Reason: ITCHING Last Admin: 01/17/19 05:01 Dose: 25 mg Ferrous Sulfate (Ferrous Sulfate Tab*) 325 mg PO TID [facility] Last Admin: 01/18/19 09:57 Dose: 325 mg Fluticasone Propionate (Flonase Nasal [place] 50mcg*) 1 spray INTRANASAL DAILY [facility] Last Admin: 01/18/19 09:59 Dose: 1 spray Ipratropium [place] (Atrovent 0.5 Mg Neb.Brionna*) 0.5 mg INH [id number] AWAKE PRN PRN Reason: SOB/WHEEZING Lactulose (Lactulose*) 15 ml PO TID [facility] Last Admin: 01/18/19 09:53 Dose: Not Given Levalbuterol HCl (Xopenex 0.63mg/3ml Neb*) 0.63 mg INH [id number] AWAKE PRN PRN Reason: SOB/WHEEZING Last Admin: 01/15/19 09:27 Dose: 0.63 mg Levothyroxine Sodium (Synthroid Tab*) 50 mcg PO 0600 [facility] Last Admin: 01/18/19 05:22 Dose: 50 mcg Metoprolol Tartrate (Lopressor Tab*) 12.5 mg PO Q8HR [facility] Last Admin: 01/18/19 05:22 Dose: Not Given Midodrine (Midodrine) 2.5 mg PO TID [facility]; Protocol Last Admin: 01/18/19 09:55 Dose: 2.5 mg Nystatin (Nystatin Top Powder*) 1 applic TOPICAL TID [facility] Last Admin: 01/18/19 09:58 Dose: 1 applic Octreotide Acetate (Octreotide Acetate*) 50 mcg SUBCUT TID [facility] Last Admin: 01/18/19 09:58 Dose: 50 mcg Pantoprazole Sodium (Protonix Tab*) 40 mg PO DAILY [facility] Last Admin: 01/18/19 09:57 Dose: 40 mg Pregabalin (Lyrica Cap(*)) 25 mg PO BID [facility] Last Admin: 01/18/19 09:53 Dose: 25 mg Rifaximin (Xifaxan*) 550 mg PO Q8HR [facility] Last Admin: 01/18/19 05:22 Dose: 550 mg Sertraline HCl (Zoloft*) 25 mg PO DAILY [facility] Last Admin: 01/18/19 09:58 Dose: 25 mg Vital Signs - 8 hr 01/18/19 01/18/19 01/18/19 03:48 05:20 08:45 Temperature 98.2 F 97.4 F Pulse Rate 67 73 75 Respiratory 20 20 16 Rate Blood Pressure 110/53 105/60 104/61 (mmHg) O2 Sat by Pulse 96 94 95 Oximetry 01/18/19 09:53 Temperature Pulse Rate Respiratory 18 Rate Blood Pressure (mmHg) O2 Sat by Pulse Oximetry Oxygen Devices in Use Now: Nasal Cannula Appearance: Obese, elderly white female, laying in bed, appearing in NAD Eyes: No Scleral Icterus, PERRLA Ears/Nose/Mouth/Throat: Mucous Membranes Moist Neck: NL Appearance and Movements; NL JVP Respiratory: Symmetrical Chest Expansion and Respiratory Effort, Clear to Auscultation Cardiovascular: NL Sounds; No Murmurs; No JVD, RRR Abdominal: - - abdomen appears larger today but is soft, nontender; pitting edema to lower abdomen Extremities: No Clubbing, Cyanosis, - - pitting edema to bilateral LEs appears improved today; no pitting edema to bilateral Skin: - - diffuse ecchymosis Neurological: - - oriented to self and time Result Diagrams: 01/17/19 07:53 01/18/19 09:21 Additional Lab and Data: Above BMP was pulled into the note, when the note was edited prior to signing the note. Please see BMP from day of consultation below. Laboratory Tests 01/08/19 01/10/19 05:31 12:10 Sodium 133 L Potassium 3.8 Chloride 98 L Carbon Dioxide 23 BUN 100 H Creatinine 3.20 H Glucose 109 H Total Protein 7.6 Albumin 3.2 Microbiology and Other Data: Microbiology 01/02/19 13:31 Urine Culture - Preliminary Urine Citrobacter Freundii 01/02/19 11:23 Nasal Screen MRSA (PCR) - Final Nasal Mrsa Detected Assess/Plan/Problems-Billing Assessment: Ms. Latham is a 73 yo F with PMH of cirrhosis of unclear etiology, iron deficiency anemia, DMT2, HTN, CKD, atrial fib, and cardiomyopathy with EF 60-65% ; who presents with shortness of breath and 15 lbs of weight gain per [facility] staff, received acute HD and pending further tunneled dialysis catheter. - Patient Problems (1) Acute kidney injury superimposed on CKD Current Visit: Yes Status: Acute Code(s): N17.9 - ACUTE KIDNEY FAILURE, UNSPECIFIED; N18.9 - CHRONIC KIDNEY DISEASE, UNSPECIFIED SNOMED Code(s): 86138566 Comment: - Worsening, Cr today 4.5 - Now with gross hematuria which has continued - Renal ultrasound without hydronephrosis - It is overall an unclear etiology but cardiorenal vs hepatorenal on the differential - Appreciate nephrology consult. Patient initially failed albumin assisted diuresis, then received 3 sessions of dialysis. Patient removed temporary IJ catheter over the weekend while agitated. Now at near baseline mental status and wishing for further dialysis. Plan for tunneled dialysis catheter placement today, then dialysis session tomorrow. - Appreciate Dr. Hull's consult. Patient continues to want medical therapy. I discussed this with the son today who agrees with proceeding with dialysis (2) Diastolic heart failure Current Visit: Yes Status: Acute Code(s): I50.30 - UNSPECIFIED DIASTOLIC ( CONGESTIVE) HEART FAILURE SNOMED Code(s): 924768710 Comment: -hx diastolic EF, most recent echo during this hospitalization with EF 55-60% -presented with 15lbs weight gain and shortness of breath. Weight at [facility] 12/15/18 was 263 lbs -pt has chronic dependent edema of lower abdomen and LE edema, which actually appears improved today -bumex has been discontinued per nephrology -holding home spironolactone -continue metoprolol (3) Cirrhosis Current Visit: Yes Status: Acute Comment: - Presumed secondary to CANALES based on GI consult in previous hospitalization, though hep C screen is positive; ? multiple myeloma - GI consult recommends no changes to current regimen of lactulose and rifaximin and overall no further changes to management - Chronic thrombocytopenia; plts around baseline - Trace ascites on US; abdomen size is due to dependent edema and not large ascites - Continue lactulose, rifaximin, octreotide (4) Anxiety Current Visit: Yes Status: Acute Code(s): F41.9 - ANXIETY DISORDER, UNSPECIFIED SNOMED Code(s): 61522958 Comment: - Buspar d/c'd due to hepatic and renal impairment - D/c lorazepam; suspect that this is what caused sedation on 01/15/19 as she is likely not able to clear d/t renal and hepatic impairment - Starting zoloft (5) Rash Current Visit: Yes Status: Acute Code(s): R21 - RASH AND OTHER NONSPECIFIC SKIN ERUPTION SNOMED Code(s): 951658900 Comment: -location, symptomatic itch, and erythema appears consistent with cutaneous candidiasis -continue TID nystatin powder -prn benadryl for itching (6) Atrial fibrillation Current Visit: No Status: Acute Code(s): I48.91 - UNSPECIFIED ATRIAL FIBRILLATION SNOMED Code(s): 62267947 Comment: - Rate controlled - Not on anticoagulation due to history of severe GI bleed - Continue metoprolol (7) Diabetes mellitus Current Visit: No Status: Acute Code(s): E11.9 - TYPE 2 DIABETES MELLITUS WITHOUT COMPLICATIONS SNOMED Code(s): 15257398 Comment: - Diet controlled - A1c 6.2% indicating good control (8) Hypotension Current Visit: No Status: Acute Comment: -Chronic; unknown etiology, possibly liver disease vs heart disease -Continue midodrine (9) Hypothyroidism Current Visit: No Status: Acute Code(s): E03.9 - HYPOTHYROIDISM, UNSPECIFIED SNOMED Code(s): 47431217 Comment: - Continue levothyroxine (10) Iron deficiency anemia Current Visit: Yes Status: Acute Code(s): D50.9 - IRON DEFICIENCY ANEMIA, UNSPECIFIED SNOMED Code(s): 04520095 Comment: - Continue ferrous sulfate (11) UTI (urinary tract infection) Current Visit: No Status: Acute Comment: - Completed course of cefepime (12) DVT prophylaxis Current Visit: No Status: Acute Code(s): HHC8834 - SNOMED Code(s): 787840849 Comment: - SCDs d/t thrombocytopenia and history of severe GI bleed (13) Full code status Current Visit: No Status: Acute Code(s): Z78.9 - OTHER SPECIFIED HEALTH STATUS SNOMED Code(s): 092187481 Comment: Status and Disposition: Inpatient requiring further dialysis, but condition is guarded. Will likely return to [facility] at discharge with dialysis chair.
[2019-01-18 10:42] LABS: Albumin 4.1 g/dL (3.2-5.2); Albumin/Globulin Ratio 1.2 (1-3); BUN/Creatinine Ratio 9.3 (8-20); Calcium 9.5 mg/dL (8.6-10.3); EGFR African American 11.6 (>60); EGFR Non-African American 9.6 (>60); Globulin 3.5 g/dL (2-4); Potassium 4.3 mmol/L (3.5-5.0); Total Bilirubin 1.5 mg/dL (0.2-1.0); Total Protein 7.6 g/dL (6.4-8.9)
[2019-01-18 10:43] LABS: Albumin 34 %; Albumin/Globulin Ratio 0.52 %; Gamma Globulin 24 %; Total Protein(PEP) Urine 6 mg/dL
[2019-01-18 10:46] LABS: Activated Partial Thrombo Time 37.9 seconds (26.0-38.0); INR 1.58 (0.82-1.09)
[2019-01-18] MEDS ORDERED: Midazolam* 1 MG/ML 2 ML VIAL (2 MG) ONE (11:49)
[2019-01-18] MEDS ORDERED: fentaNYL* 50 MCG/ML 2 ML VIAL (100 MCG VIAL) ONE (11:49)
[2019-01-18] MEDS ORDERED: ceFAZolin 1 GM* X ONE DOSE (AddVan) IVPB ×2 (13:00)
[2019-01-18] MEDS: Atorvastatin* 40 MG TAB PO SCH (21:10)
[2019-01-19] MEDS: Ondansetron INJ* 2 MG/ML VIAL IV PRN ×2 (02:51→16:50)
[2019-01-19] MEDS: Metoprolol Tartrate TAB* 25 MG PO SCH ×3 (06:02→21:08)
[2019-01-19] MEDS: RiFAXimin* 550 MG TAB PO SCH ×3 (06:12→21:09)
[2019-01-19] MEDS: Levothyroxine TAB* 50 MCG TAB PO SCH (06:12)
[2019-01-19 07:01] LABS: Albumin/Globulin Ratio 1.1 (1-3); BUN/Creatinine Ratio 8.8 (8-20); Calcium 9.3 mg/dL (8.6-10.3); EGFR African American 10.2 (>60); EGFR Non-African American 8.5 (>60); Globulin 3.6 g/dL (2-4); Potassium 4.7 mmol/L (3.5-5.0); Total Bilirubin 1.7 mg/dL (0.2-1.0); Total Protein 7.6 g/dL (6.4-8.9)
[2019-01-19 07:07] LABS: ABS Eosinophils 0.1 10^3/ul (0-0.6); ABS Lymphocytes 0.4 10^3/ul (1.0-4.8); ABS Monocytes 0.6 10^3/ul (0-0.8); ABS Neutrophils 3.7 10^3/ul (1.5-7.7); ABS Nucleated RBC 0.1 10^3/ul; Eosinophil % 1.8 %; Hematocrit 25 % (35-47); Lymphocyte % 7.8 %; Mean Corpuscular HGB Conc 33 g/dL (31-36); Mean Corpuscular Hemoglobin 34 pg (27-31); Mean Corpuscular Volume 104 fL (80-97); Mean Platelet Volume 8.2 fL (7.4-10.4); Nucleated Red Blood Cells % 1.7; Platelet Count 61 10^3/uL (150-450); Red Blood Count 2.37 10^6 /uL (3.70-4.87); Red Cell Distribution Width 20 % (10-15); White Blood Count 4.8 10^3/uL (3.5-10.8)
[2019-01-19] MEDS: Fluticasone NASAL SPRAY 50MCG* 16 gm SPRAY BTL INTRANASAL SCH (09:15)
[2019-01-19] MEDS: Lactulose* 15 ML UDC PO SCH ×3 (09:15→21:08)
[2019-01-19] MEDS: Sertraline* 25 MG TAB PO SCH (09:16)
[2019-01-19] MEDS: Pantoprazole TAB * 40 MG TAB PO SCH (09:16)
[2019-01-19] MEDS: Pregabalin CAP(*) 25 MG PO SCH ×2 (09:16→21:09)
[2019-01-19] MEDS: Ferrous Sulfate TAB* 325 MG PO SCH ×3 (09:16→21:09)
[2019-01-19] MEDS: Cholecalciferol TAB* 1000 UNITS PO SCH (09:16)
[2019-01-19] MEDS: Octreotide Acetate* 50 MCG/ML ML SUBCUT SCH ×3 (09:19→21:08)
[2019-01-19] MEDS ORDERED: Heparin DIALYSIS ONLY(*) 1,000 UNITS/ML VIAL DIALYSIS ONE (12:00)
[2019-01-19] MEDS ORDERED: EPOETIN ALFA 4000 UNIT/ML IV ONE (12:00)
[2019-01-19] MEDS ORDERED: EPOETIN ALFA-EPBX * 4,000 UNIT/ML VIAL IV ONE (12:00)
--- NOTE | 2019-01-19 14:58 | PN ---
DIALYSIS NOTE: DATE OF DIALYSIS: 01/19/19 SUBJECTIVE: The patient is seen and examined during dialysis. Appears more lethargic. Only responds to questions but falls asleep between sentences. Vitals and labs have been reviewed. PHYSICAL EXAM: HEENT: NCAT. Heart: S1, S2 present, regular rate at time of exam. Lungs: Crackles at the bases. Abdomen: Distended. Significant anasarca. No rebound. No guarding. Extremities: Noted to have significant edema. Neuro: Lethargic. ASSESSMENT AND PLAN: 1. Acute kidney injury secondary to hepatorenal syndrome. 2. Overall poor prognosis and this has been discussed with the patient. The patient has multiorgan failure. The patient was seen by GI and is not a liver transplant candidate. 3. Unclear if the patient will even be able to tolerate long-term dialysis as usually hepatorenal syndrome patients do not do well on dialysis in the custodial. 4. In the interim, recommend sending a [facility] referral. 5. Extensive family discussion with the patient has been held and the patient when she was alert and oriented has told me that she wants to continue on and does not want to . In light of this, for now we will continue hemodialysis. 6. Recommend broaching and at least making her DNR as despite our best efforts , her prognosis remains poor. 7. History of hepatitis C exposure. RNA noted to be negative. I will also recommend checking a cryoglobulin level on the patient. 8. Her other workup has been reviewed. 9. For today's dialysis, the patient is tolerating the procedure so far, _ ultrafiltration of 3 L as she tolerates it and we will closely follow the patient through her treatment. 10. We will follow with the medical team. [id number]/[facility] #: [id number] MITESH
--- NOTE | 2019-01-19 16:28 | PN ---
Subjective Date of Service: 01/19/19 Interval History: Ms. Latham is not feeling well today. She generally feels poor and cannot describe much of what she is feeling. She is very drowsy. She does c/o back pain and itching. Denies CP or SOB. No concerns from nursing. Family History: Unchanged from Admission Social History: Unchanged from Admission Past Medical History: Unchanged from Admission Objective Active Medications: Acetaminophen (Tylenol Tab*) 650 mg PO Q4H PRN FEVER/PAIN Atorvastatin Calcium (Lipitor*) 40 mg PO BEDTIME [facility] Buspirone HCl (Buspar Tab*) 5 mg PO TID PRN ANXIETY Cholecalciferol (Vitamin D Tab*) 1,000 units PO QAM [facility] Diphenhydramine HCl (Benadryl Po*) 25 mg PO Q6H PRN ITCHING Ferrous Sulfate (Ferrous Sulfate Tab*) 325 mg PO TID [facility] Fluticasone Propionate (Flonase Nasal [place] 50mcg*) 1 spray INTRANASAL DAILY [facility] Ipratropium [place] (Atrovent 0.5 Mg Neb.Brionna*) 0.5 mg INH [id number] AWAKE PRN SOB/WHEEZING Lactulose (Lactulose*) 15 ml PO TID [facility] Levalbuterol HCl (Xopenex 0.63mg/3ml Neb*) 0.63 mg INH [id number] AWAKE PRN SOB/WHEEZING Levothyroxine Sodium (Synthroid Tab*) 50 mcg PO 0600 [facility] Metoprolol Tartrate (Lopressor Tab*) 12.5 mg PO Q8HR [facility] Midodrine (Midodrine) 2.5 mg PO TID [facility]; Protocol Octreotide Acetate (Octreotide Acetate*) 50 mcg SUBCUT TID [facility] Ondansetron HCl (Zofran Inj*) 4 mg IV Q6H PRN NAUSEA Pantoprazole Sodium (Protonix Tab*) 40 mg PO DAILY [facility] Pregabalin (Lyrica Cap(*)) 25 mg PO BID [facility] Rifaximin (Xifaxan*) 550 mg PO Q8HR [facility] Sertraline HCl (Zoloft*) 25 mg PO DAILY [facility] Vital Signs - 8 hr 01/19/19 01/19/19 01/19/19 09:16 11:15 15:15 Temperature 97.3 F 97.2 F Pulse Rate 80 94 Respiratory 18 16 16 Rate Blood Pressure 109/52 108/56 (mmHg) O2 Sat by Pulse 96 93 Oximetry Oxygen Devices in Use Now: Nasal Cannula - 2L Appearance: Elderly female laying in bed in NAD Neck: NL Appearance and Movements; NL JVP, Trachea Midline Respiratory: Symmetrical Chest Expansion and Respiratory Effort, Clear to Auscultation Cardiovascular: NL Sounds; No Murmurs; No JVD, RRR Abdominal: NL Sounds; No Tenderness; No Distention Extremities: No Edema Neurological: - - Drowsy, wakes to voice Lines/Tubes/Other Access: Clean, Dry and Intact Peripheral IV Nutrition: Taking PO's Result Diagrams: 01/19/19 05:45 01/19/19 05:45 Assess/Plan/Problems-Billing Assessment: Ms. Latham is a 73 yo F with PMH of cirrhosis of unclear etiology, iron deficiency anemia, DMT2, HTN, CKD, atrial fib, and cardiomyopathy with EF 60-65% ; who presents with shortness of breath and 15 lbs of weight gain per [facility] staff, received acute HD and pending further tunneled dialysis catheter. - Patient Problems (1) Acute kidney injury superimposed on CKD Code(s): N17.9 - ACUTE KIDNEY FAILURE, UNSPECIFIED; N18.9 - CHRONIC KIDNEY DISEASE, UNSPECIFIED Comment: - Worsening, Cr today 5 - Gross hematuria has continued - Renal ultrasound without hydronephrosis - It is overall an unclear etiology but cardiorenal vs hepatorenal on the differential - Appreciate nephrology consult; initially failed albumin assisted diuresis, then received 3 sessions of dialysis before self-removing IJ 01/15/19 - Appreciate Palliative consult; patient wants to continue medical therapy and son agrees - New tunneled dialysis cath placed 01/19 - Dialysis today (2) Acute on chronic diastolic heart failure Code(s): I50.33 - ACUTE ON CHRONIC DIASTOLIC (CONGESTIVE) HEART FAILURE Comment: - Presented with 15 lbs weight gain and shortness of breath; weight on 12/15/18 was 263# - History of diastolic heart failure, cardiomyopathy with EF 60-65% - Echo this admission unchanged from prior - Chronic dependent edema of lower abdomen and LE edema - Continue strict I&O, [place] - Fluid restriction, sodium restriction - CPAP for afterload reduction - Diuretics d/c'd d/t renal function - Continue metoprolol (3) Hematuria Code(s): R31.9 - HEMATURIA, UNSPECIFIED Comment: - Urine remains dark, but no dolores blood - Catheter was placed 01/10/19, though traumatic dacosta may be possible - Bladder and renal US unremarkable (4) Rash Code(s): R21 - RASH AND OTHER NONSPECIFIC SKIN ERUPTION Comment: - Clinically appears consistent with cutaneous candidiasis - Continue nystatin, Benadryl (5) UTI (urinary tract infection) Comment: - Completed course of cefepime (6) Cirrhosis Comment: - Presumed secondary to CANALES based on GI consult in previous hospitalization, though hep C screen is positive; ? multiple myeloma - GI consult recommends no changes to current regimen of lactulose and rifaximin and overall no further changes to management - Chronic thrombocytopenia; plts around baseline - Trace ascites on US; abdomen size is due to dependent edema and not large ascites - Continue lactulose, rifaximin, octreotide (7) Atrial fibrillation Code(s): I48.91 - UNSPECIFIED ATRIAL FIBRILLATION Comment: - Rate controlled - Not on anticoagulation due to history of severe GI bleed - Continue metoprolol (8) Diabetes mellitus Code(s): E11.9 - TYPE 2 DIABETES MELLITUS WITHOUT COMPLICATIONS Comment: - Diet controlled - A1c 6.2% indicating good control (9) Iron deficiency anemia Code(s): D50.9 - IRON DEFICIENCY ANEMIA, UNSPECIFIED Comment: - Continue ferrous sulfate (10) Anxiety Code(s): F41.9 - ANXIETY DISORDER, UNSPECIFIED Comment: - Buspar d/c'd due to hepatic and renal impairment - D/c lorazepam; suspect that this is what caused sedation on 01/15/19 as she is likely not able to clear d/t renal and hepatic impairment - Continue sertraline (11) Hypothyroidism Code(s): E03.9 - HYPOTHYROIDISM, UNSPECIFIED Comment: - Continue levothyroxine (12) DVT prophylaxis Comment: - SCDs d/t thrombocytopenia and history of severe GI bleed (13) Full code status Code(s): Z78.9 - OTHER SPECIFIED HEALTH STATUS Comment: Status and Disposition: Inpatient requiring further dialysis, but condition is guarded. Will likely return to [facility] at discharge with dialysis chair. Attending: Lian Castro
[2019-01-19] MEDS: Atorvastatin* 40 MG TAB PO SCH (21:10)
[2019-01-20] MEDS: Acetaminophen TAB* 325 MG PO PRN ×4 (01:13→15:35)
[2019-01-20] MEDS: Ondansetron INJ* 2 MG/ML VIAL IV PRN (01:24)
[2019-01-20] MEDS: busPIRone TAB* 5 MG PO PRN (01:24)
[2019-01-20 05:06] LABS: ABS Lymphocytes 0.4 10^3/ul (1.0-4.8); ABS Monocytes 0.6 10^3/ul (0-0.8); ABS Neutrophils 4.1 10^3/ul (1.5-7.7); ABS Nucleated RBC 0.1 10^3/ul; Eosinophil % 0.6 %; Hematocrit 25 % (35-47); Hemoglobin 8.1 g/dL (12.0-16.0); Lymphocyte % 6.9 %; Mean Corpuscular HGB Conc 33 g/dL (31-36); Mean Corpuscular Hemoglobin 34 pg (27-31); Mean Corpuscular Volume 105 fL (80-97); Mean Platelet Volume 8.3 fL (7.4-10.4); Nucleated Red Blood Cells % 2.4; Platelet Count 66 10^3/uL (150-450); Red Blood Count 2.35 10^6 /uL (3.70-4.87); Red Cell Distribution Width 20 % (10-15); White Blood Count 5.1 10^3/uL (3.5-10.8)
[2019-01-20 05:17] LABS: BUN/Creatinine Ratio 7.5 (8-20); Calcium 8.9 mg/dL (8.6-10.3); EGFR African American 13.7 (>60); EGFR Non-African American 11.3 (>60); Potassium 4.1 mmol/L (3.5-5.0)
[2019-01-20] MEDS: Metoprolol Tartrate TAB* 25 MG PO SCH ×3 (05:21→22:06)
[2019-01-20] MEDS: Levothyroxine TAB* 50 MCG TAB PO SCH (05:25)
[2019-01-20] MEDS: RiFAXimin* 550 MG TAB PO SCH ×3 (05:25→22:01)
[2019-01-20] MEDS: Lactulose* 15 ML UDC PO SCH ×3 (09:14→22:06)
[2019-01-20] MEDS: Cholecalciferol TAB* 1000 UNITS PO SCH (09:14)
[2019-01-20] MEDS: Pregabalin CAP(*) 25 MG PO SCH ×2 (09:15→22:00)
[2019-01-20] MEDS: Pantoprazole TAB * 40 MG TAB PO SCH (09:15)
[2019-01-20] MEDS: Sertraline* 25 MG TAB PO SCH (09:16)
[2019-01-20] MEDS: Ferrous Sulfate TAB* 325 MG PO SCH ×3 (09:16→22:01)
[2019-01-20] MEDS: Octreotide Acetate* 50 MCG/ML ML SUBCUT SCH ×3 (09:18→22:03)
[2019-01-20] MEDS: Fluticasone NASAL SPRAY 50MCG* 16 gm SPRAY BTL INTRANASAL SCH (09:19)
--- NOTE | 2019-01-20 13:15 | PN ---
Subjective Date of Service: 01/20/19 Interval History: Ms. Latham is feeling poor today. She is not able to provide any specific complaints, just that she feels "bad." She is sitting in a chair at an awkward angle with one leg hanging off, but reports she is comfortable in that position. She still would like to be a full code and have "everything done." Denies CP, SOB. No concerns from nursing. Family History: Unchanged from Admission Social History: Unchanged from Admission Past Medical History: Unchanged from Admission Objective Active Medications: Acetaminophen (Tylenol Tab*) 650 mg PO Q4H PRN FEVER/PAIN Atorvastatin Calcium (Lipitor*) 40 mg PO BEDTIME KYLEE Buspirone HCl (Buspar Tab*) 5 mg PO TID PRN ANXIETY Cholecalciferol (Vitamin D Tab*) 1,000 units PO QAM KYLEE Diphenhydramine HCl (Benadryl Po*) 25 mg PO Q6H PRN ITCHING Ferrous Sulfate (Ferrous Sulfate Tab*) 325 mg PO TID KYLEE Fluticasone Propionate (Flonase Nasal [place] 50mcg*) 1 spray INTRANASAL DAILY KYLEE Ipratropium [place] (Atrovent 0.5 Mg Neb.Brionna*) 0.5 mg INH [id number] AWAKE PRN SOB/WHEEZING Lactulose (Lactulose*) 15 ml PO TID KYLEE Levalbuterol HCl (Xopenex 0.63mg/3ml Neb*) 0.63 mg INH [id number] AWAKE PRN SOB/WHEEZING Levothyroxine Sodium (Synthroid Tab*) 50 mcg PO 0600 [facility] Metoprolol Tartrate (Lopressor Tab*) 12.5 mg PO Q8HR KYLEE Midodrine (Midodrine) 2.5 mg PO TID KYLEE; Protocol Octreotide Acetate (Octreotide Acetate*) 50 mcg SUBCUT TID KYLEE Ondansetron HCl (Zofran Inj*) 4 mg IV Q6H PRN NAUSEA Pantoprazole Sodium (Protonix Tab*) 40 mg PO DAILY KYLEE Pregabalin (Lyrica Cap(*)) 25 mg PO BID KYLEE Rifaximin (Xifaxan*) 550 mg PO Q8HR KYLEE Sertraline HCl (Zoloft*) 25 mg PO DAILY [facility] Vital Signs - 8 hr 01/20/19 01/20/19 01/20/19 07:15 08:00 09:15 Temperature 97.1 F Pulse Rate 70 Respiratory 16 20 18 Rate Blood Pressure 97/47 (mmHg) O2 Sat by Pulse 100 Oximetry 01/20/19 11:25 Temperature 97.3 F Pulse Rate 59 Respiratory 16 Rate Blood Pressure 98/56 (mmHg) O2 Sat by Pulse 99 Oximetry Oxygen Devices in Use Now: Nasal Cannula - 3L Appearance: Elderly female sitting in chair in NAD Neck: NL Appearance and Movements; NL JVP, Trachea Midline Respiratory: Symmetrical Chest Expansion and Respiratory Effort, Clear to Auscultation Cardiovascular: NL Sounds; No Murmurs; No JVD Extremities: No Edema Neurological: - - Oriented to self and place, somewhat to situation Lines/Tubes/Other Access: Clean, Dry and Intact Peripheral IV Nutrition: Taking PO's Result Diagrams: 01/20/19 04:27 01/20/19 04:27 Assess/Plan/Problems-Billing Assessment: Ms. Latham is a 73 yo F with PMH of cirrhosis of unclear etiology, iron deficiency anemia, DMT2, HTN, CKD, atrial fib, and cardiomyopathy with EF 60-65% ; who presents with shortness of breath and 15 lbs of weight gain per [facility] staff, received acute HD and pending further tunneled dialysis catheter. - Patient Problems (1) Acute kidney injury superimposed on CKD Code(s): N17.9 - ACUTE KIDNEY FAILURE, UNSPECIFIED; N18.9 - CHRONIC KIDNEY DISEASE, UNSPECIFIED Comment: - Creatinine fluctuates coniciding with dialysis treatments - Gross hematuria has continued - Renal ultrasound without hydronephrosis - It is overall an unclear etiology; cardiorenal vs hepatorenal - Appreciate nephrology consult; initially failed albumin assisted diuresis, then received 3 sessions of dialysis before self-removing IJ 01/15/19 - Appreciate Palliative consult; patient wants to continue medical therapy and son agrees - New tunneled dialysis cath placed 01/19 - Dialysis MWF (2) Acute on chronic diastolic heart failure Code(s): I50.33 - ACUTE ON CHRONIC DIASTOLIC (CONGESTIVE) HEART FAILURE Comment: - Presented with 15 lbs weight gain and shortness of breath; weight on 12/15/18 was 263# - History of diastolic heart failure, cardiomyopathy with EF 60-65% - Echo this admission unchanged from prior - Chronic dependent edema of lower abdomen and LE edema - Continue strict I&O, Dacosta - Fluid restriction, sodium restriction - CPAP for afterload reduction - Diuretics d/c'd d/t renal function - Continue metoprolol (3) Hematuria Code(s): R31.9 - HEMATURIA, UNSPECIFIED Comment: - Urine remains dark, but no dolores blood - Catheter was placed 01/10/19, though traumatic dacosta may be possible - Bladder and renal US unremarkable (4) Rash Code(s): R21 - RASH AND OTHER NONSPECIFIC SKIN ERUPTION Comment: - Clinically appears consistent with cutaneous candidiasis - Continue nystatin, Benadryl (5) UTI (urinary tract infection) Comment: - Completed course of cefepime (6) Cirrhosis Comment: - Presumed secondary to CANALES based on GI consult in previous hospitalization, though hep C screen is positive; ? multiple myeloma - GI consult recommends no changes to current regimen of lactulose and rifaximin and overall no further changes to management - Chronic thrombocytopenia; plts around baseline - Trace ascites on US; abdomen size is due to dependent edema and not large ascites - Continue lactulose, rifaximin, octreotide (7) Atrial fibrillation Code(s): I48.91 - UNSPECIFIED ATRIAL FIBRILLATION Comment: - Rate controlled - Not on anticoagulation due to history of severe GI bleed - Continue metoprolol (8) Diabetes mellitus Code(s): E11.9 - TYPE 2 DIABETES MELLITUS WITHOUT COMPLICATIONS Comment: - Diet controlled - A1c 6.2% indicating good control (9) Iron deficiency anemia Code(s): D50.9 - IRON DEFICIENCY ANEMIA, UNSPECIFIED Comment: - Continue ferrous sulfate (10) Anxiety Code(s): F41.9 - ANXIETY DISORDER, UNSPECIFIED Comment: - Buspar d/c'd due to hepatic and renal impairment - D/c lorazepam; suspect that this is what caused sedation on 01/15/19 as she is likely not able to clear d/t renal and hepatic impairment - Continue sertraline (11) Hypothyroidism Code(s): E03.9 - HYPOTHYROIDISM, UNSPECIFIED Comment: - Continue levothyroxine (12) DVT prophylaxis Comment: - SCDs d/t thrombocytopenia and history of severe GI bleed (13) Full code status Code(s): Z78.9 - OTHER SPECIFIED HEALTH STATUS Comment: Status and Disposition: Inpatient requiring further dialysis, but condition is guarded. Will likely return to [facility] at discharge with dialysis chair. Attending: Lian Castro
[2019-01-20] MEDS: Atorvastatin* 40 MG TAB PO SCH (22:01)
[2019-01-21] MEDS: Ondansetron INJ* 2 MG/ML VIAL IV PRN ×3 (00:48→17:44)
[2019-01-21] MEDS: Levothyroxine TAB* 50 MCG TAB PO SCH (05:03)
[2019-01-21] MEDS: Acetaminophen TAB* 325 MG PO PRN ×2 (05:03→20:46)
[2019-01-21] MEDS: RiFAXimin* 550 MG TAB PO SCH ×3 (05:05→22:58)
[2019-01-21] MEDS: Metoprolol Tartrate TAB* 25 MG PO SCH ×3 (05:06→22:56)
[2019-01-21 05:09] LABS: ABS Eosinophils 0.1 10^3/ul (0-0.6); ABS Lymphocytes 0.4 10^3/ul (1.0-4.8); ABS Monocytes 0.6 10^3/ul (0-0.8); ABS Neutrophils 3.9 10^3/ul (1.5-7.7); ABS Nucleated RBC 0.1 10^3/ul; Eosinophil % 1.2 %; Hematocrit 26 % (35-47); Hemoglobin 8.3 g/dL (12.0-16.0); Lymphocyte % 7.7 %; Mean Corpuscular HGB Conc 32 g/dL (31-36); Mean Corpuscular Hemoglobin 33 pg (27-31); Mean Corpuscular Volume 105 fL (80-97); Mean Platelet Volume 8.5 fL (7.4-10.4); Nucleated Red Blood Cells % 2.8; Platelet Count 80 10^3/uL (150-450); Red Blood Count 2.47 10^6 /uL (3.70-4.87); Red Cell Distribution Width 20 % (10-15); White Blood Count 4.9 10^3/uL (3.5-10.8)
[2019-01-21 05:17] LABS: ALT 9 U/L (7-52); Albumin 3.9 g/dL (3.2-5.2); Alkaline Phosphatase 109 U/L (34-104); Blood Urea Nitrogen 32 mg/dL (6-24); CO2 Carbon Dioxide 27 mmol/L (22-32); Calcium 8.9 mg/dL (8.6-10.3); Chloride 97 mmol/L (101-111); EGFR African American 11.4 (>60); EGFR Non-African American 9.4 (>60); Globulin 3.8 g/dL (2-4); Glucose 108 mg/dL (70-100); Sodium 136 mmol/L (135-145); Total Protein 7.7 g/dL (6.4-8.9)
[2019-01-21 05:54] LABS: Anion Gap 12 mmol/L (2-11)
[2019-01-21] MEDS: busPIRone TAB* 5 MG PO PRN ×2 (05:59→20:44)
[2019-01-21 07:27] LABS: Potassium Redraw 4.3 mmol/L (3.5-5.0)
[2019-01-21] MEDS ORDERED: EPOETIN ALFA-EPBX * 4,000 UNIT/ML VIAL IV ONE (11:00)
[2019-01-21] MEDS ORDERED: Heparin DIALYSIS ONLY(*) 1,000 UNITS/ML VIAL DIALYSIS ONE (11:00)
--- NOTE | 2019-01-21 11:01 | PN ---
Subjective Date of Service: 01/21/19 Interval History: Ms. Latham is feeling poor today. She is drowsy, but will answer questions by nodding or shaking her head. She feels the same as yesterday, generally poor, and unable to report any specific complaints. Denies CP, SOB. She is hungry and would like to eat breakfast, but still very drowsy. MOLST was signed by son last night indicating DNR/DNI. Nursing reports continued soft pressures overnight and this morning. Family History: Unchanged from Admission Social History: Unchanged from Admission Past Medical History: Unchanged from Admission Objective Active Medications: Acetaminophen (Tylenol Tab*) 650 mg PO Q4H PRN FEVER/PAIN Atorvastatin Calcium (Lipitor*) 40 mg PO BEDTIME KYLEE Buspirone HCl (Buspar Tab*) 5 mg PO TID PRN ANXIETY Cholecalciferol (Vitamin D Tab*) 1,000 units PO QAM KYLEE Diphenhydramine HCl (Benadryl Po*) 25 mg PO Q6H PRN ITCHING Epoetin Meño (Retacrit) 4,000 unit IV ONCE ONE Ferrous Sulfate (Ferrous Sulfate Tab*) 325 mg PO TID KYLEE Fluticasone Propionate (Flonase Nasal [place] 50mcg*) 1 spray INTRANASAL DAILY KYLEE Heparin Sodium (Porcine) (Heparin Dialysis Only(*)) 6,000 units DIALYSIS ONCE ONE Ipratropium [place] (Atrovent 0.5 Mg Neb.Brionna*) 0.5 mg INH [id number] AWAKE PRN SOB/WHEEZING Lactulose (Lactulose*) 15 ml PO TID KYLEE Levalbuterol HCl (Xopenex 0.63mg/3ml Neb*) 0.63 mg INH [id number] AWAKE PRN SOB/WHEEZING Levothyroxine Sodium (Synthroid Tab*) 50 mcg PO 0600 KYLEE Metoprolol Tartrate (Lopressor Tab*) 12.5 mg PO Q8HR KYLEE Midodrine (Midodrine) 2.5 mg PO TID KYLEE; Protocol Octreotide Acetate (Octreotide Acetate*) 50 mcg SUBCUT TID KYLEE Ondansetron HCl (Zofran Inj*) 4 mg IV Q6H PRN NAUSEA Pantoprazole Sodium (Protonix Tab*) 40 mg PO DAILY KYLEE Pregabalin (Lyrica Cap(*)) 25 mg PO BID KYLEE Rifaximin (Xifaxan*) 550 mg PO Q8HR [facility] Sertraline HCl (Zoloft*) 25 mg PO DAILY [facility] Vital Signs - 8 hr 01/21/19 01/21/19 01/21/19 03:06 07:49 08:09 Temperature 97.5 F 97.5 F Pulse Rate 87 90 Respiratory 19 20 16 Rate Blood Pressure 101/45 102/46 (mmHg) O2 Sat by Pulse 94 94 Oximetry Oxygen Devices in Use Now: Nasal Cannula - 3L Appearance: Elderly female lying in bed, appears in generally poor health, but in NAD Neck: NL Appearance and Movements; NL JVP, Trachea Midline Respiratory: Symmetrical Chest Expansion and Respiratory Effort, Clear to Auscultation Cardiovascular: NL Sounds; No Murmurs; No JVD, RRR Extremities: No Edema Neurological: - - Oriented to self, drowsy but wakes to voice Lines/Tubes/Other Access: Clean, Dry and Intact Peripheral IV Nutrition: Taking PO's Result Diagrams: 01/21/19 04:47 01/21/19 06:49 Assess/Plan/Problems-Billing Assessment: Ms. Latham is a 73 yo F with PMH of cirrhosis of unclear etiology, iron deficiency anemia, DMT2, HTN, CKD, atrial fib, and cardiomyopathy with EF 60-65% ; who presents with shortness of breath and 15 lbs of weight gain per [facility] staff, received acute HD and pending further tunneled dialysis catheter. - Patient Problems (1) Acute kidney injury superimposed on CKD Code(s): N17.9 - ACUTE KIDNEY FAILURE, UNSPECIFIED; N18.9 - CHRONIC KIDNEY DISEASE, UNSPECIFIED Comment: - Creatinine fluctuates coniciding with dialysis treatments - Gross hematuria has continued - Renal ultrasound without hydronephrosis - It is overall an unclear etiology; cardiorenal vs hepatorenal - Appreciate nephrology consult; initially failed albumin assisted diuresis, then received 3 sessions of dialysis before self-removing IJ 01/15/19 - Appreciate Palliative consult; patient and son want to continue medical therapy and dialysis for now - New tunneled dialysis cath placed 01/19 - Dialysis MWF (2) Acute on chronic diastolic heart failure Code(s): I50.33 - ACUTE ON CHRONIC DIASTOLIC (CONGESTIVE) HEART FAILURE Comment: - Presented with 15 lbs weight gain and shortness of breath; weight on 12/15/18 was 263# - History of diastolic heart failure, cardiomyopathy with EF 60-65% - Echo this admission unchanged from prior - Chronic dependent edema of lower abdomen and LE edema - Continue strict I&O, [place]ac[place] - Fluid restriction, sodium restriction - CPAP for afterload reduction - Diuretics d/c'd d/t renal function - Continue metoprolol (3) Hematuria Code(s): R31.9 - HEMATURIA, UNSPECIFIED Comment: - No urine output during the day yesterday, very minimal overnight - Catheter was placed 01/10/19, though traumatic dacosta may be possible - Bladder and renal US unremarkable (4) Rash Code(s): R21 - RASH AND OTHER NONSPECIFIC SKIN ERUPTION Comment: - Clinically appears consistent with cutaneous candidiasis - Continue nystatin, Benadryl (5) UTI (urinary tract infection) Comment: - Completed course of cefepime (6) Cirrhosis Comment: - Presumed secondary to CANALES based on GI consult in previous hospitalization, though hep C screen is positive; ? multiple myeloma - GI consult recommends no changes to current regimen of lactulose and rifaximin and overall no further changes to management - Chronic thrombocytopenia; plts around baseline - Trace ascites on US; abdomen size is due to dependent edema and not large ascites - Continue lactulose, rifaximin, octreotide (7) Atrial fibrillation Code(s): I48.91 - UNSPECIFIED ATRIAL FIBRILLATION Comment: - Rate controlled - Not on anticoagulation due to history of severe GI bleed - Continue metoprolol (8) Diabetes mellitus Code(s): E11.9 - TYPE 2 DIABETES MELLITUS WITHOUT COMPLICATIONS Comment: - Diet controlled - A1c 6.2% indicating good control (9) Iron deficiency anemia Code(s): D50.9 - IRON DEFICIENCY ANEMIA, UNSPECIFIED Comment: - Continue ferrous sulfate (10) Anxiety Code(s): F41.9 - ANXIETY DISORDER, UNSPECIFIED Comment: - Buspar d/c'd due to hepatic and renal impairment - D/c lorazepam; suspect that this is what caused sedation on 01/15/19 as she is likely not able to clear d/t renal and hepatic impairment - Continue sertraline (11) Hypothyroidism Code(s): E03.9 - HYPOTHYROIDISM, UNSPECIFIED Comment: - Continue levothyroxine (12) DVT prophylaxis Comment: - SCDs d/t thrombocytopenia and history of severe GI bleed (13) Full code status Code(s): Z78.9 - OTHER SPECIFIED HEALTH STATUS Comment: Status and Disposition: Inpatient requiring further dialysis, but condition is guarded. Will likely return to [facility] at discharge with dialysis chair. Attending: Lian Castro
[2019-01-21] MEDS: Ferrous Sulfate TAB* 325 MG PO SCH ×4 (13:45→21:09)
[2019-01-21] MEDS: Octreotide Acetate* 50 MCG/ML ML SUBCUT SCH ×3 (13:45→20:57)
[2019-01-21] MEDS: Lactulose* 15 ML UDC PO SCH ×4 (13:46→21:09)
[2019-01-21] MEDS: Pregabalin CAP(*) 25 MG PO SCH ×2 (14:17→20:44)
[2019-01-21] MEDS: Pantoprazole TAB * 40 MG TAB PO SCH (14:19)
[2019-01-21] MEDS: Cholecalciferol TAB* 1000 UNITS PO SCH (14:19)
[2019-01-21] MEDS: Fluticasone NASAL SPRAY 50MCG* 16 gm SPRAY BTL INTRANASAL SCH (14:21)
[2019-01-21] MEDS: Sertraline* 25 MG TAB PO SCH (14:23)
--- NOTE | 2019-01-21 15:50 | PN ---
DIALYSIS NOTE: DATE OF DIALYSIS: 01/21/19 SUBJECTIVE: The patient is seen and examined during dialysis, appears more alert today, but falls as leep between sentences, waxing and waning consciousness. Vitals and labs have been reviewed. PHYSICAL EXAMINATION: HEENT: NC/AT. Heart: S1, S2 present. Regular at the time of exam. Lungs: Minimal crackles at the bases. Abdomen: Distended. Significant anasarca. No rebound. No guardin g. Extremities: Noted to have significant edema. Neuro: No focal deficits. Noted to have waxing and waning consciousness. ASSESSMENT AND PLAN: 1. Acute kidney injury secondary to hepatorenal syndrome. Overall poor prognosis and this has been discussed with the patient. The patient has multi-organ failure. The patient was seen by GI and is n ot a liver transplant candidate. 2. Unclear if the patient will tolerate dialysis in the long-term as hepatorenal patients do not do well on dialysis in the long-term and are typically dialyzed if there is a bridge to transplantation. 3. Extensive family discussion has been held with the patient and the patient tells me that she does not want to and wants to continue living. The patient reports that she also spoke to her son an d her son wants her to continue living and hence continue dialysis. Because of this, we will continu e dialysis for now and evaluate every day how the patient does. 4. It has been difficult to take volume off the patient as the patient's blood pressure dropped with high volume removal. Target UF of 3 L was attempted today but with her blood pressure dropping, thi s was adjusted. We will do UF at least 2 L plus as tolerated. 5. We can consider sequential dialysis with UF for next episodes. 6. Continue octreotide and midodrine for hepatorenal syndrome. 7. History of hepatitis C exposure. RNA noted to be negative. No active infection. Also recommend checking a cryoglobulin level on the patient. 8. The patient currently tolerating dialysis. 9. Recommend putting in a [facility] referral to evaluate for outpatient dialysis. 10. Today, it is being attempted to use a Lou lift for the patient to see if she can even possibly sit down and come to the dialysis given it is an outpatient. 11. Overall prognosis is poor. We will follow with the medical team. 12. Dialysis orders discussed with the HD nurse, and we will follow the patient through the procedur e. [id number]/[facility] #: [id number]
[2019-01-21] MEDS: Atorvastatin* 40 MG TAB PO SCH (20:44)
[2019-01-22] MEDS: Ondansetron INJ* 2 MG/ML VIAL IV PRN (04:31)
[2019-01-22] MEDS: Metoprolol Tartrate TAB* 25 MG PO SCH ×3 (05:02→20:58)
[2019-01-22] MEDS: Levothyroxine TAB* 50 MCG TAB PO SCH (05:14)
[2019-01-22] MEDS: RiFAXimin* 550 MG TAB PO SCH ×3 (05:14→20:58)
[2019-01-22 05:52] LABS: ABS Eosinophils 0.1 10^3/ul (0-0.6); ABS Lymphocytes 0.5 10^3/ul (1.0-4.8); ABS Monocytes 0.7 10^3/ul (0-0.8); ABS Neutrophils 3.2 10^3/ul (1.5-7.7); ABS Nucleated RBC 0.3 10^3/ul; Eosinophil % 1.3 %; Hematocrit 26 % (35-47); Hemoglobin 8.3 g/dL (12.0-16.0); Lymphocyte % 10.5 %; Mean Corpuscular HGB Conc 32 g/dL (31-36); Mean Corpuscular Hemoglobin 34 pg (27-31); Mean Corpuscular Volume 106 fL (80-97); Mean Platelet Volume 7.8 fL (7.4-10.4); Nucleated Red Blood Cells % 5.6; Platelet Count 85 10^3/uL (150-450); Red Blood Count 2.46 10^6 /uL (3.70-4.87); Red Cell Distribution Width 20 % (10-15); White Blood Count 4.4 10^3/uL (3.5-10.8)
[2019-01-22 06:01] LABS: BUN/Creatinine Ratio 5.9 (8-20); Calcium 8.9 mg/dL (8.6-10.3); EGFR Non-African American 13.2 (>60); Potassium 4.1 mmol/L (3.5-5.0)
[2019-01-22] MEDS: Ferrous Sulfate TAB* 325 MG PO SCH ×3 (08:24→20:57)
[2019-01-22] MEDS: Pregabalin CAP(*) 25 MG PO SCH ×2 (08:24→20:58)
[2019-01-22] MEDS: Fluticasone NASAL SPRAY 50MCG* 16 gm SPRAY BTL INTRANASAL SCH (08:24)
[2019-01-22] MEDS: Pantoprazole TAB * 40 MG TAB PO SCH (08:24)
[2019-01-22] MEDS: Lactulose* 15 ML UDC PO SCH ×3 (08:24→20:57)
[2019-01-22] MEDS: Cholecalciferol TAB* 1000 UNITS PO SCH (08:24)
[2019-01-22] MEDS: Octreotide Acetate* 50 MCG/ML ML SUBCUT SCH ×3 (08:24→20:58)
[2019-01-22] MEDS: Sertraline* 25 MG TAB PO SCH (08:24)
--- NOTE | 2019-01-22 09:34 | PN ---
Subjective Date of Service: 01/22/19 Interval History: Patient sleeping, is arousable, but is very sleepy. Nurse reports patient is doing okay, but not participating in care. Family History: Unchanged from Admission Social History: Unchanged from Admission Past Medical History: Unchanged from Admission Objective Active Medications: Acetaminophen (Tylenol Tab*) 650 mg PO Q4H PRN PRN Reason: FEVER/PAIN Last Admin: 01/21/19 20:46 Dose: 650 mg Atorvastatin Calcium (Lipitor*) 40 mg PO BEDTIME [facility] Last Admin: 01/21/19 20:44 Dose: 40 mg Buspirone HCl (Buspar Tab*) 5 mg PO TID PRN PRN Reason: ANXIETY Last Admin: 01/21/19 20:44 Dose: 5 mg Cholecalciferol (Vitamin D Tab*) 1,000 units PO QAM [facility] Last Admin: 01/22/19 08:24 Dose: Not Given Diphenhydramine HCl (Benadryl Po*) 25 mg PO Q6H PRN PRN Reason: ITCHING Last Admin: 01/17/19 05:01 Dose: 25 mg Ferrous Sulfate (Ferrous Sulfate Tab*) 325 mg PO TID [facility] Last Admin: 01/22/19 08:24 Dose: Not Given Fluticasone Propionate (Flonase Nasal [place] 50mcg*) 1 spray INTRANASAL DAILY [facility] Last Admin: 01/22/19 08:24 Dose: Not Given Ipratropium [place] (Atrovent 0.5 Mg Neb.Brionna*) 0.5 mg INH [id number] AWAKE PRN PRN Reason: SOB/WHEEZING Lactulose (Lactulose*) 15 ml PO TID [facility] Last Admin: 01/22/19 08:24 Dose: Not Given Levalbuterol HCl (Xopenex 0.63mg/3ml Neb*) 0.63 mg INH [id number] AWAKE PRN PRN Reason: SOB/WHEEZING Last Admin: 01/15/19 09:27 Dose: 0.63 mg Levothyroxine Sodium (Synthroid Tab*) 50 mcg PO 0600 [facility] Last Admin: 01/22/19 05:14 Dose: Not Given Metoprolol Tartrate (Lopressor Tab*) 12.5 mg PO Q8HR [facility] Last Admin: 01/22/19 05:02 Dose: Not Given Midodrine (Midodrine) 2.5 mg PO TID [facility]; Protocol Last Admin: 01/22/19 08:24 Dose: 2.5 mg Octreotide Acetate (Octreotide Acetate*) 50 mcg SUBCUT TID [facility] Last Admin: 01/22/19 08:24 Dose: 50 mcg Ondansetron HCl (Zofran Inj*) 4 mg IV Q6H PRN PRN Reason: NAUSEA Last Admin: 01/22/19 04:31 Dose: 4 mg Pantoprazole Sodium (Protonix Tab*) 40 mg PO DAILY [facility] Last Admin: 01/22/19 08:24 Dose: 40 mg Pregabalin (Lyrica Cap(*)) 25 mg PO BID [facility] Last Admin: 01/22/19 08:24 Dose: Not Given Rifaximin (Xifaxan*) 550 mg PO Q8HR [facility] Last Admin: 01/22/19 05:14 Dose: Not Given Sertraline HCl (Zoloft*) 25 mg PO DAILY [facility] Last Admin: 01/22/19 08:24 Dose: Not Given Vital Signs - 8 hr 01/22/19 01/22/19 01/22/19 03:45 03:47 04:05 Temperature 97.6 F Pulse Rate 77 Respiratory 16 Rate Blood Pressure 91/46 107/35 98/48 (mmHg) O2 Sat by Pulse 97 Oximetry 01/22/19 01/22/19 01/22/19 07:13 08:13 08:24 Temperature 98.5 F Pulse Rate 84 Respiratory 20 18 16 Rate Blood Pressure 96/55 (mmHg) O2 Sat by Pulse 97 Oximetry Oxygen Devices in Use Now: Nasal Cannula Appearance: Obese female, lying in bed, asleep. Neck: - Respiratory: Symmetrical Chest Expansion and Respiratory Effort, Clear to Auscultation Cardiovascular: RRR Abdominal: - - Normoactive bowel sounds, non-tender, distended with ascites. Extremities: - - 1+ pitting edema, bilateral lower extremity Result Diagrams: 01/22/19 05:36 01/22/19 05:36 Microbiology and Other Data: Microbiology 01/02/19 13:31 Urine Culture - Preliminary Urine Citrobacter Freundii 01/02/19 11:23 Nasal Screen MRSA (PCR) - Final Nasal Mrsa Detected Assess/Plan/Problems-Billing Assessment: Ms. Latham is a 73 yo F with PMH of cirrhosis of unclear etiology, iron deficiency anemia, DMT2, HTN, CKD, atrial fib, and cardiomyopathy with EF 60-65% ; who presents with shortness of breath and 15 lbs of weight gain per [facility] staff, received acute HD. - Patient Problems (1) Acute kidney injury superimposed on CKD Current Visit: Yes Status: Acute Code(s): N17.9 - ACUTE KIDNEY FAILURE, UNSPECIFIED; N18.9 - CHRONIC KIDNEY DISEASE, UNSPECIFIED SNOMED Code(s): 89494650 Comment: - Creatinine fluctuates coniciding with dialysis treatments - Gross hematuria has continued - Renal ultrasound without hydronephrosis - It is overall an unclear etiology; cardiorenal vs hepatorenal - Appreciate nephrology consult; initially failed albumin assisted diuresis, then received 3 sessions of dialysis before self-removing IJ 01/15/19 - Appreciate Palliative consult; patient and son want to continue medical therapy and dialysis for now - New tunneled dialysis cath placed 01/19 - Dialysis MWF (2) Acute on chronic diastolic heart failure Current Visit: Yes Status: Acute Code(s): I50.33 - ACUTE ON CHRONIC DIASTOLIC (CONGESTIVE) HEART FAILURE SNOMED Code(s): 135749040 Comment: - Presented with 15 lbs weight gain and shortness of breath; weight on 12/15/18 was 263 lbs. - History of diastolic heart failure, cardiomyopathy with EF 60-65% - Echo this admission unchanged from prior - Chronic dependent edema of lower abdomen and LE edema - Continue strict I&O, Dacosta - Fluid restriction, sodium restriction - CPAP for afterload reduction - Diuretics d/c'd d/t renal function - Continue metoprolol (3) Cirrhosis Current Visit: Yes Status: Acute Comment: - Presumed secondary to CANALES based on GI consult in previous hospitalization, though hep C screen is positive; ? multiple myeloma - GI consult recommends no changes to current regimen of lactulose and rifaximin and overall no further changes to management - Chronic thrombocytopenia; plts around baseline - Trace ascites on US; abdomen size is due to dependent edema and not large ascites - Continue lactulose, rifaximin, octreotide (4) Diastolic heart failure Current Visit: Yes Status: Acute Code(s): I50.30 - UNSPECIFIED DIASTOLIC ( CONGESTIVE) HEART FAILURE SNOMED Code(s): 761766008 Comment: -hx diastolic EF, most recent echo during this hospitalization with EF 55-60% -presented with 15lbs weight gain and shortness of breath. Weight at [facility] 12/15/18 was 263 lbs -pt has chronic dependent edema of lower abdomen and LE edema, which actually appears improved today -bumex has been discontinued per nephrology -holding home spironolactone -continue metoprolol (5) Hematuria Current Visit: Yes Status: Acute Code(s): R31.9 - HEMATURIA, UNSPECIFIED SNOMED Code(s): 87133232 Comment: - No urine output during the day yesterday, very minimal overnight - Catheter was placed 01/10/19, though traumatic dacosta may be possible - Bladder and renal US unremarkable (6) Iron deficiency anemia Current Visit: Yes Status: Acute Code(s): D50.9 - IRON DEFICIENCY ANEMIA, UNSPECIFIED SNOMED Code(s): 27770265 Comment: - Continue ferrous sulfate (7) Rash Current Visit: Yes Status: Acute Code(s): R21 - RASH AND OTHER NONSPECIFIC SKIN ERUPTION SNOMED Code(s): 531688193 Comment: - Clinically appears consistent with cutaneous candidiasis - Continue nystatin, Benadryl (8) Hypotension Current Visit: No Status: Acute Comment: -Chronic; unknown etiology, possibly liver disease vs heart disease -Continue midodrine (9) Hypothyroidism Current Visit: No Status: Acute Code(s): E03.9 - HYPOTHYROIDISM, UNSPECIFIED SNOMED Code(s): 36913274 Comment: - Continue levothyroxine Status and Disposition: Inpatient requiring further dialysis, but condition is guarded. Will likely return to [facility] at discharge with dialysis chair. Family wants to continue care for now, considering hospice.
[2019-01-22] MEDS: Atorvastatin* 40 MG TAB PO SCH (20:57)
[2019-01-23] MEDS: Ondansetron INJ* 2 MG/ML VIAL IV PRN (02:02)
[2019-01-23] MEDS: busPIRone TAB* 5 MG PO PRN (02:02)
[2019-01-23] MEDS: Levothyroxine TAB* 50 MCG TAB PO SCH (05:26)
[2019-01-23] MEDS: Metoprolol Tartrate TAB* 25 MG PO SCH ×3 (05:27→20:53)
[2019-01-23] MEDS: RiFAXimin* 550 MG TAB PO SCH ×3 (05:27→20:53)
--- NOTE | 2019-01-23 11:08 | PN ---
Subjective Date of Service: 01/23/19 Interval History: No acute issues overnight. This morning states she feels okay but very tired. No chest pain, no breathing issues reported. No abdominal pain. Family History: Unchanged from Admission Social History: Unchanged from Admission Past Medical History: Unchanged from Admission Objective Active Medications: Acetaminophen (Tylenol Tab*) 650 mg PO Q4H PRN PRN Reason: FEVER/PAIN Last Admin: 01/21/19 20:46 Dose: 650 mg Atorvastatin Calcium (Lipitor*) 40 mg PO BEDTIME [facility] Last Admin: 01/22/19 20:57 Dose: Not Given Buspirone HCl (Buspar Tab*) 5 mg PO TID PRN PRN Reason: ANXIETY Last Admin: 01/23/19 02:02 Dose: 5 mg Cholecalciferol (Vitamin D Tab*) 1,000 units PO QAM [facility] Last Admin: 01/22/19 08:24 Dose: Not Given Diphenhydramine HCl (Benadryl Po*) 25 mg PO Q6H PRN PRN Reason: ITCHING Last Admin: 01/17/19 05:01 Dose: 25 mg Ferrous Sulfate (Ferrous Sulfate Tab*) 325 mg PO TID [facility] Last Admin: 01/22/19 20:57 Dose: Not Given Fluticasone Propionate (Flonase Nasal Seguin 50mcg*) 1 spray INTRANASAL DAILY [facility] Last Admin: 01/22/19 08:24 Dose: Not Given Ipratropium [place] (Atrovent 0.5 Mg Neb.Brionna*) 0.5 mg INH [id number] AWAKE PRN PRN Reason: SOB/WHEEZING Lactulose (Lactulose*) 15 ml PO TID [facility] Last Admin: 01/22/19 20:57 Dose: Not Given Levalbuterol HCl (Xopenex 0.63mg/3ml Neb*) 0.63 mg INH [id number] AWAKE PRN PRN Reason: SOB/WHEEZING Last Admin: 01/15/19 09:27 Dose: 0.63 mg Levothyroxine Sodium (Synthroid Tab*) 50 mcg PO 0600 [facility] Last Admin: 01/23/19 05:26 Dose: Not Given Metoprolol Tartrate (Lopressor Tab*) 12.5 mg PO Q8HR [facility] Last Admin: 01/23/19 05:27 Dose: Not Given Midodrine (Midodrine) 2.5 mg PO TID [facility]; Protocol Last Admin: 01/22/19 20:58 Dose: Not Given Octreotide Acetate (Octreotide Acetate*) 50 mcg SUBCUT TID [facility] Last Admin: 01/22/19 20:58 Dose: Not Given Ondansetron HCl (Zofran Inj*) 4 mg IV Q6H PRN PRN Reason: NAUSEA Last Admin: 01/23/19 02:02 Dose: 4 mg Pantoprazole Sodium (Protonix Tab*) 40 mg PO DAILY [facility] Last Admin: 01/22/19 08:24 Dose: 40 mg Pregabalin (Lyrica Cap(*)) 25 mg PO BID [facility] Last Admin: 01/22/19 20:58 Dose: Not Given Rifaximin (Xifaxan*) 550 mg PO Q8HR [facility] Last Admin: 01/23/19 05:27 Dose: Not Given Sertraline HCl (Zoloft*) 25 mg PO DAILY [facility] Last Admin: 01/22/19 08:24 Dose: Not Given Vital Signs - 8 hr 01/23/19 01/23/19 03:21 07:32 Temperature 97.3 F 97.1 F Pulse Rate 86 99 Respiratory 18 16 Rate Blood Pressure 105/58 111/61 (mmHg) O2 Sat by Pulse 93 95 Oximetry Oxygen Devices in Use Now: Nasal Cannula Appearance: Elderly female lying in bed, not in distress Respiratory: - - scattered crackles heard throughout Cardiovascular: RRR, - - 2+ edema bilateral lower extremities Abdominal: - - mildly distended abdomen with fluid shift present. Neurological: - - awake, alert, follows some commands, oriented X 2. Result Diagrams: 01/22/19 05:36 01/22/19 05:36 Additional Lab and Data: Above labs were pulled into the note, when the note was edited prior to signing the note. Please see labs from day of consultation below. Laboratory Tests 01/10/19 01/11/19 12:10 06:00 WBC 4.6 Hgb 8.5 L Hct 25 L Plt Count 67 L Sodium 134 L Potassium 4.5 Chloride 101 Carbon Dioxide 19 L BUN 102 H Creatinine 3.44 H Glucose 94 Microbiology and Other Data: Microbiology 01/02/19 13:31 Urine Culture - Preliminary Urine Citrobacter Freundii 01/02/19 11:23 Nasal Screen MRSA (PCR) - Final Nasal Mrsa Detected Assess/Plan/Problems-Billing Assessment: Ms. Latham is a 73 yo F with PMH of cirrhosis of unclear etiology, iron deficiency anemia, DMT2, HTN, CKD, atrial fib, and cardiomyopathy with EF 60-65% ; who presents with shortness of breath and 15 lbs of weight gain per [facility] staff, received acute HD. - Patient Problems (1) Acute kidney injury superimposed on CKD Current Visit: Yes Status: Acute Code(s): N17.9 - ACUTE KIDNEY FAILURE, UNSPECIFIED; N18.9 - CHRONIC KIDNEY DISEASE, UNSPECIFIED SNOMED Code(s): 61610191 Comment: - Creatinine fluctuates coniciding with dialysis treatments - Gross hematuria has continued - Renal ultrasound without hydronephrosis - It is overall an unclear etiology; cardiorenal vs hepatorenal - Appreciate nephrology consult; initially failed albumin assisted diuresis, then received 3 sessions of dialysis before self-removing IJ 01/15/19 - Appreciate Palliative consult; patient and son want to continue medical therapy and dialysis for now - New tunneled dialysis cath placed 01/19 - Dialysis MWF (2) Acute on chronic diastolic heart failure Current Visit: Yes Status: Acute Code(s): I50.33 - ACUTE ON CHRONIC DIASTOLIC (CONGESTIVE) HEART FAILURE SNOMED Code(s): 828961891 Comment: - Presented with 15 lbs weight gain and shortness of breath; weight on 12/15/18 was 263 lbs. - History of diastolic heart failure, cardiomyopathy with EF 60-65% - Echo this admission unchanged from prior - Chronic dependent edema of lower abdomen and LE edema - Continue strict I&O, Dacosta - Fluid restriction, sodium restriction - CPAP for afterload reduction - Diuretics discontinued due to kidney injury and now on dialysis - Continue metoprolol (3) Cirrhosis Current Visit: Yes Status: Acute Comment: - Presumed secondary to CANALES based on GI consult in previous hospitalization, though hep C screen is positive; ? multiple myeloma - GI consult recommends no changes to current regimen of lactulose and rifaximin and overall no further changes to management - Chronic thrombocytopenia; plts around baseline - Trace ascites on US; abdomen size is due to dependent edema and not large ascites - Continue lactulose, rifaximin, octreotide (4) Diastolic heart failure Current Visit: Yes Status: Acute Code(s): I50.30 - UNSPECIFIED DIASTOLIC ( CONGESTIVE) HEART FAILURE SNOMED Code(s): 258452790 Comment: -hx diastolic EF, most recent echo during this hospitalization with EF 55-60% -presented with 15lbs weight gain and shortness of breath. Weight at [facility] 12/15/18 was 263 lbs -pt has chronic dependent edema of lower abdomen and LE edema, which actually appears improved today -bumex has been discontinued per nephrology -holding home spironolactone -continue metoprolol (5) Hematuria Current Visit: Yes Status: Acute Code(s): R31.9 - HEMATURIA, UNSPECIFIED SNOMED Code(s): 46236308 Comment: very minimal urine output. - Catheter was placed 01/10/19, though traumatic dacosta may be possible - Bladder and renal US unremarkable (6) Iron deficiency anemia Current Visit: Yes Status: Acute Code(s): D50.9 - IRON DEFICIENCY ANEMIA, UNSPECIFIED SNOMED Code(s): 35184038 Comment: - Continue ferrous sulfate (7) Rash Current Visit: Yes Status: Acute Code(s): R21 - RASH AND OTHER NONSPECIFIC SKIN ERUPTION SNOMED Code(s): 883282090 Comment: - Clinically appears consistent with cutaneous candidiasis - Continue nystatin, Benadryl (8) Hypotension Current Visit: No Status: Acute Comment: -Chronic; unknown etiology, possibly liver disease vs heart disease -Continue midodrine (9) Hypothyroidism Current Visit: No Status: Acute Code(s): E03.9 - HYPOTHYROIDISM, UNSPECIFIED SNOMED Code(s): 71271528 Comment: - Continue levothyroxine Status and Disposition: Inpatient requiring further dialysis, but condition is guarded. Will likely return to [facility] at discharge with dialysis chair. Family wants to continue care for now, considering hospice. poor prognosis.
[2019-01-23] MEDS: Ferrous Sulfate TAB* 325 MG PO SCH ×3 (11:30→19:33)
[2019-01-23] MEDS: Cholecalciferol TAB* 1000 UNITS PO SCH (11:30)
[2019-01-23] MEDS: Lactulose* 15 ML UDC PO SCH ×3 (11:31→19:33)
[2019-01-23] MEDS: Pantoprazole TAB * 40 MG TAB PO SCH (11:31)
[2019-01-23] MEDS: Pregabalin CAP(*) 25 MG PO SCH ×2 (11:31→19:34)
[2019-01-23] MEDS: Octreotide Acetate* 50 MCG/ML ML SUBCUT SCH ×3 (11:31→19:33)
[2019-01-23] MEDS: Fluticasone NASAL SPRAY 50MCG* 16 gm SPRAY BTL INTRANASAL SCH (11:31)
[2019-01-23] MEDS: Sertraline* 25 MG TAB PO SCH (11:32)
[2019-01-23] MEDS: Atorvastatin* 40 MG TAB PO SCH (19:33)
[2019-01-24] MEDS: RiFAXimin* 550 MG TAB PO SCH ×2 (04:53→14:54)
[2019-01-24] MEDS: Metoprolol Tartrate TAB* 25 MG PO SCH ×2 (04:53→14:53)
[2019-01-24] MEDS: Levothyroxine TAB* 50 MCG TAB PO SCH (04:53)
[2019-01-24 06:37] LABS: ABS Eosinophils 0.1 10^3/ul (0-0.6); ABS Lymphocytes 0.5 10^3/ul (1.0-4.8); ABS Monocytes 0.7 10^3/ul (0-0.8); ABS Neutrophils 2.6 10^3/ul (1.5-7.7); ABS Nucleated RBC 0.2 10^3/ul; Eosinophil % 3.5 %; Hematocrit 26 % (35-47); Hemoglobin 8.7 g/dL (12.0-16.0); Lymphocyte % 12.7 %; Mean Corpuscular HGB Conc 33 g/dL (31-36); Mean Corpuscular Hemoglobin 34 pg (27-31); Mean Corpuscular Volume 104 fL (80-97); Mean Platelet Volume 7.9 fL (7.4-10.4); Nucleated Red Blood Cells % 4.6; Platelet Count 81 10^3/uL (150-450); Red Blood Count 2.53 10^6 /uL (3.70-4.87); Red Cell Distribution Width 20 % (10-15)
[2019-01-24 06:47] LABS: BUN/Creatinine Ratio 6.4 (8-20); Calcium 9.1 mg/dL (8.6-10.3); EGFR African American 9.9 (>60); EGFR Non-African American 8.2 (>60); Potassium 4.3 mmol/L (3.5-5.0)
[2019-01-24] MEDS: Ferrous Sulfate TAB* 325 MG PO SCH ×2 (07:16→14:53)
[2019-01-24] MEDS: Cholecalciferol TAB* 1000 UNITS PO SCH (07:16)
[2019-01-24] MEDS: Fluticasone NASAL SPRAY 50MCG* 16 gm SPRAY BTL INTRANASAL SCH (07:17)
[2019-01-24] MEDS: Lactulose* 15 ML UDC PO SCH ×2 (07:17→14:53)
[2019-01-24] MEDS: Octreotide Acetate* 50 MCG/ML ML SUBCUT SCH ×2 (07:17→14:53)
[2019-01-24] MEDS: Pantoprazole TAB * 40 MG TAB PO SCH (07:18)
[2019-01-24] MEDS: Pregabalin CAP(*) 25 MG PO SCH (07:18)
[2019-01-24] MEDS: Sertraline* 25 MG TAB PO SCH (07:18)
--- NOTE | 2019-01-24 08:03 | PN ---
Progress Note - Progress Note Date of Service: 01/24/19 Note: Date of Service: 01/24/19 Note: Inpatient Nephro F/U Date of Service: 01/24/19 Dr. Javier Alvarez, [facility] Nephrology ESRD vs. LUISA on CKD & Fluid Overload on HD. On HD since 01/12, now via Rt IJ TDC. Intradialytic Hypotension She's disoriented and confused. She initially refused dialysis, but as I spoke to her she agreed for it. she has poor prognosis~HRS natural History. In my opinion, she qualifies for hospice. I will speak to her son Ant today to feel what he thinks, how to proceed and what's his perspective and expectations. For now, will continue HD MWF, and I don't think stopping dialysis for Rosa M is unreasonable. LUISA likely 2/2 HRS with very poor prognosis Active Medications: Reviewed Objective: .Vital Signs: Temp Pulse Resp BP Pulse Ox 97.5 F 89 20 102/57 95 01/24/19 07:20 01/24/19 07:20 01/24/19 07:20 01/24/19 07:20 01/24/19 07:20 .Neck: Rt IJ TDC .Heart: AFib +++ LE Edema No Rub .Lungs: Crackles .Extremities: No amputations ++ LE, Abd wall & sacral edema Labs: ABG pH 7.36 (7.35-7.45) 01/15/19 14:49 ABG HCO3 26.4 mmol/L (19-31) 01/15/19 14:49 Sodium 139 mmol/L (135-145) 01/24/19 05:14 Potassium 4.3 mmol/L (3.5-5.0) 01/24/19 05:14 BUN 33 mg/dL (6-24) H 01/24/19 05:14 Creatinine 5.14 mg/dL (0.51-0.95) H 01/24/19 05:14 Hemoglobin A1c 6.2 % (4.0-5.6) H 01/04/19 06:18 Calcium 9.1 mg/dL (8.6-10.3) 01/24/19 05:14 AST 23 U/L (13-39) 01/21/19 06:49 ALT 9 U/L (7-52) 01/21/19 04:47 Assessment and Plan: HD MWF, till further plan is clarified with her Son and outpatient HD unt Evaluate for Hospice HD 3 Hr: QB 400/QD 600. 2K Bath & Heparin free, except catheter flush. UF goal 2L as she tolerates Overall prognosis is poor
[2019-01-24] MEDS ORDERED: Heparin DIALYSIS ONLY(*) 1,000 UNITS/ML VIAL DIALYSIS ONE (11:00)
[2019-01-24] MEDS ORDERED: EPOETIN ALFA-EPBX * 4,000 UNIT/ML VIAL IV ONE (11:00)
--- NOTE | 2019-01-24 18:01 | DS ---
CC: Dr. Joy Koenig, [facility] * DISCHARGE SUMMARY: DATE OF ADMISSION: 01/02/19 DATE OF DISCHARGE: 01/24/19 PRIMARY CARE PROVIDER: Dr. Joy Koenig at [facility]. MY ATTENDING WHILE IN THE HOSPITAL: Dr. Fly Godoy.* (DICTATED BY YADIRA SALGUERO) PRIMARY DISCHARGE DIAGNOSES: 1. End-stage renal disease, likely due to hepatorenal syndrome, not improving on hemodialysis. 2. Acute hypoxic respiratory failure due to diuretic resistance. 3. Heart failure with preserved ejection fraction. 4. Cirrhosis. SECONDARY DISCHARGE DIAGNOSES: 1. Iron-deficiency anemia. 2. Diabetes mellitus type 2. 3. Hypertension. 4. Morbid obesity. 5. Moderate pulmonary hypertension. 6. Severe tricuspid regurgitation. 7. Atrial fibrillation, not on anticoagulation. STUDIES DONE WHILE IN THE HOSPITAL: Chest x-ray from 01/02/19 read as mild interstitial pulmonary edema, unchanged cardiomegaly. No focal airspace consolidation. Renal ultrasound from 01/02/19 read as nearly nondiagnostic ultrasound of the kidneys due to the patient's body habitus. No definite hydronephrosis. No large volume ascites. Abdomen ultrasound from 01/06/19 read as limited study, trace amount of perihepatic ascites, there was splenomegaly. Transthoracic echocardiogram from 01/07/19 read as estimated ejection fraction of 55% to 60%. Wall thickness mild to moderately increased. No regional wall motion abnormalities. Right ventricular systolic function mild to moderately reduced. Septal flattening consistent with right ventricular volume overload. Left atrium is severely dilated. Moderate regurgitation of the mitral valve. Moderate-to- severe regurgitation of the tricuspid valve. No pericardial effusion. No change from previous exam. Chest x-ray from 01/08/19 read as cardiomegaly, low lung volumes, pulmonary vascular congestion with mild pulmonary interstitial edema, small bilateral pleural effusions. Venous Doppler study from 01/12/19 read as no right lower extremity deep vein thrombosis. Abdomen and bladder ultrasound from 01/13/19 read as no definite hydronephrosis. No meaningful imaging of the urinary bladder acquired. Chest x-ray read as findings most consistent with congestive heart failure unchanged. Abdomen and pelvis CT from 01/17/19 read as right pleural effusion, small amount of ascites is noted, diffuse edema in the subcutaneous tissue consistent with anasarca, markedly distended inferior vena cava and venous structures suggestive of fluid overload. Venous Doppler study from 01/17/19 read as patent bilateral internal jugular and subclavian veins. MEDICATIONS AT DISCHARGE: 1. Tylenol 650 mg p.o. q.4 hours as needed. 2. Ipratropium 0.5 mg inhalation q.6 hours as needed. 3. Levalbuterol nebulizer 0.63 mg inhalation q.4 hours while awake. 4. Omeprazole 40 mg p.o. daily. 5. Torsemide 100 mg p.o. daily. 6. Clotrimazole cream 1% topical b.i.d. 7. Pregabalin 25 mg p.o. b.i.d. 8. Lactulose 15 mL p.o. t.i.d. 9. Rifaximin 550 mg p.o. q.8 hours. 10. Zofran ODT 4 mg p.o. q.6 hours as needed. 11. Midodrine 2.5 mg p.o. b.i.d. 12. Levothyroxine 50 mcg p.o. daily. 13. Atorvastatin 40 mg p.o. at bedtime. 14. Buspirone 5 mg p.o. t.i.d. 15. Benadryl 25 mg p.o. q.6 hours as needed. New medications at discharge: 1. Buspirone. 2. Benadryl. 3. Zofran. Medications discontinued at discharge: 1. Metoprolol tartrate 12.5 mg p.o. q.8 hours. 2. Guaifenesin 1200 mg p.o. b.i.d. 3. Ferrous sulfate 325 mg p.o. daily. 4. Vitamin D 1000 units p.o. daily. 5. Spironolactone 50 mg p.o. daily. 6. Benadryl 12.5 mg p.o. q.12 hours as needed. 7. Lipitor 40 mg p.o. at bedtime. 8. Culturelle 1 cap p.o. daily. 9. Fluticasone 50 mcg p.o. daily. HOSPITAL COURSE: This is a brief summary of the patient's presentation and a brief summary of very long and complicated hospital course. For more details, please see the medical record. In brief, the patient is a 73-year-old female who has been admitted to this institution numerous times before, who presented to the emergency department due to progressive shortness of breath and swelling of her abdomen x1 month with increased weight greater than 20 pounds. The patient was believed to be intravascularly depleted, though she had significant subcutaneous edema and moderate ascites with fluid overload, shortness of breath. The patient was diuresed aggressively with her creatinine worsening. The patient's creatinine on admission was 2.61, which was significantly up from her baseline of approximately 1.6. This has been increasing steadily over the course of 2 months since her most recent discharge. The patient was seen in consultation by Dr. Meghan Lobo of Nephrology, who believed part of the patient's kidney function was prerenal, though hepatorenal syndrome was a consideration. The patient's diuretics were reduced and her metolazone was discontinued. The patient was given albumin with her Lasix, but it has not helped to augment her Lasix. The patient was diagnosed with a urinary tract infection and was treated with cefepime. The patient's mental status fluctuated throughout her hospitalization, sometimes the patient being very lethargic and confused and at other times she was more alert. The patient had a significantly decreased functional status, hypotension. The patient continued to be evaluated by Dr. Alvarez. The patient had very poor urinary output from her diuretics. The patient was continued on albumin, though this does not seem to be functional. The patient had worsening in creatinine and a temporary hemodialysis catheter was placed by Dr. Christiana Alvarez of Nephrology with plans for hemodialysis to be started on 01/12/19. The patient was seen for concern for lymphedema and venous stasis ulcers in her leg, which were nonhealing and worsening despite hemodialysis. The patient's hemoglobin stayed low despite erythropoietin supplementation and iron supplementation. The patient's creatinine despite hemodialysis continued to worsen. Over the course of her hospitalization, the patient began to hallucinate. The patient has very poor appetite. The patient on 01/14/19 traumatically removed her hemodialysis catheter with significant amount of bleeding. The patient was seen on 01/17/[address] Desiree Hull of Palliative Care and the patient stated she wanted to have her son make decisions with regards to end-of-life care. The patient elected for a DNR/DNI, but did want to continue dialysis to see if her renal function rebounded. The patient was seen in consultation by Dr. Stuart Levi of Gastroenterology, who recommended no changes. The patient had a repeat hemodialysis catheter placed on 01/18/[address] Akash Tripathi. The patient continued on hemodialysis, though her creatinine continued to worsen despite this, she felt very poorly with dialysis. Her blood pressure remained relatively low despite her midodrine. The patient's mental status continued to deteriorate as did her appetite. The patient was barely eating at all. The patient's son and Dr. Christiana Alvarez of Nephrology on 01/24/19 had a long in- depth conversation with regards to the continuation of hemodialysis and the likelihood of hepatorenal syndrome and that this was not improving. In Dr. Alvarez's statement, she would not be accepted for the outpatient hemodialysis unit and the patient's son stated that he wanted to discontinue dialysis given that his mother does not have very much quality of life. Further clarification of the patient's son's wishes was undertaken and he stated that he wanted her to remain lucid as long as if possible, but was okay with discontinuing other medical treatments for secondary prevention of disease such as her statin. The patient was made comfort care on 01/24/19 and was stable for discharge to [facility] for comfort care and hospice sign on. PHYSICAL EXAM ON THE DAY OF DISCHARGE: General: The patient is a 73-year-old female, who appears much older than stated age and is sitting in the bed, lethargic. The patient does not significantly open her eyes for examination and speaks in a very low tone. Vital Signs: At the time of evaluation, temperature 97.5, pulse rate 89, respiratory rate 20, oxygen saturation 90% on 2 L, blood pressure 102/57. HEENT: Head normocephalic, atraumatic. Sclerae anicteric. No conjunctival injection. Nasal mucosa moist. Oral mucosa moist. No pharyngeal erythema, discharge, or exudate. Neck: Supple, nontender. No lymphadenopathy. No carotid bruits auscultated. No JVD. Exam limited by body habitus. Cardiac: Regular rate and rhythm. No clicks, murmurs, gallops, or rubs. Very limited exam. Pulses are trace in the bilateral dorsalis pedis, posterior tibialis, and radial areas. Respiratory: Crackles in the bases, diminished throughout. No wheezes, rales, or rhonchi. Abdomen: Soft, nontender, nondistended. Bowel sounds present and normoactive in all 4 quadrants. Hepatosplenomegaly palpable. No abdominal bruits auscultated. No obvious ascites. Significant subcutaneous edema. Neuro: Cranial nerves II through XII intact. The patient is lethargic. Alert and oriented to self and place. Psychiatric: The patient is lethargic and appears somewhat depressed. DISCHARGE PLAN BY PROBLEM: 1. End-stage renal disease due to likely hepatorenal syndrome versus cardiorenal syndrome. The patient and her family have elected to discontinue dialysis and focus on comfort as the patient has not been herself since initiating dialysis. The patient's creatinine has continued to worsen and there are no other viable medical treatments for her condition. The patient's case was discussed between the son and Dr. Alvarez of Nephrology and they have elected to discontinue dialysis at this time and focus on comfort care. The patient will be restarted on torsemide 100 mg daily hopefully to decrease her dyspnea. The patient will be continued on a Garcia catheter for comfort. The patient's octreotide will be discontinued at this time. 2. Cirrhosis. The patient's cirrhosis is at this point causing hepatorenal syndrome. The patient also has significant hepatic encephalopathy, but is currently maximally being treated with lactulose and rifaximin. On discussion with the patient's family, they want to continue these treatments as they do want to preserve as much lucid time with the patient as possible. The patient will also be continued on midodrine given her low blood pressures. 3. Anxiety. Continue the patient's BuSpar. Hold the patient's sertraline as this likely will not take any effect and will increase her pill burden. 4. Iron-deficiency anemia. Stop the patient's furosemide as she is likely not responding to this due to her kidney disease and chronic inflammation and the abdominal pain and nausea that can be associated with this. 5. Comfort care: The patient is currently lucid. The patient is not in any pain. The patient has no dyspnea. These will likely change and the patient will likely need medications such as Ativan, morphine, and atropine in the future; however, these should be introduced as needed as the patient's family would like to preserve her lucidity as much as possible at this time. 6. The patient has hepatorenal syndrome and has very poor prognosis at this time. Continue midodrine and diuretics as above. Discontinue spironolactone to avoid hyperkalemia at this time. 7. Atrial fibrillation. Discontinue the patient's metoprolol. Her heart rate has been well controlled while in the hospital and she is likely to become more hypotensive and this is counteracting her midodrine. 8. Diabetes mellitus type 2. Liberalize diet. The patient is not eating much at all. No specific treatment will be undertaken for this. DISPOSITION: Home. CONDITION: Guarded. The patient is on comfort care. TIME SPENT: Approximately 60 minutes was spent on the discharge of this patient , 30 of which was spent [id number] with the patient obtaining history and physical and discussing treatment plan as well discussing the patient's care with her son. YADIRA SALGUERO [id number]/[facility] #: [id number] MITESH
[2019-01-24 18:07] VITALS: BP 105/58
== END 2019-01-24 17:00 | DRG 291 ==
LOC: ED 08:18 → MED 11:24 → OBSVTOIN 01-03 16:56 → MED 01-10 15:29 → MEDTELE 01-11 04:25 → MED 01-22 23:18
PROVIDERS: ADMIT Internal Medicine; ATTEND Internal Medicine
PROC: 5A09357 Assistance with Respiratory Ventilation, Less than 24 Consecutive Hours, Continuous Positive Airway Pressure (ICD-10-PCS; 2019-01-10)
PROC: 05HM33Z Insertion of Infusion Device into Right Internal Jugular Vein, Percutaneous Approach (ICD-10-PCS; principal; 2019-01-11)
PROC: B543ZZA Ultrasonography of Right Jugular Veins, Guidance (ICD-10-PCS; 2019-01-11)
DX: I13.2 Hypertensive heart and chronic kidney disease with heart failure and with stage 5 chronic kidney disease, or end stage renal disease (principal); N18.6 End stage renal disease; I50.43 Acute on chronic combined systolic (congestive) and diastolic (congestive) heart failure; Z68.41 Body mass index [BMI] 40.0-44.9, adult; N17.9 Acute kidney failure, unspecified; L97.909 Non-pressure chronic ulcer of unspecified part of unspecified lower leg with unspecified severity; N39.0 Urinary tract infection, site not specified; Z23 Encounter for immunization; I48.91 Unspecified atrial fibrillation; E66.01 Morbid (severe) obesity due to excess calories; E11.22 Type 2 diabetes mellitus with diabetic chronic kidney disease; M19.90 Unspecified osteoarthritis, unspecified site; I25.10 Atherosclerotic heart disease of native coronary artery without angina pectoris; I42.9 Cardiomyopathy, unspecified; Z91.041 Radiographic dye allergy status; K74.60 Unspecified cirrhosis of liver; I83.009 Varicose veins of unspecified lower extremity with ulcer of unspecified site; D69.6 Thrombocytopenia, unspecified; B96.89 Other specified bacterial agents as the cause of diseases classified elsewhere; I95.9 Hypotension, unspecified; D50.9 Iron deficiency anemia, unspecified; E03.9 Hypothyroidism, unspecified
CPT/HCPCS: 36415; 36558; 36600; 71045; 71046; 74176; 76700; 76770; 76775; 76937; 77001; 80048; 80053; 80076; 81003; 81015; 82140; 82270; 82550; 82553; 82570; 82585; 82595; 82803; 83036; 83605; 83880; 83883; 84155; 84156; 84165; 84166; 84300; 84484; 84540; 85025; 85610; 85730; 86140; 86704; 86705; 86706; 86803; 87070; 87077; 87086; 87106; 87186; 87205; 87340; 87522; 87641; 90686; 90935; 93005; 93306; 93970; 94640; 94660; 99156; 99157; 99285; A9270-GY; C1750; C8929; G0257; G8978-GP-CL; G8978-GP-CN; G8979-GP-CJ; G8979-GP-CN; G8987-GO-CL; G8988-GO-CK; J0690; J0692; J0696; J0885; J1642; J1644; J1940; J2250; J2354; J2405; J3010; P9047; Q5106